=== PATIENT | male | born 1955 | race African-American/Black ===

== ENCOUNTER 2017-07-27 11:44 | Inpatient (IN) | payer MEDICAID, OTHER ==
[~2017-07-27] VITALS: Ht 177.8 cm; Wt 86.7 kg
[~2017-07-27 11:44] MED LIST: ALBU18HF2 IH; ATOR20TA PO; BENA20TA3 PO; CLAR10 PO; CLOP75TA33 PO; Folic Acid PO; Multivitamins,Ther W-Minerals PO; SIMV20TA6 PO
[2017-07-27] MEDS ORDERED: IPRATROPIUM BROMIDE (0.02%) 0.5MG/2.5ML NEB HHN STA (11:58)
[2017-07-27] MEDS ORDERED: ALBUTEROL (0.083%) 2.5MG/3ML NEB HHN STA (11:58)
[2017-07-27] MEDS ORDERED: METHYLPREDNISOLONE SOD SUCC 125 MG/2 ML VIAL IV STA (11:58)
[2017-07-27 12:22] LABS: HEMATOCRIT. 43.5 % (42.0-52.0); HEMOGLOBIN. 15.2 g/dL (14.0-18.0); MEAN CORPUSCULAR HEMOGLOBIN 28.9 pg (28.0-32.0); MEAN CORPUSCULAR VOLUME 83.1 fL (80.0-94.0); MEAN PLATELET VOLUME 10.1 fl (7.4-10.4); PLATELET 193 x1000/uL (130-400); RED BLOOD CELL COUNT 5.23 mill/uL (4.7-6.1); RED CELL DISTRIBUTION WIDTH 13.6 % (11.6-14.6)
[2017-07-27 12:30] LABS: PROTHROMBIN TIME 10.8 sec (9.4-11.6)
[2017-07-27 12:39] LABS: CARBON DIOXIDE 27 mEq/L (21-32); CHLORIDE 105 mEq/L (98-107); TROPONIN I < 0.02 ng/mL (0.00-0.04)
[2017-07-27 13:12] LABS: PLATELET ESTIMATE NORMAL
[2017-07-27] MEDS ORDERED: ALBUTEROL (0.5%) 2.5MG/0.5ML NEB HHN ONE (14:30)
[2017-07-27] MEDS ORDERED: ALBUTEROL (0.083%) 2.5MG/3ML NEB ONE ×2 (14:32→15:12)
[2017-07-27] MEDS ORDERED: HYDROCODONE/ACETAMINOPHEN 5/325MG TABLET PO PRN (17:45)
[2017-07-27] MEDS ORDERED: DIPHENHYDRAMINE 50MG/ML VIAL IV PRN (17:45)
[2017-07-27] MEDS ORDERED: ONDANSETRON HCL 4MG/2ML VIAL IV PRN (17:45)
[2017-07-27] MEDS ORDERED: ACETAMINOPHEN 325MG TABLET PO PRN (17:45)
[2017-07-27] MEDS ORDERED: CLONIDINE 0.1MG TABLET PO PRN (17:45)
[2017-07-27 18:25] VITALS: BP 123/50
[2017-07-27 18:43] VITALS: BP 123/50
[2017-07-27] MEDS: IPRATROPIUM/ALBUTEROL 0.5-3(2.5)MG/3ML NEB INH SCH ×2 (19:59→23:56)
[2017-07-27 20:00] VITALS: BP 127/72
[2017-07-27] MEDS: BUDESONIDE 0.5MG/2ML NEB HHN SCH (20:00)
[2017-07-27] MEDS ORDERED: NICOTINE 21MG PATCH TD NR (21:00)
[2017-07-27] MEDS: METHYLPREDNISOLONE SOD SUCC 40 MG/ML VIAL IV SCH (22:09)
[2017-07-28] VITALS: BP 127/71
[2017-07-28 03:20] LABS: *AMPHETAMINES SCREEN URINE NEGATIVE (NEGATIVE); *BARBITURATES SCREEN URINE NEGATIVE (NEGATIVE); *BENZODIAZEPINES SCREEN URINE NEGATIVE (NEGATIVE); *COCAINE SCREEN URINE PRESUMTIVE POSITIVE (NEGATIVE); CANNABINOID URINE SCREEN NEGATIVE (NEGATIVE); METHADONE URINE SCREEN NEGATIVE (NEGATIVE); OPIATES URINE SCREEN PRESUMTIVE POSITIVE (NEGATIVE); PHENCYCLIDINE URINE SCREEN NEGATIVE (NEGATIVE)
[2017-07-28] MEDS: IPRATROPIUM/ALBUTEROL 0.5-3(2.5)MG/3ML NEB INH SCH ×5 (04:10→20:11)
[2017-07-28] MEDS: METHYLPREDNISOLONE SOD SUCC 40 MG/ML VIAL IV SCH ×3 (04:35→20:31)
[2017-07-28 06:02] LABS: HEMOGLOBIN. 13.7 g/dL (14.0-18.0); MEAN CORPUSCULAR HEMOGLOBIN 29.7 pg (28.0-32.0); MEAN CORPUSCULAR VOLUME 84.4 fL (80.0-94.0); MEAN PLATELET VOLUME 10.6 fl (7.4-10.4); PLATELET 199 x1000/uL (130-400); RED BLOOD CELL COUNT 4.62 mill/uL (4.7-6.1); RED CELL DISTRIBUTION WIDTH 13.1 % (11.6-14.6)
[2017-07-28 06:11] LABS: CHLORIDE 103 mEq/L (98-107)
[2017-07-28 06:21] LABS: CARBON DIOXIDE 28 mEq/L (21-32); HDL CHOLESTEROL 79 mg/dL (40-59); LDL CHOLESTEROL 57 mg/dL (5-100); TROPONIN I < 0.02 ng/mL (0.00-0.04)
[2017-07-28] MEDS: PROMETHAZINE/DEXTROMETHORPHAN 6.25-15MG/5ML BOTTLE 120ML PO PRN ×2 (06:46→16:04)
[2017-07-28] MEDS: BUDESONIDE 0.5MG/2ML NEB HHN SCH ×2 (08:00→20:11)
[2017-07-28 08:01] VITALS: BP 143/72
[2017-07-28] MEDS: NICOTINE 21MG PATCH TD SCH (08:51)
[2017-07-28 09:20] LABS: PLATELET ESTIMATE NORMAL
[2017-07-28] MEDS: GUAIFENESIN 600MG ER TABLET PO SCH ×2 (11:40→20:31)
[2017-07-28 11:49] VITALS: BP 159/80
[2017-07-28] MEDS ORDERED: BUDESONIDE 0.5MG/2ML NEB HHN SCH (12:00)
[2017-07-28] MEDS: AMLODIPINE 5MG TABLET PO SCH (12:17)
[2017-07-28] MEDS: ENOXAPARIN 40MG/0.4ML SYR SUBCUT SCH (12:17)
[2017-07-28] MEDS: IPRATROPIUM/ALBUTEROL 0.5-3(2.5)MG/3ML NEB INH PRN (14:53)
[2017-07-28 17:00] VITALS: BP 140/89
[2017-07-28 20:00] VITALS: BP 154/79
[2017-07-28] MEDS: ZOLPIDEM TARTRATE 5MG TABLET PO PRN (20:31)
[2017-07-29] VITALS: BP 145/80
[2017-07-29] MEDS: IPRATROPIUM/ALBUTEROL 0.5-3(2.5)MG/3ML NEB INH SCH ×7 (00:37→23:44)
[2017-07-29 04:00] VITALS: BP 138/85
[2017-07-29] MEDS: METHYLPREDNISOLONE SOD SUCC 40 MG/ML VIAL IV SCH ×2 (04:06→12:15)
[2017-07-29 05:38] LABS: HEMATOCRIT. 41.5 % (42.0-52.0); HEMOGLOBIN. 13.9 g/dL (14.0-18.0); MEAN CORPUSCULAR HEMOGLOBIN 28.6 pg (28.0-32.0); MEAN CORPUSCULAR VOLUME 85.8 fL (80.0-94.0); MEAN PLATELET VOLUME 10.2 fl (7.4-10.4); PLATELET 205 x1000/uL (130-400); RED BLOOD CELL COUNT 4.84 mill/uL (4.7-6.1); RED CELL DISTRIBUTION WIDTH 13.5 % (11.6-14.6)
[2017-07-29 06:07] LABS: CARBON DIOXIDE 26 mEq/L (21-32); CHLORIDE 104 mEq/L (98-107)
[2017-07-29 06:53] LABS: PLATELET ESTIMATE NORMAL
[2017-07-29 08:00] VITALS: BP 148/83
[2017-07-29] MEDS: BUDESONIDE 0.5MG/2ML NEB HHN SCH ×2 (08:27→20:34)
[2017-07-29] MEDS: GUAIFENESIN 600MG ER TABLET PO SCH ×2 (09:17→21:32)
[2017-07-29] MEDS: AMLODIPINE 5MG TABLET PO SCH (09:17)
[2017-07-29] MEDS: NICOTINE 21MG PATCH TD SCH (09:17)
[2017-07-29] MEDS: PROMETHAZINE/DEXTROMETHORPHAN 6.25-15MG/5ML BOTTLE 120ML PO PRN (09:19)
[2017-07-29] MEDS ORDERED: SODIUM POLYSTYRENE SULFONATE 15 G/60 ML BOT PO NR (10:30)
[2017-07-29 12:00] VITALS: BP 139/78
[2017-07-29] MEDS: ENOXAPARIN 40MG/0.4ML SYR SUBCUT SCH (12:15)
[2017-07-29] MEDS ORDERED: DEXTROSE 50% WATER 50ML SYRINGE IV PRN (14:45)
[2017-07-29 15:18] LABS: BG BASE EXCESS 7.1 mmol/L (-2.0-2.0); BG CARBOXYHEMOGLOBIN 0.3 % (0.5-1.5); BG DEOXYHEMOGLOBIN 8.9 % (0.0-5.0); BG HCO3 ACT 32.2 mmol/L (22.0-26.0); BG METHEMOGLOBIN 0.6 % (0.0-1.5); BG OXYHEMOGLOBIN 90.2 % (94.0-97.0); BG PCO2 46.9 mmHg (35.0-45.0); BG PH 7.455 (7.350-7.450); BG PO2 60.6 mmHg (75.0-100.0); BG SAMPLE SITE RIGHT RADIAL; BG TOTAL HEMOGLOBIN 15.4 g/dL (12.0-18.0); BG VENT MODE ROOM AIR
[2017-07-29 16:00] VITALS: BP 143/86
[2017-07-29] MEDS: INSULIN LISPRO 100 UNITS/ML SUBCUT SCH ×2 (17:15→21:00)
[2017-07-29] MEDS: BLOOD SUGAR DIAGNOSTIC STRIP TEST SCH ×2 (17:34→21:36)
[2017-07-29 20:00] VITALS: BP 153/63
[2017-07-29] MEDS: IPRATROPIUM/ALBUTEROL 0.5-3(2.5)MG/3ML NEB INH PRN (20:34)
[2017-07-29] MEDS: ZOLPIDEM TARTRATE 5MG TABLET PO PRN (21:36)
[2017-07-29] MEDS: METHYLPREDNISOLONE SOD SUCC 125 MG/2 ML VIAL IV SCH (21:37)
[2017-07-30] VITALS: BP 142/97
[2017-07-30] MEDS: IPRATROPIUM/ALBUTEROL 0.5-3(2.5)MG/3ML NEB INH SCH ×5 (03:10→20:08)
[2017-07-30 04:00] VITALS: BP 158/68
[2017-07-30] MEDS: METHYLPREDNISOLONE SOD SUCC 125 MG/2 ML VIAL IV SCH ×3 (04:26→20:46)
[2017-07-30] MEDS: IPRATROPIUM/ALBUTEROL 0.5-3(2.5)MG/3ML NEB INH PRN ×2 (05:04→17:34)
[2017-07-30] MEDS: INSULIN LISPRO 100 UNITS/ML SUBCUT SCH ×4 (05:54→20:52)
[2017-07-30] MEDS: BLOOD SUGAR DIAGNOSTIC STRIP TEST SCH ×4 (05:54→20:52)
[2017-07-30 07:19] LABS: HEMOGLOBIN. 14.1 g/dL (14.0-18.0); MEAN CORPUSCULAR HEMOGLOBIN 29.4 pg (28.0-32.0); MEAN CORPUSCULAR VOLUME 83.2 fL (80.0-94.0); PLATELET 197 x1000/uL (130-400); RED BLOOD CELL COUNT 4.81 mill/uL (4.7-6.1); RED CELL DISTRIBUTION WIDTH 13.5 % (11.6-14.6)
[2017-07-30 08:00] VITALS: BP 148/79
[2017-07-30 08:02] LABS: CARBON DIOXIDE 32 mEq/L (21-32); CHLORIDE 100 mEq/L (98-107)
[2017-07-30] MEDS: BUDESONIDE 0.5MG/2ML NEB HHN SCH ×2 (08:10→20:06)
[2017-07-30] MEDS: NICOTINE 21MG PATCH TD SCH (09:11)
[2017-07-30] MEDS: AMLODIPINE 5MG TABLET PO SCH (09:11)
[2017-07-30] MEDS: GUAIFENESIN 600MG ER TABLET PO SCH ×2 (09:11→20:45)
[2017-07-30 09:40] LABS: PLATELET ESTIMATE NORMAL
[2017-07-30 12:00] VITALS: BP 159/75
[2017-07-30] MEDS ORDERED: TERBUTALINE SULFATE 1MG/ML VIAL SUBCUT NR (12:25)
[2017-07-30] MEDS: ENOXAPARIN 40MG/0.4ML SYR SUBCUT SCH (13:01)
[2017-07-30 16:00] VITALS: BP 127/72
[2017-07-30 20:00] VITALS: BP 147/77
[2017-07-30] MEDS: ZOLPIDEM TARTRATE 5MG TABLET PO PRN (20:45)
[2017-07-31] VITALS: BP 148/90
[2017-07-31] MEDS: IPRATROPIUM/ALBUTEROL 0.5-3(2.5)MG/3ML NEB INH SCH ×3 (00:07→07:53)
[2017-07-31 04:00] VITALS: BP 157/82
[2017-07-31] MEDS: METHYLPREDNISOLONE SOD SUCC 125 MG/2 ML VIAL IV SCH ×2 (04:49→11:42)
[2017-07-31] MEDS: BLOOD SUGAR DIAGNOSTIC STRIP TEST SCH ×2 (06:12→12:28)
[2017-07-31] MEDS: INSULIN LISPRO 100 UNITS/ML SUBCUT SCH ×2 (06:16→12:15)
[2017-07-31 06:45] LABS: HEMATOCRIT. 40.3 % (42.0-52.0); HEMOGLOBIN. 14.2 g/dL (14.0-18.0); MEAN CORPUSCULAR HEMOGLOBIN 29.4 pg (28.0-32.0); MEAN CORPUSCULAR VOLUME 83.4 fL (80.0-94.0); MEAN PLATELET VOLUME 10.3 fl (7.4-10.4); PLATELET 208 x1000/uL (130-400); RED BLOOD CELL COUNT 4.84 mill/uL (4.7-6.1); RED CELL DISTRIBUTION WIDTH 13.4 % (11.6-14.6)
[2017-07-31 07:36] LABS: CARBON DIOXIDE 33 mEq/L (21-32); CHLORIDE 98 mEq/L (98-107)
[2017-07-31 08:00] VITALS: BP_SYST 149
[2017-07-31] MEDS: AMLODIPINE 5MG TABLET PO SCH (08:45)
[2017-07-31] MEDS: GUAIFENESIN 600MG ER TABLET PO SCH (08:45)
[2017-07-31] MEDS: NICOTINE 21MG PATCH TD SCH (08:46)
[2017-07-31] MEDS: IPRATROPIUM/ALBUTEROL 0.5-3(2.5)MG/3ML NEB INH PRN (10:33)
[2017-07-31 11:06] LABS: PLATELET ESTIMATE NORMAL
[2017-07-31] MEDS: ENOXAPARIN 40MG/0.4ML SYR SUBCUT SCH (11:42)
[2017-07-31 12:00] VITALS: BP 132/81
== END 2017-07-31 14:05 | disposition left against medical advice (07) | DRG 139 ==
LOC: ER 12:04 → 5WST 14:39 → ENRESERV 16:36
PROVIDERS: ADMIT Internal Medicine; ATTEND Internal Medicine
PROC: 5A09357 Assistance with Respiratory Ventilation, Less than 24 Consecutive Hours, Continuous Positive Airway Pressure (ICD-10-PCS; principal; 2017-07-29)
PROC: 5A09357 Assistance with Respiratory Ventilation, Less than 24 Consecutive Hours, Continuous Positive Airway Pressure (ICD-10-PCS; 2017-07-30)
DX: J18.9 Pneumonia, unspecified organism (principal); J96.00 Acute respiratory failure, unspecified whether with hypoxia or hypercapnia; E87.3 Alkalosis; E46 Unspecified protein-calorie malnutrition; J44.1 Chronic obstructive pulmonary disease with (acute) exacerbation; J20.9 Acute bronchitis, unspecified; F14.10 Cocaine abuse, uncomplicated; F17.200 Nicotine dependence, unspecified, uncomplicated; J44.0 Chronic obstructive pulmonary disease with (acute) lower respiratory infection; E87.5 Hyperkalemia; R73.9 Hyperglycemia, unspecified; D63.8 Anemia in other chronic diseases classified elsewhere; E83.42 Hypomagnesemia; I10 Essential (primary) hypertension; E78.5 Hyperlipidemia, unspecified; T38.0X5A Adverse effect of glucocorticoids and synthetic analogues, initial encounter; Y92.89 Other specified places as the place of occurrence of the external cause; Z79.899 Other long term (current) drug therapy; Z86.73 Personal history of transient ischemic attack (TIA), and cerebral infarction without residual deficits; Z68.27 Body mass index [BMI] 27.0-27.9, adult; Z79.51 Long term (current) use of inhaled steroids
CPT/HCPCS: 36415; 36600; 71045; 80048; 80053; 80061; 80305; 82375; 82805; 82962; 83735; 83880; 84484; 85025; 85610; 87040; 87086; 87804; 93005; 94640; 96374; 99285; J1650; J2920; J2930; J3105; J7611; J7620; J7626

== ENCOUNTER 2018-05-25 15:20 | Inpatient (IN) | payer MEDICAID ==
[~2018-05-25] VITALS: Ht 180.3 cm; Wt 78.9 kg
[~2018-05-25 15:20] MED LIST changes: -ATOR20TA PO; +BENA20TA10 PO; -BENA20TA3 PO; -SIMV20TA6 PO
[2018-05-25] MEDS ORDERED: MAGNESIUM 2 G PREMIX 50 ML IV ONE (15:51)
[2018-05-25] MEDS ORDERED: METHYLPREDNISOLONE SOD SUCC 125 MG/2 ML VIAL ONE (15:52)
[2018-05-25] MEDS ORDERED: IPRATROPIUM BROMIDE (0.02%) 0.5MG/2.5ML NEB HHN STA (15:55)
[2018-05-25] MEDS ORDERED: METHYLPREDNISOLONE SOD SUCC 125 MG/2 ML VIAL IV STA (16:01)
[2018-05-25] MEDS: ALBUTEROL (0.083%) 2.5MG/3ML NEB HHN SCH ×3 (16:08→16:54)
[2018-05-25 17:33] LABS: BASOPHILS % 0.7 % (0.0-2.0); CHLORIDE 106 mEq/L (98-107); EOSINOPHILS % 2.4 % (0.0-5.0); HEMATOCRIT. 40.5 % (42.0-52.0); HEMOGLOBIN. 14.3 g/dL (14.0-18.0); LYMPHOCYTES % 22.8 % (20.0-50.0); MEAN CORPUSCULAR HEMOGLOBIN 30.2 pg (28.0-32.0); MEAN CORPUSCULAR VOLUME 85.4 fL (80.0-94.0); MONOCYTES % 7.3 % (2.0-8.0); NEUTROPHILS % 66.8 % (40.0-76.0); PLATELET 266 x1000/uL (130-400); RED BLOOD CELL COUNT 4.74 mill/uL (4.7-6.1); RED CELL DISTRIBUTION WIDTH 13.8 % (11.6-14.6)
[2018-05-25] MEDS ORDERED: ALBUTEROL (0.083%) 2.5MG/3ML NEB HHN STA (17:43)
[2018-05-25 18:08] LABS: CLARITY URINE CLEAR (CLEAR); COLOR URINE YELLOW (YELLOW); KETONES URINE NEGATIVE (NEGATIVE); LEUKOCYTE ESTERASE URINE NEGATIVE (NEGATIVE); NITRITE URINE NEGATIVE (NEGATIVE); OCCULT BLOOD URINE NEGATIVE (NEGATIVE); PH URINE 5.5 (4.5-8.0); PROTEIN URINE NEGATIVE (NEGATIVE); SPECIFIC GRAVITY URINE 1.017 (1.005-1.030); UROBILINOGEN URINE 0.2 E.U./dL (0.2-1.0)
[2018-05-25 18:23] LABS: *AMPHETAMINES SCREEN URINE NEGATIVE (NEGATIVE); *BARBITURATES SCREEN URINE NEGATIVE (NEGATIVE); *BENZODIAZEPINES SCREEN URINE NEGATIVE (NEGATIVE); *COCAINE SCREEN URINE PRESUMTIVE POSITIVE (NEGATIVE)
[2018-05-25 18:24] LABS: CANNABINOID URINE SCREEN NEGATIVE (NEGATIVE); METHADONE URINE SCREEN NEGATIVE (NEGATIVE); OPIATES URINE SCREEN NEGATIVE (NEGATIVE); PHENCYCLIDINE URINE SCREEN NEGATIVE (NEGATIVE)
[2018-05-25] MEDS ORDERED: IPRATROPIUM/ALBUTEROL 0.5-3(2.5)MG/3ML NEB HHN ONE (22:00)
[2018-05-26] MEDS: IPRATROPIUM/ALBUTEROL 0.5-3(2.5)MG/3ML NEB HHN SCH ×5 (05:30→19:58)
[2018-05-26 11:06] VITALS: BP 144/73
[2018-05-26 11:18] VITALS: BP 144/73
[2018-05-26 12:00] VITALS: BP 129/64
[2018-05-26 16:00] VITALS: BP 138/69
[2018-05-26] MEDS: METHYLPREDNISOLONE SOD SUCC 125 MG/2 ML VIAL IV SCH ×2 (17:28→23:25)
[2018-05-26 20:00] VITALS: BP 130/66
[2018-05-26] MEDS: LORATADINE 10MG TABLET PO SCH (22:09)
[2018-05-26] MEDS: ZOLPIDEM TARTRATE 5MG TABLET PO PRN (22:09)
[2018-05-27] MEDS: IPRATROPIUM/ALBUTEROL 0.5-3(2.5)MG/3ML NEB HHN SCH ×6 (00:18→19:51)
[2018-05-27 04:00] VITALS: BP 126/66
[2018-05-27 08:00] VITALS: BP 129/72
[2018-05-27] MEDS: MULTIVITAMINS,THER W-MINERALS TABLET PO SCH (08:25)
[2018-05-27] MEDS: METHYLPREDNISOLONE SOD SUCC 125 MG/2 ML VIAL IV SCH ×2 (08:25→16:39)
[2018-05-27] MEDS: FOLIC ACID 1MG TABLET PO SCH (08:25)
[2018-05-27] MEDS: CLOPIDOGREL 75MG TABLET PO SCH (08:25)
[2018-05-27] MEDS: BENAZEPRIL 10MG TABLET PO SCH (08:25)
[2018-05-27 12:00] VITALS: BP 124/67
[2018-05-27 16:00] VITALS: BP 121/62
[2018-05-27 20:00] VITALS: BP 119/69
[2018-05-27] MEDS: LORATADINE 10MG TABLET PO SCH (20:30)
[2018-05-27] MEDS: ZOLPIDEM TARTRATE 5MG TABLET PO PRN (22:01)
[2018-05-28] VITALS: BP 124/79
[2018-05-28] MEDS: METHYLPREDNISOLONE SOD SUCC 125 MG/2 ML VIAL IV SCH ×3 (00:03→16:26)
[2018-05-28] MEDS: IPRATROPIUM/ALBUTEROL 0.5-3(2.5)MG/3ML NEB HHN SCH ×5 (00:21→14:54)
[2018-05-28 04:00] VITALS: BP 128/64
[2018-05-28 08:06] VITALS: BP 128/58
[2018-05-28] MEDS: FOLIC ACID 1MG TABLET PO SCH (08:09)
[2018-05-28] MEDS: BENAZEPRIL 10MG TABLET PO SCH (08:09)
[2018-05-28] MEDS: CLOPIDOGREL 75MG TABLET PO SCH (08:09)
[2018-05-28] MEDS: MULTIVITAMINS,THER W-MINERALS TABLET PO SCH (08:09)
[2018-05-28 12:00] VITALS: BP 141/62
[2018-05-28 12:49] LABS: HEMATOCRIT. 39.6 % (42.0-52.0); HEMOGLOBIN. 13.8 g/dL (14.0-18.0); MEAN CORPUSCULAR HEMOGLOBIN 29.9 pg (28.0-32.0); MEAN CORPUSCULAR VOLUME 85.8 fL (80.0-94.0); PLATELET 253 x1000/uL (130-400); RED BLOOD CELL COUNT 4.62 mill/uL (4.7-6.1); RED CELL DISTRIBUTION WIDTH 13.7 % (11.6-14.6)
[2018-05-28 13:10] LABS: CHLORIDE 103 mEq/L (98-107)
[2018-05-28 15:05] VITALS: BP 152/72
[2018-05-28 16:00] VITALS: BP 152/72
[2018-05-28 17:46] LABS: PLATELET ESTIMATE NORMAL
== END 2018-05-28 18:00 | disposition home or self-care (01) | DRG 140 ==
LOC: ER 18:01 → 8WST 18:38 → EDBEDREQSVC 18:39 → EDBEDREQ 18:39 → ENRESERV 05-26 08:26
PROVIDERS: ADMIT Internal Medicine; ATTEND Internal Medicine
DX: J44.1 Chronic obstructive pulmonary disease with (acute) exacerbation (principal); J96.01 Acute respiratory failure with hypoxia; E78.00 Pure hypercholesterolemia, unspecified; I10 Essential (primary) hypertension; F14.90 Cocaine use, unspecified, uncomplicated; Z72.0 Tobacco use; Z86.73 Personal history of transient ischemic attack (TIA), and cerebral infarction without residual deficits; Z79.899 Other long term (current) drug therapy
CPT/HCPCS: 36415; 71045; 80048; 80305; 85007; 85027; 93005; 94640; 96374; 99285; J2930; J3475; J7611; J7620

== ENCOUNTER 2018-07-30 07:27 | Emergency (ER) | payer MEDICAID, OTHER ==
[~2018-07-30] VITALS: Ht 177.8 cm; Wt 85.0 kg
[2018-07-30 07:30] VITALS: BP 150/78
== END 2018-07-30 09:35 | disposition left against medical advice (07) ==
LOC: ER 07:27
DX: Z53.21 Procedure and treatment not carried out due to patient leaving prior to being seen by health care provider (principal)

== ENCOUNTER 2019-01-14 23:09 | Inpatient (IN) | payer MEDICARE, MEDICAID ==
[~2019-01-14] VITALS: Ht 363.2 cm; Wt 90.7 kg
[2019-01-14] MEDS ORDERED: METHYLPREDNISOLONE SOD SUCC 125 MG/2 ML VIAL IV STA (23:24)
[2019-01-14] MEDS ORDERED: IPRATROPIUM BROMIDE (0.02%) 0.5MG/2.5ML NEB HHN STA (23:24)
[2019-01-14] MEDS ORDERED: MAGNESIUM 2 G PREMIX 50 ML IV ONE (23:30)
[2019-01-14 23:48] LABS: BASOPHILS % 0.9 % (0.0-2.0); EOSINOPHILS % 1.9 % (0.0-5.0); HEMATOCRIT. 35.1 % (42.0-52.0); HEMOGLOBIN. 12.4 g/dL (14.0-18.0); LYMPHOCYTES % 26.9 % (20.0-50.0); MEAN CORPUSCULAR HEMOGLOBIN 30.5 pg (28.0-32.0); MEAN CORPUSCULAR VOLUME 86.2 fL (80.0-94.0); MONOCYTES % 7.2 % (2.0-8.0); NEUTROPHILS % 63.1 % (40.0-76.0); PLATELET 339 x1000/uL (130-400); RED BLOOD CELL COUNT 4.07 mill/uL (4.7-6.1); RED CELL DISTRIBUTION WIDTH 15.2 % (11.6-14.6)
[2019-01-14 23:52] LABS: CHLORIDE 110 mEq/L (98-107)
[2019-01-14 23:53] LABS: BG BASE EXCESS 1.8 mmol/L (-2.0-2.0); BG CARBOXYHEMOGLOBIN 0.3 % (0.5-1.5); BG DEOXYHEMOGLOBIN 4.8 % (0.0-5.0); BG FRACTION INSPIRED OXYGEN 21; BG HCO3 ACT 26.1 mmol/L (22.0-26.0); BG METHEMOGLOBIN 0.3 % (0.0-1.5); BG OXYGEN SATURATION 95.2 % (92.0-98.5); BG OXYHEMOGLOBIN 94.6 % (94.0-97.0); BG PCO2 40.2 mmHg (35.0-45.0); BG PH 7.431 (7.350-7.450); BG PO2 82.9 mmHg (75.0-100.0); BG SAMPLE SITE RIGHT RADIAL; BG TOTAL HEMOGLOBIN 12.7 g/dL (12.0-18.0); BG VENT MODE ROOM AIR
[2019-01-15] MEDS: ALBUTEROL (0.083%) 2.5MG/3ML NEB HHN SCH ×3 (00:04→09:03)
[2019-01-15] MEDS ORDERED: GUAIFENESIN 200MG/10ML SUGAR FREE UDC PO PRN (06:15)
[2019-01-15] MEDS ORDERED: IPRATROPIUM/ALBUTEROL 0.5-3(2.5)MG/3ML NEB INH PRN (06:15)
[2019-01-15] MEDS ORDERED: CLONIDINE 0.1MG TABLET PO PRN (06:15)
[2019-01-15] MEDS ORDERED: ACETAMINOPHEN 325MG TABLET PO PRN (06:15)
[2019-01-15] MEDS ORDERED: ONDANSETRON HCL 4MG/2ML INJ IV PRN (06:15)
[2019-01-15] MEDS ORDERED: NA PHOS,M-B/NA PHOS,DI-BA ENEMA 118ML PR PRN (06:15)
[2019-01-15] MEDS ORDERED: LORAZEPAM 2MG/ML CPJ IV PRN (06:15)
[2019-01-15] MEDS ORDERED: MAGNESIUM/ALUMINUM HYDROXIDE/SIMETHICONE 30ML UDC PO PRN (06:15)
[2019-01-15] MEDS ORDERED: HYDRALAZINE 20MG/ML VIAL IV PRN (06:15)
[2019-01-15] MEDS ORDERED: HYDROMORPHONE HCL/PF 2MG/ML CPJ IV PRN (06:15)
[2019-01-15] MEDS ORDERED: HYDROCODONE/ACETAMINOPHEN 10/325MG TABLET PO PRN (06:15)
[2019-01-15] MEDS ORDERED: DIPHENHYDRAMINE 50MG/ML VIAL IV PRN (06:15)
[2019-01-15] MEDS ORDERED: DOCUSATE SODIUM 100MG CAPSULE PO PRN (06:15)
[2019-01-15 06:40] LABS: T4 FREE 0.83 ng/dL (0.76-1.46)
[2019-01-15 08:00] VITALS: BP 163/77
[2019-01-15 09:00] VITALS: BP 163/77
[2019-01-15] MEDS: ASPIRIN 81MG EC TABLET PO SCH (09:29)
[2019-01-15] MEDS: METHYLPREDNISOLONE SOD SUCC 125 MG/2 ML VIAL IV SCH ×3 (09:29→22:16)
[2019-01-15] MEDS: ENOXAPARIN 40MG/0.4ML SYR SUBCUT SCH (09:31)
[2019-01-15] MEDS: IPRATROPIUM/ALBUTEROL 0.5-3(2.5)MG/3ML NEB HHN SCH ×3 (11:34→20:08)
[2019-01-15 12:00] VITALS: BP 141/73
[2019-01-15] MEDS: SODIUM CHLORIDE 0.9% INJ 3ML FLUSH IVF SCH ×2 (14:00→22:17)
[2019-01-15 15:15] LABS: CREATINE KINASE 94 IU/L (39-308)
[2019-01-15 15:16] LABS: CREATINE KINASE MB FRACTION 2.1 ng/mL (0.5-3.6)
[2019-01-15 16:00] VITALS: BP 138/79
[2019-01-15] MEDS: GUAIFENESIN 600MG ER TABLET PO SCH (22:16)
[2019-01-15] MEDS: HYDROXYZINE 25MG TABLET PO PRN (22:44)
[2019-01-16] VITALS: BP 105/69
[2019-01-16] MEDS: IPRATROPIUM/ALBUTEROL 0.5-3(2.5)MG/3ML NEB HHN SCH ×6 (00:31→21:07)
[2019-01-16 00:50] LABS: CREATINE KINASE 84 IU/L (39-308)
[2019-01-16 00:51] LABS: CREATINE KINASE MB FRACTION 1.8 ng/mL (0.5-3.6)
[2019-01-16] MEDS: METHYLPREDNISOLONE SOD SUCC 125 MG/2 ML VIAL IV SCH ×3 (03:10→14:44)
[2019-01-16 04:44] VITALS: BP 110/71
[2019-01-16] MEDS: SODIUM CHLORIDE 0.9% INJ 3ML FLUSH IVF SCH ×3 (05:18→21:07)
[2019-01-16 06:18] LABS: HEMATOCRIT. 33.9 % (42.0-52.0); HEMOGLOBIN. 11.7 g/dL (14.0-18.0); MEAN CORPUSCULAR HEMOGLOBIN 29.7 pg (28.0-32.0); MEAN CORPUSCULAR VOLUME 85.6 fL (80.0-94.0); MEAN PLATELET VOLUME 9.6 fl (7.4-10.4); PLATELET 339 x1000/uL (130-400); RED BLOOD CELL COUNT 3.96 mill/uL (4.7-6.1); RED CELL DISTRIBUTION WIDTH 15.2 % (11.6-14.6)
[2019-01-16 06:24] LABS: CHLORIDE 107 mEq/L (98-107)
[2019-01-16 07:52] LABS: PLATELET ESTIMATE NORMAL
[2019-01-16 08:00] VITALS: BP 126/67
[2019-01-16] MEDS: ASPIRIN 81MG EC TABLET PO SCH (08:53)
[2019-01-16] MEDS: ENOXAPARIN 40MG/0.4ML SYR SUBCUT SCH (08:53)
[2019-01-16] MEDS: GUAIFENESIN 600MG ER TABLET PO SCH ×2 (08:53→21:06)
[2019-01-16 12:00] VITALS: BP 128/64
[2019-01-16 16:00] VITALS: BP 130/60
[2019-01-16] MEDS: THIAMINE HCL 100MG TABLET PO SCH (16:09)
[2019-01-16] MEDS: MULTIVITAMINS,THER W-MINERALS TABLET PO SCH (16:09)
[2019-01-16] MEDS: FOLIC ACID 1MG TABLET PO SCH (16:09)
[2019-01-16] MEDS ORDERED: NICO-645 TP (17:44)
[2019-01-16] MEDS ORDERED: GUAI600T26 PO (17:47)
[2019-01-16 20:00] VITALS: BP 125/59
[2019-01-16] MEDS: HYDROXYZINE 25MG TABLET PO PRN (22:22)
[2019-01-17] VITALS: BP 128/61
[2019-01-17] MEDS: IPRATROPIUM/ALBUTEROL 0.5-3(2.5)MG/3ML NEB HHN SCH ×4 (00:12→11:23)
[2019-01-17 04:00] VITALS: BP 140/70
[2019-01-17] MEDS: SODIUM CHLORIDE 0.9% INJ 3ML FLUSH IVF SCH ×2 (05:24→14:53)
[2019-01-17] MEDS: METHYLPREDNISOLONE SOD SUCC 40 MG/ML VIAL IV SCH ×2 (06:13→10:28)
[2019-01-17] MEDS: FOLIC ACID 1MG TABLET PO SCH (09:00)
[2019-01-17] MEDS: GUAIFENESIN 600MG ER TABLET PO SCH (10:28)
[2019-01-17] MEDS: MULTIVITAMINS,THER W-MINERALS TABLET PO SCH (10:28)
[2019-01-17] MEDS: ASPIRIN 81MG EC TABLET PO SCH (10:29)
[2019-01-17] MEDS: THIAMINE HCL 100MG TABLET PO SCH (10:29)
[2019-01-17] MEDS: ENOXAPARIN 40MG/0.4ML SYR SUBCUT SCH (10:32)
[2019-01-17 11:03] VITALS: BP 125/67
== END 2019-01-17 14:05 | disposition home or self-care (01) | DRG 205 ==
LOC: ER 23:09 → 5WST 01-15 01:31 → EDBEDREQ 01-15 01:35 → EDBEDREQTM 01-15 01:35 → EDBEDREQDT 01-15 01:35 → ENRESERV 01-15 07:02
PROVIDERS: ADMIT Internal Medicine; ATTEND Internal Medicine
DX: J68.0 Bronchitis and pneumonitis due to chemicals, gases, fumes and vapors (principal); J96.00 Acute respiratory failure, unspecified whether with hypoxia or hypercapnia; J44.1 Chronic obstructive pulmonary disease with (acute) exacerbation; F17.200 Nicotine dependence, unspecified, uncomplicated; E78.5 Hyperlipidemia, unspecified; F14.10 Cocaine abuse, uncomplicated; I10 Essential (primary) hypertension; J06.9 Acute upper respiratory infection, unspecified; G47.00 Insomnia, unspecified; E78.00 Pure hypercholesterolemia, unspecified; Z79.899 Other long term (current) drug therapy; Z86.73 Personal history of transient ischemic attack (TIA), and cerebral infarction without residual deficits; Z79.02 Long term (current) use of antithrombotics/antiplatelets; Z98.42 Cataract extraction status, left eye; Z71.6 Tobacco abuse counseling
CPT/HCPCS: 36415; 36600; 71045; 80048; 80061; 82375; 82550; 82553; 82805; 83605; 83880; 84439; 84443; 84484; 93005; 94640; 96365; 96375; 99285; J1650; J2920; J2930; J3475; J7611; J7620

== ENCOUNTER 2019-04-23 19:50 | Inpatient (IN) | payer MEDICARE, MEDICAID ==
[~2019-04-23] VITALS: Ht 175.3 cm; Wt 74.4 kg
[~2019-04-23 19:50] MED LIST changes: +GUAI600T26 PO; +NICO-645 TP
[2019-04-23] MEDS ORDERED: IPRATROPIUM BROMIDE (0.02%) 0.5MG/2.5ML NEB HHN STA (20:46)
[2019-04-23] MEDS ORDERED: PREDNISONE 20MG TABLET PO STA (20:46)
[2019-04-23] MEDS ORDERED: ALBUTEROL (0.083%) 2.5MG/3ML NEB HHN STA (20:46)
[2019-04-23] MEDS ORDERED: ASPIRIN 81MG TABLET PO ONE (21:00)
[2019-04-23 21:03] LABS: BASOPHILS % 1.2 % (0.0-2.0); EOSINOPHILS % 2.6 % (0.0-5.0); HEMATOCRIT. 36.4 % (42.0-52.0); HEMOGLOBIN. 12.6 g/dL (14.0-18.0); LYMPHOCYTES % 20.9 % (20.0-50.0); MEAN CORPUSCULAR HEMOGLOBIN 29.1 pg (28.0-32.0); MEAN CORPUSCULAR VOLUME 84.2 fL (80.0-94.0); MEAN PLATELET VOLUME 9.2 fl (7.4-10.4); MONOCYTES % 8.4 % (2.0-8.0); NEUTROPHILS % 66.9 % (40.0-76.0); PLATELET 391 x1000/uL (130-400); RED BLOOD CELL COUNT 4.32 mill/uL (4.7-6.1); RED CELL DISTRIBUTION WIDTH 17.1 % (11.6-14.6)
[2019-04-23 21:09] LABS: CHLORIDE 108 mEq/L (98-107)
[2019-04-23] MEDS ORDERED: ONDANSETRON HCL 4MG/2ML INJ IV PRN (22:15)
[2019-04-23] MEDS ORDERED: ACETAMINOPHEN 325MG TABLET PO PRN (22:15)
[2019-04-23] MEDS ORDERED: CLONIDINE 0.1MG TABLET PO PRN (22:15)
[2019-04-23] MEDS ORDERED: DOCUSATE SODIUM 100MG CAPSULE PO PRN (22:15)
[2019-04-23] MEDS ORDERED: GUAIFENESIN 200MG/10ML SUGAR FREE UDC PO PRN (22:15)
[2019-04-23] MEDS ORDERED: HYDROCODONE/ACETAMINOPHEN 5/325MG TABLET PO PRN (22:15)
[2019-04-23] MEDS ORDERED: MAGNESIUM/ALUMINUM HYDROXIDE/SIMETHICONE 30ML UDC PO PRN (22:15)
[2019-04-23] MEDS ORDERED: IPRATROPIUM/ALBUTEROL 0.5-3(2.5)MG/3ML NEB NEB PRN (22:15)
[2019-04-23 23:30] VITALS: BP 116/59
[2019-04-24] MEDS ORDERED: METHYLPREDNISOLONE SOD SUCC 125 MG/2 ML VIAL IV SCH
[2019-04-24] MEDS: AZITHROMYCIN 500 MG TABLET PO SCH ×2 (00:52→21:58)
[2019-04-24] MEDS: IPRATROPIUM/ALBUTEROL 0.5-3(2.5)MG/3ML NEB NEB SCH ×6 (01:21→20:28)
[2019-04-24 02:33] LABS: CHLORIDE 107 mEq/L (98-107)
[2019-04-24 04:00] VITALS: BP 124/62
[2019-04-24] MEDS: METHYLPREDNISOLONE SOD SUCC 40 MG/ML VIAL IV SCH ×3 (05:56→21:55)
[2019-04-24] MEDS: OMEPRAZOLE 20MG CAPSULE EXTENDED RELEASE PO SCH (07:03)
[2019-04-24 08:05] LABS: CLARITY URINE CLEAR (CLEAR); COLOR URINE YELLOW (YELLOW); KETONES URINE NEGATIVE (NEGATIVE); LEUKOCYTE ESTERASE URINE NEGATIVE (NEGATIVE); NITRITE URINE NEGATIVE (NEGATIVE); OCCULT BLOOD URINE NEGATIVE (NEGATIVE); PH URINE 5.5 (4.5-8.0); PROTEIN URINE NEGATIVE (NEGATIVE); SPECIFIC GRAVITY URINE 1.024 (1.005-1.030); UROBILINOGEN URINE 0.2 E.U./dL (0.2-1.0)
[2019-04-24 08:31] LABS: *BARBITURATES SCREEN URINE NEGATIVE (NEGATIVE); *BENZODIAZEPINES SCREEN URINE NEGATIVE (NEGATIVE); *COCAINE SCREEN URINE PRESUMTIVE POSITIVE (NEGATIVE); METHADONE URINE SCREEN NEGATIVE (NEGATIVE); OPIATES URINE SCREEN NEGATIVE (NEGATIVE)
[2019-04-24 08:32] LABS: *AMPHETAMINES SCREEN URINE NEGATIVE (NEGATIVE); CANNABINOID URINE SCREEN PRESUMTIVE POSITIVE (NEGATIVE); PHENCYCLIDINE URINE SCREEN NEGATIVE (NEGATIVE)
[2019-04-24] MEDS ORDERED: ENOXAPARIN 30MG/0.3ML SYR SUBCUT SCH (09:00)
[2019-04-24 11:33] LABS: HEMATOCRIT. 32.6 % (42.0-52.0); HEMOGLOBIN. 11.3 g/dL (14.0-18.0); MEAN CORPUSCULAR HEMOGLOBIN 29.5 pg (28.0-32.0); MEAN CORPUSCULAR VOLUME 85.3 fL (80.0-94.0); MEAN PLATELET VOLUME 9.6 fl (7.4-10.4); PLATELET 335 x1000/uL (130-400); RED BLOOD CELL COUNT 3.82 mill/uL (4.7-6.1); RED CELL DISTRIBUTION WIDTH 17.4 % (11.6-14.6)
[2019-04-24 12:00] LABS: PLATELET ESTIMATE NORMAL
[2019-04-24 12:07] VITALS: BP 133/71
[2019-04-24] MEDS ORDERED: FOLIC ACID 1MG TABLET PO SCH (15:15)
[2019-04-24] MEDS ORDERED: MULTIVITAMINS,THER W-MINERALS TABLET PO SCH (15:15)
[2019-04-24] MEDS ORDERED: NICOTINE 14MG PATCH TD SCH (15:15)
[2019-04-24 16:04] VITALS: BP 128/56
[2019-04-24 16:11] LABS: CREATINE KINASE MB FRACTION 2.6 ng/mL (0.5-3.6)
[2019-04-24] MEDS: NICOTINE 14MG PATCH TD SCH (16:29)
[2019-04-24] MEDS: BENAZEPRIL 10MG TABLET PO SCH (16:30)
[2019-04-24] MEDS: CLOPIDOGREL 75MG TABLET PO SCH (16:30)
[2019-04-24] MEDS: THIAMINE HCL 100MG TABLET PO SCH (16:30)
[2019-04-24] MEDS: MULTIVITAMINS,THER W-MINERALS TABLET PO SCH (16:30)
[2019-04-24] MEDS: ASPIRIN 81MG TABLET PO SCH (16:30)
[2019-04-24] MEDS: FOLIC ACID 1MG TABLET PO SCH (16:30)
[2019-04-24 20:00] VITALS: BP 117/63
[2019-04-24] MEDS: ATORVASTATIN CALCIUM 20MG TABLET PO SCH (21:55)
[2019-04-24] MEDS: LORATADINE 10MG TABLET PO SCH (21:55)
[2019-04-24] MEDS: ZOLPIDEM TARTRATE 5MG TABLET PO PRN (21:55)
[2019-04-25] VITALS: BP 121/67
[2019-04-25] MEDS: IPRATROPIUM/ALBUTEROL 0.5-3(2.5)MG/3ML NEB NEB SCH ×6 (00:24→20:42)
[2019-04-25 04:00] VITALS: BP 106/76
[2019-04-25] MEDS: METHYLPREDNISOLONE SOD SUCC 40 MG/ML VIAL IV SCH ×3 (06:44→21:01)
[2019-04-25] MEDS: OMEPRAZOLE 20MG CAPSULE EXTENDED RELEASE PO SCH (06:44)
[2019-04-25 06:46] LABS: BASOPHILS % 0.1 % (0.0-2.0); HEMATOCRIT. 32.9 % (42.0-52.0); HEMOGLOBIN. 11.1 g/dL (14.0-18.0); LYMPHOCYTES % 7.9 % (20.0-50.0); MEAN CORPUSCULAR HEMOGLOBIN 28.9 pg (28.0-32.0); MEAN CORPUSCULAR VOLUME 85.6 fL (80.0-94.0); MONOCYTES % 2.9 % (2.0-8.0); NEUTROPHILS % 89.1 % (40.0-76.0); PLATELET 346 x1000/uL (130-400); RED BLOOD CELL COUNT 3.84 mill/uL (4.7-6.1); RED CELL DISTRIBUTION WIDTH 17.6 % (11.6-14.6)
[2019-04-25 07:10] LABS: CHLORIDE 107 mEq/L (98-107)
[2019-04-25 07:50] LABS: TOTAL IRON BINDING CAPACITY 349 ug/dL (250-450)
[2019-04-25 07:52] LABS: T4 FREE 0.77 ng/dL (0.76-1.46)
[2019-04-25 08:00] VITALS: BP 131/68
[2019-04-25] MEDS: ASPIRIN 81MG TABLET PO SCH (09:06)
[2019-04-25] MEDS: MULTIVITAMINS,THER W-MINERALS TABLET PO SCH (09:06)
[2019-04-25] MEDS: CLOPIDOGREL 75MG TABLET PO SCH (09:06)
[2019-04-25] MEDS: NICOTINE 14MG PATCH TD SCH (09:06)
[2019-04-25] MEDS: THIAMINE HCL 100MG TABLET PO SCH (09:06)
[2019-04-25] MEDS: FOLIC ACID 1MG TABLET PO SCH (09:06)
[2019-04-25] MEDS: BENAZEPRIL 10MG TABLET PO SCH (09:07)
[2019-04-25] MEDS: ENOXAPARIN 40MG/0.4ML SYR SUBCUT SCH (09:07)
[2019-04-25 12:00] VITALS: BP 139/66
[2019-04-25 12:20] LABS: BG BASE EXCESS 3.6 mmol/L (-2.0-2.0); BG CARBOXYHEMOGLOBIN 0.5 % (0.5-1.5); BG DEOXYHEMOGLOBIN 5.1 % (0.0-5.0); BG FRACTION INSPIRED OXYGEN 21; BG HCO3 ACT 28.2 mmol/L (22.0-26.0); BG METHEMOGLOBIN 0.3 % (0.0-1.5); BG OXYGEN SATURATION 94.9 % (92.0-98.5); BG OXYHEMOGLOBIN 94.1 % (94.0-97.0); BG PCO2 42.3 mmHg (35.0-45.0); BG PH 7.441 (7.350-7.450); BG PO2 79.1 mmHg (75.0-100.0); BG SAMPLE SITE RIGHT RADIAL; BG TOTAL HEMOGLOBIN 12.1 g/dL (12.0-18.0); BG VENT MODE ROOM AIR
[2019-04-25 16:00] VITALS: BP 123/66
[2019-04-25 20:30] VITALS: BP 114/62
[2019-04-25] MEDS: BUDESONIDE 0.5MG/2ML NEB HHN SCH (20:43)
[2019-04-25] MEDS: AZITHROMYCIN 500 MG TABLET PO SCH (20:53)
[2019-04-25] MEDS: LORATADINE 10MG TABLET PO SCH (20:53)
[2019-04-25] MEDS: ATORVASTATIN CALCIUM 20MG TABLET PO SCH (20:53)
[2019-04-25] MEDS: ZOLPIDEM TARTRATE 5MG TABLET PO PRN (20:53)
[2019-04-25] MEDS: GUAIFENESIN 600MG ER TABLET PO SCH (20:53)
[2019-04-26] VITALS: BP 138/70
[2019-04-26] MEDS: IPRATROPIUM/ALBUTEROL 0.5-3(2.5)MG/3ML NEB NEB SCH ×4 (00:55→12:26)
[2019-04-26 04:00] VITALS: BP 137/59
[2019-04-26] MEDS: OMEPRAZOLE 20MG CAPSULE EXTENDED RELEASE PO SCH (06:32)
[2019-04-26] MEDS: METHYLPREDNISOLONE SOD SUCC 40 MG/ML VIAL IV SCH (06:32)
[2019-04-26 07:12] LABS: BASOPHILS % 0.2 % (0.0-2.0); HEMATOCRIT. 31.7 % (42.0-52.0); HEMOGLOBIN. 10.8 g/dL (14.0-18.0); LYMPHOCYTES % 9.3 % (20.0-50.0); MEAN CORPUSCULAR HEMOGLOBIN 28.9 pg (28.0-32.0); MEAN CORPUSCULAR VOLUME 84.9 fL (80.0-94.0); MEAN PLATELET VOLUME 9.6 fl (7.4-10.4); MONOCYTES % 5.6 % (2.0-8.0); NEUTROPHILS % 84.9 % (40.0-76.0); PLATELET 326 x1000/uL (130-400); RED BLOOD CELL COUNT 3.73 mill/uL (4.7-6.1); RED CELL DISTRIBUTION WIDTH 17.5 % (11.6-14.6)
[2019-04-26 08:49] VITALS: BP 142/71
[2019-04-26] MEDS: THIAMINE HCL 100MG TABLET PO SCH (09:05)
[2019-04-26] MEDS: CLOPIDOGREL 75MG TABLET PO SCH (09:05)
[2019-04-26] MEDS: NICOTINE 14MG PATCH TD SCH (09:05)
[2019-04-26] MEDS: MULTIVITAMINS,THER W-MINERALS TABLET PO SCH (09:05)
[2019-04-26] MEDS: GUAIFENESIN 600MG ER TABLET PO SCH (09:05)
[2019-04-26] MEDS: FOLIC ACID 1MG TABLET PO SCH (09:05)
[2019-04-26] MEDS: BENAZEPRIL 10MG TABLET PO SCH (09:05)
[2019-04-26] MEDS: ASPIRIN 81MG TABLET PO SCH (09:05)
[2019-04-26] MEDS: ENOXAPARIN 40MG/0.4ML SYR SUBCUT SCH (09:06)
[2019-04-26] MEDS: BUDESONIDE 0.5MG/2ML NEB HHN SCH (09:15)
[2019-04-26 09:46] LABS: CHLORIDE 107 mEq/L (98-107)
[2019-04-26] MEDS ORDERED: IPRA3AMP9 NEB (12:20)
[2019-04-26] MEDS ORDERED: CLAR10 PO (12:20)
[2019-04-26] MEDS ORDERED: GUAI600T26 PO (12:20)
[2019-04-26] MEDS ORDERED: MED4 MT (12:20)
[2019-04-26] MEDS ORDERED: BUDE6.9H INH (12:20)
[2019-04-26] MEDS ORDERED: ALBU18HF2 IH (12:20)
[2019-04-26 14:02] VITALS: BP 142/71
== END 2019-04-26 17:05 | disposition home or self-care (01) | DRG 917 ==
LOC: ER 19:50 → ENRESERV 22:04 → 6WST 23:27
PROVIDERS: ADMIT Internal Medicine; ATTEND Internal Medicine
DX: T40.5X1A Poisoning by cocaine, accidental (unintentional), initial encounter (principal); J96.00 Acute respiratory failure, unspecified whether with hypoxia or hypercapnia; J44.1 Chronic obstructive pulmonary disease with (acute) exacerbation; J45.901 Unspecified asthma with (acute) exacerbation; J68.0 Bronchitis and pneumonitis due to chemicals, gases, fumes and vapors; E78.5 Hyperlipidemia, unspecified; D64.9 Anemia, unspecified; D72.821 Monocytosis (symptomatic); F12.10 Cannabis abuse, uncomplicated; F14.10 Cocaine abuse, uncomplicated; I10 Essential (primary) hypertension; E78.00 Pure hypercholesterolemia, unspecified; F17.210 Nicotine dependence, cigarettes, uncomplicated; G47.00 Insomnia, unspecified; R73.9 Hyperglycemia, unspecified; Z79.51 Long term (current) use of inhaled steroids; Z86.73 Personal history of transient ischemic attack (TIA), and cerebral infarction without residual deficits; Y92.89 Other specified places as the place of occurrence of the external cause
CPT/HCPCS: 36415; 36600; 71045; 80048; 80061; 80305; 81003; 82375; 82550; 82553; 82728; 82805; 83036; 83540; 83550; 83735; 83880; 84439; 84443; 84481; 84484; 93005; 93970; 94640; 99285; J1650; J2920; J7512; J7611; J7620; J7626

== ENCOUNTER 2019-05-13 18:49 | Inpatient (IN) | payer MEDICARE, MEDICAID ==
[~2019-05-13] VITALS: Ht 172.7 cm; Wt 78.0 kg
[~2019-05-13 18:49] MED LIST changes: +BUDE6.9H INH; +IPRA3AMP9 NEB; +MED4 MT
[2019-05-13] MEDS ORDERED: METHYLPREDNISOLONE SOD SUCC 125 MG/2 ML VIAL IV STA (19:08)
[2019-05-13] MEDS ORDERED: SODIUM CHLORIDE 0.9% 1,000 ML IV ONE (19:08)
[2019-05-13] MEDS ORDERED: ALBUTEROL (0.083%) 2.5MG/3ML NEB HHN STA ×2 (19:08→20:14)
[2019-05-13] MEDS ORDERED: IPRATROPIUM BROMIDE (0.02%) 0.5MG/2.5ML NEB HHN STA (19:08)
[2019-05-13] MEDS ORDERED: MAGNESIUM 2 G PREMIX 50 ML IV ONE (19:15)
[2019-05-13] MEDS ORDERED: IPRATROPIUM/ALBUTEROL 0.5-3(2.5)MG/3ML NEB ONE (19:19)
[2019-05-13 19:38] LABS: HEMATOCRIT. 39.8 % (42.0-52.0); HEMOGLOBIN. 13.7 g/dL (14.0-18.0); LYMPHOCYTES % 18.2 % (20.0-50.0); MEAN CORPUSCULAR HEMOGLOBIN 29.5 pg (28.0-32.0); MEAN CORPUSCULAR VOLUME 86.1 fL (80.0-94.0); MEAN PLATELET VOLUME 8.9 fl (7.4-10.4); MONOCYTES % 8.8 % (2.0-8.0); PLATELET 353 x1000/uL (130-400); RED BLOOD CELL COUNT 4.63 mill/uL (4.7-6.1); RED CELL DISTRIBUTION WIDTH 17.6 % (11.6-14.6)
[2019-05-13 19:44] LABS: CHLORIDE 109 mEq/L (98-107)
[2019-05-13 19:45] LABS: PROTHROMBIN TIME 10.5 sec (9.6-11.0)
[2019-05-13 19:48] LABS: ETHANOL BLOOD < 10 mg/dL
[2019-05-13] MEDS ORDERED: DIPHENHYDRAMINE 50MG/ML VIAL IV PRN (21:45)
[2019-05-13] MEDS ORDERED: LORAZEPAM 2MG/ML CPJ IV PRN (21:45)
[2019-05-13] MEDS ORDERED: IPRATROPIUM/ALBUTEROL 0.5-3(2.5)MG/3ML NEB NEB PRN (21:45)
[2019-05-13] MEDS ORDERED: MAGNESIUM/ALUMINUM HYDROXIDE/SIMETHICONE 30ML UDC PO PRN (21:45)
[2019-05-13] MEDS ORDERED: CLONIDINE 0.1MG TABLET PO PRN (21:45)
[2019-05-13] MEDS ORDERED: ONDANSETRON HCL 4MG/2ML INJ IV PRN (21:45)
[2019-05-13] MEDS ORDERED: HYDROCODONE/ACETAMINOPHEN 5/325MG TABLET PO PRN (21:45)
[2019-05-13] MEDS ORDERED: ACETAMINOPHEN 325MG TABLET PO PRN (21:45)
[2019-05-13] MEDS ORDERED: DOCUSATE SODIUM 100MG CAPSULE PO PRN (21:45)
[2019-05-13] MEDS ORDERED: MORPHINE SULFATE 2 MG/ML CPJ (NOT FOR IM USE) IV PRN (22:20)
[2019-05-13] MEDS ORDERED: NA PHOS,M-B/NA PHOS,DI-BA ENEMA 118ML PR PRN (22:30)
[2019-05-13 23:30] VITALS: BP 147/85
[2019-05-14 01:00] VITALS: BP 147/85
[2019-05-14] MEDS: IPRATROPIUM/ALBUTEROL 0.5-3(2.5)MG/3ML NEB NEB PRN ×6 (02:43→18:27)
[2019-05-14] MEDS: LEVOFLOXACIN 500MG PREMIX 100 ML IV SCH (03:43)
[2019-05-14 04:00] VITALS: BP 138/79
[2019-05-14] MEDS: METHYLPREDNISOLONE SOD SUCC 125 MG/2 ML VIAL IV SCH ×3 (05:20→18:49)
[2019-05-14 06:32] LABS: HEMATOCRIT. 33.7 % (42.0-52.0); HEMOGLOBIN. 11.7 g/dL (14.0-18.0); MEAN CORPUSCULAR HEMOGLOBIN 29.6 pg (28.0-32.0); MEAN CORPUSCULAR VOLUME 85.1 fL (80.0-94.0); MEAN PLATELET VOLUME 9.4 fl (7.4-10.4); PLATELET 299 x1000/uL (130-400); RED BLOOD CELL COUNT 3.96 mill/uL (4.7-6.1); RED CELL DISTRIBUTION WIDTH 17.6 % (11.6-14.6)
[2019-05-14 06:38] LABS: CHLORIDE 107 mEq/L (98-107)
[2019-05-14 06:51] LABS: HDL CHOLESTEROL 112 mg/dL (40-59); LDL CHOLESTEROL 59 mg/dL (5-100); T4 FREE 0.74 ng/dL (0.76-1.46)
[2019-05-14 08:00] VITALS: BP 111/78
[2019-05-14] MEDS: ENOXAPARIN 40MG/0.4ML SYR SUBCUT SCH (09:35)
[2019-05-14] MEDS: ASPIRIN 81MG EC TABLET PO SCH (09:35)
[2019-05-14 12:00] VITALS: BP 155/78
[2019-05-14 14:26] LABS: PLATELET ESTIMATE NORMAL
[2019-05-14 16:10] LABS: CREATINE KINASE 115 IU/L (39-308)
[2019-05-14 16:16] LABS: CREATINE KINASE MB FRACTION 2.6 ng/mL (0.5-3.6)
[2019-05-14 20:00] VITALS: BP 145/71
[2019-05-14] MEDS: IPRATROPIUM/ALBUTEROL 0.5-3(2.5)MG/3ML NEB HHN SCH (22:10)
[2019-05-14] MEDS: BUDESONIDE 0.5MG/2ML NEB HHN SCH (22:10)
[2019-05-14] MEDS: ZOLPIDEM TARTRATE 5MG TABLET PO PRN (22:24)
[2019-05-15] VITALS: BP_SYST 138; BP_SYST 144; BP_DIAS 82; BP_DIAS 85
[2019-05-15 00:09] LABS: CREATINE KINASE 104 IU/L (39-308)
[2019-05-15 00:10] LABS: CREATINE KINASE MB FRACTION 1.9 ng/mL (0.5-3.6)
[2019-05-15] MEDS: IPRATROPIUM/ALBUTEROL 0.5-3(2.5)MG/3ML NEB HHN SCH ×5 (02:08→20:12)
[2019-05-15] MEDS: METHYLPREDNISOLONE SOD SUCC 40 MG/ML VIAL IV SCH ×3 (03:01→18:20)
[2019-05-15] MEDS: LEVOFLOXACIN 500MG PREMIX 100 ML IV SCH (03:01)
[2019-05-15 04:00] VITALS: BP 144/82
[2019-05-15 05:55] LABS: HEMATOCRIT. 32.9 % (42.0-52.0); HEMOGLOBIN. 11.4 g/dL (14.0-18.0); MEAN CORPUSCULAR HEMOGLOBIN 29.5 pg (28.0-32.0); MEAN CORPUSCULAR VOLUME 85.2 fL (80.0-94.0); MEAN PLATELET VOLUME 9.2 fl (7.4-10.4); PLATELET 296 x1000/uL (130-400); RED BLOOD CELL COUNT 3.86 mill/uL (4.7-6.1); RED CELL DISTRIBUTION WIDTH 17.7 % (11.6-14.6)
[2019-05-15 05:58] LABS: CHLORIDE 109 mEq/L (98-107)
[2019-05-15 06:13] LABS: CREATINE KINASE 86 IU/L (39-308)
[2019-05-15 06:15] LABS: CREATINE KINASE MB FRACTION 2.6 ng/mL (0.5-3.6)
[2019-05-15 08:00] VITALS: BP 154/84
[2019-05-15 08:00] LABS: *AMPHETAMINES SCREEN URINE NEGATIVE (NEGATIVE); *BARBITURATES SCREEN URINE NEGATIVE (NEGATIVE); *BENZODIAZEPINES SCREEN URINE NEGATIVE (NEGATIVE)
[2019-05-15 08:01] LABS: *COCAINE SCREEN URINE PRESUMTIVE POSITIVE (NEGATIVE); CANNABINOID URINE SCREEN NEGATIVE (NEGATIVE); METHADONE URINE SCREEN NEGATIVE (NEGATIVE); OPIATES URINE SCREEN PRESUMTIVE POSITIVE (NEGATIVE)
[2019-05-15 08:03] LABS: PHENCYCLIDINE URINE SCREEN NEGATIVE (NEGATIVE)
[2019-05-15] MEDS: BUDESONIDE 0.5MG/2ML NEB HHN SCH ×2 (08:07→20:12)
[2019-05-15] MEDS: ASPIRIN 81MG EC TABLET PO SCH (09:22)
[2019-05-15] MEDS: ENOXAPARIN 40MG/0.4ML SYR SUBCUT SCH (09:22)
[2019-05-15 12:00] VITALS: BP 142/76
[2019-05-15 14:04] LABS: PLATELET ESTIMATE NORMAL
[2019-05-15 16:00] VITALS: BP 142/60
[2019-05-15 20:00] VITALS: BP 152/88
[2019-05-15] MEDS: ZOLPIDEM TARTRATE 5MG TABLET PO PRN (23:48)
[2019-05-15] MEDS: GUAIFENESIN 200MG/10ML SUGAR FREE UDC PO PRN (23:48)
[2019-05-16] VITALS: BP 137/81
[2019-05-16] MEDS: IPRATROPIUM/ALBUTEROL 0.5-3(2.5)MG/3ML NEB HHN SCH ×5 (00:11→19:53)
[2019-05-16] MEDS: LEVOFLOXACIN 500MG PREMIX 100 ML IV SCH (03:06)
[2019-05-16] MEDS: METHYLPREDNISOLONE SOD SUCC 40 MG/ML VIAL IV SCH ×2 (03:06→12:41)
[2019-05-16 04:00] VITALS: BP 151/86
[2019-05-16 08:05] VITALS: BP 144/81
[2019-05-16] MEDS: BUDESONIDE 0.5MG/2ML NEB HHN SCH ×2 (09:02→19:53)
[2019-05-16] MEDS: ENOXAPARIN 40MG/0.4ML SYR SUBCUT SCH (09:12)
[2019-05-16] MEDS: ASPIRIN 81MG EC TABLET PO SCH (09:12)
[2019-05-16 11:55] VITALS: BP 140/75
[2019-05-16 16:29] VITALS: BP 148/78
[2019-05-16] MEDS: PREDNISONE 20MG TABLET PO SCH (18:34)
[2019-05-16] MEDS: GUAIFENESIN 200MG/10ML SUGAR FREE UDC PO PRN (18:36)
[2019-05-16 20:00] VITALS: BP 150/73
[2019-05-16] MEDS: GUAIFENESIN 600MG ER TABLET PO SCH (21:20)
[2019-05-16] MEDS: ZOLPIDEM TARTRATE 5MG TABLET PO PRN (21:20)
[2019-05-17] VITALS: BP 151/78
[2019-05-17] MEDS: IPRATROPIUM/ALBUTEROL 0.5-3(2.5)MG/3ML NEB HHN SCH ×5 (00:12→12:43)
[2019-05-17 04:00] VITALS: BP 141/81
[2019-05-17] MEDS: LEVOFLOXACIN 500MG PREMIX 100 ML IV SCH (05:30)
[2019-05-17] MEDS: BUDESONIDE 0.5MG/2ML NEB HHN SCH (07:55)
[2019-05-17] MEDS: PREDNISONE 20MG TABLET PO SCH (08:51)
[2019-05-17] MEDS: ASPIRIN 81MG EC TABLET PO SCH (08:51)
[2019-05-17] MEDS: ENOXAPARIN 40MG/0.4ML SYR SUBCUT SCH (08:51)
[2019-05-17] MEDS: GUAIFENESIN 600MG ER TABLET PO SCH (08:51)
[2019-05-17 08:57] VITALS: BP 139/77
[2019-05-17] MEDS: IPRATROPIUM/ALBUTEROL 0.5-3(2.5)MG/3ML NEB NEB PRN ×2 (10:38→14:39)
[2019-05-17 12:00] VITALS: BP 151/73
[2019-05-17 12:41] VITALS: BP 151/73
[2019-05-18] MEDS ORDERED: LEVOFLOXACIN 500MG PREMIX 100 ML IV SCH (06:00)
== END 2019-05-17 16:00 | disposition home or self-care (01) | DRG 917 ==
LOC: ER 18:49 → 6WST 20:38 → EDBEDREQ 20:43 → EDBEDREQTM 20:43 → ENRESERV 21:13
PROVIDERS: ADMIT Internal Medicine; ATTEND Internal Medicine
DX: T40.5X1A Poisoning by cocaine, accidental (unintentional), initial encounter (principal); J96.01 Acute respiratory failure with hypoxia; J69.0 Pneumonitis due to inhalation of food and vomit; J68.0 Bronchitis and pneumonitis due to chemicals, gases, fumes and vapors; E78.5 Hyperlipidemia, unspecified; F12.10 Cannabis abuse, uncomplicated; E78.00 Pure hypercholesterolemia, unspecified; F17.210 Nicotine dependence, cigarettes, uncomplicated; I10 Essential (primary) hypertension; I25.10 Atherosclerotic heart disease of native coronary artery without angina pectoris; T38.0X5A Adverse effect of glucocorticoids and synthetic analogues, initial encounter; Z53.20 Procedure and treatment not carried out because of patient's decision for unspecified reasons; Z79.02 Long term (current) use of antithrombotics/antiplatelets; Y92.89 Other specified places as the place of occurrence of the external cause; Z79.51 Long term (current) use of inhaled steroids; Z86.73 Personal history of transient ischemic attack (TIA), and cerebral infarction without residual deficits; Z79.899 Other long term (current) drug therapy
CPT/HCPCS: 36415; 71045; 80048; 80061; 80305; 80320; 82550; 82553; 83036; 83880; 84439; 84443; 84484; 85379; 93005; 93306; 93970; 94640; 94644; 99291; J1650; J1956; J2920; J2930; J3475; J7030; J7040; J7512; J7611; J7620; J7626; G0480

== ENCOUNTER 2019-05-18 09:45 | Inpatient (IN) | payer MEDICARE, MEDICAID ==
[~2019-05-18] VITALS: Ht 172.7 cm; Wt 81.6 kg
[2019-05-18] MEDS ORDERED: SODIUM CHLORIDE 0.9% 1,000 ML IV ONE (10:06)
[2019-05-18] MEDS ORDERED: METHYLPREDNISOLONE SOD SUCC 125 MG/2 ML VIAL IV STA (10:06)
[2019-05-18] MEDS ORDERED: MAGNESIUM 2 G PREMIX 50 ML IV ONE (10:15)
[2019-05-18] MEDS ORDERED: LEVOFLOXACIN 750MG PREMIX 150 ML IV ONE (10:15)
[2019-05-18] MEDS ORDERED: IPRATROPIUM/ALBUTEROL 0.5-3(2.5)MG/3ML NEB HHN ONE ×2 (10:15→12:15)
[2019-05-18 10:31] LABS: BG BASE EXCESS 3.8 mmol/L (-2.0-2.0); BG CARBOXYHEMOGLOBIN 1.7 % (0.5-1.5); BG DEOXYHEMOGLOBIN 0.7 % (0.0-5.0); BG HCO3 ACT 31.2 mmol/L (22.0-26.0); BG METHEMOGLOBIN 0.2 % (0.0-1.5); BG OXYGEN SATURATION 99.3 % (92.0-98.5); BG OXYHEMOGLOBIN 97.4 % (94.0-97.0); BG PCO2 58.8 mmHg (35.0-45.0); BG PH 7.342 (7.350-7.450); BG PO2 339.7 mmHg (75.0-100.0); BG SAMPLE SITE RIGHT BRACHIAL; BG TOTAL HEMOGLOBIN 14.2 g/dL (12.0-18.0); BG VENT MODE MASK - NRB
[2019-05-18 12:11] LABS: BASOPHILS % 0.1 % (0.0-2.0); HEMATOCRIT. 38.5 % (42.0-52.0); LYMPHOCYTES % 8.1 % (20.0-50.0); MEAN CORPUSCULAR HEMOGLOBIN 28.7 pg (28.0-32.0); MEAN PLATELET VOLUME 9.3 fl (7.4-10.4); MONOCYTES % 7.3 % (2.0-8.0); NEUTROPHILS % 84.5 % (40.0-76.0); PLATELET 321 x1000/uL (130-400); RED BLOOD CELL COUNT 4.53 mill/uL (4.7-6.1); RED CELL DISTRIBUTION WIDTH 16.7 % (11.6-14.6)
[2019-05-18 12:14] LABS: CHLORIDE 102 mEq/L (98-107)
[2019-05-18 12:19] LABS: ETHANOL BLOOD < 10 mg/dL
[2019-05-18 14:45] LABS: CLARITY URINE CLEAR (CLEAR); COLOR URINE YELLOW (YELLOW); KETONES URINE 1+ (NEGATIVE); LEUKOCYTE ESTERASE URINE TRACE (NEGATIVE); NITRITE URINE NEGATIVE (NEGATIVE); OCCULT BLOOD URINE 3+ (NEGATIVE); PROTEIN URINE TRACE (NEGATIVE); UROBILINOGEN URINE 0.2 E.U./dL (0.2-1.0)
[2019-05-18 15:06] LABS: *AMPHETAMINES SCREEN URINE NEGATIVE (NEGATIVE); *BARBITURATES SCREEN URINE NEGATIVE (NEGATIVE); *BENZODIAZEPINES SCREEN URINE NEGATIVE (NEGATIVE); *COCAINE SCREEN URINE PRESUMTIVE POSITIVE (NEGATIVE); CANNABINOID URINE SCREEN NEGATIVE (NEGATIVE); PHENCYCLIDINE URINE SCREEN NEGATIVE (NEGATIVE)
[2019-05-18 15:07] LABS: METHADONE URINE SCREEN NEGATIVE (NEGATIVE); OPIATES URINE SCREEN PRESUMTIVE POSITIVE (NEGATIVE)
[2019-05-18] MEDS ORDERED: ALBUTEROL (0.5%) 2.5MG/0.5ML NEB HHN ONE (16:30)
[2019-05-18 18:01] VITALS: BP 169/77
[2019-05-18 18:02] VITALS: BP 169/77
[2019-05-18] MEDS ORDERED: ONDANSETRON HCL 4MG/2ML INJ IV PRN (19:00)
[2019-05-18] MEDS ORDERED: HYDROCODONE/ACETAMINOPHEN 5/325MG TABLET PO PRN (19:00)
[2019-05-18] MEDS ORDERED: CLONIDINE 0.1MG TABLET PO PRN (19:25)
[2019-05-18 20:00] VITALS: BP 163/85
[2019-05-18] MEDS: IPRATROPIUM/ALBUTEROL 0.5-3(2.5)MG/3ML NEB HHN PRN (20:06)
[2019-05-18] MEDS: ZOLPIDEM TARTRATE 5MG TABLET PO PRN (21:23)
[2019-05-18] MEDS: BENAZEPRIL 10MG TABLET PO SCH (21:23)
[2019-05-18] MEDS: GUAIFENESIN/CODEINE 200-20MG/10ML UDC PO PRN (21:24)
[2019-05-18] MEDS: ATORVASTATIN CALCIUM 40MG TABLET PO SCH (21:24)
[2019-05-18] MEDS: METHYLPREDNISOLONE SOD SUCC 40 MG/ML VIAL IV SCH (21:29)
[2019-05-18] MEDS: GUAIFENESIN 600MG ER TABLET PO SCH (21:29)
[2019-05-19] VITALS: BP 122/77
[2019-05-19] MEDS: IPRATROPIUM/ALBUTEROL 0.5-3(2.5)MG/3ML NEB HHN SCH ×6 (00:07→21:16)
[2019-05-19 04:00] VITALS: BP 149/72
[2019-05-19] MEDS: METHYLPREDNISOLONE SOD SUCC 40 MG/ML VIAL IV SCH ×3 (05:11→21:07)
[2019-05-19 05:46] LABS: HEMATOCRIT. 34.6 % (42.0-52.0); MEAN CORPUSCULAR HEMOGLOBIN 29.3 pg (28.0-32.0); MEAN CORPUSCULAR VOLUME 84.5 fL (80.0-94.0); MEAN PLATELET VOLUME 9.5 fl (7.4-10.4); PLATELET 301 x1000/uL (130-400); RED CELL DISTRIBUTION WIDTH 17.2 % (11.6-14.6)
[2019-05-19 06:16] LABS: CHLORIDE 104 mEq/L (98-107)
[2019-05-19 08:00] VITALS: BP 125/73
[2019-05-19] MEDS: BENAZEPRIL 10MG TABLET PO SCH (09:00)
[2019-05-19] MEDS: GUAIFENESIN 600MG ER TABLET PO SCH ×2 (09:00→21:07)
[2019-05-19] MEDS: ENOXAPARIN 40MG/0.4ML SYR SUBCUT SCH (09:00)
[2019-05-19] MEDS: CLOPIDOGREL 75MG TABLET PO SCH (09:00)
[2019-05-19 10:06] LABS: PLATELET ESTIMATE NORMAL
[2019-05-19 12:00] VITALS: BP 137/78
[2019-05-19] MEDS: GUAIFENESIN/CODEINE 200-20MG/10ML UDC PO PRN ×2 (13:03→21:07)
[2019-05-19 16:00] VITALS: BP 125/68
[2019-05-19 16:53] LABS: CREATINE KINASE MB FRACTION 4.2 ng/mL (0.5-3.6)
[2019-05-19 20:00] VITALS: BP 149/77
[2019-05-19] MEDS: ZOLPIDEM TARTRATE 5MG TABLET PO PRN (21:07)
[2019-05-19] MEDS: ATORVASTATIN CALCIUM 40MG TABLET PO SCH (22:53)
[2019-05-19 23:55] LABS: CREATINE KINASE MB FRACTION 3.4 ng/mL (0.5-3.6)
[2019-05-20] VITALS: BP 133/46
[2019-05-20] MEDS: IPRATROPIUM/ALBUTEROL 0.5-3(2.5)MG/3ML NEB HHN SCH ×6 (01:00→20:15)
[2019-05-20 04:00] VITALS: BP 100/53
[2019-05-20] MEDS: METHYLPREDNISOLONE SOD SUCC 40 MG/ML VIAL IV SCH ×3 (06:02→20:55)
[2019-05-20 07:09] LABS: CREATINE KINASE MB FRACTION 3.3 ng/mL (0.5-3.6)
[2019-05-20 08:00] VITALS: BP 124/87
[2019-05-20] MEDS: GUAIFENESIN 600MG ER TABLET PO SCH ×2 (08:41→20:54)
[2019-05-20] MEDS: CLOPIDOGREL 75MG TABLET PO SCH (08:41)
[2019-05-20] MEDS: ENOXAPARIN 40MG/0.4ML SYR SUBCUT SCH (08:42)
[2019-05-20] MEDS: BENAZEPRIL 10MG TABLET PO SCH (08:42)
[2019-05-20 12:00] VITALS: BP 134/71
[2019-05-20 16:00] VITALS: BP 142/74
[2019-05-20 16:58] LABS: CREATINE KINASE MB FRACTION 2.5 ng/mL (0.5-3.6)
[2019-05-20 20:00] VITALS: BP 151/84
[2019-05-20] MEDS: ATORVASTATIN CALCIUM 40MG TABLET PO SCH (20:54)
[2019-05-20] MEDS: ZOLPIDEM TARTRATE 5MG TABLET PO PRN (20:54)
[2019-05-20] MEDS: GUAIFENESIN/CODEINE 200-20MG/10ML UDC PO PRN (20:55)
[2019-05-20 23:56] LABS: CREATINE KINASE MB FRACTION 2.3 ng/mL (0.5-3.6)
[2019-05-21] VITALS: BP 147/81
[2019-05-21] MEDS: IPRATROPIUM/ALBUTEROL 0.5-3(2.5)MG/3ML NEB HHN SCH ×6 (00:12→21:06)
[2019-05-21 04:00] VITALS: BP 136/68
[2019-05-21] MEDS: GUAIFENESIN/CODEINE 200-20MG/10ML UDC PO PRN ×2 (06:01→20:56)
[2019-05-21] MEDS: METHYLPREDNISOLONE SOD SUCC 40 MG/ML VIAL IV SCH ×3 (06:01→20:56)
[2019-05-21 08:00] VITALS: BP 136/76
[2019-05-21] MEDS: BENAZEPRIL 10MG TABLET PO SCH (08:37)
[2019-05-21] MEDS: ENOXAPARIN 40MG/0.4ML SYR SUBCUT SCH (08:38)
[2019-05-21] MEDS: GUAIFENESIN 600MG ER TABLET PO SCH ×2 (08:38→20:57)
[2019-05-21] MEDS: CLOPIDOGREL 75MG TABLET PO SCH (08:38)
[2019-05-21 12:00] VITALS: BP 133/76
[2019-05-21 16:00] VITALS: BP 130/76
[2019-05-21 16:43] LABS: BG BASE EXCESS 6.4 mmol/L (-2.0-2.0); BG CARBOXYHEMOGLOBIN 0.4 % (0.5-1.5); BG DEOXYHEMOGLOBIN 7.1 % (0.0-5.0); BG FRACTION INSPIRED OXYGEN 21; BG HCO3 ACT 32.1 mmol/L (22.0-26.0); BG METHEMOGLOBIN 0.3 % (0.0-1.5); BG OXYGEN SATURATION 92.8 % (92.0-98.5); BG OXYHEMOGLOBIN 92.2 % (94.0-97.0); BG PCO2 50.6 mmHg (35.0-45.0); BG PO2 70.3 mmHg (75.0-100.0); BG SAMPLE SITE RIGHT RADIAL; BG TOTAL HEMOGLOBIN 13.1 g/dL (12.0-18.0); BG VENT MODE ROOM AIR
[2019-05-21] MEDS: IPRATROPIUM/ALBUTEROL 0.5-3(2.5)MG/3ML NEB HHN PRN (17:53)
[2019-05-21 20:00] VITALS: BP 138/83
[2019-05-21] MEDS: ZOLPIDEM TARTRATE 5MG TABLET PO PRN (20:56)
[2019-05-21] MEDS: ATORVASTATIN CALCIUM 40MG TABLET PO SCH (20:58)
[2019-05-22] VITALS: BP 146/73
[2019-05-22] MEDS: IPRATROPIUM/ALBUTEROL 0.5-3(2.5)MG/3ML NEB HHN SCH ×6 (01:07→20:35)
[2019-05-22 04:00] VITALS: BP 157/87
[2019-05-22] MEDS: METHYLPREDNISOLONE SOD SUCC 40 MG/ML VIAL IV SCH ×3 (06:28→21:01)
[2019-05-22] MEDS: GUAIFENESIN/CODEINE 200-20MG/10ML UDC PO PRN ×2 (06:28→21:02)
[2019-05-22 08:00] VITALS: BP 134/70
[2019-05-22] MEDS: ENOXAPARIN 40MG/0.4ML SYR SUBCUT SCH (09:00)
[2019-05-22] MEDS: GUAIFENESIN 600MG ER TABLET PO SCH ×2 (09:51→21:01)
[2019-05-22] MEDS: CLOPIDOGREL 75MG TABLET PO SCH (09:51)
[2019-05-22] MEDS: BENAZEPRIL 10MG TABLET PO SCH (09:51)
[2019-05-22 12:00] VITALS: BP 157/80
[2019-05-22 16:00] VITALS: BP 134/79
[2019-05-22] MEDS: IPRATROPIUM/ALBUTEROL 0.5-3(2.5)MG/3ML NEB HHN PRN (17:06)
[2019-05-22 20:00] VITALS: BP 135/74
[2019-05-22] MEDS: ATORVASTATIN CALCIUM 40MG TABLET PO SCH (21:01)
[2019-05-22] MEDS: ZOLPIDEM TARTRATE 5MG TABLET PO PRN (21:01)
[2019-05-23] VITALS: BP 138/79
[2019-05-23] MEDS: IPRATROPIUM/ALBUTEROL 0.5-3(2.5)MG/3ML NEB HHN SCH ×6 (00:29→20:05)
[2019-05-23 04:00] VITALS: BP 142/81
[2019-05-23] MEDS: METHYLPREDNISOLONE SOD SUCC 40 MG/ML VIAL IV SCH ×3 (05:37→21:57)
[2019-05-23 08:00] VITALS: BP 120/69
[2019-05-23] MEDS: ENOXAPARIN 40MG/0.4ML SYR SUBCUT SCH (08:44)
[2019-05-23] MEDS: GUAIFENESIN 600MG ER TABLET PO SCH ×2 (08:46→21:04)
[2019-05-23] MEDS: CLOPIDOGREL 75MG TABLET PO SCH (08:46)
[2019-05-23] MEDS: BENAZEPRIL 10MG TABLET PO SCH (08:46)
[2019-05-23 12:00] VITALS: BP 120/69
[2019-05-23] MEDS: BUDESONIDE 0.5MG/2ML NEB HHN SCH ×2 (12:40→20:05)
[2019-05-23] MEDS: IPRATROPIUM/ALBUTEROL 0.5-3(2.5)MG/3ML NEB HHN PRN ×2 (16:29→20:20)
[2019-05-23 20:00] VITALS: BP 149/80
[2019-05-23] MEDS: ATORVASTATIN CALCIUM 40MG TABLET PO SCH (21:04)
[2019-05-23] MEDS: GUAIFENESIN/CODEINE 200-20MG/10ML UDC PO PRN (21:04)
[2019-05-23] MEDS ORDERED: ZOLPIDEM TARTRATE 5MG TABLET PO PRN (21:15)
[2019-05-24] VITALS: BP 124/76
[2019-05-24] MEDS: IPRATROPIUM/ALBUTEROL 0.5-3(2.5)MG/3ML NEB HHN SCH ×5 (00:10→15:19)
[2019-05-24 04:00] VITALS: BP 137/80
[2019-05-24 06:18] LABS: CHLORIDE 101 mEq/L (98-107)
[2019-05-24 06:19] LABS: HEMOGLOBIN. 12.9 g/dL (14.0-18.0); MEAN CORPUSCULAR HEMOGLOBIN 28.7 pg (28.0-32.0); MEAN CORPUSCULAR VOLUME 84.5 fL (80.0-94.0); MEAN PLATELET VOLUME 9.7 fl (7.4-10.4); PLATELET 324 x1000/uL (130-400); RED BLOOD CELL COUNT 4.49 mill/uL (4.7-6.1); RED CELL DISTRIBUTION WIDTH 17.1 % (11.6-14.6)
[2019-05-24] MEDS: METHYLPREDNISOLONE SOD SUCC 40 MG/ML VIAL IV SCH ×2 (06:31→13:15)
[2019-05-24 08:00] VITALS: BP 138/79
[2019-05-24] MEDS: CLOPIDOGREL 75MG TABLET PO SCH (08:48)
[2019-05-24] MEDS: GUAIFENESIN 600MG ER TABLET PO SCH (08:48)
[2019-05-24] MEDS: ENOXAPARIN 40MG/0.4ML SYR SUBCUT SCH (08:48)
[2019-05-24] MEDS: BENAZEPRIL 10MG TABLET PO SCH (08:49)
[2019-05-24] MEDS: BUDESONIDE 0.5MG/2ML NEB HHN SCH (08:52)
[2019-05-24 11:08] VITALS: BP 138/79
[2019-05-24 11:20] LABS: PLATELET ESTIMATE NORMAL
== END 2019-05-24 16:15 | disposition home or self-care (01) | DRG 189 ==
LOC: ER 09:55 → 7WST 13:55 → EDBEDREQ 14:07 → ENRESERV 15:48 → 7WST 05-20 14:17
PROVIDERS: ADMIT Internal Medicine; ATTEND Internal Medicine
DX: J96.22 Acute and chronic respiratory failure with hypercapnia (principal); J44.1 Chronic obstructive pulmonary disease with (acute) exacerbation; F14.10 Cocaine abuse, uncomplicated; I10 Essential (primary) hypertension; I25.10 Atherosclerotic heart disease of native coronary artery without angina pectoris; Z86.73 Personal history of transient ischemic attack (TIA), and cerebral infarction without residual deficits; Z87.891 Personal history of nicotine dependence; Z79.899 Other long term (current) drug therapy
CPT/HCPCS: 36415; 36600; 71045; 80048; 80305; 80320; 81003; 82375; 82553; 82805; 83036; 83605; 83880; 84484; 93005; 94618; 94640; 97161; 99291; C1893; J1650; J1956; J2920; J2930; J3475; J7030; J7611; J7620; J7626; G0480

== ENCOUNTER 2019-06-09 14:03 | Emergency (ER) | payer MEDICARE, OTHER ==
[~2019-06-09] VITALS: Ht 175.3 cm; Wt 68.0 kg
[2019-06-09] MEDS ORDERED: METHYLPREDNISOLONE SOD SUCC 125 MG/2 ML VIAL IV STA (14:33)
[2019-06-09] MEDS ORDERED: IPRATROPIUM BROMIDE (0.02%) 0.5MG/2.5ML NEB HHN STA (14:33)
[2019-06-09] MEDS ORDERED: MAGNESIUM 2 G PREMIX 50 ML IV STA (14:33)
[2019-06-09] MEDS ORDERED: ALBUTEROL (0.083%) 2.5MG/3ML NEB HHN STA (14:33)
[2019-06-09 15:30] LABS: *AMPHETAMINES SCREEN URINE NEGATIVE (NEGATIVE)
[2019-06-09 15:30] LABS: BASOPHILS % 0.6 % (0.0-2.0); EOSINOPHILS % 1.1 % (0.0-5.0); HEMATOCRIT. 32.4 % (42.0-52.0); HEMOGLOBIN. 11.3 g/dL (14.0-18.0); LYMPHOCYTES % 14.5 % (20.0-50.0); MEAN CORPUSCULAR HEMOGLOBIN 29.3 pg (28.0-32.0); MEAN CORPUSCULAR VOLUME 84.2 fL (80.0-94.0); MEAN PLATELET VOLUME 8.5 fl (7.4-10.4); MONOCYTES % 7.1 % (2.0-8.0); NEUTROPHILS % 76.7 % (40.0-76.0); PLATELET 345 x1000/uL (130-400); RED BLOOD CELL COUNT 3.85 mill/uL (4.7-6.1)
[2019-06-09 15:31] LABS: *BARBITURATES SCREEN URINE NEGATIVE (NEGATIVE); *BENZODIAZEPINES SCREEN URINE NEGATIVE (NEGATIVE); *COCAINE SCREEN URINE PRESUMTIVE POSITIVE (NEGATIVE); CANNABINOID URINE SCREEN NEGATIVE (NEGATIVE); METHADONE URINE SCREEN NEGATIVE (NEGATIVE); OPIATES URINE SCREEN NEGATIVE (NEGATIVE); PHENCYCLIDINE URINE SCREEN NEGATIVE (NEGATIVE)
[2019-06-09 15:37] LABS: CHLORIDE 101 mEq/L (98-107)
[2019-06-09 15:41] LABS: ETHANOL BLOOD < 10 mg/dL
[2019-06-09 18:28] VITALS: BP 148/76
== END 2019-06-09 18:41 | disposition short-term general hospital (02) ==
LOC: ER 14:03 → CANBEDREQ 22:59
DX: J44.1 Chronic obstructive pulmonary disease with (acute) exacerbation (principal); I11.0 Hypertensive heart disease with heart failure; I50.9 Heart failure, unspecified; F14.10 Cocaine abuse, uncomplicated; Z98.890 Other specified postprocedural states; Z79.899 Other long term (current) drug therapy; Z86.73 Personal history of transient ischemic attack (TIA), and cerebral infarction without residual deficits
CPT/HCPCS: 36415; 71045; 80053; 80305; 80320; 83880; 84484; 85025; 93005; 94644; 96365; 99285; J2930; J3475; J7611; 94640; G0480

== ENCOUNTER 2019-07-21 17:56 | Inpatient (IN) | payer MEDICARE, OTHER ==
[~2019-07-21] VITALS: Ht 175.3 cm; Wt 77.1 kg
[2019-07-21] MEDS ORDERED: IPRATROPIUM BROMIDE (0.02%) 0.5MG/2.5ML NEB HHN STA (18:43)
[2019-07-21] MEDS ORDERED: METHYLPREDNISOLONE SOD SUCC 125 MG/2 ML VIAL IV STA (18:43)
[2019-07-21] MEDS ORDERED: ALBUTEROL (0.083%) 2.5MG/3ML NEB HHN STA (18:43)
[2019-07-21 20:52] LABS: BASOPHILS % 1.1 % (0.0-2.0); EOSINOPHILS % 1.4 % (0.0-5.0); HEMATOCRIT. 28.8 % (42.0-52.0); HEMOGLOBIN. 9.9 g/dL (14.0-18.0); LYMPHOCYTES % 15.9 % (20.0-50.0); MEAN CORPUSCULAR HEMOGLOBIN 28.7 pg (28.0-32.0); MEAN CORPUSCULAR VOLUME 83.6 fL (80.0-94.0); MEAN PLATELET VOLUME 8.7 fl (7.4-10.4); MONOCYTES % 10.6 % (2.0-8.0); PLATELET 423 x1000/uL (130-400); RED BLOOD CELL COUNT 3.45 mill/uL (4.7-6.1); RED CELL DISTRIBUTION WIDTH 17.2 % (11.6-14.6)
[2019-07-21 20:58] LABS: CHLORIDE 107 mEq/L (98-107)
[2019-07-21 21:03] LABS: ETHANOL BLOOD < 10 mg/dL
[2019-07-21] MEDS ORDERED: ACETAMINOPHEN 325MG TABLET PO PRN (22:30)
[2019-07-21] MEDS ORDERED: IPRATROPIUM/ALBUTEROL 0.5-3(2.5)MG/3ML NEB HHN PRN (22:30)
[2019-07-21] MEDS ORDERED: ONDANSETRON HCL 4MG/2ML INJ IV PRN (22:30)
[2019-07-22] MEDS ORDERED: ALBUTEROL (0.083%) 2.5MG/3ML NEB HHN ONE (00:15)
[2019-07-22] MEDS: IPRATROPIUM/ALBUTEROL 0.5-3(2.5)MG/3ML NEB HHN SCH ×6 (04:42→23:41)
[2019-07-22 05:31] LABS: HEMATOCRIT. 28.8 % (42.0-52.0); MEAN CORPUSCULAR VOLUME 83.6 fL (80.0-94.0); MEAN PLATELET VOLUME 8.7 fl (7.4-10.4); PLATELET 430 x1000/uL (130-400); RED BLOOD CELL COUNT 3.45 mill/uL (4.7-6.1); RED CELL DISTRIBUTION WIDTH 17.3 % (11.6-14.6)
[2019-07-22 05:38] LABS: CHLORIDE 106 mEq/L (98-107)
[2019-07-22 07:22] LABS: PLATELET ESTIMATE SLIGHTLY INCREASED
[2019-07-22 08:00] VITALS: BP 140/68
[2019-07-22 08:13] LABS: *AMPHETAMINES SCREEN URINE NEGATIVE (NEGATIVE); *BARBITURATES SCREEN URINE NEGATIVE (NEGATIVE); *BENZODIAZEPINES SCREEN URINE NEGATIVE (NEGATIVE); *COCAINE SCREEN URINE PRESUMTIVE POSITIVE (NEGATIVE); METHADONE URINE SCREEN NEGATIVE (NEGATIVE); OPIATES URINE SCREEN NEGATIVE (NEGATIVE)
[2019-07-22 08:14] LABS: CANNABINOID URINE SCREEN NEGATIVE (NEGATIVE); PHENCYCLIDINE URINE SCREEN NEGATIVE (NEGATIVE)
[2019-07-22 08:45] VITALS: BP 140/68
[2019-07-22] MEDS ORDERED: ENOXAPARIN 40MG/0.4ML SYR SUBCUT SCH (09:00)
[2019-07-22] MEDS: METHYLPREDNISOLONE SOD SUCC 40 MG/ML VIAL IV SCH ×3 (09:26→21:22)
[2019-07-22 12:00] VITALS: BP 115/57
[2019-07-22 16:00] VITALS: BP 136/64
[2019-07-22 20:00] VITALS: BP 131/61
[2019-07-22] MEDS: FLUTICASONE PROPIONATE 50MCG/SPRAY BOTTLE BOTHNSTRLS SCH (21:20)
[2019-07-22] MEDS: GUAIFENESIN 600MG ER TABLET PO SCH (21:20)
[2019-07-22] MEDS: ZOLPIDEM TARTRATE 5MG TABLET PO PRN (22:48)
[2019-07-23] VITALS: BP 138/85
[2019-07-23 04:00] VITALS: BP 154/68
[2019-07-23] MEDS: IPRATROPIUM/ALBUTEROL 0.5-3(2.5)MG/3ML NEB HHN SCH ×5 (04:04→19:59)
[2019-07-23] MEDS: METHYLPREDNISOLONE SOD SUCC 40 MG/ML VIAL IV SCH ×3 (06:05→21:21)
[2019-07-23 07:53] LABS: CHLORIDE 107 mEq/L (98-107)
[2019-07-23 08:00] VITALS: BP 99/54
[2019-07-23 08:00] LABS: HEMOGLOBIN. 9.7 g/dL (14.0-18.0); MEAN CORPUSCULAR HEMOGLOBIN 27.8 pg (28.0-32.0); MEAN CORPUSCULAR VOLUME 83.5 fL (80.0-94.0); MEAN PLATELET VOLUME 9.4 fl (7.4-10.4); PLATELET 458 x1000/uL (130-400); RED BLOOD CELL COUNT 3.47 mill/uL (4.7-6.1); RED CELL DISTRIBUTION WIDTH 17.3 % (11.6-14.6)
[2019-07-23] MEDS: CLOPIDOGREL 75MG TABLET PO SCH (08:38)
[2019-07-23] MEDS: FLUTICASONE PROPIONATE 50MCG/SPRAY BOTTLE BOTHNSTRLS SCH ×2 (08:38→20:24)
[2019-07-23] MEDS: GUAIFENESIN 600MG ER TABLET PO SCH ×2 (08:38→20:21)
[2019-07-23] MEDS: ENOXAPARIN 30MG/0.3ML SYR SUBCUT SCH ×2 (08:39→20:22)
[2019-07-23 12:00] VITALS: BP 134/60
[2019-07-23 16:00] VITALS: BP 138/56
[2019-07-23] MEDS ORDERED: TERBUTALINE SULFATE 1MG/ML VIAL SUBCUT NR (16:00)
[2019-07-23 17:10] LABS: PLATELET ESTIMATE INCREASED
[2019-07-23 20:00] VITALS: BP 131/65
[2019-07-23] MEDS: BENZONATATE 100MG CAPSULE PO PRN (20:21)
[2019-07-23] MEDS: ZOLPIDEM TARTRATE 5MG TABLET PO PRN (21:21)
[2019-07-23] MEDS ORDERED: PNEUMOCOCCAL 23-VAL P-SAC VAC 0.5 ML IM ONE (23:45)
[2019-07-24] VITALS: BP 151/67
[2019-07-24] MEDS: IPRATROPIUM/ALBUTEROL 0.5-3(2.5)MG/3ML NEB HHN SCH ×6 (00:12→21:38)
[2019-07-24 04:00] VITALS: BP 142/72
[2019-07-24] MEDS: METHYLPREDNISOLONE SOD SUCC 40 MG/ML VIAL IV SCH ×2 (05:38→13:28)
[2019-07-24 07:14] LABS: HEMATOCRIT. 29.3 % (42.0-52.0); HEMOGLOBIN. 9.8 g/dL (14.0-18.0); LYMPHOCYTES % 7.6 % (20.0-50.0); MEAN CORPUSCULAR HEMOGLOBIN 27.7 pg (28.0-32.0); MEAN CORPUSCULAR VOLUME 82.9 fL (80.0-94.0); MEAN PLATELET VOLUME 9.1 fl (7.4-10.4); MONOCYTES % 5.2 % (2.0-8.0); NEUTROPHILS % 87.2 % (40.0-76.0); PLATELET 492 x1000/uL (130-400); RED BLOOD CELL COUNT 3.54 mill/uL (4.7-6.1); RED CELL DISTRIBUTION WIDTH 17.2 % (11.6-14.6)
[2019-07-24 08:00] VITALS: BP 145/76
[2019-07-24 08:30] LABS: CHLORIDE 106 mEq/L (98-107)
[2019-07-24] MEDS: GUAIFENESIN 600MG ER TABLET PO SCH ×2 (08:46→20:10)
[2019-07-24] MEDS: CLOPIDOGREL 75MG TABLET PO SCH (08:46)
[2019-07-24] MEDS: FLUTICASONE PROPIONATE 50MCG/SPRAY BOTTLE BOTHNSTRLS SCH ×2 (08:46→20:10)
[2019-07-24] MEDS: ENOXAPARIN 30MG/0.3ML SYR SUBCUT SCH ×2 (08:46→20:10)
[2019-07-24 12:00] VITALS: BP 106/76
[2019-07-24 16:00] VITALS: BP 127/80
[2019-07-24] MEDS: PREDNISONE 20MG TABLET PO SCH (17:06)
[2019-07-24 20:00] VITALS: BP 105/54
[2019-07-24] MEDS: BENZONATATE 100MG CAPSULE PO PRN (20:19)
[2019-07-24] MEDS: ZOLPIDEM TARTRATE 5MG TABLET PO PRN (21:57)
[2019-07-25] VITALS: BP 141/72
[2019-07-25] MEDS: IPRATROPIUM/ALBUTEROL 0.5-3(2.5)MG/3ML NEB HHN SCH ×4 (01:05→13:12)
[2019-07-25 04:00] VITALS: BP 153/68
[2019-07-25 06:58] LABS: BASOPHILS % 0.6 % (0.0-2.0); HEMATOCRIT. 26.7 % (42.0-52.0); HEMOGLOBIN. 9.1 g/dL (14.0-18.0); LYMPHOCYTES % 9.7 % (20.0-50.0); MEAN CORPUSCULAR HEMOGLOBIN 28.4 pg (28.0-32.0); MEAN CORPUSCULAR VOLUME 83.1 fL (80.0-94.0); MEAN PLATELET VOLUME 9.4 fl (7.4-10.4); MONOCYTES % 9.1 % (2.0-8.0); NEUTROPHILS % 80.6 % (40.0-76.0); PLATELET 476 x1000/uL (130-400); RED BLOOD CELL COUNT 3.22 mill/uL (4.7-6.1); RED CELL DISTRIBUTION WIDTH 17.2 % (11.6-14.6)
[2019-07-25 07:54] LABS: CHLORIDE 104 mEq/L (98-107)
[2019-07-25 08:00] VITALS: BP 138/74
[2019-07-25] MEDS: CLOPIDOGREL 75MG TABLET PO SCH (08:40)
[2019-07-25] MEDS: ENOXAPARIN 30MG/0.3ML SYR SUBCUT SCH (08:40)
[2019-07-25] MEDS: FLUTICASONE PROPIONATE 50MCG/SPRAY BOTTLE BOTHNSTRLS SCH (08:40)
[2019-07-25] MEDS: GUAIFENESIN 600MG ER TABLET PO SCH (08:40)
[2019-07-25] MEDS: PREDNISONE 20MG TABLET PO SCH (08:40)
[2019-07-25 12:00] VITALS: BP 137/89
[2019-07-25] MEDS ORDERED: MED4 MT (14:20)
[2019-07-25] MEDS ORDERED: BUDE6.9H INH (14:20)
[2019-07-25] MEDS ORDERED: ALBU18HF2 IH (14:20)
[2019-07-25] MEDS ORDERED: IPRA3AMP9 NEB (14:20)
[2019-07-25 14:30] VITALS: BP 137/89
== END 2019-07-25 15:50 | disposition home or self-care (01) | DRG 205 ==
LOC: ER 17:56 → 5WST 22:10 → EDBEDREQTM 22:14 → EDBEDREQ 22:14 → ENRESERV 07-22 07:23
PROVIDERS: ADMIT Internal Medicine; ATTEND Internal Medicine
DX: J68.0 Bronchitis and pneumonitis due to chemicals, gases, fumes and vapors (principal); J96.20 Acute and chronic respiratory failure, unspecified whether with hypoxia or hypercapnia; E44.0 Moderate protein-calorie malnutrition; I50.32 Chronic diastolic (congestive) heart failure; D64.9 Anemia, unspecified; E78.5 Hyperlipidemia, unspecified; F14.10 Cocaine abuse, uncomplicated; F17.200 Nicotine dependence, unspecified, uncomplicated; I11.0 Hypertensive heart disease with heart failure; Z86.73 Personal history of transient ischemic attack (TIA), and cerebral infarction without residual deficits; Z99.81 Dependence on supplemental oxygen; Z68.25 Body mass index [BMI] 25.0-25.9, adult; Z79.899 Other long term (current) drug therapy; Y92.89 Other specified places as the place of occurrence of the external cause; Z71.51 Drug abuse counseling and surveillance of drug abuser
CPT/HCPCS: 36415; 71045; 80048; 80053; 80305; 80320; 83880; 84484; 85025; 90732; 93005; 94640; 99285; J1650; J2920; J2930; J3105; J7512; J7611; J7620; G0480

== ENCOUNTER 2019-08-08 21:42 | Inpatient (IN) | payer MEDICARE, OTHER, MEDICAID ==
[~2019-08-08] VITALS: Ht 182.9 cm; Wt 81.6 kg
[2019-08-08] MEDS ORDERED: ALBUTEROL (0.083%) 2.5MG/3ML NEB HHN STA (22:07)
[2019-08-08] MEDS ORDERED: METHYLPREDNISOLONE SOD SUCC 125 MG/2 ML VIAL IV STA (22:07)
[2019-08-08] MEDS ORDERED: MAGNESIUM 2 G PREMIX 50 ML IV STA (22:07)
[2019-08-08] MEDS ORDERED: IPRATROPIUM BROMIDE (0.02%) 0.5MG/2.5ML NEB HHN STA (22:07)
[2019-08-09] MEDS ORDERED: ALBUTEROL (0.5%) 2.5MG/0.5ML NEB HHN NR (02:15)
[2019-08-09 04:20] VITALS: BP 150/57
[2019-08-09] MEDS ORDERED: CLONIDINE 0.1MG TABLET PO PRN (08:30)
[2019-08-09] MEDS ORDERED: DIPHENHYDRAMINE 50MG/ML VIAL IV PRN (08:30)
[2019-08-09] MEDS ORDERED: MORPHINE SULFATE 2 MG/ML CPJ (NOT FOR IM USE) IV PRN (08:30)
[2019-08-09] MEDS ORDERED: DOCUSATE SODIUM 100MG CAPSULE PO PRN (08:30)
[2019-08-09] MEDS ORDERED: ACETAMINOPHEN 325MG TABLET PO PRN (08:30)
[2019-08-09] MEDS ORDERED: ONDANSETRON HCL 4MG/2ML INJ IV PRN (08:30)
[2019-08-09] MEDS ORDERED: HYDROCODONE/ACETAMINOPHEN 5/325MG TABLET PO PRN (08:30)
[2019-08-09] MEDS ORDERED: GUAIFENESIN 200MG/10ML SUGAR FREE UDC PO PRN (08:30)
[2019-08-09] MEDS ORDERED: MAGNESIUM/ALUMINUM HYDROXIDE/SIMETHICONE 30ML UDC PO PRN (08:30)
[2019-08-09] MEDS ORDERED: NA PHOS,M-B/NA PHOS,DI-BA ENEMA 118ML PR PRN (08:30)
[2019-08-09] MEDS ORDERED: METHYLPREDNISOLONE SOD SUCC 125 MG/2 ML VIAL IV SCH (09:00)
[2019-08-09] MEDS: IPRATROPIUM/ALBUTEROL 0.5-3(2.5)MG/3ML NEB NEB PRN ×3 (09:16→17:21)
[2019-08-09] MEDS: ASPIRIN 81MG EC TABLET PO SCH (09:45)
[2019-08-09] MEDS ORDERED: LEVOFLOXACIN 500MG PREMIX 100 ML IV NR (10:00)
[2019-08-09 11:51] LABS: BASOPHILS % 0.2 % (0.0-2.0); HEMATOCRIT. 29.5 % (42.0-52.0); LYMPHOCYTES % 7.7 % (20.0-50.0); MEAN CORPUSCULAR HEMOGLOBIN 28.3 pg (28.0-32.0); MEAN CORPUSCULAR VOLUME 83.5 fL (80.0-94.0); MEAN PLATELET VOLUME 9.1 fl (7.4-10.4); MONOCYTES % 4.8 % (2.0-8.0); NEUTROPHILS % 87.3 % (40.0-76.0); PLATELET 267 x1000/uL (130-400); RED BLOOD CELL COUNT 3.54 mill/uL (4.7-6.1); RED CELL DISTRIBUTION WIDTH 18.7 % (11.6-14.6)
[2019-08-09 12:06] LABS: CHLORIDE 103 mEq/L (98-107)
[2019-08-09] MEDS: ENOXAPARIN 40MG/0.4ML SYR SUBCUT SCH (13:00)
[2019-08-09] MEDS: LEVOFLOXACIN 500MG PREMIX 100 ML IV SCH (14:07)
[2019-08-09 16:11] LABS: CREATINE KINASE 95 IU/L (39-308)
[2019-08-09 16:12] LABS: CREATINE KINASE MB FRACTION 2.2 ng/mL (0.5-3.6)
[2019-08-09] MEDS: MONTELUKAST SODIUM 10MG TABLET PO SCH (16:56)
[2019-08-09] MEDS: PREDNISONE 20MG TABLET PO SCH (17:38)
[2019-08-09 18:27] LABS: CLARITY URINE CLEAR (CLEAR); COLOR URINE YELLOW (YELLOW); KETONES URINE NEGATIVE (NEGATIVE); LEUKOCYTE ESTERASE URINE NEGATIVE (NEGATIVE); NITRITE URINE NEGATIVE (NEGATIVE); OCCULT BLOOD URINE NEGATIVE (NEGATIVE); PH URINE 6.5 (4.5-8.0); PROTEIN URINE NEGATIVE (NEGATIVE); SPECIFIC GRAVITY URINE 1.008 (1.005-1.030)
[2019-08-09 20:00] VITALS: BP 130/65
[2019-08-09] MEDS: FLUTICASONE PROPIONATE 50MCG/SPRAY BOTTLE BOTHNSTRLS SCH (21:00)
[2019-08-09] MEDS: LORAZEPAM 2MG/ML CPJ IV PRN (21:20)
[2019-08-09] MEDS: IPRATROPIUM/ALBUTEROL 0.5-3(2.5)MG/3ML NEB HHN SCH (23:55)
[2019-08-10] VITALS: BP 142/69
[2019-08-10 01:15] LABS: CREATINE KINASE 79 IU/L (39-308)
[2019-08-10 01:16] LABS: CREATINE KINASE MB FRACTION 1.6 ng/mL (0.5-3.6)
[2019-08-10 04:00] VITALS: BP 130/70
[2019-08-10] MEDS: IPRATROPIUM/ALBUTEROL 0.5-3(2.5)MG/3ML NEB HHN SCH ×4 (05:19→19:05)
[2019-08-10 07:00] LABS: HEMATOCRIT. 30.1 % (42.0-52.0); HEMOGLOBIN. 10.2 g/dL (14.0-18.0); MEAN CORPUSCULAR HEMOGLOBIN 28.1 pg (28.0-32.0); MEAN CORPUSCULAR VOLUME 82.9 fL (80.0-94.0); MEAN PLATELET VOLUME 9.2 fl (7.4-10.4); PLATELET 261 x1000/uL (130-400); RED BLOOD CELL COUNT 3.63 mill/uL (4.7-6.1); RED CELL DISTRIBUTION WIDTH 18.7 % (11.6-14.6)
[2019-08-10 07:21] LABS: CHLORIDE 105 mEq/L (98-107)
[2019-08-10 07:29] LABS: CREATINE KINASE MB FRACTION 1.1 ng/mL (0.5-3.6); LDL CHOLESTEROL 74 mg/dL (5-100)
[2019-08-10 07:30] LABS: CREATINE KINASE 69 IU/L (39-308); HDL CHOLESTEROL 121 mg/dL (40-59)
[2019-08-10 07:39] LABS: T4 FREE 0.76 ng/dL (0.76-1.46)
[2019-08-10 08:00] VITALS: BP 119/77
[2019-08-10] MEDS: FLUTICASONE PROPIONATE 50MCG/SPRAY BOTTLE BOTHNSTRLS SCH ×2 (08:45→21:00)
[2019-08-10] MEDS: PREDNISONE 20MG TABLET PO SCH ×3 (08:45→17:38)
[2019-08-10] MEDS: ENOXAPARIN 40MG/0.4ML SYR SUBCUT SCH (08:46)
[2019-08-10] MEDS: ASPIRIN 81MG EC TABLET PO SCH (08:46)
[2019-08-10 10:20] LABS: *BARBITURATES SCREEN URINE NEGATIVE (NEGATIVE)
[2019-08-10 10:21] LABS: *BENZODIAZEPINES SCREEN URINE NEGATIVE (NEGATIVE); *COCAINE SCREEN URINE PRESUMTIVE POSITIVE (NEGATIVE); CANNABINOID URINE SCREEN NEGATIVE (NEGATIVE); METHADONE URINE SCREEN NEGATIVE (NEGATIVE); OPIATES URINE SCREEN NEGATIVE (NEGATIVE); PHENCYCLIDINE URINE SCREEN NEGATIVE (NEGATIVE)
[2019-08-10 10:22] LABS: *AMPHETAMINES SCREEN URINE NEGATIVE (NEGATIVE)
[2019-08-10 12:00] VITALS: BP 136/74
[2019-08-10 12:35] LABS: PLATELET ESTIMATE NORMAL
[2019-08-10] MEDS: LEVOFLOXACIN 500MG PREMIX 100 ML IV SCH (14:19)
[2019-08-10 16:00] VITALS: BP 135/76
[2019-08-10] MEDS: MONTELUKAST SODIUM 10MG TABLET PO SCH (17:39)
[2019-08-10 20:14] VITALS: BP 143/93
[2019-08-10] MEDS: LORAZEPAM 2MG/ML CPJ IV PRN (21:19)
[2019-08-11] VITALS: BP 131/68
[2019-08-11] MEDS: IPRATROPIUM/ALBUTEROL 0.5-3(2.5)MG/3ML NEB NEB PRN ×2 (00:30→06:52)
[2019-08-11 04:00] VITALS: BP 134/74
[2019-08-11] MEDS: IPRATROPIUM/ALBUTEROL 0.5-3(2.5)MG/3ML NEB HHN SCH ×2 (04:00→07:59)
[2019-08-11 06:21] VITALS: BP 131/74
[2019-08-11 08:00] VITALS: BP 116/62
[2019-08-11] MEDS: FLUTICASONE PROPIONATE 50MCG/SPRAY BOTTLE BOTHNSTRLS SCH (09:00)
[2019-08-11] MEDS: ENOXAPARIN 40MG/0.4ML SYR SUBCUT SCH (09:09)
[2019-08-11] MEDS: ASPIRIN 81MG EC TABLET PO SCH (09:09)
[2019-08-11] MEDS: PREDNISONE 20MG TABLET PO SCH ×2 (09:09→11:50)
[2019-08-11 10:52] VITALS: BP 116/62
[2019-08-11] MEDS ORDERED: LEVOFLOXACIN 500MG TABLET PO SCH (11:00)
[2019-08-11 12:00] VITALS: BP 150/82
== END 2019-08-11 13:40 | disposition home or self-care (01) | DRG 177 ==
LOC: ER 21:42 → 6EST 08-09 02:50 → ENRESERV 08-09 03:31
PROVIDERS: ADMIT Internal Medicine; ATTEND Internal Medicine
DX: J69.0 Pneumonitis due to inhalation of food and vomit (principal); J96.00 Acute respiratory failure, unspecified whether with hypoxia or hypercapnia; I50.32 Chronic diastolic (congestive) heart failure; J44.1 Chronic obstructive pulmonary disease with (acute) exacerbation; J00 Acute nasopharyngitis [common cold]; I25.10 Atherosclerotic heart disease of native coronary artery without angina pectoris; I11.0 Hypertensive heart disease with heart failure; F14.10 Cocaine abuse, uncomplicated; F10.10 Alcohol abuse, uncomplicated; E78.5 Hyperlipidemia, unspecified; R56.9 Unspecified convulsions; D64.9 Anemia, unspecified; T59.891A Toxic effect of other specified gases, fumes and vapors, accidental (unintentional), initial encounter; Y92.89 Other specified places as the place of occurrence of the external cause; Z86.73 Personal history of transient ischemic attack (TIA), and cerebral infarction without residual deficits; Z87.891 Personal history of nicotine dependence; Z79.899 Other long term (current) drug therapy; Z79.02 Long term (current) use of antithrombotics/antiplatelets
CPT/HCPCS: 36415; 71045; 80048; 80053; 80061; 80305; 81003; 82550; 82553; 83036; 83880; 84439; 84443; 84484; 85025; 85379; 93005; 93306; 93970; 94640; 94644; 96365; 99291; J1650; J1956; J2060; J2930; J3475; J7512

== ENCOUNTER 2019-08-12 08:54 | Inpatient (IN) | payer MEDICARE, MEDICAID ==
[~2019-08-12] VITALS: Ht 180.3 cm; Wt 78.9 kg
[2019-08-12] MEDS ORDERED: METHYLPREDNISOLONE SOD SUCC 125 MG/2 ML VIAL IV STA (09:11)
[2019-08-12] MEDS ORDERED: IPRATROPIUM BROMIDE (0.02%) 0.5MG/2.5ML NEB HHN STA (09:11)
[2019-08-12] MEDS ORDERED: ALBUTEROL (0.083%) 2.5MG/3ML NEB HHN STA ×2 (09:11→11:12)
[2019-08-12 09:35] LABS: BG BASE EXCESS 6.4 mmol/L (-2.0-2.0); BG CARBOXYHEMOGLOBIN 1.9 % (0.5-1.5); BG DEOXYHEMOGLOBIN 1.5 % (0.0-5.0); BG FRACTION INSPIRED OXYGEN 36; BG HCO3 ACT 32.3 mmol/L (22.0-26.0); BG METHEMOGLOBIN 0.3 % (0.0-1.5); BG OXYGEN SATURATION 98.5 % (92.0-98.5); BG OXYHEMOGLOBIN 96.3 % (94.0-97.0); BG PCO2 52.1 mmHg (35.0-45.0); BG PO2 152.1 mmHg (75.0-100.0); BG SAMPLE SITE RIGHT BRACHIAL; BG TOTAL HEMOGLOBIN 12.1 g/dL (12.0-18.0); BG VENT MODE NASAL CANNULA
[2019-08-12 09:53] LABS: BASOPHILS % 0.7 % (0.0-2.0); EOSINOPHILS % 0.1 % (0.0-5.0); LYMPHOCYTES % 14.6 % (20.0-50.0); MEAN CORPUSCULAR HEMOGLOBIN 27.7 pg (28.0-32.0); MONOCYTES % 8.2 % (2.0-8.0); NEUTROPHILS % 76.4 % (40.0-76.0); PLATELET 278 x1000/uL (130-400); RED BLOOD CELL COUNT 4.34 mill/uL (4.7-6.1); RED CELL DISTRIBUTION WIDTH 18.5 % (11.6-14.6)
[2019-08-12 09:54] LABS: CHLORIDE 102 mEq/L (98-107)
[2019-08-12] MEDS ORDERED: MAGNESIUM/ALUMINUM HYDROXIDE/SIMETHICONE 30ML UDC PO PRN (12:00)
[2019-08-12] MEDS ORDERED: NA PHOS,M-B/NA PHOS,DI-BA ENEMA 118ML PR PRN (12:00)
[2019-08-12] MEDS ORDERED: CLONIDINE 0.1MG TABLET PO PRN (12:00)
[2019-08-12] MEDS ORDERED: GUAIFENESIN 200MG/10ML SUGAR FREE UDC PO PRN (12:00)
[2019-08-12] MEDS ORDERED: DOCUSATE SODIUM 100MG CAPSULE PO PRN (12:00)
[2019-08-12] MEDS ORDERED: DIPHENHYDRAMINE 50MG/ML VIAL IV PRN (12:00)
[2019-08-12] MEDS ORDERED: HYDROCODONE/ACETAMINOPHEN 5/325MG TABLET PO PRN (12:00)
[2019-08-12] MEDS ORDERED: MORPHINE SULFATE 2 MG/ML CPJ (NOT FOR IM USE) IV PRN (12:00)
[2019-08-12] MEDS ORDERED: ACETAMINOPHEN 325MG TABLET PO PRN (12:00)
[2019-08-12] MEDS ORDERED: ONDANSETRON HCL 4MG/2ML INJ IV PRN (12:00)
[2019-08-12] MEDS: METHYLPREDNISOLONE SOD SUCC 125 MG/2 ML VIAL IV SCH ×3 (12:15→23:04)
[2019-08-12] MEDS ORDERED: LEVOFLOXACIN 500MG PREMIX 100 ML IV SCH (13:00)
[2019-08-12 14:56] LABS: CHLORIDE 103 mEq/L (98-107)
[2019-08-12] MEDS: IPRATROPIUM/ALBUTEROL 0.5-3(2.5)MG/3ML NEB NEB PRN (17:42)
[2019-08-12 21:32] VITALS: BP 151/67
[2019-08-12] MEDS: LORAZEPAM 2MG/ML CPJ IV PRN (23:04)
[2019-08-13] VITALS: BP 129/62
[2019-08-13] MEDS: IPRATROPIUM/ALBUTEROL 0.5-3(2.5)MG/3ML NEB NEB PRN ×5 (00:10→18:42)
[2019-08-13 04:00] VITALS: BP 136/64
[2019-08-13] MEDS: METHYLPREDNISOLONE SOD SUCC 125 MG/2 ML VIAL IV SCH ×4 (05:00→23:31)
[2019-08-13 07:07] LABS: CHLORIDE 102 mEq/L (98-107)
[2019-08-13 07:24] LABS: BASOPHILS % 0.1 % (0.0-2.0); HDL CHOLESTEROL 121 mg/dL (40-59); HEMATOCRIT. 31.9 % (42.0-52.0); HEMOGLOBIN. 10.7 g/dL (14.0-18.0); LYMPHOCYTES % 7.1 % (20.0-50.0); MEAN CORPUSCULAR HEMOGLOBIN 27.5 pg (28.0-32.0); MEAN CORPUSCULAR VOLUME 82.3 fL (80.0-94.0); MEAN PLATELET VOLUME 9.6 fl (7.4-10.4); MONOCYTES % 4.5 % (2.0-8.0); NEUTROPHILS % 88.3 % (40.0-76.0); PLATELET 224 x1000/uL (130-400); RED BLOOD CELL COUNT 3.88 mill/uL (4.7-6.1); RED CELL DISTRIBUTION WIDTH 18.6 % (11.6-14.6); T4 FREE 0.85 ng/dL (0.76-1.46)
[2019-08-13 07:25] LABS: LDL CHOLESTEROL 92 mg/dL (5-100)
[2019-08-13 08:00] VITALS: BP 128/59
[2019-08-13] MEDS: ASPIRIN 81MG EC TABLET PO SCH (09:15)
[2019-08-13 12:00] VITALS: BP 173/68
[2019-08-13] MEDS ORDERED: LEVOFLOXACIN 500MG PREMIX 100 ML IV SCH (13:00)
[2019-08-13] MEDS: IPRATROPIUM/ALBUTEROL 0.5-3(2.5)MG/3ML NEB HHN SCH ×2 (15:22→21:15)
[2019-08-13 16:00] VITALS: BP 134/67
[2019-08-13 17:44] LABS: *AMPHETAMINES SCREEN URINE NEGATIVE (NEGATIVE)
[2019-08-13 17:45] LABS: *BARBITURATES SCREEN URINE NEGATIVE (NEGATIVE); *BENZODIAZEPINES SCREEN URINE NEGATIVE (NEGATIVE); *COCAINE SCREEN URINE PRESUMTIVE POSITIVE (NEGATIVE); METHADONE URINE SCREEN NEGATIVE (NEGATIVE); OPIATES URINE SCREEN NEGATIVE (NEGATIVE)
[2019-08-13 17:46] LABS: CANNABINOID URINE SCREEN NEGATIVE (NEGATIVE); PHENCYCLIDINE URINE SCREEN NEGATIVE (NEGATIVE)
[2019-08-13 20:32] VITALS: BP 136/58
[2019-08-13] MEDS: LORAZEPAM 2MG/ML CPJ IV PRN (21:55)
[2019-08-14] VITALS: BP 127/71
[2019-08-14] MEDS: IPRATROPIUM/ALBUTEROL 0.5-3(2.5)MG/3ML NEB HHN SCH ×6 (00:50→20:37)
[2019-08-14 04:00] VITALS: BP 136/65
[2019-08-14] MEDS: METHYLPREDNISOLONE SOD SUCC 125 MG/2 ML VIAL IV SCH ×3 (05:04→17:57)
[2019-08-14 08:00] VITALS: BP 138/73
[2019-08-14 08:28] LABS: HEMATOCRIT. 30.2 % (42.0-52.0); MEAN CORPUSCULAR HEMOGLOBIN 27.2 pg (28.0-32.0); MEAN CORPUSCULAR VOLUME 82.2 fL (80.0-94.0); MEAN PLATELET VOLUME 9.6 fl (7.4-10.4); PLATELET 228 x1000/uL (130-400); RED BLOOD CELL COUNT 3.67 mill/uL (4.7-6.1); RED CELL DISTRIBUTION WIDTH 18.7 % (11.6-14.6)
[2019-08-14 08:48] LABS: CHLORIDE 102 mEq/L (98-107)
[2019-08-14] MEDS: ASPIRIN 81MG EC TABLET PO SCH (09:09)
[2019-08-14 12:00] VITALS: BP 137/77
[2019-08-14] MEDS ORDERED: BENZ-16 MT (15:19)
[2019-08-14] MEDS ORDERED: IPRA3AMP9 HHN (15:19)
[2019-08-14] MEDS ORDERED: MED4 MT (15:19)
[2019-08-14] MEDS ORDERED: GUAI600T26 MT (15:19)
[2019-08-14] MEDS ORDERED: BUDE6.9H INH (15:19)
[2019-08-14] MEDS ORDERED: ALBU18HF2 IH (15:19)
[2019-08-14 16:00] VITALS: BP 129/70
[2019-08-14 16:49] LABS: PLATELET ESTIMATE NORMAL
[2019-08-14 20:00] VITALS: BP 121/62
[2019-08-14] MEDS: LORAZEPAM 2MG/ML CPJ IV PRN (21:13)
[2019-08-15] MEDS: METHYLPREDNISOLONE SOD SUCC 125 MG/2 ML VIAL IV SCH ×2 (00:06→05:54)
[2019-08-15 00:13] VITALS: BP 155/71
[2019-08-15] MEDS: IPRATROPIUM/ALBUTEROL 0.5-3(2.5)MG/3ML NEB HHN SCH ×5 (00:13→16:15)
[2019-08-15 04:00] VITALS: BP 127/80
[2019-08-15 08:00] VITALS: BP 134/50
[2019-08-15] MEDS: ASPIRIN 81MG EC TABLET PO SCH (09:09)
[2019-08-15 12:00] VITALS: BP 146/81
[2019-08-15] MEDS ORDERED: METHYLPREDNISOLONE SOD SUCC 40 MG/ML VIAL IV SCH (14:00)
[2019-08-15 16:00] VITALS: BP 145/81
[2019-08-15 17:34] VITALS: BP 165/86
== END 2019-08-15 19:10 | disposition home or self-care (01) | DRG 917 ==
LOC: ER 08:54 → ENRESERV 20:45 → 6WST 21:29
PROVIDERS: ADMIT Internal Medicine; ATTEND Internal Medicine
DX: T40.5X1A Poisoning by cocaine, accidental (unintentional), initial encounter (principal); J96.00 Acute respiratory failure, unspecified whether with hypoxia or hypercapnia; J68.0 Bronchitis and pneumonitis due to chemicals, gases, fumes and vapors; I50.32 Chronic diastolic (congestive) heart failure; E78.5 Hyperlipidemia, unspecified; F17.210 Nicotine dependence, cigarettes, uncomplicated; I11.0 Hypertensive heart disease with heart failure; Z60.2 Problems related to living alone; D64.9 Anemia, unspecified; I25.10 Atherosclerotic heart disease of native coronary artery without angina pectoris; Z86.73 Personal history of transient ischemic attack (TIA), and cerebral infarction without residual deficits; Z91.19 Patient's noncompliance with other medical treatment and regimen; Y92.89 Other specified places as the place of occurrence of the external cause; Z79.02 Long term (current) use of antithrombotics/antiplatelets; Z79.51 Long term (current) use of inhaled steroids; Z79.899 Other long term (current) drug therapy
CPT/HCPCS: 36415; 36600; 71045; 80048; 80053; 80061; 80305; 82375; 82805; 83880; 84439; 84443; 84484; 85025; 93005; 94640; 94644; 99291; J1956; J2060; J2920; J2930

== ENCOUNTER 2019-08-16 19:52 | Inpatient (IN) | payer MEDICARE, MEDICAID ==
[~2019-08-16] VITALS: Ht 177.8 cm; Wt 72.7 kg
[~2019-08-16 19:52] MED LIST changes: +BENZ-16 MT; -Folic Acid PO; +GUAI600T26 MT; +IPRA3AMP9 HHN
[2019-08-16] MEDS ORDERED: IPRATROPIUM/ALBUTEROL 0.5-3(2.5)MG/3ML NEB HHN ONE ×2 (20:15→20:30)
[2019-08-16] MEDS ORDERED: METHYLPREDNISOLONE SOD SUCC 40 MG/ML VIAL IV ONE (20:15)
[2019-08-16 20:40] LABS: HEMATOCRIT. 36.9 % (42.0-52.0); HEMOGLOBIN. 12.6 g/dL (14.0-18.0); MEAN CORPUSCULAR HEMOGLOBIN 28.1 pg (28.0-32.0); MEAN CORPUSCULAR VOLUME 82.7 fL (80.0-94.0); MEAN PLATELET VOLUME 10.1 fl (7.4-10.4); PLATELET 341 x1000/uL (130-400); RED BLOOD CELL COUNT 4.47 mill/uL (4.7-6.1); RED CELL DISTRIBUTION WIDTH 18.4 % (11.6-14.6)
[2019-08-16 21:30] LABS: PLATELET ESTIMATE NORMAL
[2019-08-16 21:35] LABS: CHLORIDE 101 mEq/L (98-107)
[2019-08-16] MEDS ORDERED: SODIUM CHLORIDE 0.9% 1000ML BAG (SEPSIS BOLUS) IV ONE (23:00)
[2019-08-16] MEDS ORDERED: LEVOFLOXACIN 500MG PREMIX 100 ML IV ONE (23:00)
[2019-08-17] MEDS ORDERED: IPRATROPIUM/ALBUTEROL 0.5-3(2.5)MG/3ML NEB HHN ONE
[2019-08-17 00:06] LABS: CLARITY URINE CLOUDY (CLEAR); COLOR URINE YELLOW (YELLOW); KETONES URINE NEGATIVE (NEGATIVE); LEUKOCYTE ESTERASE URINE NEGATIVE (NEGATIVE); NITRITE URINE NEGATIVE (NEGATIVE); OCCULT BLOOD URINE NEGATIVE (NEGATIVE); PH URINE 7.5 (4.5-8.0); PROTEIN URINE NEGATIVE (NEGATIVE); SPECIFIC GRAVITY URINE 1.026 (1.005-1.030)
[2019-08-17 00:20] LABS: *BARBITURATES SCREEN URINE NEGATIVE (NEGATIVE)
[2019-08-17 00:21] LABS: *BENZODIAZEPINES SCREEN URINE NEGATIVE (NEGATIVE); *COCAINE SCREEN URINE PRESUMTIVE POSITIVE (NEGATIVE)
[2019-08-17 00:22] LABS: *AMPHETAMINES SCREEN URINE NEGATIVE (NEGATIVE); CANNABINOID URINE SCREEN PRESUMTIVE POSITIVE (NEGATIVE); METHADONE URINE SCREEN NEGATIVE (NEGATIVE); OPIATES URINE SCREEN PRESUMTIVE POSITIVE (NEGATIVE); PHENCYCLIDINE URINE SCREEN NEGATIVE (NEGATIVE)
[2019-08-17] MEDS: IPRATROPIUM/ALBUTEROL 0.5-3(2.5)MG/3ML NEB HHN PRN ×3 (11:32→21:08)
[2019-08-17] MEDS: METHYLPREDNISOLONE SOD SUCC 40 MG/ML VIAL IV SCH ×2 (11:40→20:22)
[2019-08-17 23:23] VITALS: BP 146/90
[2019-08-17 23:32] VITALS: BP 154/72
[2019-08-18] VITALS (15 sets, daily range): BP systolic 93–163; BP diastolic 56–89
[2019-08-18] MEDS: IPRATROPIUM/ALBUTEROL 0.5-3(2.5)MG/3ML NEB HHN PRN ×5 (00:48→15:30)
[2019-08-18] MEDS: LORAZEPAM 0.5MG TABLET PO PRN ×2 (01:09→21:15)
[2019-08-18] MEDS: LEVOFLOXACIN 500MG PREMIX 100 ML IV SCH ×2 (01:09→23:26)
[2019-08-18] MEDS: METHYLPREDNISOLONE SOD SUCC 40 MG/ML VIAL IV SCH ×3 (02:58→21:15)
[2019-08-18 17:36] LABS: HEMATOCRIT. 31.3 % (42.0-52.0); HEMOGLOBIN. 10.6 g/dL (14.0-18.0); MEAN CORPUSCULAR HEMOGLOBIN 27.8 pg (28.0-32.0); MEAN CORPUSCULAR VOLUME 81.8 fL (80.0-94.0); MEAN PLATELET VOLUME 9.4 fl (7.4-10.4); PLATELET 288 x1000/uL (130-400); RED BLOOD CELL COUNT 3.82 mill/uL (4.7-6.1); RED CELL DISTRIBUTION WIDTH 18.8 % (11.6-14.6)
[2019-08-18 17:41] LABS: CHLORIDE 98 mEq/L (98-107)
[2019-08-18] MEDS: CLOPIDOGREL 75MG TABLET PO SCH (18:32)
[2019-08-18] MEDS: IPRATROPIUM BROMIDE (0.02%) 0.5MG/2.5ML NEB HHN SCH (20:49)
[2019-08-19] VITALS (10 sets, daily range): BP systolic 117–144; BP diastolic 63–97
[2019-08-19] MEDS: IPRATROPIUM BROMIDE (0.02%) 0.5MG/2.5ML NEB HHN SCH ×7 (00:16→23:40)
[2019-08-19] MEDS: METHYLPREDNISOLONE SOD SUCC 40 MG/ML VIAL IV SCH ×3 (03:20→20:03)
[2019-08-19] MEDS: LORAZEPAM 0.5MG TABLET PO PRN ×2 (05:08→21:13)
[2019-08-19 07:29] LABS: HEMOGLOBIN. 11.2 g/dL (14.0-18.0); MEAN CORPUSCULAR HEMOGLOBIN 27.8 pg (28.0-32.0); MEAN CORPUSCULAR VOLUME 82.2 fL (80.0-94.0); MEAN PLATELET VOLUME 9.5 fl (7.4-10.4); PLATELET 342 x1000/uL (130-400); RED BLOOD CELL COUNT 4.02 mill/uL (4.7-6.1); RED CELL DISTRIBUTION WIDTH 18.2 % (11.6-14.6)
[2019-08-19 08:06] LABS: CHLORIDE 101 mEq/L (98-107)
[2019-08-19] MEDS: BENAZEPRIL 10MG TABLET PO SCH (09:41)
[2019-08-19] MEDS: CLOPIDOGREL 75MG TABLET PO SCH (09:41)
[2019-08-19 14:40] LABS: PLATELET ESTIMATE NORMAL
[2019-08-19 17:01] LABS: PLATELET ESTIMATE NORMAL
[2019-08-19] MEDS: LEVOFLOXACIN 500MG TABLET PO SCH (21:13)
[2019-08-20] VITALS (12 sets, daily range): BP systolic 118–139; BP diastolic 58–83
[2019-08-20] MEDS: METHYLPREDNISOLONE SOD SUCC 40 MG/ML VIAL IV SCH ×3 (03:34→19:27)
[2019-08-20] MEDS: IPRATROPIUM BROMIDE (0.02%) 0.5MG/2.5ML NEB HHN SCH ×6 (04:16→21:50)
[2019-08-20] MEDS: LORAZEPAM 0.5MG TABLET PO PRN ×3 (06:02→17:18)
[2019-08-20] MEDS: BENAZEPRIL 10MG TABLET PO SCH (08:10)
[2019-08-20] MEDS: CLOPIDOGREL 75MG TABLET PO SCH (08:10)
[2019-08-20] MEDS ORDERED: IPRATROPIUM BROMIDE (0.02%) 0.5MG/2.5ML NEB HHN PRN (14:45)
[2019-08-20 18:45] LABS: BG BASE EXCESS 2.8 mmol/L (-2.0-2.0); BG CARBOXYHEMOGLOBIN 0.3 % (0.5-1.5); BG FRACTION INSPIRED OXYGEN 32; BG HCO3 ACT 27.9 mmol/L (22.0-26.0); BG METHEMOGLOBIN 0.2 % (0.0-1.5); BG OXYHEMOGLOBIN 97.5 % (94.0-97.0); BG PCO2 45.1 mmHg (35.0-45.0); BG PH 7.409 (7.350-7.450); BG PO2 125.8 mmHg (75.0-100.0); BG SAMPLE SITE RIGHT RADIAL; BG TOTAL HEMOGLOBIN 11.8 g/dL (12.0-18.0); BG VENT MODE NASAL CANNULA
[2019-08-20] MEDS: LEVOFLOXACIN 500MG TABLET PO SCH (20:56)
[2019-08-21] VITALS: BP 147/79
[2019-08-21] MEDS: GUAIFENESIN/CODEINE 100-10MG/5ML UDC PO PRN ×2 (00:37→08:50)
[2019-08-21] MEDS: IPRATROPIUM BROMIDE (0.02%) 0.5MG/2.5ML NEB HHN SCH ×4 (01:18→12:08)
[2019-08-21 02:00] VITALS: BP 112/59
[2019-08-21] MEDS: LORAZEPAM 0.5MG TABLET PO PRN ×2 (03:43→11:22)
[2019-08-21] MEDS: METHYLPREDNISOLONE SOD SUCC 40 MG/ML VIAL IV SCH ×2 (03:43→11:22)
[2019-08-21 04:00] VITALS: BP 139/109
[2019-08-21 08:00] VITALS: BP 121/57
[2019-08-21] MEDS: BENAZEPRIL 10MG TABLET PO SCH (08:43)
[2019-08-21] MEDS: CLOPIDOGREL 75MG TABLET PO SCH (08:45)
[2019-08-21 13:40] VITALS: BP 121/57
== END 2019-08-21 15:50 | disposition home or self-care (01) | DRG 190 ==
LOC: ER 19:52 → 3WST 22:51 → EDBEDREQTM 22:54 → EDBEDREQ 22:54 → SUPCPDRO 08-17 16:56 → ENRESERV 08-17 21:41
PROVIDERS: ADMIT Internal Medicine; ATTEND Internal Medicine
DX: J44.1 Chronic obstructive pulmonary disease with (acute) exacerbation (principal); J96.21 Acute and chronic respiratory failure with hypoxia; J96.22 Acute and chronic respiratory failure with hypercapnia; J45.901 Unspecified asthma with (acute) exacerbation; E44.1 Mild protein-calorie malnutrition; R00.0 Tachycardia, unspecified; F14.10 Cocaine abuse, uncomplicated; I10 Essential (primary) hypertension; D64.9 Anemia, unspecified; F41.9 Anxiety disorder, unspecified; K21.9 Gastro-esophageal reflux disease without esophagitis; J20.9 Acute bronchitis, unspecified; Z86.73 Personal history of transient ischemic attack (TIA), and cerebral infarction without residual deficits; Z87.891 Personal history of nicotine dependence; Z79.899 Other long term (current) drug therapy; Z68.23 Body mass index [BMI] 23.0-23.9, adult; Y92.89 Other specified places as the place of occurrence of the external cause; Z87.440 Personal history of urinary (tract) infections
CPT/HCPCS: 36415; 36600; 71045; 80048; 80053; 80305; 81003; 82375; 82805; 83605; 83880; 84484; 85025; 93005; 94640; 96365; 96366; 96375; 97162; 99285; J1956; J2920; J7030

== ENCOUNTER 2019-09-09 01:34 | Inpatient (IN) | payer MEDICARE, MEDICAID ==
[~2019-09-09] VITALS: Ht 177.8 cm; Wt 76.2 kg
[2019-09-09] MEDS ORDERED: ALBUTEROL (0.083%) 2.5MG/3ML NEB HHN STA (02:33)
[2019-09-09] MEDS ORDERED: MAGNESIUM 2 G PREMIX 50 ML IV STA (02:33)
[2019-09-09] MEDS ORDERED: METHYLPREDNISOLONE SOD SUCC 125 MG/2 ML VIAL IV STA (02:33)
[2019-09-09] MEDS ORDERED: IPRATROPIUM BROMIDE (0.02%) 0.5MG/2.5ML NEB HHN STA (02:33)
[2019-09-09 03:10] LABS: HEMATOCRIT 36.2 % (42.0-52.0); HEMOGLOBIN 12.3 g/dL (14.0-18.0); MEAN CORPUSCULAR HEMOGLOBIN 28.7 pg (28.0-32.0); MEAN CORPUSCULAR VOLUME 84.1 fL (80.0-94.0); PLATELET 292 x1000/uL (130-400); RED CELL DISTRIBUTION WIDTH 20.6 % (11.6-14.6)
[2019-09-09 03:12] LABS: CHLORIDE 105 mEq/L (98-107)
[2019-09-09 03:16] LABS: ETHANOL BLOOD < 10 mg/dL
[2019-09-09 05:55] LABS: *BARBITURATES SCREEN URINE NEGATIVE (NEGATIVE); *BENZODIAZEPINES SCREEN URINE NEGATIVE (NEGATIVE); *COCAINE SCREEN URINE PRESUMTIVE POSITIVE (NEGATIVE); METHADONE URINE SCREEN NEGATIVE (NEGATIVE)
[2019-09-09 05:56] LABS: *AMPHETAMINES SCREEN URINE NEGATIVE (NEGATIVE); CANNABINOID URINE SCREEN PRESUMTIVE POSITIVE (NEGATIVE); PHENCYCLIDINE URINE SCREEN NEGATIVE (NEGATIVE)
[2019-09-09] MEDS ORDERED: MORPHINE SULFATE 2 MG/ML CPJ (NOT FOR IM USE) IV PRN (10:15)
[2019-09-09] MEDS ORDERED: MAGNESIUM/ALUMINUM HYDROXIDE/SIMETHICONE 30ML UDC PO PRN (10:15)
[2019-09-09] MEDS ORDERED: GUAIFENESIN 200MG/10ML SUGAR FREE UDC PO PRN (10:15)
[2019-09-09] MEDS ORDERED: ONDANSETRON HCL 4MG/2ML INJ IV PRN (10:15)
[2019-09-09] MEDS ORDERED: CLONIDINE 0.1MG TABLET PO PRN (10:15)
[2019-09-09] MEDS ORDERED: DOCUSATE SODIUM 100MG CAPSULE PO PRN (10:15)
[2019-09-09] MEDS ORDERED: HYDROCODONE/ACETAMINOPHEN 10/325MG TABLET PO PRN (10:15)
[2019-09-09] MEDS ORDERED: ACETAMINOPHEN 325MG TABLET PO PRN (10:15)
[2019-09-09] MEDS ORDERED: ENOXAPARIN 40MG/0.4ML SYR SUBCUT NR (11:00)
[2019-09-09] MEDS: IPRATROPIUM/ALBUTEROL 0.5-3(2.5)MG/3ML NEB NEB SCH ×4 (11:05→21:42)
[2019-09-09] MEDS: METHYLPREDNISOLONE SOD SUCC 125 MG/2 ML VIAL IV SCH ×3 (11:33→22:12)
[2019-09-09 14:49] LABS: CREATINE KINASE 66 IU/L (39-308)
[2019-09-09 14:50] LABS: CREATINE KINASE MB FRACTION 2.3 ng/mL (0.5-3.6)
[2019-09-09 21:00] VITALS: BP 154/73
[2019-09-09 21:21] VITALS: BP 154/73
[2019-09-09 21:30] VITALS: BP 154/73
[2019-09-09] MEDS ORDERED: HYDRALAZINE 20MG/ML VIAL IV PRN (21:30)
[2019-09-09] MEDS: SODIUM CHLORIDE 0.9% INJ 3ML FLUSH IVF SCH (22:12)
[2019-09-09] MEDS: LORAZEPAM 2MG/ML CPJ IV PRN (22:29)
[2019-09-10] VITALS: BP 153/75
[2019-09-10 00:13] LABS: CREATINE KINASE 56 IU/L (39-308)
[2019-09-10 00:15] LABS: CREATINE KINASE MB FRACTION 2.7 ng/mL (0.5-3.6)
[2019-09-10] MEDS: IPRATROPIUM/ALBUTEROL 0.5-3(2.5)MG/3ML NEB NEB SCH ×6 (02:01→23:46)
[2019-09-10] MEDS ORDERED: BENA20TA10 PO (02:03)
[2019-09-10] MEDS: LORAZEPAM 2MG/ML CPJ IV PRN ×4 (02:38→22:59)
[2019-09-10 04:00] VITALS: BP 121/89
[2019-09-10] MEDS: METHYLPREDNISOLONE SOD SUCC 125 MG/2 ML VIAL IV SCH ×4 (04:38→22:51)
[2019-09-10] MEDS: SODIUM CHLORIDE 0.9% INJ 3ML FLUSH IVF SCH ×3 (04:39→22:46)
[2019-09-10 08:00] VITALS: BP 152/68
[2019-09-10 08:04] LABS: CHLORIDE 106 mEq/L (98-107)
[2019-09-10 08:06] LABS: HEMATOCRIT. 31.2 % (42.0-52.0); HEMOGLOBIN. 10.5 g/dL (14.0-18.0); MEAN CORPUSCULAR HEMOGLOBIN 28.1 pg (28.0-32.0); MEAN CORPUSCULAR VOLUME 83.5 fL (80.0-94.0); PLATELET 271 x1000/uL (130-400); RED BLOOD CELL COUNT 3.73 mill/uL (4.7-6.1); RED CELL DISTRIBUTION WIDTH 20.6 % (11.6-14.6)
[2019-09-10 08:32] LABS: OPIATES URINE SCREEN NEGATIVE (NEGATIVE)
[2019-09-10] MEDS: ENOXAPARIN 40MG/0.4ML SYR SUBCUT SCH (09:28)
[2019-09-10 12:00] VITALS: BP 140/73
[2019-09-10] MEDS ORDERED: TERBUTALINE SULFATE 1MG/ML VIAL SUBCUT NR (12:30)
[2019-09-10 13:04] LABS: PLATELET ESTIMATE NORMAL
[2019-09-10] MEDS: CLOPIDOGREL 75MG TABLET PO SCH (13:44)
[2019-09-10 16:00] VITALS: BP 121/56
[2019-09-10 20:00] VITALS: BP 137/66
[2019-09-10] MEDS: DIPHENHYDRAMINE 50MG/ML VIAL IV PRN (22:52)
[2019-09-11] VITALS: BP 141/67
[2019-09-11 04:00] VITALS: BP 136/68
[2019-09-11] MEDS: IPRATROPIUM/ALBUTEROL 0.5-3(2.5)MG/3ML NEB NEB SCH ×5 (04:22→22:42)
[2019-09-11] MEDS: METHYLPREDNISOLONE SOD SUCC 125 MG/2 ML VIAL IV SCH (05:07)
[2019-09-11] MEDS: SODIUM CHLORIDE 0.9% INJ 3ML FLUSH IVF SCH ×3 (06:14→21:17)
[2019-09-11 06:24] LABS: HEMATOCRIT. 28.5 % (42.0-52.0); HEMOGLOBIN. 9.8 g/dL (14.0-18.0); MEAN CORPUSCULAR HEMOGLOBIN 28.5 pg (28.0-32.0); MEAN CORPUSCULAR VOLUME 83.4 fL (80.0-94.0); MEAN PLATELET VOLUME 8.9 fl (7.4-10.4); PLATELET 250 x1000/uL (130-400); RED BLOOD CELL COUNT 3.42 mill/uL (4.7-6.1)
[2019-09-11 06:36] LABS: CHLORIDE 107 mEq/L (98-107)
[2019-09-11 08:00] VITALS: BP 142/76
[2019-09-11] MEDS: LORAZEPAM 2MG/ML CPJ IV PRN ×2 (09:26→20:40)
[2019-09-11] MEDS: ENOXAPARIN 40MG/0.4ML SYR SUBCUT SCH (09:26)
[2019-09-11] MEDS: CLOPIDOGREL 75MG TABLET PO SCH (09:27)
[2019-09-11 10:59] LABS: PLATELET ESTIMATE NORMAL
[2019-09-11] MEDS ORDERED: LORAZEPAM 2MG/ML CPJ IV PRN (11:00)
[2019-09-11 12:00] VITALS: BP 138/72
[2019-09-11] MEDS: METHYLPREDNISOLONE SOD SUCC 40 MG/ML VIAL IV SCH ×2 (12:10→21:14)
[2019-09-11 16:00] VITALS: BP 147/70
[2019-09-11] MEDS: GUAIFENESIN 600MG ER TABLET PO SCH (20:39)
[2019-09-12] VITALS: BP 126/60
[2019-09-12] MEDS: IPRATROPIUM/ALBUTEROL 0.5-3(2.5)MG/3ML NEB NEB SCH ×6 (00:29→20:52)
[2019-09-12] MEDS: LORAZEPAM 2MG/ML CPJ IV PRN ×2 (02:58→20:37)
[2019-09-12 04:00] VITALS: BP 146/77
[2019-09-12] MEDS: METHYLPREDNISOLONE SOD SUCC 40 MG/ML VIAL IV SCH ×3 (06:24→21:27)
[2019-09-12] MEDS: SODIUM CHLORIDE 0.9% INJ 3ML FLUSH IVF SCH ×3 (06:29→21:27)
[2019-09-12 08:00] VITALS: BP 140/71
[2019-09-12] MEDS: GUAIFENESIN 600MG ER TABLET PO SCH ×2 (10:35→20:25)
[2019-09-12] MEDS: CLOPIDOGREL 75MG TABLET PO SCH (10:36)
[2019-09-12] MEDS: ENOXAPARIN 40MG/0.4ML SYR SUBCUT SCH (10:37)
[2019-09-12 12:30] VITALS: BP 152/82
[2019-09-12 16:56] VITALS: BP 139/77
[2019-09-13] MEDS: IPRATROPIUM/ALBUTEROL 0.5-3(2.5)MG/3ML NEB NEB SCH ×5 (00:20→16:39)
[2019-09-13] MEDS: METHYLPREDNISOLONE SOD SUCC 40 MG/ML VIAL IV SCH ×2 (07:19→14:00)
[2019-09-13] MEDS: SODIUM CHLORIDE 0.9% INJ 3ML FLUSH IVF SCH ×3 (07:19→21:27)
[2019-09-13 08:00] VITALS: BP 150/78
[2019-09-13] MEDS: ENOXAPARIN 40MG/0.4ML SYR SUBCUT SCH (10:56)
[2019-09-13] MEDS: GUAIFENESIN 600MG ER TABLET PO SCH ×2 (10:56→13:00)
[2019-09-13] MEDS: CLOPIDOGREL 75MG TABLET PO SCH (10:56)
[2019-09-13] MEDS: LORAZEPAM 2MG/ML CPJ IV PRN ×2 (11:11→20:45)
[2019-09-13 12:00] VITALS: BP 153/78
[2019-09-13 16:00] VITALS: BP 146/81
[2019-09-13 20:00] VITALS: BP 153/84
[2019-09-13] MEDS: IPRATROPIUM/ALBUTEROL 0.5-3(2.5)MG/3ML NEB HHN PRN (21:19)
[2019-09-14] VITALS: BP 148/74
[2019-09-14] MEDS: IPRATROPIUM/ALBUTEROL 0.5-3(2.5)MG/3ML NEB HHN PRN ×5 (01:22→20:03)
[2019-09-14] MEDS: LORAZEPAM 2MG/ML CPJ IV PRN ×2 (01:34→05:58)
[2019-09-14 04:00] VITALS: BP 142/85
[2019-09-14] MEDS: SODIUM CHLORIDE 0.9% INJ 3ML FLUSH IVF SCH ×3 (06:09→20:50)
[2019-09-14 08:00] VITALS: BP 154/82
[2019-09-14] MEDS: PREDNISONE 20MG TABLET PO SCH (09:03)
[2019-09-14] MEDS: GUAIFENESIN 600MG ER TABLET PO SCH ×2 (09:03→20:50)
[2019-09-14] MEDS: ENOXAPARIN 40MG/0.4ML SYR SUBCUT SCH (09:04)
[2019-09-14] MEDS: CLOPIDOGREL 75MG TABLET PO SCH (09:04)
[2019-09-14 12:00] VITALS: BP 149/77
[2019-09-14] MEDS: DIPHENHYDRAMINE 50MG/ML VIAL IV PRN ×2 (15:48→22:10)
[2019-09-14 16:15] VITALS: BP 146/69
[2019-09-14 20:00] VITALS: BP 135/72
[2019-09-15] VITALS: BP 130/75
[2019-09-15] MEDS: IPRATROPIUM/ALBUTEROL 0.5-3(2.5)MG/3ML NEB HHN PRN ×5 (01:11→22:21)
[2019-09-15 04:00] VITALS: BP 115/58
[2019-09-15] MEDS: SODIUM CHLORIDE 0.9% INJ 3ML FLUSH IVF SCH ×3 (05:01→20:51)
[2019-09-15] MEDS: PREDNISONE 20MG TABLET PO SCH (07:41)
[2019-09-15 08:00] VITALS: BP 113/86
[2019-09-15] MEDS: GUAIFENESIN 600MG ER TABLET PO SCH ×2 (09:57→20:50)
[2019-09-15] MEDS: CLOPIDOGREL 75MG TABLET PO SCH (09:57)
[2019-09-15] MEDS: ENOXAPARIN 40MG/0.4ML SYR SUBCUT SCH (09:57)
[2019-09-15 12:00] VITALS: BP 125/66
[2019-09-15 16:00] VITALS: BP 132/72
[2019-09-15] MEDS: LEVOFLOXACIN 500MG PREMIX 100 ML IV SCH (16:14)
[2019-09-15 20:00] VITALS: BP 130/80
[2019-09-15] MEDS: DIPHENHYDRAMINE 50MG/ML VIAL IV PRN (21:13)
[2019-09-16] VITALS: BP 135/77
[2019-09-16] MEDS: IPRATROPIUM/ALBUTEROL 0.5-3(2.5)MG/3ML NEB HHN PRN ×4 (00:37→15:54)
[2019-09-16 04:00] VITALS: BP 125/60
[2019-09-16 06:17] LABS: CHLORIDE 100 mEq/L (98-107)
[2019-09-16] MEDS: PREDNISONE 20MG TABLET PO SCH (06:20)
[2019-09-16] MEDS: SODIUM CHLORIDE 0.9% INJ 3ML FLUSH IVF SCH ×2 (06:20→13:44)
[2019-09-16 06:21] LABS: BASOPHILS % 0.4 % (0.0-2.0); EOSINOPHILS % 0.4 % (0.0-5.0); HEMATOCRIT. 33.8 % (42.0-52.0); HEMOGLOBIN. 11.6 g/dL (14.0-18.0); LYMPHOCYTES % 22.3 % (20.0-50.0); MEAN CORPUSCULAR HEMOGLOBIN 28.8 pg (28.0-32.0); MEAN CORPUSCULAR VOLUME 83.4 fL (80.0-94.0); MEAN PLATELET VOLUME 9.2 fl (7.4-10.4); NEUTROPHILS % 64.9 % (40.0-76.0); PLATELET 304 x1000/uL (130-400); RED BLOOD CELL COUNT 4.05 mill/uL (4.7-6.1); RED CELL DISTRIBUTION WIDTH 20.2 % (11.6-14.6)
[2019-09-16 08:00] VITALS: BP 143/76
[2019-09-16] MEDS: LEVOFLOXACIN 500MG PREMIX 100 ML IV SCH (10:46)
[2019-09-16] MEDS: ENOXAPARIN 40MG/0.4ML SYR SUBCUT SCH (10:46)
[2019-09-16] MEDS: CLOPIDOGREL 75MG TABLET PO SCH (10:46)
[2019-09-16] MEDS: GUAIFENESIN 600MG ER TABLET PO SCH (10:46)
[2019-09-16 12:00] VITALS: BP 131/76
[2019-09-16 16:26] VITALS: BP 131/76
[2019-09-17] MEDS ORDERED: PREDNISONE 20MG TABLET PO SCH (09:00)
== END 2019-09-16 17:05 | disposition home or self-care (01) | DRG 917 ==
LOC: ER 01:34 → 5WST 04:40 → ENRESERV 20:23
PROVIDERS: ADMIT Internal Medicine; ATTEND Internal Medicine
DX: T40.5X1A Poisoning by cocaine, accidental (unintentional), initial encounter (principal); J96.00 Acute respiratory failure, unspecified whether with hypoxia or hypercapnia; J68.0 Bronchitis and pneumonitis due to chemicals, gases, fumes and vapors; D64.9 Anemia, unspecified; F14.10 Cocaine abuse, uncomplicated; F17.210 Nicotine dependence, cigarettes, uncomplicated; I10 Essential (primary) hypertension; F12.90 Cannabis use, unspecified, uncomplicated; K21.9 Gastro-esophageal reflux disease without esophagitis; Z60.2 Problems related to living alone; Y92.89 Other specified places as the place of occurrence of the external cause; Z86.73 Personal history of transient ischemic attack (TIA), and cerebral infarction without residual deficits; Z79.899 Other long term (current) drug therapy
CPT/HCPCS: 36415; 71045; 80048; 80053; 80305; 80320; 82550; 82553; 84484; 85025; 85027; 93970; 94640; 94644; 99285; J1200; J1650; J1956; J2060; J2920; J2930; J3105; J3475; J7512; G0480

== ENCOUNTER 2019-09-17 02:13 | Inpatient (IN) | payer MEDICARE, MEDICAID ==
[2019-09-17] VITALS (9 sets, daily range): BP systolic 107–144; BP diastolic 63–99
[~2019-09-17] VITALS: Ht 177.8 cm; Wt 82.3 kg
[~2019-09-17 02:13] MED LIST changes: -MED4 MT
[2019-09-17] MEDS ORDERED: IPRATROPIUM BROMIDE (0.02%) 0.5MG/2.5ML NEB HHN STA (02:31)
[2019-09-17] MEDS ORDERED: ONDANSETRON HCL 4MG/2ML INJ IV STA (02:31)
[2019-09-17] MEDS ORDERED: METHYLPREDNISOLONE SOD SUCC 125 MG/2 ML VIAL IV STA (02:31)
[2019-09-17] MEDS: ALBUTEROL (0.083%) 2.5MG/3ML NEB HHN SCH ×3 (02:50→03:56)
[2019-09-17 03:12] LABS: CHLORIDE 101 mEq/L (98-107)
[2019-09-17 03:41] LABS: BASOPHILS % 0.2 % (0.0-2.0); EOSINOPHILS % 0.5 % (0.0-5.0); HEMOGLOBIN. 12.8 g/dL (14.0-18.0); LYMPHOCYTES % 15.8 % (20.0-50.0); MEAN CORPUSCULAR HEMOGLOBIN 28.1 pg (28.0-32.0); MEAN CORPUSCULAR VOLUME 83.4 fL (80.0-94.0); MEAN PLATELET VOLUME 9.4 fl (7.4-10.4); MONOCYTES % 13.5 % (2.0-8.0); PLATELET 389 x1000/uL (130-400); RED BLOOD CELL COUNT 4.56 mill/uL (4.7-6.1); RED CELL DISTRIBUTION WIDTH 19.7 % (11.6-14.6)
[2019-09-17] MEDS ORDERED: MAGNESIUM 2 G PREMIX 50 ML IV SCH (04:00)
[2019-09-17] MEDS ORDERED: SODIUM CHLORIDE 0.9% 1000ML BAG (SEPSIS BOLUS) IV ONE (04:15)
[2019-09-17 04:18] LABS: BG BASE EXCESS 0.4 mmol/L (-2.0-2.0); BG CARBOXYHEMOGLOBIN 2.3 % (0.5-1.5); BG DEOXYHEMOGLOBIN 1.6 % (0.0-5.0); BG HCO3 ACT 28.1 mmol/L (22.0-26.0); BG METHEMOGLOBIN 0.3 % (0.0-1.5); BG OXYGEN SATURATION 98.4 % (92.0-98.5); BG OXYHEMOGLOBIN 95.8 % (94.0-97.0); BG PCO2 59.1 mmHg (35.0-45.0); BG PH 7.295 (7.350-7.450); BG PO2 146.7 mmHg (75.0-100.0); BG SAMPLE SITE RIGHT RADIAL; BG TOTAL HEMOGLOBIN 13.4 g/dL (12.0-18.0)
[2019-09-17] MEDS ORDERED: AZITHROMYCIN 500 MG in DEXT 5% WATER 250 ML IV SCH (05:00)
[2019-09-17] MEDS ORDERED: CEFTRIAXONE 1 G PREMIX 50 ML IV SCH (05:00)
[2019-09-17] MEDS ORDERED: MAGNESIUM/ALUMINUM HYDROXIDE/SIMETHICONE 30ML UDC PO PRN (09:00)
[2019-09-17] MEDS ORDERED: DOCUSATE SODIUM 100MG CAPSULE PO PRN (09:00)
[2019-09-17] MEDS ORDERED: GUAIFENESIN 200MG/10ML SUGAR FREE UDC PO PRN (09:00)
[2019-09-17] MEDS ORDERED: HYDROCODONE/ACETAMINOPHEN 10/325MG TABLET PO PRN (09:00)
[2019-09-17] MEDS ORDERED: MORPHINE SULFATE 2 MG/ML CPJ (NOT FOR IM USE) IV PRN (09:00)
[2019-09-17] MEDS ORDERED: ACETAMINOPHEN 325MG TABLET PO PRN (09:00)
[2019-09-17] MEDS ORDERED: CLONIDINE 0.1MG TABLET PO PRN (09:00)
[2019-09-17] MEDS ORDERED: ONDANSETRON HCL 4MG/2ML INJ IV PRN (09:00)
[2019-09-17] MEDS ORDERED: HYDRALAZINE 20MG/ML VIAL IV PRN (09:00)
[2019-09-17] MEDS: IPRATROPIUM/ALBUTEROL 0.5-3(2.5)MG/3ML NEB NEB SCH ×3 (09:12→16:53)
[2019-09-17] MEDS: ENOXAPARIN 40MG/0.4ML SYR SUBCUT SCH (11:34)
[2019-09-17] MEDS: LEVOFLOXACIN 500MG PREMIX 100 ML IV SCH (11:35)
[2019-09-17] MEDS ORDERED: METHYLPREDNISOLONE SOD SUCC 125 MG/2 ML VIAL IV SCH (12:00)
[2019-09-17 12:28] LABS: METHADONE URINE SCREEN NEGATIVE (NEGATIVE); OPIATES URINE SCREEN NEGATIVE (NEGATIVE); PHENCYCLIDINE URINE SCREEN NEGATIVE (NEGATIVE)
[2019-09-17 12:29] LABS: *AMPHETAMINES SCREEN URINE NEGATIVE (NEGATIVE); *BARBITURATES SCREEN URINE NEGATIVE (NEGATIVE); *BENZODIAZEPINES SCREEN URINE NEGATIVE (NEGATIVE); *COCAINE SCREEN URINE PRESUMTIVE POSITIVE (NEGATIVE); CANNABINOID URINE SCREEN NEGATIVE (NEGATIVE)
[2019-09-17] MEDS: LORAZEPAM 2MG/ML CPJ IV PRN ×2 (13:21→17:29)
[2019-09-17] MEDS: SODIUM CHLORIDE 0.9% INJ 3ML FLUSH IVF SCH ×2 (13:24→21:35)
[2019-09-17 16:17] LABS: CREATINE KINASE 105 IU/L (39-308)
[2019-09-17 16:18] LABS: CREATINE KINASE MB FRACTION 5.9 ng/mL (0.5-3.6)
[2019-09-17] MEDS: IPRATROPIUM/ALBUTEROL 0.5-3(2.5)MG/3ML NEB HHN PRN (21:07)
[2019-09-17] MEDS: BUDESONIDE 0.5MG/2ML NEB HHN SCH (21:07)
[2019-09-17] MEDS: DIPHENHYDRAMINE 50MG/ML VIAL IV PRN (21:30)
[2019-09-17] MEDS: METHYLPREDNISOLONE SOD SUCC 40 MG/ML VIAL IV SCH (21:31)
[2019-09-17] MEDS: ZOLPIDEM TARTRATE 5MG TABLET PO PRN (23:35)
[2019-09-18] VITALS (13 sets, daily range): BP systolic 118–147; BP diastolic 63–87
[2019-09-18 00:25] LABS: CREATINE KINASE 87 IU/L (39-308)
[2019-09-18 00:26] LABS: CREATINE KINASE MB FRACTION 4.7 ng/mL (0.5-3.6)
[2019-09-18] MEDS: IPRATROPIUM/ALBUTEROL 0.5-3(2.5)MG/3ML NEB HHN PRN (00:52)
[2019-09-18] MEDS: METHYLPREDNISOLONE SOD SUCC 40 MG/ML VIAL IV SCH ×3 (04:15→20:39)
[2019-09-18] MEDS: IPRATROPIUM/ALBUTEROL 0.5-3(2.5)MG/3ML NEB NEB SCH ×4 (04:53→21:00)
[2019-09-18] MEDS: DIPHENHYDRAMINE 50MG/ML VIAL IV PRN ×3 (05:26→17:00)
[2019-09-18] MEDS: LORAZEPAM 2MG/ML CPJ IV PRN ×3 (05:26→17:00)
[2019-09-18 05:55] LABS: HEMATOCRIT. 31.9 % (42.0-52.0); HEMOGLOBIN. 10.9 g/dL (14.0-18.0); MEAN CORPUSCULAR HEMOGLOBIN 28.4 pg (28.0-32.0); MEAN CORPUSCULAR VOLUME 83.5 fL (80.0-94.0); MEAN PLATELET VOLUME 9.2 fl (7.4-10.4); PLATELET 331 x1000/uL (130-400); RED BLOOD CELL COUNT 3.82 mill/uL (4.7-6.1); RED CELL DISTRIBUTION WIDTH 19.8 % (11.6-14.6)
[2019-09-18 06:21] LABS: CHLORIDE 104 mEq/L (98-107)
[2019-09-18] MEDS: SODIUM CHLORIDE 0.9% INJ 3ML FLUSH IVF SCH ×3 (06:23→21:47)
[2019-09-18 07:41] LABS: CLARITY URINE CLEAR (CLEAR); COLOR URINE YELLOW (YELLOW); KETONES URINE NEGATIVE (NEGATIVE); LEUKOCYTE ESTERASE URINE NEGATIVE (NEGATIVE); NITRITE URINE NEGATIVE (NEGATIVE); OCCULT BLOOD URINE NEGATIVE (NEGATIVE); PROTEIN URINE NEGATIVE (NEGATIVE); SPECIFIC GRAVITY URINE 1.008 (1.005-1.030); UROBILINOGEN URINE 0.2 E.U./dL (0.2-1.0)
[2019-09-18] MEDS: ENOXAPARIN 40MG/0.4ML SYR SUBCUT SCH (09:38)
[2019-09-18] MEDS: BUDESONIDE 0.5MG/2ML NEB HHN SCH ×2 (10:06→20:59)
[2019-09-18 10:11] LABS: PLATELET ESTIMATE NORMAL
[2019-09-18] MEDS: LEVOFLOXACIN 500MG PREMIX 100 ML IV SCH (11:35)
[2019-09-18] MEDS: ZOLPIDEM TARTRATE 5MG TABLET PO PRN (21:44)
[2019-09-19] VITALS (15 sets, daily range): BP systolic 107–162; BP diastolic 60–105
[2019-09-19] MEDS: IPRATROPIUM/ALBUTEROL 0.5-3(2.5)MG/3ML NEB NEB SCH ×3 (01:03→22:00)
[2019-09-19] MEDS: METHYLPREDNISOLONE SOD SUCC 40 MG/ML VIAL IV SCH ×3 (04:26→20:12)
[2019-09-19] MEDS: IPRATROPIUM/ALBUTEROL 0.5-3(2.5)MG/3ML NEB HHN PRN ×3 (04:58→16:40)
[2019-09-19] MEDS: SODIUM CHLORIDE 0.9% INJ 3ML FLUSH IVF SCH ×3 (06:46→22:33)
[2019-09-19 06:50] LABS: HEMATOCRIT. 31.3 % (42.0-52.0); HEMOGLOBIN. 10.5 g/dL (14.0-18.0); MEAN CORPUSCULAR HEMOGLOBIN 28.1 pg (28.0-32.0); MEAN CORPUSCULAR VOLUME 83.4 fL (80.0-94.0); MEAN PLATELET VOLUME 9.3 fl (7.4-10.4); PLATELET 311 x1000/uL (130-400); RED BLOOD CELL COUNT 3.75 mill/uL (4.7-6.1); RED CELL DISTRIBUTION WIDTH 20.2 % (11.6-14.6)
[2019-09-19 07:10] LABS: CHLORIDE 103 mEq/L (98-107)
[2019-09-19] MEDS: ENOXAPARIN 40MG/0.4ML SYR SUBCUT SCH (08:15)
[2019-09-19] MEDS: BUDESONIDE 0.5MG/2ML NEB HHN SCH ×2 (08:52→20:02)
[2019-09-19 08:58] LABS: PLATELET ESTIMATE NORMAL
[2019-09-19] MEDS: LORAZEPAM 2MG/ML CPJ IV PRN ×2 (10:54→20:16)
[2019-09-19] MEDS: LEVOFLOXACIN 500MG PREMIX 100 ML IV SCH (10:54)
[2019-09-19] MEDS ORDERED: TERBUTALINE SULFATE 1MG/ML VIAL SUBCUT SCH (14:00)
[2019-09-19] MEDS: DIPHENHYDRAMINE 50MG/ML VIAL IV PRN (17:59)
[2019-09-19] MEDS: ZOLPIDEM TARTRATE 5MG TABLET PO PRN (22:30)
[2019-09-20] VITALS (8 sets, daily range): BP systolic 137–167; BP diastolic 50–82
[2019-09-20] MEDS: IPRATROPIUM/ALBUTEROL 0.5-3(2.5)MG/3ML NEB HHN PRN (01:09)
[2019-09-20] MEDS: IPRATROPIUM/ALBUTEROL 0.5-3(2.5)MG/3ML NEB NEB SCH ×3 (05:07→13:43)
[2019-09-20] MEDS: SODIUM CHLORIDE 0.9% INJ 3ML FLUSH IVF SCH ×2 (05:22→14:00)
[2019-09-20] MEDS: METHYLPREDNISOLONE SOD SUCC 40 MG/ML VIAL IV SCH ×2 (05:22→11:02)
[2019-09-20 06:53] LABS: CHLORIDE 102 mEq/L (98-107)
[2019-09-20 07:03] LABS: HEMATOCRIT. 30.3 % (42.0-52.0); HEMOGLOBIN. 10.3 g/dL (14.0-18.0); MEAN CORPUSCULAR HEMOGLOBIN 28.5 pg (28.0-32.0); MEAN CORPUSCULAR VOLUME 83.5 fL (80.0-94.0); MEAN PLATELET VOLUME 9.4 fl (7.4-10.4); PLATELET 296 x1000/uL (130-400); RED BLOOD CELL COUNT 3.63 mill/uL (4.7-6.1); RED CELL DISTRIBUTION WIDTH 19.7 % (11.6-14.6)
[2019-09-20 08:31] LABS: PLATELET ESTIMATE NORMAL
[2019-09-20] MEDS: DIPHENHYDRAMINE 50MG/ML VIAL IV PRN (08:53)
[2019-09-20] MEDS: ENOXAPARIN 40MG/0.4ML SYR SUBCUT SCH (08:53)
[2019-09-20] MEDS: LEVOFLOXACIN 500MG PREMIX 100 ML IV SCH (08:53)
[2019-09-20] MEDS: BUDESONIDE 0.5MG/2ML NEB HHN SCH (09:53)
== END 2019-09-20 16:09 | disposition home or self-care (01) | DRG 205 ==
LOC: ER 02:13 → 3WST 05:02 → ENRESERV 07:18
PROVIDERS: ADMIT Internal Medicine; ATTEND Internal Medicine
DX: J68.0 Bronchitis and pneumonitis due to chemicals, gases, fumes and vapors (principal); J96.02 Acute respiratory failure with hypercapnia; J44.1 Chronic obstructive pulmonary disease with (acute) exacerbation; I50.30 Unspecified diastolic (congestive) heart failure; I10 Essential (primary) hypertension; F14.10 Cocaine abuse, uncomplicated; F17.210 Nicotine dependence, cigarettes, uncomplicated; D72.829 Elevated white blood cell count, unspecified; D64.9 Anemia, unspecified; T38.0X5A Adverse effect of glucocorticoids and synthetic analogues, initial encounter; Z86.73 Personal history of transient ischemic attack (TIA), and cerebral infarction without residual deficits; Z91.19 Patient's noncompliance with other medical treatment and regimen; Z99.81 Dependence on supplemental oxygen
CPT/HCPCS: 36415; 36600; 71045; 80048; 80053; 80305; 81003; 82375; 82550; 82553; 82805; 83605; 83880; 84484; 85025; 87804; 93005; 94640; 99291; J0456; J0696; J1200; J1650; J1956; J2060; J2405; J2920; J2930; J3105; J3475; J7060; J7626

== ENCOUNTER 2019-10-12 20:22 | Inpatient (IN) | payer MEDICARE, MEDICAID ==
[~2019-10-12] VITALS: Ht 177.8 cm; Wt 75.3 kg
[2019-10-12] MEDS ORDERED: ALBUTEROL (0.083%) 2.5MG/3ML NEB HHN STA (21:25)
[2019-10-12] MEDS ORDERED: IPRATROPIUM BROMIDE (0.02%) 0.5MG/2.5ML NEB HHN STA (21:25)
[2019-10-12 22:26] LABS: CHLORIDE 107 mEq/L (98-107)
[2019-10-12 22:28] LABS: BASOPHILS % 0.4 % (0.0-2.0); HEMATOCRIT. 31.6 % (42.0-52.0); HEMOGLOBIN. 10.8 g/dL (14.0-18.0); LYMPHOCYTES % 10.3 % (20.0-50.0); MEAN CORPUSCULAR HEMOGLOBIN 28.7 pg (28.0-32.0); MEAN CORPUSCULAR VOLUME 84.2 fL (80.0-94.0); MEAN PLATELET VOLUME 9.1 fl (7.4-10.4); MONOCYTES % 2.6 % (2.0-8.0); NEUTROPHILS % 86.7 % (40.0-76.0); PLATELET 410 x1000/uL (130-400); RED BLOOD CELL COUNT 3.76 mill/uL (4.7-6.1); RED CELL DISTRIBUTION WIDTH 19.6 % (11.6-14.6)
[2019-10-13 02:05] VITALS: BP 147/71
[2019-10-13 03:39] VITALS: BP 147/71
[2019-10-13 04:00] VITALS: BP 142/75
[2019-10-13] MEDS ORDERED: ONDANSETRON HCL 4MG/2ML INJ IV PRN (04:45)
[2019-10-13] MEDS ORDERED: LORAZEPAM 1MG TABLET PO PRN (04:45)
[2019-10-13] MEDS ORDERED: ACETAMINOPHEN 325MG TABLET PO PRN (04:45)
[2019-10-13] MEDS ORDERED: ALBUTEROL (0.083%) 2.5MG/3ML NEB HHN PRN (09:15)
[2019-10-13] MEDS: BENAZEPRIL 10MG TABLET PO SCH (11:09)
[2019-10-13] MEDS: GUAIFENESIN 600MG ER TABLET PO SCH ×2 (11:10→21:19)
[2019-10-13] MEDS: CLOPIDOGREL 75MG TABLET PO SCH (11:10)
[2019-10-13] MEDS: ENOXAPARIN 40MG/0.4ML SYR SUBCUT SCH (11:11)
[2019-10-13 12:00] VITALS: BP 170/78
[2019-10-13 16:00] VITALS: BP 170/100
[2019-10-13] MEDS: ALBUTEROL (0.083%) 2.5MG/3ML NEB HHN SCH (16:00)
[2019-10-13] MEDS: CEFTRIAXONE 1,000 MG in DEXTROSE 5% WATER 50 ML IV SCH (16:28)
[2019-10-13] MEDS ORDERED: AZITHROMYCIN 500 MG in DEXT 5% WATER 250 ML IV SCH (16:30)
[2019-10-13 20:00] VITALS: BP 142/83
[2019-10-13 21:14] LABS: BASOPHILS % 0.6 % (0.0-2.0); EOSINOPHILS % 1.6 % (0.0-5.0); HEMATOCRIT. 31.1 % (42.0-52.0); HEMOGLOBIN. 10.6 g/dL (14.0-18.0); LYMPHOCYTES % 19.1 % (20.0-50.0); MEAN CORPUSCULAR HEMOGLOBIN 28.6 pg (28.0-32.0); MEAN CORPUSCULAR VOLUME 84.2 fL (80.0-94.0); MEAN PLATELET VOLUME 8.8 fl (7.4-10.4); MONOCYTES % 9.2 % (2.0-8.0); NEUTROPHILS % 69.5 % (40.0-76.0); PLATELET 402 x1000/uL (130-400); RED BLOOD CELL COUNT 3.69 mill/uL (4.7-6.1); RED CELL DISTRIBUTION WIDTH 20.1 % (11.6-14.6)
[2019-10-13 21:19] LABS: CHLORIDE 103 mEq/L (98-107)
[2019-10-14] VITALS: BP 138/65
[2019-10-14 08:00] VITALS: BP 159/73
[2019-10-14] MEDS: CLOPIDOGREL 75MG TABLET PO SCH (09:52)
[2019-10-14] MEDS: BENAZEPRIL 10MG TABLET PO SCH (09:52)
[2019-10-14] MEDS: GUAIFENESIN 600MG ER TABLET PO SCH ×2 (09:53→20:59)
[2019-10-14 12:00] VITALS: BP 165/91
[2019-10-14] MEDS ORDERED: ALBUTEROL 6.7GM HFA INHALER ORI PRN (12:32)
[2019-10-14] MEDS ORDERED: ALBUTEROL 6.7GM HFA INHALER ORI SCH (14:00)
[2019-10-14 16:00] VITALS: BP 150/80
[2019-10-14] MEDS ORDERED: AZITHROMYCIN 250 MG in DEXT 5% WATER 250 ML IV SCH (16:00)
[2019-10-14] MEDS: ENOXAPARIN 40MG/0.4ML SYR SUBCUT SCH (16:52)
[2019-10-14] MEDS: CEFTRIAXONE 1,000 MG in DEXTROSE 5% WATER 50 ML IV SCH (16:53)
[2019-10-14 21:32] VITALS: BP 178/83
[2019-10-14] MEDS: ALBUTEROL (0.083%) 2.5MG/3ML NEB HHN SCH (21:44)
[2019-10-14 21:50] VITALS: BP 142/72
[2019-10-15] VITALS: BP 115/68
[2019-10-15] MEDS: ALBUTEROL (0.083%) 2.5MG/3ML NEB HHN SCH ×3 (00:59→08:06)
[2019-10-15 04:00] VITALS: BP 135/71
[2019-10-15 07:24] LABS: BASOPHILS % 0.9 % (0.0-2.0); EOSINOPHILS % 3.4 % (0.0-5.0); HEMATOCRIT. 27.4 % (42.0-52.0); HEMOGLOBIN. 9.6 g/dL (14.0-18.0); LYMPHOCYTES % 31.2 % (20.0-50.0); MEAN CORPUSCULAR HEMOGLOBIN 29.1 pg (28.0-32.0); MEAN CORPUSCULAR VOLUME 83.2 fL (80.0-94.0); MEAN PLATELET VOLUME 8.6 fl (7.4-10.4); MONOCYTES % 12.2 % (2.0-8.0); NEUTROPHILS % 52.3 % (40.0-76.0); PLATELET 385 x1000/uL (130-400); RED BLOOD CELL COUNT 3.29 mill/uL (4.7-6.1); RED CELL DISTRIBUTION WIDTH 19.3 % (11.6-14.6)
[2019-10-15 07:36] LABS: CHLORIDE 105 mEq/L (98-107)
[2019-10-15 08:00] VITALS: BP 139/85
[2019-10-15] MEDS: CLOPIDOGREL 75MG TABLET PO SCH (09:10)
[2019-10-15] MEDS: GUAIFENESIN 600MG ER TABLET PO SCH ×2 (09:10→20:36)
[2019-10-15] MEDS: ENOXAPARIN 40MG/0.4ML SYR SUBCUT SCH (09:10)
[2019-10-15] MEDS: BENAZEPRIL 10MG TABLET PO SCH (09:11)
[2019-10-15] MEDS ORDERED: METHYLPREDNISOLONE SOD SUCC 125 MG/2 ML VIAL IV NR (11:30)
[2019-10-15 12:00] VITALS: BP 110/84
[2019-10-15] MEDS: IPRATROPIUM/ALBUTEROL 0.5-3(2.5)MG/3ML NEB HHN SCH ×3 (12:19→20:14)
[2019-10-15 16:00] VITALS: BP 136/73
[2019-10-15] MEDS ORDERED: AZITHROMYCIN 250 MG TABLET PO SCH (16:00)
[2019-10-15] MEDS: CEFTRIAXONE 1,000 MG in DEXTROSE 5% WATER 50 ML IV SCH (16:14)
[2019-10-15 20:00] VITALS: BP 138/65
[2019-10-15] MEDS: METHYLPREDNISOLONE SOD SUCC 40 MG/ML VIAL IV SCH (20:35)
[2019-10-16] VITALS: BP 158/81
[2019-10-16] MEDS: IPRATROPIUM/ALBUTEROL 0.5-3(2.5)MG/3ML NEB HHN SCH ×4 (00:11→13:50)
[2019-10-16] MEDS: METHYLPREDNISOLONE SOD SUCC 40 MG/ML VIAL IV SCH (05:01)
[2019-10-16 08:00] VITALS: BP 144/77
[2019-10-16] MEDS: BENAZEPRIL 10MG TABLET PO SCH (08:58)
[2019-10-16] MEDS: ENOXAPARIN 40MG/0.4ML SYR SUBCUT SCH (08:59)
[2019-10-16] MEDS: CLOPIDOGREL 75MG TABLET PO SCH (08:59)
[2019-10-16] MEDS: GUAIFENESIN 600MG ER TABLET PO SCH (08:59)
[2019-10-16] MEDS ORDERED: AZITHROMYCIN 500 MG TABLET PO SCH (09:00)
[2019-10-16] MEDS ORDERED: MED4 MT (11:06)
[2019-10-16 12:08] VITALS: BP 140/70
== END 2019-10-16 14:13 | disposition home or self-care (01) | DRG 189 ==
LOC: ER 20:22 → 7EST 23:18 → EEVIPCON 23:18 → EDBEDREQ 23:19 → EDBEDREQTM 23:19 → ENRESERV 10-13 01:17 → 7EST 10-13 03:54 → 5WST 10-14 20:58
PROVIDERS: ADMIT Internal Medicine; ATTEND Internal Medicine
DX: J96.20 Acute and chronic respiratory failure, unspecified whether with hypoxia or hypercapnia (principal); J44.1 Chronic obstructive pulmonary disease with (acute) exacerbation; I50.32 Chronic diastolic (congestive) heart failure; F14.90 Cocaine use, unspecified, uncomplicated; Z20.828 Contact with and (suspected) exposure to other viral communicable diseases; I11.0 Hypertensive heart disease with heart failure; Z86.73 Personal history of transient ischemic attack (TIA), and cerebral infarction without residual deficits; Z99.81 Dependence on supplemental oxygen; Z87.891 Personal history of nicotine dependence; Z79.899 Other long term (current) drug therapy; Z71.51 Drug abuse counseling and surveillance of drug abuser
CPT/HCPCS: 36415; 71045; 80048; 80053; 83880; 84484; 85025; 87635; 87804; 93005; 94640; 94644; 99285; J0456; J0696; J1650; J2920; J2930; J7060

== ENCOUNTER 2019-10-16 23:30 | Inpatient (IN) | payer MEDICARE, MEDICAID ==
[~2019-10-16] VITALS: Ht 177.8 cm; Wt 78.5 kg
[~2019-10-16 23:30] MED LIST changes: +MED4 MT
[2019-10-16] MEDS ORDERED: METHYLPREDNISOLONE SOD SUCC 125 MG/2 ML VIAL IV STA (23:34)
[2019-10-16] MEDS ORDERED: MAGNESIUM 2 G PREMIX 50 ML IV STA (23:34)
[2019-10-16] MEDS ORDERED: IPRATROPIUM BROMIDE (0.02%) 0.5MG/2.5ML NEB HHN STA (23:34)
[2019-10-16] MEDS ORDERED: ALBUTEROL (0.083%) 2.5MG/3ML NEB HHN STA (23:34)
[2019-10-17] VITALS (11 sets, daily range): BP systolic 126–143; BP diastolic 64–93
[2019-10-17 00:59] LABS: CHLORIDE 108 mEq/L (98-107)
[2019-10-17] MEDS ORDERED: KETAMINE HCL 50 MG/ML 10ML IV ONE (01:00)
[2019-10-17 01:05] LABS: HEMOGLOBIN 11.5 g/dL (14.0-18.0); MEAN CORPUSCULAR HEMOGLOBIN 28.2 pg (28.0-32.0); MEAN CORPUSCULAR VOLUME 83.7 fL (80.0-94.0); PLATELET 599 x1000/uL (130-400); RED BLOOD CELL COUNT 4.06 mill/uL (4.7-6.1); RED CELL DISTRIBUTION WIDTH 20.1 % (11.6-14.6)
[2019-10-17] MEDS ORDERED: ONDANSETRON HCL 4MG/2ML INJ IV PRN (06:30)
[2019-10-17] MEDS ORDERED: MORPHINE SULFATE 2 MG/ML CPJ (NOT FOR IM USE) IV PRN (06:30)
[2019-10-17] MEDS ORDERED: IPRATROPIUM/ALBUTEROL 0.5-3(2.5)MG/3ML NEB HHN PRN (06:30)
[2019-10-17] MEDS: METHYLPREDNISOLONE SOD SUCC 40 MG/ML VIAL IV SCH ×3 (07:00→21:54)
[2019-10-17] MEDS: LEVOFLOXACIN 500MG PREMIX 100 ML IV SCH (08:14)
[2019-10-17] MEDS: ENOXAPARIN 40MG/0.4ML SYR SUBCUT SCH (08:16)
[2019-10-17 08:48] LABS: HEMATOCRIT. 27.7 % (42.0-52.0); HEMOGLOBIN. 9.5 g/dL (14.0-18.0); MEAN CORPUSCULAR HEMOGLOBIN 28.3 pg (28.0-32.0); MEAN CORPUSCULAR VOLUME 82.4 fL (80.0-94.0); MEAN PLATELET VOLUME 8.8 fl (7.4-10.4); PLATELET 446 x1000/uL (130-400); RED BLOOD CELL COUNT 3.36 mill/uL (4.7-6.1)
[2019-10-17 09:08] LABS: CHLORIDE 109 mEq/L (98-107)
[2019-10-17] MEDS: BUDESONIDE 0.5MG/2ML NEB HHN SCH ×2 (14:11→20:43)
[2019-10-17] MEDS: IPRATROPIUM/ALBUTEROL 0.5-3(2.5)MG/3ML NEB HHN SCH ×2 (14:11→20:43)
[2019-10-17] MEDS: MONTELUKAST SODIUM 10MG TABLET PO SCH (17:21)
[2019-10-17 18:32] LABS: NUCLEATED RED BLOOD CELLS 1 /100 WBC
[2019-10-17 18:33] LABS: PLATELET ESTIMATE SLIGHTLY INCREASED
[2019-10-18] VITALS (12 sets, daily range): BP systolic 115–153; BP diastolic 64–91
[2019-10-18] MEDS: IPRATROPIUM/ALBUTEROL 0.5-3(2.5)MG/3ML NEB HHN SCH ×6 (00:10→20:30)
[2019-10-18] MEDS: METHYLPREDNISOLONE SOD SUCC 40 MG/ML VIAL IV SCH ×3 (05:14→21:18)
[2019-10-18] MEDS: BUDESONIDE 0.5MG/2ML NEB HHN SCH ×2 (08:17→20:29)
[2019-10-18] MEDS: ENOXAPARIN 40MG/0.4ML SYR SUBCUT SCH (08:36)
[2019-10-18] MEDS: LEVOFLOXACIN 500MG PREMIX 100 ML IV SCH (08:37)
[2019-10-18] MEDS: GUAIFENESIN 600MG ER TABLET PO SCH ×2 (11:08→21:18)
[2019-10-18] MEDS: MONTELUKAST SODIUM 10MG TABLET PO SCH (17:11)
[2019-10-19] VITALS (9 sets, daily range): BP systolic 134–159; BP diastolic 74–95
[2019-10-19] MEDS: IPRATROPIUM/ALBUTEROL 0.5-3(2.5)MG/3ML NEB HHN SCH ×5 (00:25→15:35)
[2019-10-19] MEDS: METHYLPREDNISOLONE SOD SUCC 40 MG/ML VIAL IV SCH ×2 (05:01→13:52)
[2019-10-19] MEDS: LEVOFLOXACIN 500MG PREMIX 100 ML IV SCH (08:37)
[2019-10-19] MEDS: GUAIFENESIN 600MG ER TABLET PO SCH (08:37)
[2019-10-19] MEDS: ENOXAPARIN 40MG/0.4ML SYR SUBCUT SCH (08:37)
[2019-10-19] MEDS: BUDESONIDE 0.5MG/2ML NEB HHN SCH (09:32)
[2019-10-19] MEDS ORDERED: CLAR10 PO (12:28)
[2019-10-19] MEDS ORDERED: IPRA3AMP9 NEB (12:28)
[2019-10-19] MEDS ORDERED: BUDE6.9H INH ×2 (12:28→12:29)
[2019-10-19] MEDS ORDERED: ALBU18HF2 IH ×2 (12:28→12:29)
[2019-10-19] MEDS ORDERED: MED4 MT ×2 (12:28→12:29)
[2019-10-19] MEDS ORDERED: IPRA3AMP9 HHN (12:29)
[2019-10-19] MEDS: MONTELUKAST SODIUM 10MG TABLET PO SCH (16:47)
== END 2019-10-19 17:10 | disposition home or self-care (01) | DRG 871 ==
LOC: ER 23:30 → 3WST 10-17 01:46 → EEVIPCON 10-17 01:46 → ENRESERV 10-17 02:40
PROVIDERS: ADMIT Internal Medicine; ATTEND Internal Medicine
PROC: 5A09357 Assistance with Respiratory Ventilation, Less than 24 Consecutive Hours, Continuous Positive Airway Pressure (ICD-10-PCS; principal; 2019-10-17)
DX: A41.9 Sepsis, unspecified organism (principal); J96.01 Acute respiratory failure with hypoxia; J68.0 Bronchitis and pneumonitis due to chemicals, gases, fumes and vapors; J44.1 Chronic obstructive pulmonary disease with (acute) exacerbation; I10 Essential (primary) hypertension; E87.8 Other disorders of electrolyte and fluid balance, not elsewhere classified; D64.9 Anemia, unspecified; Z20.828 Contact with and (suspected) exposure to other viral communicable diseases; F17.210 Nicotine dependence, cigarettes, uncomplicated; F19.11 Other psychoactive substance abuse, in remission; F14.10 Cocaine abuse, uncomplicated; D72.829 Elevated white blood cell count, unspecified; Z99.81 Dependence on supplemental oxygen; Z86.73 Personal history of transient ischemic attack (TIA), and cerebral infarction without residual deficits; Z79.899 Other long term (current) drug therapy
CPT/HCPCS: 36415; 71045; 80048; 80053; 85025; 85027; 94640; 94644; 94660; 99285; J1650; J1956; J2920; J2930; J3475; J3490; J7626

== ENCOUNTER 2019-11-03 21:20 | Emergency (ER) | payer MEDICARE, MEDICAID ==
[~2019-11-03] VITALS: Ht 182.9 cm; Wt 87.0 kg
[2019-11-03] MEDS ORDERED: MAGNESIUM 2 G PREMIX 50 ML IV STA (22:17)
[2019-11-03] MEDS ORDERED: PREDNISONE 20MG TABLET PO STA (22:17)
[2019-11-03] MEDS ORDERED: ALBUTEROL (0.083%) 2.5MG/3ML NEB HHN STA (22:17)
[2019-11-03] MEDS ORDERED: IPRATROPIUM BROMIDE (0.02%) 0.5MG/2.5ML NEB HHN STA (22:17)
[2019-11-03] MEDS ORDERED: MAGNESIUM 2 G PREMIX 50 ML IV NR (22:30)
[2019-11-04] MEDS ORDERED: ALBUTEROL (0.5%) 2.5MG/0.5ML NEB HHN ONE (01:30)
[2019-11-04 05:51] VITALS: BP 130/62
== END 2019-11-04 06:15 | disposition home or self-care (01) ==
LOC: ER 21:20
DX: J44.1 Chronic obstructive pulmonary disease with (acute) exacerbation (principal); R03.0 Elevated blood-pressure reading, without diagnosis of hypertension; F14.10 Cocaine abuse, uncomplicated; Z79.899 Other long term (current) drug therapy
CPT/HCPCS: 71045; 94640; 94644; 96365; 96366; 99285; J3475; J7512

== ENCOUNTER 2019-11-12 13:56 | Inpatient (IN) | payer MEDICARE, MEDICAID ==
[~2019-11-12] VITALS: Ht 180.3 cm; Wt 75.3 kg
[2019-11-12] MEDS ORDERED: METHYLPREDNISOLONE SOD SUCC 125 MG/2 ML VIAL IV STA (14:13)
[2019-11-12] MEDS ORDERED: ALBUTEROL (0.083%) 2.5MG/3ML NEB HHN STA (14:13)
[2019-11-12] MEDS ORDERED: IPRATROPIUM BROMIDE (0.02%) 0.5MG/2.5ML NEB HHN STA (14:13)
[2019-11-12] MEDS ORDERED: MAGNESIUM 2 G PREMIX 50 ML IV STA (14:13)
[2019-11-12 15:25] LABS: BASOPHILS % 1.3 % (0.0-2.0); EOSINOPHILS % 1.4 % (0.0-5.0); HEMATOCRIT. 32.9 % (42.0-52.0); HEMOGLOBIN. 11.2 g/dL (14.0-18.0); LYMPHOCYTES % 18.2 % (20.0-50.0); MEAN CORPUSCULAR HEMOGLOBIN 28.9 pg (28.0-32.0); MEAN CORPUSCULAR VOLUME 84.6 fL (80.0-94.0); MEAN PLATELET VOLUME 8.9 fl (7.4-10.4); MONOCYTES % 6.9 % (2.0-8.0); NEUTROPHILS % 72.2 % (40.0-76.0); PLATELET 344 x1000/uL (130-400); RED BLOOD CELL COUNT 3.89 mill/uL (4.7-6.1); RED CELL DISTRIBUTION WIDTH 19.6 % (11.6-14.6)
[2019-11-12 15:26] LABS: CHLORIDE 106 mEq/L (98-107)
[2019-11-12 15:29] LABS: INR 1.3; PROTHROMBIN TIME 13.6 sec (9.6-11.0)
[2019-11-12 15:35] LABS: CREATINE KINASE 81 IU/L (39-308)
[2019-11-12 19:14] LABS: CLARITY URINE CLOUDY (CLEAR); COLOR URINE YELLOW (YELLOW); KETONES URINE 1+ (NEGATIVE); LEUKOCYTE ESTERASE URINE NEGATIVE (NEGATIVE); NITRITE URINE NEGATIVE (NEGATIVE); OCCULT BLOOD URINE NEGATIVE (NEGATIVE); PH URINE 7.5 (4.5-8.0); PROTEIN URINE NEGATIVE (NEGATIVE); SPECIFIC GRAVITY URINE 1.019 (1.005-1.030)
[2019-11-12] MEDS ORDERED: MAGNESIUM/ALUMINUM HYDROXIDE/SIMETHICONE 30ML UDC PO PRN (20:00)
[2019-11-12] MEDS ORDERED: MORPHINE SULFATE 2 MG/ML CPJ (NOT FOR IM USE) IV PRN (20:00)
[2019-11-12] MEDS ORDERED: HYDROCODONE/ACETAMINOPHEN 10/325MG TABLET PO PRN (20:00)
[2019-11-12] MEDS ORDERED: HYDRALAZINE 20MG/ML VIAL IV PRN (20:00)
[2019-11-12] MEDS ORDERED: GUAIFENESIN 200MG/10ML SUGAR FREE UDC PO PRN (20:00)
[2019-11-12] MEDS ORDERED: ONDANSETRON HCL 4MG/2ML INJ IV PRN (20:00)
[2019-11-12] MEDS ORDERED: DIPHENHYDRAMINE 50MG/ML VIAL IV PRN (20:00)
[2019-11-12] MEDS ORDERED: ACETAMINOPHEN 325MG TABLET PO PRN (20:00)
[2019-11-12] MEDS ORDERED: DOCUSATE SODIUM 100MG CAPSULE PO PRN (20:00)
[2019-11-12] MEDS ORDERED: LEVOFLOXACIN 500MG PREMIX 100 ML IV NR (20:30)
[2019-11-12] MEDS: METHYLPREDNISOLONE SOD SUCC 125 MG/2 ML VIAL IV SCH (20:52)
[2019-11-13 00:24] LABS: CREATINE KINASE 80 IU/L (39-308)
[2019-11-13 00:25] LABS: CREATINE KINASE MB FRACTION 2.3 ng/mL (0.5-3.6)
[2019-11-13] MEDS: LORAZEPAM 2MG/ML CPJ IV PRN ×3 (01:01→14:15)
[2019-11-13] MEDS: IPRATROPIUM/ALBUTEROL 0.5-3(2.5)MG/3ML NEB HHN PRN ×2 (01:47→09:45)
[2019-11-13 05:43] LABS: HEMATOCRIT. 29.4 % (42.0-52.0); HEMOGLOBIN. 10.1 g/dL (14.0-18.0); MEAN CORPUSCULAR VOLUME 84.1 fL (80.0-94.0); MEAN PLATELET VOLUME 8.9 fl (7.4-10.4); PLATELET 300 x1000/uL (130-400); RED BLOOD CELL COUNT 3.49 mill/uL (4.7-6.1); RED CELL DISTRIBUTION WIDTH 19.2 % (11.6-14.6)
[2019-11-13 05:53] LABS: CHLORIDE 103 mEq/L (98-107)
[2019-11-13 06:01] LABS: CREATINE KINASE 77 IU/L (39-308)
[2019-11-13 06:04] LABS: CREATINE KINASE MB FRACTION 2.3 ng/mL (0.5-3.6)
[2019-11-13 07:01] LABS: PLATELET ESTIMATE NORMAL
[2019-11-13] MEDS: SODIUM CHLORIDE 0.9% INJ 3ML FLUSH IVF SCH ×3 (07:45→21:13)
[2019-11-13 10:16] LABS: *AMPHETAMINES SCREEN URINE NEGATIVE (NEGATIVE); *BARBITURATES SCREEN URINE NEGATIVE (NEGATIVE); *BENZODIAZEPINES SCREEN URINE NEGATIVE (NEGATIVE); *COCAINE SCREEN URINE PRESUMTIVE POSITIVE (NEGATIVE); METHADONE URINE SCREEN NEGATIVE (NEGATIVE); OPIATES URINE SCREEN NEGATIVE (NEGATIVE)
[2019-11-13 10:17] LABS: CANNABINOID URINE SCREEN PRESUMTIVE POSITIVE (NEGATIVE); PHENCYCLIDINE URINE SCREEN NEGATIVE (NEGATIVE)
[2019-11-13] MEDS: METHYLPREDNISOLONE SOD SUCC 125 MG/2 ML VIAL IV SCH ×2 (12:00→21:12)
[2019-11-13] MEDS ORDERED: LEVOFLOXACIN 500MG PREMIX 100 ML IV SCH (14:00)
[2019-11-13 17:44] VITALS: BP 142/70
[2019-11-13 20:00] VITALS: BP 171/88
[2019-11-13] MEDS: GUAIFENESIN 600MG ER TABLET PO SCH (21:12)
[2019-11-13] MEDS: ENOXAPARIN 40MG/0.4ML SYR SUBCUT SCH ×2 (21:13→21:14)
[2019-11-14] VITALS (8 sets, daily range): BP systolic 107–188; BP diastolic 74–93
[2019-11-14] MEDS: LORAZEPAM 2MG/ML CPJ IV PRN ×2 (00:46→20:39)
[2019-11-14] MEDS: IPRATROPIUM/ALBUTEROL 0.5-3(2.5)MG/3ML NEB HHN SCH ×3 (01:49→20:44)
[2019-11-14] MEDS ORDERED: SIMV10TA97 PO (02:16)
[2019-11-14] MEDS: METHYLPREDNISOLONE SOD SUCC 125 MG/2 ML VIAL IV SCH ×2 (04:49→12:00)
[2019-11-14] MEDS: SODIUM CHLORIDE 0.9% INJ 3ML FLUSH IVF SCH ×3 (05:30→22:00)
[2019-11-14] MEDS: LEVOFLOXACIN 500MG PREMIX 100 ML IV SCH ×2 (05:35→20:39)
[2019-11-14] MEDS: GUAIFENESIN 600MG ER TABLET PO SCH ×2 (08:45→20:19)
[2019-11-14] MEDS: METHYLPREDNISOLONE SOD SUCC 40 MG/ML VIAL IV SCH (20:19)
[2019-11-14] MEDS: ENOXAPARIN 40MG/0.4ML SYR SUBCUT SCH (20:20)
[2019-11-14] MEDS: BUDESONIDE 0.5MG/2ML NEB HHN SCH (20:44)
[2019-11-15] VITALS: BP 179/82
[2019-11-15] MEDS: IPRATROPIUM/ALBUTEROL 0.5-3(2.5)MG/3ML NEB HHN SCH ×7 (01:16→19:55)
[2019-11-15] MEDS: CLONIDINE 0.1MG TABLET PO PRN (02:28)
[2019-11-15] MEDS: METHYLPREDNISOLONE SOD SUCC 40 MG/ML VIAL IV SCH ×3 (03:45→21:12)
[2019-11-15] MEDS: SODIUM CHLORIDE 0.9% INJ 3ML FLUSH IVF SCH ×3 (05:17→22:03)
[2019-11-15 08:00] VITALS: BP 153/79
[2019-11-15] MEDS: BUDESONIDE 0.5MG/2ML NEB HHN SCH ×2 (08:04→19:55)
[2019-11-15] MEDS: GUAIFENESIN 600MG ER TABLET PO SCH ×2 (09:02→21:12)
[2019-11-15] MEDS: LEVOFLOXACIN 500MG TABLET PO SCH (11:57)
[2019-11-15 12:00] VITALS: BP 158/72
[2019-11-15 16:00] VITALS: BP 148/68
[2019-11-15 20:00] VITALS: BP 134/64
[2019-11-15] MEDS: ENOXAPARIN 40MG/0.4ML SYR SUBCUT SCH (21:12)
[2019-11-15] MEDS: LORAZEPAM 2MG/ML CPJ IV PRN (22:03)
[2019-11-16] VITALS: BP 124/91
[2019-11-16] MEDS: IPRATROPIUM/ALBUTEROL 0.5-3(2.5)MG/3ML NEB HHN SCH ×6 (00:05→21:11)
[2019-11-16] MEDS: METHYLPREDNISOLONE SOD SUCC 40 MG/ML VIAL IV SCH ×3 (03:40→17:17)
[2019-11-16 04:00] VITALS: BP 121/85
[2019-11-16] MEDS: SODIUM CHLORIDE 0.9% INJ 3ML FLUSH IVF SCH ×3 (06:00→21:26)
[2019-11-16 08:00] VITALS: BP 171/84
[2019-11-16] MEDS: GUAIFENESIN 600MG ER TABLET PO SCH ×2 (08:48→21:26)
[2019-11-16] MEDS: CLONIDINE 0.1MG TABLET PO PRN ×2 (08:49→21:29)
[2019-11-16] MEDS: BUDESONIDE 0.5MG/2ML NEB HHN SCH ×2 (09:39→21:11)
[2019-11-16 12:00] VITALS: BP 127/82
[2019-11-16] MEDS: LEVOFLOXACIN 500MG TABLET PO SCH (14:09)
[2019-11-16] MEDS ORDERED: TERBUTALINE SULFATE 1MG/ML VIAL SUBCUT NR (14:45)
[2019-11-16 16:00] VITALS: BP 133/97
[2019-11-16 20:00] VITALS: BP 155/87
[2019-11-16] MEDS: LORAZEPAM 2MG/ML CPJ IV PRN (21:26)
[2019-11-16] MEDS: ENOXAPARIN 40MG/0.4ML SYR SUBCUT SCH (21:26)
[2019-11-16] MEDS: IPRATROPIUM/ALBUTEROL 0.5-3(2.5)MG/3ML NEB HHN PRN (23:35)
[2019-11-17] VITALS: BP 128/83
[2019-11-17 04:00] VITALS: BP 135/82
[2019-11-17] MEDS: IPRATROPIUM/ALBUTEROL 0.5-3(2.5)MG/3ML NEB HHN SCH ×5 (04:10→20:53)
[2019-11-17] MEDS: SODIUM CHLORIDE 0.9% INJ 3ML FLUSH IVF SCH ×3 (06:36→21:01)
[2019-11-17] MEDS: METHYLPREDNISOLONE SOD SUCC 40 MG/ML VIAL IV SCH ×2 (06:36→17:45)
[2019-11-17] MEDS: IPRATROPIUM/ALBUTEROL 0.5-3(2.5)MG/3ML NEB HHN PRN (06:38)
[2019-11-17 08:00] VITALS: BP 152/78
[2019-11-17] MEDS: BUDESONIDE 0.5MG/2ML NEB HHN SCH ×2 (08:27→20:53)
[2019-11-17] MEDS: GUAIFENESIN 600MG ER TABLET PO SCH ×2 (08:52→20:45)
[2019-11-17] MEDS: LORAZEPAM 2MG/ML CPJ IV PRN (11:46)
[2019-11-17 12:00] VITALS: BP 154/79
[2019-11-17 15:59] VITALS: BP 154/88
[2019-11-17 20:00] VITALS: BP 136/84
[2019-11-17] MEDS: ENOXAPARIN 40MG/0.4ML SYR SUBCUT SCH (20:47)
[2019-11-17] MEDS ORDERED: LORAZEPAM 2MG/ML CPJ IV PRN (21:35)
[2019-11-18] VITALS: BP 155/85
[2019-11-18] MEDS: IPRATROPIUM/ALBUTEROL 0.5-3(2.5)MG/3ML NEB HHN SCH ×4 (00:50→12:20)
[2019-11-18 04:00] VITALS: BP 156/53
[2019-11-18] MEDS: METHYLPREDNISOLONE SOD SUCC 40 MG/ML VIAL IV SCH (05:22)
[2019-11-18] MEDS: SODIUM CHLORIDE 0.9% INJ 3ML FLUSH IVF SCH ×2 (05:22→14:00)
[2019-11-18 08:00] VITALS: BP 120/62
[2019-11-18] MEDS: GUAIFENESIN 600MG ER TABLET PO SCH (08:57)
[2019-11-18 12:00] VITALS: BP 154/68
[2019-11-18 16:00] VITALS: BP 157/80
[2019-11-18] MEDS: IPRATROPIUM/ALBUTEROL 0.5-3(2.5)MG/3ML NEB HHN PRN (16:34)
[2019-11-18] MEDS ORDERED: IPRATROPIUM/ALBUTEROL 0.5-3(2.5)MG/3ML NEB HHN SCH (18:00)
== END 2019-11-18 17:30 | disposition home or self-care (01) | DRG 917 ==
LOC: ER 14:09 → EDBEDREQ 16:43 → ENRESERV 11-13 15:59 → 6WST 11-13 17:32
PROVIDERS: ADMIT Internal Medicine; ATTEND Internal Medicine
DX: T40.5X1A Poisoning by cocaine, accidental (unintentional), initial encounter (principal); J96.00 Acute respiratory failure, unspecified whether with hypoxia or hypercapnia; J68.0 Bronchitis and pneumonitis due to chemicals, gases, fumes and vapors; Z86.73 Personal history of transient ischemic attack (TIA), and cerebral infarction without residual deficits; F12.10 Cannabis abuse, uncomplicated; D64.9 Anemia, unspecified; F17.210 Nicotine dependence, cigarettes, uncomplicated; I10 Essential (primary) hypertension; Z60.2 Problems related to living alone; Z79.02 Long term (current) use of antithrombotics/antiplatelets; Y92.89 Other specified places as the place of occurrence of the external cause; Z79.51 Long term (current) use of inhaled steroids; Z79.899 Other long term (current) drug therapy
CPT/HCPCS: 36415; 71045; 80053; 80305; 81003; 82550; 82553; 83605; 83880; 84145; 84484; 85025; 93005; 93970; 94640; 94644; 99291; J1650; J1956; J2060; J2920; J2930; J3105; J3475; J7626

== ENCOUNTER 2019-11-19 11:13 | Inpatient (IN) | payer MEDICARE, MEDICAID ==
[~2019-11-19] VITALS: Ht 175.3 cm; Wt 70.3 kg
[~2019-11-19 11:13] MED LIST changes: +SIMV10TA97 PO
[2019-11-19] MEDS ORDERED: METHYLPREDNISOLONE SOD SUCC 125 MG/2 ML VIAL IV STA (12:14)
[2019-11-19] MEDS ORDERED: ALBUTEROL (0.5%) 2.5MG/0.5ML NEB HHN ONE (12:15)
[2019-11-19 12:24] LABS: BASOPHILS % 0.5 % (0.0-2.0); LYMPHOCYTES % 20.7 % (20.0-50.0); MEAN CORPUSCULAR HEMOGLOBIN 28.5 pg (28.0-32.0); MEAN CORPUSCULAR VOLUME 83.3 fL (80.0-94.0); MEAN PLATELET VOLUME 8.5 fl (7.4-10.4); MONOCYTES % 12.9 % (2.0-8.0); NEUTROPHILS % 64.9 % (40.0-76.0); PLATELET 345 x1000/uL (130-400); RED CELL DISTRIBUTION WIDTH 18.9 % (11.6-14.6)
[2019-11-19 12:34] LABS: CHLORIDE 100 mEq/L (98-107)
[2019-11-19] MEDS ORDERED: ALBUTEROL (0.5%) 2.5MG/0.5ML NEB HHN NR (15:00)
[2019-11-19] MEDS ORDERED: CLONIDINE 0.1MG TABLET PO PRN (20:15)
[2019-11-19 21:30] VITALS: BP 222/99
[2019-11-19] MEDS ORDERED: IPRATROPIUM/ALBUTEROL 0.5-3(2.5)MG/3ML NEB HHN PRN (21:45)
[2019-11-19 23:00] VITALS: BP 222/99
[2019-11-19] MEDS: LEVOFLOXACIN 500MG PREMIX 100 ML IV SCH (23:18)
[2019-11-19] MEDS: LORAZEPAM 1MG TABLET PO PRN (23:18)
[2019-11-19] MEDS: METHYLPREDNISOLONE SOD SUCC 40 MG/ML VIAL IV SCH (23:18)
[2019-11-20] VITALS: BP 154/70
[2019-11-20] MEDS: IPRATROPIUM/ALBUTEROL 0.5-3(2.5)MG/3ML NEB HHN SCH ×7 (00:28→20:22)
[2019-11-20 04:00] VITALS: BP 123/77
[2019-11-20] MEDS: METHYLPREDNISOLONE SOD SUCC 40 MG/ML VIAL IV SCH ×3 (05:11→21:03)
[2019-11-20 08:00] VITALS: BP 117/70
[2019-11-20] MEDS: AMLODIPINE 10MG TABLET PO SCH (08:44)
[2019-11-20] MEDS: BENAZEPRIL 10MG TABLET PO SCH (08:44)
[2019-11-20] MEDS: CLOPIDOGREL 75MG TABLET PO SCH (08:44)
[2019-11-20] MEDS: BUDESONIDE 0.5MG/2ML NEB HHN SCH ×2 (08:49→20:21)
[2019-11-20 12:00] VITALS: BP 110/58
[2019-11-20] MEDS: LORAZEPAM 1MG TABLET PO PRN ×2 (12:24→20:46)
[2019-11-20 16:00] VITALS: BP 134/64
[2019-11-20] MEDS: ENOXAPARIN 40MG/0.4ML SYR SUBCUT SCH (16:17)
[2019-11-20 20:00] VITALS: BP 102/75
[2019-11-20] MEDS: ATORVASTATIN CALCIUM 10MG TABLET PO SCH (20:46)
[2019-11-20] MEDS: LEVOFLOXACIN 500MG PREMIX 100 ML IV SCH (20:47)
[2019-11-21] VITALS: BP 129/73
[2019-11-21] MEDS: IPRATROPIUM/ALBUTEROL 0.5-3(2.5)MG/3ML NEB HHN SCH ×6 (00:37→20:43)
[2019-11-21 04:00] VITALS: BP 139/58
[2019-11-21] MEDS: METHYLPREDNISOLONE SOD SUCC 40 MG/ML VIAL IV SCH ×3 (06:50→21:58)
[2019-11-21 08:00] VITALS: BP 128/78
[2019-11-21] MEDS: CLOPIDOGREL 75MG TABLET PO SCH (08:39)
[2019-11-21] MEDS: AMLODIPINE 10MG TABLET PO SCH (08:39)
[2019-11-21] MEDS: BENAZEPRIL 10MG TABLET PO SCH (08:39)
[2019-11-21] MEDS: LORAZEPAM 1MG TABLET PO PRN ×2 (08:43→17:57)
[2019-11-21] MEDS: BUDESONIDE 0.5MG/2ML NEB HHN SCH ×2 (09:25→20:43)
[2019-11-21 12:00] VITALS: BP 106/77
[2019-11-21 16:00] VITALS: BP 123/74
[2019-11-21] MEDS: ENOXAPARIN 40MG/0.4ML SYR SUBCUT SCH (16:30)
[2019-11-21] MEDS ORDERED: TERBUTALINE SULFATE 1MG/ML VIAL SUBCUT NR (17:00)
[2019-11-21 20:00] VITALS: BP 129/67
[2019-11-21] MEDS: ATORVASTATIN CALCIUM 10MG TABLET PO SCH (21:57)
[2019-11-21] MEDS: FAMOTIDINE 20MG TABLET PO SCH (21:57)
[2019-11-21] MEDS: LEVOFLOXACIN 500MG PREMIX 100 ML IV SCH (21:58)
[2019-11-22] VITALS: BP 132/73
[2019-11-22] MEDS: IPRATROPIUM/ALBUTEROL 0.5-3(2.5)MG/3ML NEB HHN SCH ×6 (00:24→20:43)
[2019-11-22 04:00] VITALS: BP 140/84
[2019-11-22] MEDS: METHYLPREDNISOLONE SOD SUCC 40 MG/ML VIAL IV SCH ×3 (05:11→21:07)
[2019-11-22] MEDS ORDERED: LORAZEPAM 1MG TABLET PO PRN (07:45)
[2019-11-22 08:00] VITALS: BP 134/68
[2019-11-22] MEDS: BUDESONIDE 0.5MG/2ML NEB HHN SCH ×3 (08:04→21:19)
[2019-11-22] MEDS: FAMOTIDINE 20MG TABLET PO SCH ×2 (08:43→21:07)
[2019-11-22] MEDS: AMLODIPINE 10MG TABLET PO SCH (08:43)
[2019-11-22] MEDS: CLOPIDOGREL 75MG TABLET PO SCH (08:43)
[2019-11-22] MEDS: BENAZEPRIL 10MG TABLET PO SCH (08:43)
[2019-11-22 12:00] VITALS: BP 126/64
[2019-11-22] MEDS: ENOXAPARIN 40MG/0.4ML SYR SUBCUT SCH (15:08)
[2019-11-22] MEDS: THEOPHYLLINE ANHYDROUS 80 MG/15 ML 120ML PO SCH ×2 (15:09→21:07)
[2019-11-22 16:00] VITALS: BP 124/67
[2019-11-22 20:00] VITALS: BP 136/72
[2019-11-22] MEDS: LEVOFLOXACIN 500MG PREMIX 100 ML IV SCH (21:07)
[2019-11-22] MEDS: ATORVASTATIN CALCIUM 10MG TABLET PO SCH (21:07)
[2019-11-22] MEDS ORDERED: THEOPHYLLINE ANHYDROUS 80 MG/15 ML 120ML PO SCH (22:00)
[2019-11-23] VITALS: BP 139/86
[2019-11-23] MEDS: IPRATROPIUM/ALBUTEROL 0.5-3(2.5)MG/3ML NEB HHN SCH ×5 (00:34→16:15)
[2019-11-23 04:00] VITALS: BP 147/88
[2019-11-23] MEDS: THEOPHYLLINE ANHYDROUS 80 MG/15 ML 120ML PO SCH ×2 (05:15→13:26)
[2019-11-23] MEDS: METHYLPREDNISOLONE SOD SUCC 40 MG/ML VIAL IV SCH ×2 (05:15→13:26)
[2019-11-23 08:00] VITALS: BP 140/68
[2019-11-23] MEDS: FAMOTIDINE 20MG TABLET PO SCH (08:26)
[2019-11-23] MEDS: BENAZEPRIL 10MG TABLET PO SCH (08:26)
[2019-11-23] MEDS: CLOPIDOGREL 75MG TABLET PO SCH (08:26)
[2019-11-23] MEDS: AMLODIPINE 10MG TABLET PO SCH (08:26)
[2019-11-23] MEDS ORDERED: GUAI600T26 MT (08:35)
[2019-11-23] MEDS ORDERED: BENA20TA10 PO (08:35)
[2019-11-23] MEDS ORDERED: BENZ-16 MT (08:35)
[2019-11-23] MEDS ORDERED: ALBU18HF2 IH (08:35)
[2019-11-23] MEDS ORDERED: CLOP75TA33 PO (08:35)
[2019-11-23] MEDS ORDERED: MED4 MT (08:35)
[2019-11-23] MEDS ORDERED: BUDE6.9H INH (08:35)
[2019-11-23] MEDS ORDERED: IPRA3AMP9 HHN (08:35)
[2019-11-23] MEDS: BUDESONIDE 0.5MG/2ML NEB HHN SCH (08:44)
[2019-11-23 12:00] VITALS: BP 141/84
[2019-11-23] MEDS ORDERED: LORA-249 MT (13:10)
[2019-11-23] MEDS ORDERED: THEO400T MT (13:10)
[2019-11-23 13:18] VITALS: BP 143/79
[2019-11-23] MEDS: ENOXAPARIN 40MG/0.4ML SYR SUBCUT SCH (16:00)
== END 2019-11-23 16:20 | disposition home or self-care (01) | DRG 917 ==
LOC: ER 11:23 → 5WST 15:18 → EDBEDREQ 15:22 → ENRESERV 20:36
PROVIDERS: ADMIT Internal Medicine; ATTEND Internal Medicine
DX: T40.5X1A Poisoning by cocaine, accidental (unintentional), initial encounter (principal); J96.20 Acute and chronic respiratory failure, unspecified whether with hypoxia or hypercapnia; J68.0 Bronchitis and pneumonitis due to chemicals, gases, fumes and vapors; R64 Cachexia; E11.9 Type 2 diabetes mellitus without complications; F12.10 Cannabis abuse, uncomplicated; D64.9 Anemia, unspecified; D72.829 Elevated white blood cell count, unspecified; F14.10 Cocaine abuse, uncomplicated; F17.210 Nicotine dependence, cigarettes, uncomplicated; I10 Essential (primary) hypertension; T38.0X5A Adverse effect of glucocorticoids and synthetic analogues, initial encounter; Z99.81 Dependence on supplemental oxygen; Z86.73 Personal history of transient ischemic attack (TIA), and cerebral infarction without residual deficits; Y92.89 Other specified places as the place of occurrence of the external cause; Z79.899 Other long term (current) drug therapy; Z79.02 Long term (current) use of antithrombotics/antiplatelets; Z68.22 Body mass index [BMI] 22.0-22.9, adult; Z71.51 Drug abuse counseling and surveillance of drug abuser
CPT/HCPCS: 36415; 71045; 80053; 83880; 84484; 85025; 93005; 94640; 96374; 99285; J1650; J1956; J2920; J2930; J3105; J7626

== ENCOUNTER 2019-12-28 16:28 | Inpatient (IN) | payer MEDICARE, MEDICAID ==
[~2019-12-28] VITALS: Ht 185.4 cm; Wt 90.7 kg
[~2019-12-28 16:28] MED LIST changes: +LORA-249 MT; +THEO400T MT
[2019-12-28] MEDS ORDERED: PREDNISONE 20MG TABLET PO ONE (17:15)
[2019-12-28] MEDS ORDERED: IPRATROPIUM/ALBUTEROL 0.5-3(2.5)MG/3ML NEB HHN ONE (17:15)
[2019-12-28] MEDS ORDERED: AZITHROMYCIN 500 MG TABLET PO ONE (17:15)
[2019-12-28 17:30] LABS: BASOPHILS % 0.8 % (0.0-2.0); HEMATOCRIT. 33.7 % (42.0-52.0); HEMOGLOBIN. 11.9 g/dL (14.0-18.0); LYMPHOCYTES % 7.6 % (20.0-50.0); MEAN CORPUSCULAR HEMOGLOBIN 29.2 pg (28.0-32.0); MEAN CORPUSCULAR VOLUME 82.4 fL (80.0-94.0); MEAN PLATELET VOLUME 9.3 fl (7.4-10.4); MONOCYTES % 3.1 % (2.0-8.0); NEUTROPHILS % 88.5 % (40.0-76.0); PLATELET 382 x1000/uL (130-400); RED BLOOD CELL COUNT 4.09 mill/uL (4.7-6.1); RED CELL DISTRIBUTION WIDTH 18.5 % (11.6-14.6)
[2019-12-28 17:35] LABS: CHLORIDE 107 mEq/L (98-107)
[2019-12-28] MEDS ORDERED: DOCUSATE SODIUM 100MG CAPSULE PO PRN (23:15)
[2019-12-28] MEDS ORDERED: ACETAMINOPHEN 325MG TABLET PO PRN (23:15)
[2019-12-28] MEDS ORDERED: ONDANSETRON HCL 4MG/2ML INJ IV PRN (23:15)
[2019-12-28] MEDS ORDERED: MAGNESIUM/ALUMINUM HYDROXIDE/SIMETHICONE 30ML UDC PO PRN (23:15)
[2019-12-28] MEDS ORDERED: NA PHOS,M-B/NA PHOS,DI-BA ENEMA 118ML PR PRN (23:15)
[2019-12-28] MEDS ORDERED: MORPHINE SULFATE 2 MG/ML CPJ (NOT FOR IM USE) IV PRN (23:15)
[2019-12-28] MEDS ORDERED: IPRATROPIUM/ALBUTEROL 0.5-3(2.5)MG/3ML NEB NEB PRN (23:15)
[2019-12-28] MEDS ORDERED: CLONIDINE 0.1MG TABLET PO PRN (23:15)
[2019-12-28] MEDS ORDERED: HYDROCODONE/ACETAMINOPHEN 5/325MG TABLET PO PRN (23:15)
[2019-12-28] MEDS ORDERED: DIPHENHYDRAMINE 50MG/ML VIAL IV PRN (23:15)
[2019-12-29] MEDS: METHYLPREDNISOLONE SOD SUCC 125 MG/2 ML VIAL IV SCH ×2 (00:07→06:20)
[2019-12-29 05:10] LABS: CHLORIDE 107 mEq/L (98-107)
[2019-12-29 05:13] LABS: BASOPHILS % 0.4 % (0.0-2.0); HEMATOCRIT. 34.6 % (42.0-52.0); HEMOGLOBIN. 11.9 g/dL (14.0-18.0); LYMPHOCYTES % 9.1 % (20.0-50.0); MEAN CORPUSCULAR HEMOGLOBIN 28.5 pg (28.0-32.0); MEAN CORPUSCULAR VOLUME 82.4 fL (80.0-94.0); MEAN PLATELET VOLUME 9.4 fl (7.4-10.4); MONOCYTES % 1.9 % (2.0-8.0); NEUTROPHILS % 88.6 % (40.0-76.0); PLATELET 402 x1000/uL (130-400); RED BLOOD CELL COUNT 4.19 mill/uL (4.7-6.1); RED CELL DISTRIBUTION WIDTH 18.3 % (11.6-14.6)
[2019-12-29 05:18] LABS: LDL CHOLESTEROL 67 mg/dL (5-100)
[2019-12-29 05:25] LABS: T4 FREE 0.83 ng/dL (0.76-1.46)
[2019-12-29 06:36] LABS: HDL CHOLESTEROL 143 mg/dL (40-59)
[2019-12-29] MEDS: ASPIRIN 81MG EC TABLET PO SCH (09:43)
[2019-12-29] MEDS: ENOXAPARIN 40MG/0.4ML SYR SUBCUT SCH (09:43)
[2019-12-29] MEDS: METHYLPREDNISOLONE SOD SUCC 40 MG/ML VIAL IV SCH (15:38)
[2019-12-29] MEDS: ALBUTEROL 6.7GM HFA INHALER ORI SCH (15:45)
[2019-12-29] MEDS: LORAZEPAM 2MG/ML CPJ IV PRN (22:04)
[2019-12-30] MEDS: METHYLPREDNISOLONE SOD SUCC 40 MG/ML VIAL IV SCH ×3 (00:05→21:33)
[2019-12-30] MEDS: ALBUTEROL 6.7GM HFA INHALER ORI SCH ×2 (01:08→08:08)
[2019-12-30] MEDS: AMLODIPINE 10MG TABLET PO SCH (09:27)
[2019-12-30] MEDS: LORAZEPAM 2MG/ML CPJ IV PRN ×2 (09:28→21:56)
[2019-12-30] MEDS: CLOPIDOGREL 75MG TABLET PO SCH (09:28)
[2019-12-30 11:00] VITALS: BP 145/73
[2019-12-30] MEDS: ENOXAPARIN 40MG/0.4ML SYR SUBCUT SCH (11:15)
[2019-12-30] MEDS ORDERED: IPRATROPIUM/ALBUTEROL 0.5-3(2.5)MG/3ML NEB HHN PRN (11:15)
[2019-12-30] MEDS: ASPIRIN 81MG EC TABLET PO SCH (11:15)
[2019-12-30] MEDS: IPRATROPIUM/ALBUTEROL 0.5-3(2.5)MG/3ML NEB HHN SCH ×3 (11:52→20:47)
[2019-12-30 13:58] VITALS: BP 145/73
[2019-12-30] MEDS ORDERED: PNEUMOCOCCAL 23-VAL P-SAC VAC 0.5 ML IM ONE (14:30)
[2019-12-30 16:00] VITALS: BP 121/50
[2019-12-30 20:00] VITALS: BP 127/66
[2019-12-30 22:31] LABS: *COCAINE SCREEN URINE PRESUMTIVE POSITIVE (NEGATIVE); CANNABINOID URINE SCREEN NEGATIVE (NEGATIVE); METHADONE URINE SCREEN NEGATIVE (NEGATIVE); OPIATES URINE SCREEN NEGATIVE (NEGATIVE); PHENCYCLIDINE URINE SCREEN NEGATIVE (NEGATIVE)
[2019-12-30 22:32] LABS: *AMPHETAMINES SCREEN URINE NEGATIVE (NEGATIVE); *BARBITURATES SCREEN URINE NEGATIVE (NEGATIVE); *BENZODIAZEPINES SCREEN URINE NEGATIVE (NEGATIVE)
[2019-12-31] VITALS: BP 105/75
[2019-12-31] MEDS: IPRATROPIUM/ALBUTEROL 0.5-3(2.5)MG/3ML NEB HHN SCH ×5 (01:58→20:26)
[2019-12-31 04:00] VITALS: BP 123/68
[2019-12-31] MEDS: GUAIFENESIN 200MG/10ML SUGAR FREE UDC PO PRN ×2 (04:37→23:22)
[2019-12-31] MEDS: METHYLPREDNISOLONE SOD SUCC 40 MG/ML VIAL IV SCH ×3 (05:59→21:35)
[2019-12-31 08:00] VITALS: BP 139/83
[2019-12-31] MEDS: ENOXAPARIN 40MG/0.4ML SYR SUBCUT SCH (09:06)
[2019-12-31] MEDS: CLOPIDOGREL 75MG TABLET PO SCH (09:07)
[2019-12-31] MEDS: AMLODIPINE 10MG TABLET PO SCH (09:07)
[2019-12-31] MEDS: ASPIRIN 81MG EC TABLET PO SCH (09:07)
[2019-12-31 12:00] VITALS: BP 106/55
[2019-12-31 16:00] VITALS: BP 128/69
[2019-12-31 20:00] VITALS: BP 144/72
[2019-12-31] MEDS: LORAZEPAM 2MG/ML CPJ IV PRN (21:35)
[2020-01-01] VITALS: BP 153/86
[2020-01-01] MEDS: IPRATROPIUM/ALBUTEROL 0.5-3(2.5)MG/3ML NEB HHN SCH ×3 (02:06→12:02)
[2020-01-01 04:00] VITALS: BP 154/82
[2020-01-01] MEDS: METHYLPREDNISOLONE SOD SUCC 40 MG/ML VIAL IV SCH ×2 (05:23→13:12)
[2020-01-01 08:00] VITALS: BP 174/72
[2020-01-01] MEDS: ASPIRIN 81MG EC TABLET PO SCH (09:28)
[2020-01-01] MEDS: ENOXAPARIN 40MG/0.4ML SYR SUBCUT SCH (09:28)
[2020-01-01] MEDS: CLOPIDOGREL 75MG TABLET PO SCH (09:28)
[2020-01-01] MEDS: AMLODIPINE 10MG TABLET PO SCH (09:28)
[2020-01-01 12:00] VITALS: BP 141/66
[2020-01-01 13:46] VITALS: BP 98/141
== END 2020-01-01 16:00 | disposition home or self-care (01) | DRG 917 ==
LOC: ER 16:33 → EDBEDREQ 21:04 → MICUSO 12-29 20:25 → 5WST 12-30 11:39
PROVIDERS: ADMIT Internal Medicine; ATTEND Internal Medicine
DX: T40.5X1A Poisoning by cocaine, accidental (unintentional), initial encounter (principal); J96.00 Acute respiratory failure, unspecified whether with hypoxia or hypercapnia; I50.32 Chronic diastolic (congestive) heart failure; J68.0 Bronchitis and pneumonitis due to chemicals, gases, fumes and vapors; E11.9 Type 2 diabetes mellitus without complications; D64.9 Anemia, unspecified; F14.10 Cocaine abuse, uncomplicated; I11.0 Hypertensive heart disease with heart failure; F17.210 Nicotine dependence, cigarettes, uncomplicated; Z20.828 Contact with and (suspected) exposure to other viral communicable diseases; Z60.2 Problems related to living alone; F12.10 Cannabis abuse, uncomplicated; Z99.81 Dependence on supplemental oxygen; Z91.19 Patient's noncompliance with other medical treatment and regimen; Z86.73 Personal history of transient ischemic attack (TIA), and cerebral infarction without residual deficits; Z79.02 Long term (current) use of antithrombotics/antiplatelets; Z79.51 Long term (current) use of inhaled steroids; Z79.899 Other long term (current) drug therapy; Y92.89 Other specified places as the place of occurrence of the external cause
CPT/HCPCS: 36415; 71045; 80053; 80061; 80305; 83605; 83880; 84439; 84443; 84484; 85025; 93005; 94640; 99285; J1650; J2060; J2920; J2930; J7512; U0003-CS

== ENCOUNTER 2020-01-13 18:57 | Inpatient (IN) | payer MEDICARE, MEDICAID ==
[~2020-01-13] VITALS: Ht 175.3 cm; Wt 72.6 kg
[2020-01-13] MEDS ORDERED: METHYLPREDNISOLONE SOD SUCC 125 MG/2 ML VIAL IV STA (19:41)
[2020-01-13] MEDS ORDERED: IPRATROPIUM BROMIDE (0.02%) 0.5MG/2.5ML NEB HHN STA (19:41)
[2020-01-13] MEDS ORDERED: ALBUTEROL (0.083%) 2.5MG/3ML NEB HHN STA (19:41)
[2020-01-13 19:58] LABS: BASOPHILS % 0.9 % (0.0-2.0); EOSINOPHILS % 1.1 % (0.0-5.0); HEMATOCRIT. 33.7 % (42.0-52.0); HEMOGLOBIN. 11.6 g/dL (14.0-18.0); LYMPHOCYTES % 14.3 % (20.0-50.0); MEAN CORPUSCULAR HEMOGLOBIN 28.7 pg (28.0-32.0); MEAN CORPUSCULAR VOLUME 83.2 fL (80.0-94.0); MEAN PLATELET VOLUME 8.9 fl (7.4-10.4); MONOCYTES % 8.7 % (2.0-8.0); PLATELET 230 x1000/uL (130-400); RED BLOOD CELL COUNT 4.05 mill/uL (4.7-6.1); RED CELL DISTRIBUTION WIDTH 18.9 % (11.6-14.6)
[2020-01-13 20:04] LABS: CHLORIDE 107 mEq/L (98-107)
[2020-01-14] VITALS (7 sets, daily range): BP systolic 148–179; BP diastolic 54–99
[2020-01-14] MEDS: ALBUTEROL (0.083%) 2.5MG/3ML NEB HHN SCH ×5 (04:10→20:07)
[2020-01-14] MEDS ORDERED: CLONIDINE 0.1MG TABLET PO PRN (10:00)
[2020-01-14] MEDS: ENOXAPARIN 40MG/0.4ML SYR SUBCUT SCH (11:01)
[2020-01-14] MEDS: METHYLPREDNISOLONE SOD SUCC 40 MG/ML VIAL IV SCH ×2 (11:01→18:33)
[2020-01-14] MEDS: LOSARTAN POTASSIUM 25 MG TABLET PO SCH (11:02)
[2020-01-14] MEDS: LORAZEPAM 1MG TABLET PO PRN (18:33)
[2020-01-14] MEDS ORDERED: DIPHENOXYLATE/ATROPINE 2.5/0.025MG TABLET PO NR (21:30)
[2020-01-15] VITALS: BP 141/81
[2020-01-15] MEDS: ALBUTEROL (0.083%) 2.5MG/3ML NEB HHN SCH ×6 (00:02→21:46)
[2020-01-15] MEDS: METHYLPREDNISOLONE SOD SUCC 40 MG/ML VIAL IV SCH ×3 (02:24→17:53)
[2020-01-15] MEDS: LORAZEPAM 1MG TABLET PO PRN ×3 (02:34→19:45)
[2020-01-15 08:00] VITALS: BP 110/77
[2020-01-15] MEDS: ENOXAPARIN 40MG/0.4ML SYR SUBCUT SCH (09:29)
[2020-01-15] MEDS: LOSARTAN POTASSIUM 25 MG TABLET PO SCH (09:30)
[2020-01-15 12:00] VITALS: BP 126/72
[2020-01-15 16:00] VITALS: BP 146/80
[2020-01-15 20:00] VITALS: BP 157/66
[2020-01-15] MEDS ORDERED: CLONIDINE 0.2MG TABLET PO NR (21:23)
[2020-01-16] VITALS: BP 148/82
[2020-01-16] MEDS: ALBUTEROL (0.083%) 2.5MG/3ML NEB HHN SCH (01:05)
== END 2020-01-16 01:05 | disposition home or self-care (01) | DRG 189 ==
LOC: ER 19:04 → ENRESERV 23:37 → 6EST 01-14 00:13
PROVIDERS: ADMIT Internal Medicine; ATTEND Internal Medicine
DX: J96.20 Acute and chronic respiratory failure, unspecified whether with hypoxia or hypercapnia (principal); J44.1 Chronic obstructive pulmonary disease with (acute) exacerbation; I50.32 Chronic diastolic (congestive) heart failure; F14.20 Cocaine dependence, uncomplicated; T40.5X1A Poisoning by cocaine, accidental (unintentional), initial encounter; F41.9 Anxiety disorder, unspecified; F17.210 Nicotine dependence, cigarettes, uncomplicated; I11.0 Hypertensive heart disease with heart failure; Z86.73 Personal history of transient ischemic attack (TIA), and cerebral infarction without residual deficits; Z99.81 Dependence on supplemental oxygen; Z71.51 Drug abuse counseling and surveillance of drug abuser; Y92.89 Other specified places as the place of occurrence of the external cause
CPT/HCPCS: 36415; 71045; 80053; 83880; 84484; 85025; 93005; 94640; 94644; 99285; J1650; J2920; J2930

== ENCOUNTER 2020-01-16 15:01 | Inpatient (IN) | payer MEDICARE, MEDICAID ==
[~2020-01-16] VITALS: Ht 175.3 cm; Wt 79.4 kg
[2020-01-16] MEDS ORDERED: METHYLPREDNISOLONE SOD SUCC 125 MG/2 ML VIAL IV STA (15:27)
[2020-01-16] MEDS ORDERED: ALBUTEROL (0.083%) 2.5MG/3ML NEB HHN STA (15:27)
[2020-01-16] MEDS ORDERED: IPRATROPIUM BROMIDE (0.02%) 0.5MG/2.5ML NEB HHN STA (15:27)
[2020-01-16] MEDS ORDERED: HYDRALAZINE 20MG/ML VIAL IV ONE (15:30)
[2020-01-16 15:47] LABS: BASOPHILS % 0.8 % (0.0-2.0); EOSINOPHILS % 0.1 % (0.0-5.0); HEMATOCRIT. 35.5 % (42.0-52.0); LYMPHOCYTES % 16.5 % (20.0-50.0); MEAN CORPUSCULAR HEMOGLOBIN 28.3 pg (28.0-32.0); MEAN CORPUSCULAR VOLUME 83.7 fL (80.0-94.0); MEAN PLATELET VOLUME 9.2 fl (7.4-10.4); NEUTROPHILS % 73.6 % (40.0-76.0); PLATELET 265 x1000/uL (130-400); RED BLOOD CELL COUNT 4.24 mill/uL (4.7-6.1); RED CELL DISTRIBUTION WIDTH 19.7 % (11.6-14.6)
[2020-01-16 15:50] LABS: CHLORIDE 106 mEq/L (98-107)
[2020-01-16 17:29] LABS: BG BASE EXCESS 4.7 mmol/L (-2.0-2.0); BG BILEVEL POS AIRWAY PRESSURE 15/5; BG CARBOXYHEMOGLOBIN 0.3 % (0.5-1.5); BG DEOXYHEMOGLOBIN 1.1 % (0.0-5.0); BG FRACTION INSPIRED OXYGEN 60; BG HCO3 ACT 30.8 mmol/L (22.0-26.0); BG METHEMOGLOBIN 0.4 % (0.0-1.5); BG OXYGEN SATURATION 98.9 % (92.0-98.5); BG OXYHEMOGLOBIN 98.2 % (94.0-97.0); BG PCO2 52.7 mmHg (35.0-45.0); BG PH 7.384 (7.350-7.450); BG PO2 282.4 mmHg (75.0-100.0); BG SAMPLE SITE RIGHT RADIAL; BG TOTAL HEMOGLOBIN 11.6 g/dL (12.0-18.0); BG VENT MODE MASK - BIPAP; BG VENT RATE 14 set
[2020-01-16] MEDS ORDERED: ALBUTEROL (0.5%) 2.5MG/0.5ML NEB HHN ONE (20:15)
[2020-01-16] MEDS ORDERED: ONDANSETRON HCL 4MG/2ML INJ IV PRN (21:15)
[2020-01-16] MEDS ORDERED: BENZONATATE 100MG CAPSULE PO PRN (21:15)
[2020-01-16 22:12] VITALS: BP 168/83
[2020-01-16 22:20] VITALS: BP 168/83
[2020-01-16] MEDS: METHYLPREDNISOLONE SOD SUCC 40 MG/ML VIAL IV SCH (22:33)
[2020-01-16] MEDS: CLONIDINE 0.1MG TABLET PO PRN (22:34)
[2020-01-16] MEDS: ENOXAPARIN 40MG/0.4ML SYR SUBCUT SCH (22:34)
[2020-01-17] VITALS (12 sets, daily range): BP systolic 119–164; BP diastolic 61–109
[2020-01-17] MEDS: IPRATROPIUM/ALBUTEROL 0.5-3(2.5)MG/3ML NEB HHN SCH ×7 (01:03→23:52)
[2020-01-17] MEDS: ACETAMINOPHEN 325MG TABLET PO PRN ×2 (01:28→18:05)
[2020-01-17] MEDS: METHYLPREDNISOLONE SOD SUCC 40 MG/ML VIAL IV SCH ×3 (06:17→21:30)
[2020-01-17] MEDS: CLONIDINE 0.1MG TABLET PO PRN (18:56)
[2020-01-17] MEDS: ENOXAPARIN 40MG/0.4ML SYR SUBCUT SCH (23:41)
[2020-01-18] VITALS (12 sets, daily range): BP systolic 133–159; BP diastolic 62–91
[2020-01-18] MEDS: ACETAMINOPHEN 325MG TABLET PO PRN (02:20)
[2020-01-18] MEDS: IPRATROPIUM/ALBUTEROL 0.5-3(2.5)MG/3ML NEB HHN SCH ×5 (04:22→20:48)
[2020-01-18] MEDS: METHYLPREDNISOLONE SOD SUCC 40 MG/ML VIAL IV SCH (06:00)
[2020-01-18] MEDS ORDERED: ALBU18HF2 IH (09:54)
[2020-01-18] MEDS ORDERED: IPRA3AMP9 HHN (09:54)
[2020-01-18] MEDS ORDERED: P20 MT (09:54)
[2020-01-18] MEDS ORDERED: ZOLPIDEM TARTRATE 5MG TABLET PO PRN (10:00)
[2020-01-18] MEDS: LORAZEPAM 0.5MG TABLET PO PRN ×2 (10:40→18:53)
[2020-01-18 12:04] LABS: HEMATOCRIT. 30.3 % (42.0-52.0); HEMOGLOBIN. 10.4 g/dL (14.0-18.0); MEAN CORPUSCULAR HEMOGLOBIN 28.3 pg (28.0-32.0); MEAN CORPUSCULAR VOLUME 82.7 fL (80.0-94.0); MEAN PLATELET VOLUME 9.5 fl (7.4-10.4); PLATELET 196 x1000/uL (130-400); RED BLOOD CELL COUNT 3.66 mill/uL (4.7-6.1); RED CELL DISTRIBUTION WIDTH 19.1 % (11.6-14.6)
[2020-01-18 12:10] LABS: CHLORIDE 102 mEq/L (98-107)
[2020-01-18 13:17] LABS: PLATELET ESTIMATE NORMAL
[2020-01-18 16:54] LABS: CLARITY URINE CLEAR (CLEAR); COLOR URINE YELLOW (YELLOW); KETONES URINE NEGATIVE (NEGATIVE); LEUKOCYTE ESTERASE URINE NEGATIVE (NEGATIVE); NITRITE URINE NEGATIVE (NEGATIVE); OCCULT BLOOD URINE NEGATIVE (NEGATIVE); PH URINE 7.5 (4.5-8.0); PROTEIN URINE NEGATIVE (NEGATIVE); SPECIFIC GRAVITY URINE 1.012 (1.005-1.030); UROBILINOGEN URINE 0.2 E.U./dL (0.2-1.0)
[2020-01-18 17:06] LABS: *AMPHETAMINES SCREEN URINE NEGATIVE (NEGATIVE); *BARBITURATES SCREEN URINE NEGATIVE (NEGATIVE); *BENZODIAZEPINES SCREEN URINE NEGATIVE (NEGATIVE); *COCAINE SCREEN URINE NEGATIVE (NEGATIVE); METHADONE URINE SCREEN NEGATIVE (NEGATIVE)
[2020-01-18 17:07] LABS: CANNABINOID URINE SCREEN NEGATIVE (NEGATIVE); OPIATES URINE SCREEN NEGATIVE (NEGATIVE); PHENCYCLIDINE URINE SCREEN NEGATIVE (NEGATIVE)
[2020-01-18] MEDS: PREDNISONE 20MG TABLET PO SCH (17:29)
[2020-01-18] MEDS: ENOXAPARIN 40MG/0.4ML SYR SUBCUT SCH (20:41)
[2020-01-19] VITALS: BP 146/76
[2020-01-19] MEDS: IPRATROPIUM/ALBUTEROL 0.5-3(2.5)MG/3ML NEB HHN SCH ×5 (00:18→16:23)
[2020-01-19 04:00] VITALS: BP 150/78
[2020-01-19 09:05] VITALS: BP 149/72
[2020-01-19] MEDS: PREDNISONE 20MG TABLET PO SCH (09:07)
[2020-01-19] MEDS: LORAZEPAM 0.5MG TABLET PO PRN ×2 (09:07→14:59)
[2020-01-19] MEDS ORDERED: BUDE6.9H INH ×2 (11:00→11:06)
[2020-01-19 12:00] VITALS: BP 148/126
[2020-01-19 15:35] VITALS: BP 153/81
[2020-01-19 16:00] VITALS: BP 153/81
== END 2020-01-19 16:48 | disposition home or self-care (01) | DRG 205 ==
LOC: ER 15:01 → ENRESERV 21:54 → 6WST 22:20 → 5EST 23:59 → 5WST 01-18 16:49
PROVIDERS: ADMIT Internal Medicine; ATTEND Internal Medicine
PROC: 5A09357 Assistance with Respiratory Ventilation, Less than 24 Consecutive Hours, Continuous Positive Airway Pressure (ICD-10-PCS; principal; 2020-01-16)
DX: J68.0 Bronchitis and pneumonitis due to chemicals, gases, fumes and vapors (principal); J96.01 Acute respiratory failure with hypoxia; I50.32 Chronic diastolic (congestive) heart failure; T59.891A Toxic effect of other specified gases, fumes and vapors, accidental (unintentional), initial encounter; I16.0 Hypertensive urgency; I11.0 Hypertensive heart disease with heart failure; F17.210 Nicotine dependence, cigarettes, uncomplicated; E11.9 Type 2 diabetes mellitus without complications; D64.9 Anemia, unspecified; F14.10 Cocaine abuse, uncomplicated; F12.10 Cannabis abuse, uncomplicated; Z86.73 Personal history of transient ischemic attack (TIA), and cerebral infarction without residual deficits; Z71.6 Tobacco abuse counseling; Z71.51 Drug abuse counseling and surveillance of drug abuser; Y92.89 Other specified places as the place of occurrence of the external cause
CPT/HCPCS: 36415; 36600; 71045; 80048; 80053; 80305; 81003; 82375; 82805; 83880; 84484; 85025; 93005; 94640; 94660; 99285; J0360; J1650; J2405; J2920; J2930; J7512

== ENCOUNTER 2020-02-15 16:27 | Inpatient (IN) | payer MEDICARE, MEDICAID ==
[~2020-02-15] VITALS: Ht 175.3 cm; Wt 83.9 kg
[~2020-02-15 16:27] MED LIST changes: -GUAI600T26 MT; -IPRA3AMP9 NEB; -MED4 MT; +P20 MT
[2020-02-15 17:36] LABS: BASOPHILS % 0.7 % (0.0-2.0); EOSINOPHILS % 4.1 % (0.0-5.0); HEMATOCRIT. 30.9 % (42.0-52.0); HEMOGLOBIN. 10.7 g/dL (14.0-18.0); LYMPHOCYTES % 19.4 % (20.0-50.0); MEAN CORPUSCULAR HEMOGLOBIN 29.3 pg (28.0-32.0); MEAN CORPUSCULAR VOLUME 84.5 fL (80.0-94.0); MEAN PLATELET VOLUME 8.9 fl (7.4-10.4); MONOCYTES % 11.5 % (2.0-8.0); NEUTROPHILS % 64.3 % (40.0-76.0); PLATELET 343 x1000/uL (130-400); RED BLOOD CELL COUNT 3.66 mill/uL (4.7-6.1); RED CELL DISTRIBUTION WIDTH 19.3 % (11.6-14.6)
[2020-02-15 17:43] LABS: CHLORIDE 105 mEq/L (98-107)
[2020-02-15 17:46] LABS: D-DIMER 1.61 mg/L FEU (<0.50); PROTHROMBIN TIME 10.8 sec (9.6-11.0)
[2020-02-15 17:48] LABS: C REACTIVE PROTEIN QUANT 2.8 mg/L (0.0-3.0)
[2020-02-15 17:52] LABS: CREATINE KINASE 105 IU/L (39-308)
[2020-02-15] MEDS ORDERED: ALBUTEROL 6.7GM HFA INHALER ORI ONE ×3 (18:30)
[2020-02-15] MEDS ORDERED: METHYLPREDNISOLONE SOD SUCC 125 MG/2 ML VIAL IV ONE (18:30)
[2020-02-15] MEDS ORDERED: ASPIRIN 81MG TABLET PO ONE (18:30)
[2020-02-15] MEDS ORDERED: ENOXAPARIN 80MG/0.8ML SYR SUBCUT ONE (18:45)
[2020-02-15] MEDS ORDERED: IOHEXOL-350 100 ML BOTTLE ONE (21:45)
[2020-02-15 21:47] VITALS: BP 136/88
[2020-02-15 21:49] VITALS: BP 136/88
[2020-02-15] MEDS: METHYLPREDNISOLONE SOD SUCC 40 MG/ML VIAL IV SCH (22:39)
[2020-02-15] MEDS ORDERED: ACETAMINOPHEN 325MG TABLET PO PRN (22:45)
[2020-02-15] MEDS ORDERED: HYDROCODONE/ACETAMINOPHEN 5/325MG TABLET PO PRN (22:45)
[2020-02-15] MEDS: ALBUTEROL 6.7GM HFA INHALER ORI PRN (22:50)
[2020-02-16 00:17] VITALS: BP 131/74
[2020-02-16] MEDS: ALBUTEROL 6.7GM HFA INHALER ORI PRN ×4 (00:50→16:49)
[2020-02-16] MEDS: CEFTRIAXONE 1,000 MG in DEXTROSE 5% WATER 50 ML IV SCH (02:44)
[2020-02-16 04:00] VITALS: BP 122/72
[2020-02-16] MEDS: METHYLPREDNISOLONE SOD SUCC 40 MG/ML VIAL IV SCH ×3 (05:44→21:01)
[2020-02-16 06:29] LABS: BASOPHILS % 0.9 % (0.0-2.0); EOSINOPHILS % 0.1 % (0.0-5.0); HEMATOCRIT. 32.3 % (42.0-52.0); LYMPHOCYTES % 10.1 % (20.0-50.0); MEAN CORPUSCULAR HEMOGLOBIN 28.8 pg (28.0-32.0); MEAN CORPUSCULAR VOLUME 84.6 fL (80.0-94.0); MEAN PLATELET VOLUME 8.8 fl (7.4-10.4); MONOCYTES % 0.9 % (2.0-8.0); PLATELET 355 x1000/uL (130-400); RED BLOOD CELL COUNT 3.82 mill/uL (4.7-6.1); RED CELL DISTRIBUTION WIDTH 18.7 % (11.6-14.6)
[2020-02-16 07:01] LABS: CHLORIDE 102 mEq/L (98-107)
[2020-02-16 07:10] LABS: CREATINE KINASE 103 IU/L (39-308)
[2020-02-16 07:11] LABS: CREATINE KINASE MB FRACTION 1.6 ng/mL (0.5-3.6)
[2020-02-16 08:00] VITALS: BP 139/67
[2020-02-16] MEDS ORDERED: HEPARIN 5000 UNITS/ML VIAL SUBCUT SCH (09:00)
[2020-02-16] MEDS: PANTOPRAZOLE 40MG DR TABLET PO SCH (09:02)
[2020-02-16] MEDS: AZITHROMYCIN 500 MG TABLET PO SCH (09:02)
[2020-02-16 12:00] VITALS: BP 149/81
[2020-02-16] MEDS ORDERED: BENZONATATE 100MG CAPSULE PO PRN (13:45)
[2020-02-16] MEDS: CLOPIDOGREL 75MG TABLET PO SCH (14:06)
[2020-02-16] MEDS: BENAZEPRIL 10MG TABLET PO SCH (14:06)
[2020-02-16 16:00] VITALS: BP 131/75
[2020-02-16 16:44] LABS: CREATINE KINASE 107 IU/L (39-308)
[2020-02-16 16:45] LABS: CREATINE KINASE MB FRACTION 1.9 ng/mL (0.5-3.6)
[2020-02-16] MEDS: LORAZEPAM 0.5MG TABLET PO PRN (17:07)
[2020-02-16] MEDS: ENOXAPARIN 40MG/0.4ML SYR SUBCUT SCH (17:08)
[2020-02-16 20:00] VITALS: BP 119/71
[2020-02-16] MEDS: ATORVASTATIN CALCIUM 10MG TABLET PO SCH (21:00)
[2020-02-16] MEDS: LORATADINE 10MG TABLET PO SCH (21:01)
[2020-02-16] MEDS: GUAIFENESIN 600MG ER TABLET PO SCH (21:01)
[2020-02-17] VITALS: BP 133/70
[2020-02-17] MEDS: LORAZEPAM 0.5MG TABLET PO PRN ×2 (00:25→22:36)
[2020-02-17] MEDS: CEFTRIAXONE 1,000 MG in DEXTROSE 5% WATER 50 ML IV SCH (02:51)
[2020-02-17 04:00] VITALS: BP 136/76
[2020-02-17] MEDS: METHYLPREDNISOLONE SOD SUCC 40 MG/ML VIAL IV SCH (05:00)
[2020-02-17 07:31] LABS: BASOPHILS % 0.1 % (0.0-2.0); HEMATOCRIT. 30.5 % (42.0-52.0); HEMOGLOBIN. 10.2 g/dL (14.0-18.0); LYMPHOCYTES % 7.4 % (20.0-50.0); MEAN CORPUSCULAR HEMOGLOBIN 28.6 pg (28.0-32.0); MEAN CORPUSCULAR VOLUME 85.2 fL (80.0-94.0); MEAN PLATELET VOLUME 9.1 fl (7.4-10.4); MONOCYTES % 6.8 % (2.0-8.0); NEUTROPHILS % 85.7 % (40.0-76.0); PLATELET 340 x1000/uL (130-400); RED BLOOD CELL COUNT 3.57 mill/uL (4.7-6.1); RED CELL DISTRIBUTION WIDTH 18.5 % (11.6-14.6)
[2020-02-17 07:36] LABS: CHLORIDE 103 mEq/L (98-107)
[2020-02-17] MEDS: BENAZEPRIL 10MG TABLET PO SCH (09:30)
[2020-02-17] MEDS: GUAIFENESIN 600MG ER TABLET PO SCH ×2 (09:30→21:10)
[2020-02-17] MEDS: CLOPIDOGREL 75MG TABLET PO SCH (09:30)
[2020-02-17] MEDS: AZITHROMYCIN 500 MG TABLET PO SCH (09:30)
[2020-02-17] MEDS: PANTOPRAZOLE 40MG DR TABLET PO SCH (09:30)
[2020-02-17] MEDS: ENOXAPARIN 40MG/0.4ML SYR SUBCUT SCH (09:31)
[2020-02-17 12:00] VITALS: BP 144/76
[2020-02-17] MEDS ORDERED: ENOXAPARIN 40MG/0.4ML SYR SUBCUT SCH (12:00)
[2020-02-17 16:00] VITALS: BP 143/76
[2020-02-17] MEDS: PREDNISONE 20MG TABLET PO SCH (16:15)
[2020-02-17 17:31] LABS: CLARITY URINE CLEAR (CLEAR); COLOR URINE YELLOW (YELLOW); KETONES URINE NEGATIVE (NEGATIVE); LEUKOCYTE ESTERASE URINE NEGATIVE (NEGATIVE); NITRITE URINE NEGATIVE (NEGATIVE); OCCULT BLOOD URINE NEGATIVE (NEGATIVE); PROTEIN URINE NEGATIVE (NEGATIVE); SPECIFIC GRAVITY URINE 1.013 (1.005-1.030); UROBILINOGEN URINE 0.2 E.U./dL (0.2-1.0)
[2020-02-17 17:36] LABS: *AMPHETAMINES SCREEN URINE NEGATIVE (NEGATIVE); *BARBITURATES SCREEN URINE NEGATIVE (NEGATIVE); *BENZODIAZEPINES SCREEN URINE NEGATIVE (NEGATIVE); *COCAINE SCREEN URINE PRESUMTIVE POSITIVE (NEGATIVE); CANNABINOID URINE SCREEN NEGATIVE (NEGATIVE); METHADONE URINE SCREEN NEGATIVE (NEGATIVE); OPIATES URINE SCREEN NEGATIVE (NEGATIVE); PHENCYCLIDINE URINE SCREEN NEGATIVE (NEGATIVE)
[2020-02-17 20:21] VITALS: BP 129/64
[2020-02-17] MEDS: ATORVASTATIN CALCIUM 10MG TABLET PO SCH (21:10)
[2020-02-17] MEDS: ENOXAPARIN 80MG/0.8ML SYR SUBCUT SCH (21:10)
[2020-02-17] MEDS: LORATADINE 10MG TABLET PO SCH (21:11)
[2020-02-18 00:36] VITALS: BP 124/85
[2020-02-18] MEDS: CEFTRIAXONE 1,000 MG in DEXTROSE 5% WATER 50 ML IV SCH (01:35)
[2020-02-18 04:00] VITALS: BP 123/74
[2020-02-18 06:05] LABS: BASOPHILS % 0.4 % (0.0-2.0); HEMATOCRIT. 27.8 % (42.0-52.0); HEMOGLOBIN. 9.4 g/dL (14.0-18.0); LYMPHOCYTES % 12.1 % (20.0-50.0); MEAN CORPUSCULAR HEMOGLOBIN 28.8 pg (28.0-32.0); MEAN CORPUSCULAR VOLUME 85.1 fL (80.0-94.0); MEAN PLATELET VOLUME 9.1 fl (7.4-10.4); MONOCYTES % 7.5 % (2.0-8.0); PLATELET 279 x1000/uL (130-400); RED BLOOD CELL COUNT 3.26 mill/uL (4.7-6.1); RED CELL DISTRIBUTION WIDTH 18.5 % (11.6-14.6)
[2020-02-18 06:35] LABS: CHLORIDE 104 mEq/L (98-107)
[2020-02-18 08:00] VITALS: BP 141/78
[2020-02-18] MEDS: CLOPIDOGREL 75MG TABLET PO SCH (09:33)
[2020-02-18] MEDS: FAMOTIDINE 20MG TABLET PO SCH ×2 (09:33→17:40)
[2020-02-18] MEDS: PREDNISONE 20MG TABLET PO SCH ×2 (09:33→17:40)
[2020-02-18] MEDS: AZITHROMYCIN 500 MG TABLET PO SCH (09:33)
[2020-02-18] MEDS: BENAZEPRIL 10MG TABLET PO SCH (09:34)
[2020-02-18] MEDS: GUAIFENESIN 600MG ER TABLET PO SCH ×2 (09:34→21:52)
[2020-02-18] MEDS: ENOXAPARIN 80MG/0.8ML SYR SUBCUT SCH ×2 (09:35→21:52)
[2020-02-18 12:00] VITALS: BP 138/78
[2020-02-18] MEDS: IPRATROPIUM/ALBUTEROL 0.5-3(2.5)MG/3ML NEB HHN SCH ×3 (12:00→21:14)
[2020-02-18] MEDS ORDERED: IPRATROPIUM/ALBUTEROL 0.5-3(2.5)MG/3ML NEB HHN PRN (14:15)
[2020-02-18 16:00] VITALS: BP 117/62
[2020-02-18 20:32] VITALS: BP 138/63
[2020-02-18] MEDS: BUDESONIDE 0.5MG/2ML NEB HHN SCH (21:14)
[2020-02-18] MEDS: ATORVASTATIN CALCIUM 10MG TABLET PO SCH (21:52)
[2020-02-18] MEDS: LORATADINE 10MG TABLET PO SCH (21:52)
[2020-02-18] MEDS: FLUTICASONE PROPIONATE 50MCG/SPRAY BOTTLE BOTHNSTRLS SCH (21:52)
[2020-02-18] MEDS: LORAZEPAM 0.5MG TABLET PO PRN (21:52)
[2020-02-19] VITALS: BP 132/84
[2020-02-19] MEDS: IPRATROPIUM/ALBUTEROL 0.5-3(2.5)MG/3ML NEB HHN SCH ×6 (00:32→19:54)
[2020-02-19] MEDS: CEFTRIAXONE 1,000 MG in DEXTROSE 5% WATER 50 ML IV SCH (03:02)
[2020-02-19 04:00] VITALS: BP 141/73
[2020-02-19 06:55] LABS: BASOPHILS % 0.3 % (0.0-2.0); HEMATOCRIT. 26.9 % (42.0-52.0); HEMOGLOBIN. 9.2 g/dL (14.0-18.0); LYMPHOCYTES % 16.2 % (20.0-50.0); MEAN CORPUSCULAR VOLUME 84.8 fL (80.0-94.0); MEAN PLATELET VOLUME 9.1 fl (7.4-10.4); MONOCYTES % 7.9 % (2.0-8.0); NEUTROPHILS % 75.6 % (40.0-76.0); PLATELET 310 x1000/uL (130-400); RED BLOOD CELL COUNT 3.17 mill/uL (4.7-6.1)
[2020-02-19 07:30] LABS: CHLORIDE 105 mEq/L (98-107)
[2020-02-19 08:00] VITALS: BP 160/69
[2020-02-19] MEDS: AZITHROMYCIN 500 MG TABLET PO SCH (08:49)
[2020-02-19] MEDS: CLOPIDOGREL 75MG TABLET PO SCH (08:49)
[2020-02-19] MEDS: PREDNISONE 20MG TABLET PO SCH ×2 (08:50→18:38)
[2020-02-19] MEDS: GUAIFENESIN 600MG ER TABLET PO SCH ×2 (08:50→21:17)
[2020-02-19] MEDS: ENOXAPARIN 80MG/0.8ML SYR SUBCUT SCH ×2 (08:52→21:18)
[2020-02-19] MEDS: FLUTICASONE PROPIONATE 50MCG/SPRAY BOTTLE BOTHNSTRLS SCH ×2 (09:00→21:00)
[2020-02-19] MEDS: BENAZEPRIL 10MG TABLET PO SCH (09:03)
[2020-02-19] MEDS: BUDESONIDE 0.5MG/2ML NEB HHN SCH ×2 (09:03→19:53)
[2020-02-19] MEDS: FAMOTIDINE 10MG TABLET PO SCH ×2 (10:04→21:18)
[2020-02-19 11:43] VITALS: BP 118/44
[2020-02-19 16:00] VITALS: BP_SYST 131; BP_SYST 143; BP_DIAS 66; BP_DIAS 67
[2020-02-19 20:28] VITALS: BP 125/52
[2020-02-19] MEDS: ATORVASTATIN CALCIUM 10MG TABLET PO SCH (21:17)
[2020-02-19] MEDS: LORATADINE 10MG TABLET PO SCH (21:17)
[2020-02-20] MEDS: CEFTRIAXONE 1,000 MG in DEXTROSE 5% WATER 50 ML IV SCH (00:13)
[2020-02-20] MEDS: LORAZEPAM 0.5MG TABLET PO PRN (00:13)
[2020-02-20 00:35] VITALS: BP 120/69
[2020-02-20] MEDS: IPRATROPIUM/ALBUTEROL 0.5-3(2.5)MG/3ML NEB HHN SCH ×4 (01:05→12:40)
[2020-02-20 04:00] VITALS: BP 166/79
[2020-02-20] MEDS: AZITHROMYCIN 500 MG TABLET PO SCH (07:57)
[2020-02-20] MEDS: ENOXAPARIN 80MG/0.8ML SYR SUBCUT SCH (07:57)
[2020-02-20] MEDS: GUAIFENESIN 600MG ER TABLET PO SCH (07:58)
[2020-02-20] MEDS: CLOPIDOGREL 75MG TABLET PO SCH (07:58)
[2020-02-20] MEDS: PREDNISONE 20MG TABLET PO SCH (07:58)
[2020-02-20] MEDS: FAMOTIDINE 10MG TABLET PO SCH (07:58)
[2020-02-20] MEDS: FLUTICASONE PROPIONATE 50MCG/SPRAY BOTTLE BOTHNSTRLS SCH (07:59)
[2020-02-20] MEDS: BUDESONIDE 0.5MG/2ML NEB HHN SCH (08:25)
[2020-02-20 08:37] VITALS: BP 130/57
[2020-02-20] MEDS: BENAZEPRIL 10MG TABLET PO SCH (09:45)
[2020-02-20] MEDS ORDERED: SIMV10TA97 PO (11:43)
[2020-02-20] MEDS ORDERED: IPRA3AMP9 HHN (11:44)
[2020-02-20] MEDS ORDERED: LORA-249 MT (11:44)
[2020-02-20 11:47] VITALS: BP 130/57
[2020-02-20 12:32] VITALS: BP 155/75
== END 2020-02-20 15:33 | disposition home or self-care (01) | DRG 205 ==
LOC: ER 16:27 → 7WST 19:42 → EDBEDREQ 19:52 → EDBEDREQTM 19:52 → ENRESERV 20:22 → 6WST 02-17 16:30
PROVIDERS: ADMIT Internal Medicine; ATTEND Internal Medicine
DX: J68.0 Bronchitis and pneumonitis due to chemicals, gases, fumes and vapors (principal); J96.00 Acute respiratory failure, unspecified whether with hypoxia or hypercapnia; I27.82 Chronic pulmonary embolism; J44.1 Chronic obstructive pulmonary disease with (acute) exacerbation; I50.32 Chronic diastolic (congestive) heart failure; I11.0 Hypertensive heart disease with heart failure; I16.0 Hypertensive urgency; Z20.828 Contact with and (suspected) exposure to other viral communicable diseases; D64.9 Anemia, unspecified; E11.9 Type 2 diabetes mellitus without complications; F17.210 Nicotine dependence, cigarettes, uncomplicated; F14.10 Cocaine abuse, uncomplicated; Z79.51 Long term (current) use of inhaled steroids; Z86.73 Personal history of transient ischemic attack (TIA), and cerebral infarction without residual deficits; Z79.899 Other long term (current) drug therapy; Z71.6 Tobacco abuse counseling; Z99.81 Dependence on supplemental oxygen
CPT/HCPCS: 36415; 71045; 71275; 80048; 80053; 80305; 81003; 82550; 82553; 82728; 83615; 83880; 84484; 85025; 85379; 85384; 86140; 87635; 93005; 93970; 94640; 96374; 99285; J0696; J1644; J1650; J2920; J2930; J7060; J7512; J7626; Q9967

== ENCOUNTER 2020-03-26 19:09 | Inpatient (IN) | payer MEDICARE, OTHER ==
[~2020-03-26] VITALS: Ht 175.3 cm; Wt 80.7 kg
[2020-03-26] MEDS ORDERED: ALBUTEROL 6.7GM HFA INHALER ORI ONE ×3 (19:45)
[2020-03-26] MEDS ORDERED: METHYLPREDNISOLONE SOD SUCC 125 MG/2 ML VIAL IV STA (19:45)
[2020-03-26] MEDS ORDERED: ASPIRIN 81MG TABLET PO ONE (19:45)
[2020-03-26 20:59] LABS: EOSINOPHILS % 1.9 % (0.0-5.0); HEMATOCRIT. 32.4 % (42.0-52.0); HEMOGLOBIN. 11.1 g/dL (14.0-18.0); LYMPHOCYTES % 24.3 % (20.0-50.0); MEAN CORPUSCULAR HEMOGLOBIN 28.4 pg (28.0-32.0); MEAN CORPUSCULAR VOLUME 82.8 fL (80.0-94.0); MEAN PLATELET VOLUME 9.3 fl (7.4-10.4); MONOCYTES % 11.2 % (2.0-8.0); NEUTROPHILS % 61.6 % (40.0-76.0); PLATELET 351 x1000/uL (130-400); RED BLOOD CELL COUNT 3.91 mill/uL (4.7-6.1); RED CELL DISTRIBUTION WIDTH 17.7 % (11.6-14.6)
[2020-03-26 21:03] LABS: CHLORIDE 106 mEq/L (98-107)
[2020-03-26] MEDS ORDERED: CEFTRIAXONE 1 G PREMIX 50 ML IV ONE (21:30)
[2020-03-26] MEDS ORDERED: AZITHROMYCIN 500 MG in DEXT 5% WATER 250 ML IV ONE (21:30)
[2020-03-27 00:20] VITALS: BP 147/61
[2020-03-27] MEDS: METHYLPREDNISOLONE SOD SUCC 40 MG/ML VIAL IV SCH ×4 (02:35→21:34)
[2020-03-27] MEDS: GUAIFENESIN 200MG/10ML SUGAR FREE UDC PO PRN ×2 (02:35→21:45)
[2020-03-27 04:00] VITALS: BP 135/68
[2020-03-27 05:24] LABS: CHLORIDE 104 mEq/L (98-107)
[2020-03-27] MEDS: LEVOFLOXACIN 500MG PREMIX 100 ML IV SCH (05:35)
[2020-03-27 06:13] LABS: HEMATOCRIT. 31.3 % (42.0-52.0); HEMOGLOBIN. 10.6 g/dL (14.0-18.0); MEAN CORPUSCULAR HEMOGLOBIN 28.1 pg (28.0-32.0); MEAN CORPUSCULAR VOLUME 82.6 fL (80.0-94.0); MEAN PLATELET VOLUME 9.7 fl (7.4-10.4); PLATELET 339 x1000/uL (130-400); RED BLOOD CELL COUNT 3.79 mill/uL (4.7-6.1)
[2020-03-27 08:00] VITALS: BP 130/67
[2020-03-27] MEDS: ALBUTEROL 6.7GM HFA INHALER ORI SCH ×3 (08:25→16:08)
[2020-03-27] MEDS: CLOPIDOGREL 75MG TABLET PO SCH (09:33)
[2020-03-27] MEDS: ENOXAPARIN 40MG/0.4ML SYR SUBCUT SCH (09:33)
[2020-03-27] MEDS: LISINOPRIL 10MG TABLET PO SCH (09:34)
[2020-03-27 12:00] VITALS: BP 128/74
[2020-03-27 13:55] LABS: PLATELET ESTIMATE NORMAL
[2020-03-27 16:00] VITALS: BP 129/80
[2020-03-27 20:00] VITALS: BP 137/72
[2020-03-27] MEDS: ATORVASTATIN CALCIUM 20MG TABLET PO SCH (21:34)
[2020-03-28] VITALS: BP 125/67
[2020-03-28] MEDS: ALBUTEROL 6.7GM HFA INHALER ORI SCH ×5 (00:05→16:41)
[2020-03-28 04:00] VITALS: BP 120/75
[2020-03-28] MEDS: LEVOFLOXACIN 500MG PREMIX 100 ML IV SCH (04:06)
[2020-03-28] MEDS: METHYLPREDNISOLONE SOD SUCC 40 MG/ML VIAL IV SCH ×3 (05:26→20:53)
[2020-03-28 08:00] VITALS: BP 132/68
[2020-03-28] MEDS: LISINOPRIL 10MG TABLET PO SCH (08:38)
[2020-03-28] MEDS: CLOPIDOGREL 75MG TABLET PO SCH (08:38)
[2020-03-28] MEDS: GUAIFENESIN 200MG/10ML SUGAR FREE UDC PO PRN ×2 (08:39→21:37)
[2020-03-28] MEDS: ENOXAPARIN 40MG/0.4ML SYR SUBCUT SCH (08:39)
[2020-03-28 12:00] VITALS: BP 131/71
[2020-03-28 16:00] VITALS: BP 132/65
[2020-03-28 20:00] VITALS: BP 131/73
[2020-03-28] MEDS: ATORVASTATIN CALCIUM 20MG TABLET PO SCH (20:53)
[2020-03-28] MEDS: ALBUTEROL (0.083%) 2.5MG/3ML NEB HHN SCH (23:42)
[2020-03-29] VITALS: BP 137/75
[2020-03-29 04:00] VITALS: BP 132/72
[2020-03-29] MEDS: ALBUTEROL (0.083%) 2.5MG/3ML NEB HHN SCH ×4 (04:30→15:50)
[2020-03-29] MEDS: METHYLPREDNISOLONE SOD SUCC 40 MG/ML VIAL IV SCH ×2 (06:32→13:25)
[2020-03-29 08:00] VITALS: BP 143/65
[2020-03-29] MEDS: CLOPIDOGREL 75MG TABLET PO SCH (08:53)
[2020-03-29] MEDS: GUAIFENESIN 200MG/10ML SUGAR FREE UDC PO PRN (08:53)
[2020-03-29] MEDS: LISINOPRIL 10MG TABLET PO SCH (08:53)
[2020-03-29] MEDS: ENOXAPARIN 40MG/0.4ML SYR SUBCUT SCH (08:54)
[2020-03-29] MEDS ORDERED: LEVOFLOXACIN 500MG TABLET PO SCH (11:00)
[2020-03-29 12:00] VITALS: BP 134/73
[2020-03-29 15:20] VITALS: BP 132/64
[2020-03-29 15:52] VITALS: BP 132/64
== END 2020-03-29 16:47 | disposition home or self-care (01) | DRG 190 ==
LOC: ER 19:09 → 7WST 22:24 → ENRESERV 23:40 → 5WST 03-28 17:52
PROVIDERS: ADMIT Internal Medicine; ATTEND Internal Medicine
DX: J44.1 Chronic obstructive pulmonary disease with (acute) exacerbation (principal); J18.9 Pneumonia, unspecified organism; I11.0 Hypertensive heart disease with heart failure; J44.0 Chronic obstructive pulmonary disease with (acute) lower respiratory infection; F14.10 Cocaine abuse, uncomplicated; Z20.828 Contact with and (suspected) exposure to other viral communicable diseases; E78.5 Hyperlipidemia, unspecified; F17.200 Nicotine dependence, unspecified, uncomplicated; F41.9 Anxiety disorder, unspecified; I25.10 Atherosclerotic heart disease of native coronary artery without angina pectoris; I50.9 Heart failure, unspecified; Z86.73 Personal history of transient ischemic attack (TIA), and cerebral infarction without residual deficits; Z99.81 Dependence on supplemental oxygen; Z79.899 Other long term (current) drug therapy
CPT/HCPCS: 36415; 71045; 80048; 80053; 83605; 83880; 84484; 85025; 87635; 93005; 94640; 99285; J0456; J0696; J1650; J1956; J2920; J2930; J7060

== ENCOUNTER 2021-03-16 18:27 | Inpatient (IN) | payer MEDICARE, OTHER ==
[~2021-03-16] VITALS: Ht 182.9 cm; Wt 69.5 kg
[2021-03-16] MEDS ORDERED: IPRATROPIUM BROMIDE (0.02%) 0.5MG/2.5ML NEB HHN STA (18:45)
[2021-03-16] MEDS ORDERED: METHYLPREDNISOLONE SOD SUCC 125 MG/2 ML VIAL IV STA (18:45)
[2021-03-16] MEDS ORDERED: ALBUTEROL (0.083%) 2.5MG/3ML NEB HHN STA (18:45)
[2021-03-16] MEDS ORDERED: MAGNESIUM 2 G PREMIX 50 ML IV ONE (18:45)
[2021-03-16 19:37] LABS: HEMOGLOBIN. 8.7 g/dL (14.0-18.0); MEAN CORPUSCULAR HEMOGLOBIN 28.8 pg (28.0-32.0); MEAN CORPUSCULAR VOLUME 83.1 fL (80.0-94.0); MEAN PLATELET VOLUME 8.9 fl (7.4-10.4); PLATELET 237 x1000/uL (130-400); RED BLOOD CELL COUNT 3.01 mill/uL (4.7-6.1); RED CELL DISTRIBUTION WIDTH 17.6 % (11.6-14.6)
[2021-03-16 19:41] LABS: CHLORIDE 109 mEq/L (98-107)
[2021-03-16] MEDS ORDERED: DOXYCYCLINE HYCLATE 100 MG/VIAL IV ONE (20:30)
[2021-03-16] MEDS ORDERED: DOXYCYCLINE 100MG in DEXTROSE 5% WATER 100ML IV SCH (20:30)
[2021-03-16 20:34] LABS: PLATELET ESTIMATE NORMAL
[2021-03-16] MEDS ORDERED: CLONIDINE 0.1MG TABLET PO PRN (22:45)
[2021-03-16] MEDS ORDERED: ONDANSETRON HCL 4MG/2ML INJ IV PRN (22:45)
[2021-03-16] MEDS ORDERED: ACETAMINOPHEN 325MG TABLET PO PRN (22:45)
[2021-03-16] MEDS: METHYLPREDNISOLONE SOD SUCC 40 MG/ML VIAL IV SCH (23:06)
[2021-03-16] MEDS: ENOXAPARIN 40MG/0.4ML SYR SUBCUT SCH (23:06)
[2021-03-17] VITALS (10 sets, daily range): BP systolic 90–143; BP diastolic 43–82
[2021-03-17] MEDS: IPRATROPIUM/ALBUTEROL 0.5-3(2.5)MG/3ML NEB HHN SCH ×6 (00:47→21:37)
[2021-03-17 05:16] LABS: HEMATOCRIT. 21.6 % (42.0-52.0); HEMOGLOBIN. 7.9 g/dL (14.0-18.0); MEAN CORPUSCULAR HEMOGLOBIN 29.7 pg (28.0-32.0); MEAN CORPUSCULAR VOLUME 81.2 fL (80.0-94.0); MEAN PLATELET VOLUME 9.3 fl (7.4-10.4); PLATELET 237 x1000/uL (130-400); RED BLOOD CELL COUNT 2.66 mill/uL (4.7-6.1); RED CELL DISTRIBUTION WIDTH 17.5 % (11.6-14.6)
[2021-03-17 05:20] LABS: CHLORIDE 108 mEq/L (98-107)
[2021-03-17 05:29] LABS: CREATINE KINASE 142 IU/L (39-308)
[2021-03-17 05:32] LABS: CREATINE KINASE MB FRACTION 2.8 ng/mL (0.5-3.6)
[2021-03-17] MEDS ORDERED: THEOPHYLLINE ANHYDROUS 80 MG/15 ML 120ML PO SCH (06:00)
[2021-03-17] MEDS: METHYLPREDNISOLONE SOD SUCC 40 MG/ML VIAL IV SCH ×3 (06:10→22:10)
[2021-03-17] MEDS: BENAZEPRIL 10MG TABLET PO SCH (09:07)
[2021-03-17] MEDS: LORAZEPAM 0.5MG TABLET PO PRN ×2 (09:07→22:16)
[2021-03-17] MEDS: ASPIRIN 81MG TABLET PO SCH (09:08)
[2021-03-17] MEDS: CLOPIDOGREL 75MG TABLET PO SCH (09:08)
[2021-03-17 09:15] LABS: BG CARBOXYHEMOGLOBIN 0.4 % (0.5-1.5); BG DEOXYHEMOGLOBIN 3.9 % (0.0-5.0); BG FRACTION INSPIRED OXYGEN 28; BG HCO3 ACT 24.5 mmol/L (22.0-26.0); BG METHEMOGLOBIN 0.6 % (0.0-1.5); BG OXYGEN SATURATION 96.1 % (92.0-98.5); BG OXYHEMOGLOBIN 95.1 % (94.0-97.0); BG PCO2 39.3 mmHg (35.0-45.0); BG PH 7.413 (7.350-7.450); BG PO2 89.4 mmHg (75.0-100.0); BG SAMPLE SITE RIGHT RADIAL; BG TOTAL HEMOGLOBIN 8.1 g/dL (12.0-18.0); BG VENT MODE NASAL CANNULA
[2021-03-17 13:55] LABS: PLATELET ESTIMATE NORMAL
[2021-03-17] MEDS: THEOPHYLLINE ANHYDROUS 80 MG/15 ML 120ML PO SCH ×2 (15:42→22:12)
[2021-03-17 17:11] LABS: CREATINE KINASE 123 IU/L (39-308)
[2021-03-17 17:13] LABS: CREATINE KINASE MB FRACTION 3.4 ng/mL (0.5-3.6)
[2021-03-17] MEDS ORDERED: CEFTRIAXONE 1 G PREMIX 50 ML IV SCH (17:30)
[2021-03-17] MEDS: AZITHROMYCIN 500 MG TABLET PO SCH (18:36)
[2021-03-17] MEDS ORDERED: CEFTRIAXONE 1,000 MG in DEXTROSE 5% WATER 50 ML IV SCH (19:00)
[2021-03-17] MEDS: CEFTRIAXONE 1,000 MG in DEXTROSE 5% WATER 50 ML IV SCH (20:30)
[2021-03-17] MEDS: LORATADINE 10MG TABLET PO SCH (22:10)
[2021-03-17] MEDS: ATORVASTATIN CALCIUM 20MG TABLET PO SCH (22:10)
[2021-03-17] MEDS: ENOXAPARIN 40MG/0.4ML SYR SUBCUT SCH (22:11)
[2021-03-17] MEDS ORDERED: ALBUTEROL 6.7GM HFA INHALER ORI PRN (23:45)
[2021-03-18] VITALS: BP 122/57
[2021-03-18] MEDS: IPRATROPIUM/ALBUTEROL 0.5-3(2.5)MG/3ML NEB HHN SCH ×6 (00:49→20:00)
[2021-03-18 04:00] VITALS: BP 130/65
[2021-03-18] MEDS: METHYLPREDNISOLONE SOD SUCC 40 MG/ML VIAL IV SCH ×3 (06:41→22:17)
[2021-03-18 08:00] VITALS: BP 127/52
[2021-03-18] MEDS: BENAZEPRIL 10MG TABLET PO SCH (09:09)
[2021-03-18] MEDS: ASPIRIN 81MG TABLET PO SCH (09:09)
[2021-03-18] MEDS: THEOPHYLLINE ANHYDROUS 80 MG/15 ML 120ML PO SCH ×2 (09:10→21:49)
[2021-03-18] MEDS: CLOPIDOGREL 75MG TABLET PO SCH (09:16)
[2021-03-18] MEDS: LORAZEPAM 0.5MG TABLET PO PRN ×3 (09:38→21:49)
[2021-03-18 12:00] VITALS: BP 113/57
[2021-03-18 13:46] LABS: OPIATES URINE SCREEN NEGATIVE (NEGATIVE)
[2021-03-18 13:47] LABS: *AMPHETAMINES SCREEN URINE NEGATIVE (NEGATIVE); *BARBITURATES SCREEN URINE NEGATIVE (NEGATIVE); *BENZODIAZEPINES SCREEN URINE NEGATIVE (NEGATIVE); *COCAINE SCREEN URINE PRESUMTIVE POSITIVE (NEGATIVE); CANNABINOID URINE SCREEN NEGATIVE (NEGATIVE); METHADONE URINE SCREEN NEGATIVE (NEGATIVE); PHENCYCLIDINE URINE SCREEN NEGATIVE (NEGATIVE)
[2021-03-18 16:00] VITALS: BP 112/60
[2021-03-18] MEDS ORDERED: IOHEXOL-350 100 ML BOTTLE ONE (16:45)
[2021-03-18] MEDS: AZITHROMYCIN 500 MG TABLET PO SCH (17:14)
[2021-03-18 20:00] VITALS: BP 134/54
[2021-03-18] MEDS: CEFTRIAXONE 1,000 MG in DEXTROSE 5% WATER 50 ML IV SCH (20:09)
[2021-03-18] MEDS: ATORVASTATIN CALCIUM 20MG TABLET PO SCH (21:49)
[2021-03-18] MEDS: LORATADINE 10MG TABLET PO SCH (21:49)
[2021-03-18] MEDS: ENOXAPARIN 40MG/0.4ML SYR SUBCUT SCH (22:17)
[2021-03-19] VITALS: BP 125/60
[2021-03-19 04:00] VITALS: BP 129/65
[2021-03-19] MEDS: IPRATROPIUM/ALBUTEROL 0.5-3(2.5)MG/3ML NEB HHN SCH ×5 (04:00→15:21)
[2021-03-19] MEDS: METHYLPREDNISOLONE SOD SUCC 40 MG/ML VIAL IV SCH ×2 (06:10→14:38)
[2021-03-19 08:00] VITALS: BP 137/66
[2021-03-19] MEDS: BENAZEPRIL 10MG TABLET PO SCH (08:53)
[2021-03-19] MEDS: ASPIRIN 81MG TABLET PO SCH (08:53)
[2021-03-19] MEDS: THEOPHYLLINE ANHYDROUS 80 MG/15 ML 120ML PO SCH (08:53)
[2021-03-19] MEDS: CLOPIDOGREL 75MG TABLET PO SCH (08:53)
[2021-03-19] MEDS: LORAZEPAM 0.5MG TABLET PO PRN ×2 (09:03→14:38)
[2021-03-19 14:15] VITALS: BP 137/66
== END 2021-03-19 17:00 | disposition home or self-care (01) | DRG 871 ==
LOC: ER 18:27 → EDBEDREQ 20:46 → EDBEDREQSVC 20:46 → EDBEDREQTM 20:46 → 5EST 22:03 → EDBEDREQ 22:06 → EDBEDREQTM 22:06 → CANRESERV 22:58 → ENRESERV 22:58 → EDBEDREQTM 23:05 → EDBEDREQSVC 23:05 → CANRESERV 23:19 → ENRESERV 23:19 → EDBEDREQTM 23:36 → EDBEDREQSVC 23:36 → ENRESERV 23:39 → 7EST 03-17 18:24 → 7WST 03-17 18:25 → 7EST 03-18 08:17
PROVIDERS: ADMIT Internal Medicine; ATTEND Internal Medicine
PROC: 5A09357 Assistance with Respiratory Ventilation, Less than 24 Consecutive Hours, Continuous Positive Airway Pressure (ICD-10-PCS; principal; 2021-03-16)
DX: A41.9 Sepsis, unspecified organism (principal); J18.9 Pneumonia, unspecified organism; J96.21 Acute and chronic respiratory failure with hypoxia; J44.0 Chronic obstructive pulmonary disease with (acute) lower respiratory infection; J44.1 Chronic obstructive pulmonary disease with (acute) exacerbation; D64.9 Anemia, unspecified; F41.9 Anxiety disorder, unspecified; I25.10 Atherosclerotic heart disease of native coronary artery without angina pectoris; E78.5 Hyperlipidemia, unspecified; F14.10 Cocaine abuse, uncomplicated; I10 Essential (primary) hypertension; F17.200 Nicotine dependence, unspecified, uncomplicated; Z20.822 Contact with and (suspected) exposure to COVID-19; Z86.73 Personal history of transient ischemic attack (TIA), and cerebral infarction without residual deficits; Z99.81 Dependence on supplemental oxygen; Z95.5 Presence of coronary angioplasty implant and graft; Z79.899 Other long term (current) drug therapy; Z71.6 Tobacco abuse counseling; Z71.51 Drug abuse counseling and surveillance of drug abuser
CPT/HCPCS: 36415; 36600; 71045; 71275; 80048; 80053; 80198; 80305; 82375; 82550; 82553; 82805; 83880; 84145; 84484; 85025; 93005; 93306; 94640; 94660; 99291; J0696; J1650; J2920; J2930; J3475; J3490; J7040; J7060; Q9967; U0003; U0005

== ENCOUNTER 2021-03-21 13:30 | Emergency (ER) | payer MEDICARE, OTHER ==
[~2021-03-21] VITALS: Ht 180.3 cm; Wt 80.0 kg
[2021-03-21] MEDS ORDERED: METHYLPREDNISOLONE SOD SUCC 125 MG/2 ML VIAL IV ONE (13:45)
[2021-03-21] MEDS ORDERED: IPRATROPIUM/ALBUTEROL 0.5-3(2.5)MG/3ML NEB HHN STA (13:45)
[2021-03-21] MEDS ORDERED: ALBUTEROL (0.083%) 2.5MG/3ML NEB HHN ONE (13:45)
[2021-03-21 14:23] LABS: BG BASE EXCESS 3.6 mmol/L (-2.0-2.0); BG CARBOXYHEMOGLOBIN 0.3 % (0.5-1.5); BG DEOXYHEMOGLOBIN 19.3 % (0.0-5.0); BG METHEMOGLOBIN 0.4 % (0.0-1.5); BG OXYGEN SATURATION 80.6 % (92.0-98.5); BG PCO2 54.8 mmHg (35.0-45.0); BG PH 7.356 (7.350-7.450); BG PO2 52.6 mmHg (75.0-100.0); BG SAMPLE SITE RIGHT RADIAL; BG VENT MODE MASK - BIPAP
[2021-03-21] MEDS ORDERED: ALBUTEROL (0.083%) 2.5MG/3ML NEB HHN STA ×2 (14:25→16:52)
[2021-03-21] MEDS ORDERED: IPRATROPIUM BROMIDE (0.02%) 0.5MG/2.5ML NEB HHN STA (14:25)
[2021-03-21 14:37] LABS: BASOPHILS % 0.3 % (0.0-2.0); EOSINOPHILS % 1.4 % (0.0-5.0); HEMATOCRIT. 29.2 % (42.0-52.0); LYMPHOCYTES % 8.4 % (20.0-50.0); MEAN CORPUSCULAR HEMOGLOBIN 28.7 pg (28.0-32.0); MEAN CORPUSCULAR VOLUME 84.2 fL (80.0-94.0); MEAN PLATELET VOLUME 8.7 fl (7.4-10.4); MONOCYTES % 9.4 % (2.0-8.0); NEUTROPHILS % 80.5 % (40.0-76.0); PLATELET 459 x1000/uL (130-400); RED BLOOD CELL COUNT 3.47 mill/uL (4.7-6.1); RED CELL DISTRIBUTION WIDTH 18.7 % (11.6-14.6)
[2021-03-21 14:50] LABS: PROTHROMBIN TIME 10.6 sec (9.6-11.0)
[2021-03-21 16:01] LABS: CHLORIDE 110 mEq/L (98-107)
[2021-03-21 20:36] VITALS: BP 128/31
== END 2021-03-21 21:02 | disposition short-term general hospital (02) ==
LOC: ER 13:40
DX: R06.02 Shortness of breath (principal); J44.9 Chronic obstructive pulmonary disease, unspecified; Z86.73 Personal history of transient ischemic attack (TIA), and cerebral infarction without residual deficits; I10 Essential (primary) hypertension; Z79.899 Other long term (current) drug therapy
CPT/HCPCS: 36415; 36600; 71045; 80053; 82375; 82805; 84484; 85025; 85610; 93005; 96374; 99291; J2930; 94640; 94660

== ENCOUNTER 2021-03-28 04:17 | Inpatient (IN) | payer OTHER ==
[~2021-03-28] VITALS: Ht 177.8 cm; Wt 69.6 kg
[2021-03-28] MEDS ORDERED: IPRATROPIUM BROMIDE (0.02%) 0.5MG/2.5ML NEB HHN STA (04:18)
[2021-03-28] MEDS ORDERED: METHYLPREDNISOLONE SOD SUCC 125 MG/2 ML VIAL IV STA (04:18)
[2021-03-28] MEDS ORDERED: MAGNESIUM 2 G PREMIX 50 ML IV ONE (04:30)
[2021-03-28 04:49] LABS: BASOPHILS % 0.2 % (0.0-2.0); EOSINOPHILS % 0.6 % (0.0-5.0); HEMATOCRIT. 33.5 % (42.0-52.0); HEMOGLOBIN. 11.1 g/dL (14.0-18.0); LYMPHOCYTES % 9.5 % (20.0-50.0); MEAN CORPUSCULAR HEMOGLOBIN 29.2 pg (28.0-32.0); MEAN CORPUSCULAR VOLUME 87.8 fL (80.0-94.0); MEAN PLATELET VOLUME 8.6 fl (7.4-10.4); MONOCYTES % 8.9 % (2.0-8.0); NEUTROPHILS % 80.8 % (40.0-76.0); PLATELET 516 x1000/uL (130-400); RED BLOOD CELL COUNT 3.82 mill/uL (4.7-6.1)
[2021-03-28 04:56] LABS: CHLORIDE 108 mEq/L (98-107)
[2021-03-28] MEDS: ALBUTEROL (0.083%) 2.5MG/3ML NEB HHN SCH ×3 (05:00→06:00)
[2021-03-28] MEDS ORDERED: AZITHROMYCIN 500MG/250ML 250 ML IV ONE (05:15)
[2021-03-28] MEDS ORDERED: CEFTRIAXONE 1 G PREMIX 50 ML IV ONE (05:15)
[2021-03-28] MEDS ORDERED: SODIUM CHLORIDE 0.9% 1,000 ML IV ONE (06:15)
[2021-03-28 08:30] VITALS: BP 131/73
[2021-03-28 10:00] VITALS: BP 115/92
[2021-03-28] MEDS ORDERED: ONDANSETRON HCL 4MG/2ML INJ IV PRN (10:00)
[2021-03-28] MEDS ORDERED: ACETAMINOPHEN 325MG TABLET PO PRN (10:00)
[2021-03-28] MEDS: IPRATROPIUM/ALBUTEROL 0.5-3(2.5)MG/3ML NEB HHN SCH ×3 (11:56→21:07)
[2021-03-28 12:00] VITALS: BP 105/88
[2021-03-28] MEDS: ENOXAPARIN 40MG/0.4ML SYR SUBCUT SCH (13:07)
[2021-03-28] MEDS: METHYLPREDNISOLONE SOD SUCC 40 MG/ML VIAL IV SCH ×2 (13:07→20:11)
[2021-03-28] MEDS: LEVOFLOXACIN 500MG TABLET PO SCH (13:09)
[2021-03-28 14:00] VITALS: BP 139/65
[2021-03-28 16:00] VITALS: BP 132/59
[2021-03-28 18:00] VITALS: BP 132/59
[2021-03-28] MEDS: FAMOTIDINE 20MG TABLET PO SCH (20:11)
[2021-03-28] MEDS: ZOLPIDEM TARTRATE 5MG TABLET PO PRN (23:37)
[2021-03-29] MEDS: IPRATROPIUM/ALBUTEROL 0.5-3(2.5)MG/3ML NEB HHN SCH ×6 (01:50→21:12)
[2021-03-29] MEDS: METHYLPREDNISOLONE SOD SUCC 40 MG/ML VIAL IV SCH ×3 (03:27→21:08)
[2021-03-29 08:00] VITALS: BP 134/65
[2021-03-29] MEDS: ENOXAPARIN 40MG/0.4ML SYR SUBCUT SCH (09:13)
[2021-03-29 10:00] VITALS: BP 132/76
[2021-03-29] MEDS: LEVOFLOXACIN 500MG TABLET PO SCH (11:52)
[2021-03-29 12:00] VITALS: BP 131/72
[2021-03-29] MEDS: LORAZEPAM 0.5MG TABLET PO PRN ×2 (14:52→21:09)
[2021-03-29] MEDS: BUDESONIDE 0.5MG/2ML NEB HHN SCH (16:35)
[2021-03-29 18:00] VITALS: BP 103/79
[2021-03-29 20:00] VITALS: BP 139/72
[2021-03-29] MEDS ORDERED: LORAZEPAM 2MG/ML CPJ IM PRN (20:15)
[2021-03-29] MEDS: FAMOTIDINE 20MG TABLET PO SCH (21:08)
[2021-03-29] MEDS: ZOLPIDEM TARTRATE 5MG TABLET PO PRN (22:15)
[2021-03-30] MEDS: IPRATROPIUM/ALBUTEROL 0.5-3(2.5)MG/3ML NEB HHN SCH ×3 (00:58→09:21)
[2021-03-30] MEDS: METHYLPREDNISOLONE SOD SUCC 40 MG/ML VIAL IV SCH ×2 (04:01→11:37)
[2021-03-30] MEDS: LORAZEPAM 0.5MG TABLET PO PRN (08:31)
[2021-03-30] MEDS: ENOXAPARIN 40MG/0.4ML SYR SUBCUT SCH (08:31)
[2021-03-30 08:37] VITALS: BP 144/79
[2021-03-30] MEDS: BUDESONIDE 0.5MG/2ML NEB HHN SCH (09:18)
[2021-03-30] MEDS ORDERED: ALBU18HF2 IH (10:18)
[2021-03-30] MEDS ORDERED: IPRA3AMP9 NEB (10:18)
[2021-03-30] MEDS ORDERED: LEVO500T89 MT (10:18)
[2021-03-30] MEDS ORDERED: BUDE6.9H INH (10:18)
[2021-03-30] MEDS ORDERED: P20 MT (10:18)
[2021-03-30 10:55] VITALS: BP 156/74
[2021-03-30] MEDS: LEVOFLOXACIN 500MG TABLET PO SCH (11:37)
[2021-03-30 12:00] VITALS: BP 156/74
== END 2021-03-30 17:53 | disposition home or self-care (01) | DRG 917 ==
LOC: ER 04:17 → EDBEDREQTM 06:28 → EDBEDREQSVC 06:28 → ENRESERV 07:22 → 5EST 08:49
PROVIDERS: ADMIT Internal Medicine; ATTEND Internal Medicine
PROC: 5A09357 Assistance with Respiratory Ventilation, Less than 24 Consecutive Hours, Continuous Positive Airway Pressure (ICD-10-PCS; principal; 2021-03-28)
DX: T40.5X1A Poisoning by cocaine, accidental (unintentional), initial encounter (principal); A41.89 Other specified sepsis; J96.21 Acute and chronic respiratory failure with hypoxia; E44.1 Mild protein-calorie malnutrition; J68.0 Bronchitis and pneumonitis due to chemicals, gases, fumes and vapors; E78.5 Hyperlipidemia, unspecified; F17.210 Nicotine dependence, cigarettes, uncomplicated; I10 Essential (primary) hypertension; Z20.822 Contact with and (suspected) exposure to COVID-19; D64.9 Anemia, unspecified; F14.10 Cocaine abuse, uncomplicated; E87.8 Other disorders of electrolyte and fluid balance, not elsewhere classified; E11.9 Type 2 diabetes mellitus without complications; Z99.81 Dependence on supplemental oxygen; Z86.73 Personal history of transient ischemic attack (TIA), and cerebral infarction without residual deficits; Z86.711 Personal history of pulmonary embolism; Z68.22 Body mass index [BMI] 22.0-22.9, adult; Z79.899 Other long term (current) drug therapy; Z79.02 Long term (current) use of antithrombotics/antiplatelets; Z71.51 Drug abuse counseling and surveillance of drug abuser; Y92.89 Other specified places as the place of occurrence of the external cause; I25.10 Atherosclerotic heart disease of native coronary artery without angina pectoris; Z95.5 Presence of coronary angioplasty implant and graft; F41.9 Anxiety disorder, unspecified
CPT/HCPCS: 36415; 71045; 80053; 83605; 83880; 84484; 85025; 87426; 93005; 94640; 94660; 99291; J0456; J0696; J1650; J2920; J2930; J3475; J7030; J7626

== ENCOUNTER 2021-04-17 09:19 | Inpatient (IN) | payer OTHER ==
[~2021-04-17] VITALS: Ht 175.3 cm; Wt 66.2 kg
[~2021-04-17 09:19] MED LIST changes: -IPRA3AMP9 HHN; +IPRA3AMP9 NEB; +LEVO500T89 MT
[2021-04-17] MEDS ORDERED: METHYLPREDNISOLONE SOD SUCC 125 MG/2 ML VIAL IV STA (09:38)
[2021-04-17] MEDS ORDERED: IPRATROPIUM BROMIDE (0.02%) 0.5MG/2.5ML NEB HHN STA (09:38)
[2021-04-17] MEDS ORDERED: ALBUTEROL (0.083%) 2.5MG/3ML NEB HHN STA (09:38)
[2021-04-17 10:18] LABS: HEMATOCRIT. 35.1 % (42.0-52.0); HEMOGLOBIN. 11.5 g/dL (14.0-18.0); MEAN CORPUSCULAR HEMOGLOBIN 28.9 pg (28.0-32.0); MEAN CORPUSCULAR VOLUME 88.2 fL (80.0-94.0); MEAN PLATELET VOLUME 9.8 fl (7.4-10.4); PLATELET 432 x1000/uL (130-400); RED BLOOD CELL COUNT 3.98 mill/uL (4.7-6.1); RED CELL DISTRIBUTION WIDTH 17.7 % (11.6-14.6)
[2021-04-17 10:26] LABS: CHLORIDE 97 mEq/L (98-107)
[2021-04-17 10:43] LABS: PLATELET ESTIMATE INCREASED
[2021-04-17 16:45] VITALS: BP 187/111
[2021-04-17 18:00] VITALS: BP 141/90
[2021-04-17] MEDS ORDERED: IPRATROPIUM/ALBUTEROL 0.5-3(2.5)MG/3ML NEB HHN PRN (20:45)
[2021-04-17] MEDS: IPRATROPIUM BROMIDE (0.02%) 0.5MG/2.5ML NEB HHN PRN (21:03)
[2021-04-17] MEDS ORDERED: CLONIDINE 0.1MG TABLET PO PRN (22:15)
[2021-04-17] MEDS ORDERED: AMLODIPINE 10MG TABLET PO SCH (22:30)
[2021-04-17 22:36] VITALS: BP 148/85
[2021-04-17 23:00] VITALS: BP 140/94
[2021-04-17 23:03] LABS: BG BASE EXCESS 11.9 mmol/L (-2.0-2.0); BG CARBOXYHEMOGLOBIN 0.3 % (0.5-1.5); BG DEOXYHEMOGLOBIN 9.4 % (0.0-5.0); BG FRACTION INSPIRED OXYGEN 100; BG HCO3 ACT 40.3 mmol/L (22.0-26.0); BG METHEMOGLOBIN 0.8 % (0.0-1.5); BG OXYGEN SATURATION 90.5 % (92.0-98.5); BG OXYHEMOGLOBIN 89.5 % (94.0-97.0); BG PCO2 77.6 mmHg (35.0-45.0); BG PH 7.333 (7.350-7.450); BG PO2 67.7 mmHg (75.0-100.0); BG SAMPLE SITE RIGHT RADIAL; BG TOTAL HEMOGLOBIN 10.4 g/dL (12.0-18.0); BG VENT MODE MASK - BIPAP
[2021-04-17] MEDS: LORAZEPAM 2MG/ML CPJ IV PRN (23:14)
[2021-04-17] MEDS: AMLODIPINE 10MG TABLET PO SCH (23:14)
[2021-04-18] VITALS (13 sets, daily range): BP systolic 112–162; BP diastolic 29–125
[2021-04-18 03:16] LABS: *AMPHETAMINES SCREEN URINE NEGATIVE (NEGATIVE); *BARBITURATES SCREEN URINE NEGATIVE (NEGATIVE); *BENZODIAZEPINES SCREEN URINE NEGATIVE (NEGATIVE); *COCAINE SCREEN URINE PRESUMTIVE POSITIVE (NEGATIVE); METHADONE URINE SCREEN NEGATIVE (NEGATIVE); OPIATES URINE SCREEN NEGATIVE (NEGATIVE)
[2021-04-18 03:17] LABS: CANNABINOID URINE SCREEN NEGATIVE (NEGATIVE); PHENCYCLIDINE URINE SCREEN NEGATIVE (NEGATIVE)
[2021-04-18] MEDS: LORAZEPAM 2MG/ML CPJ IV PRN ×2 (04:32→21:54)
[2021-04-18] MEDS: METHYLPREDNISOLONE SOD SUCC 125 MG/2 ML VIAL IV SCH ×3 (05:24→21:55)
[2021-04-18 09:16] LABS: CHLORIDE 98 mEq/L (98-107)
[2021-04-18 09:19] LABS: HEMATOCRIT. 32.1 % (42.0-52.0); HEMOGLOBIN. 10.8 g/dL (14.0-18.0); MEAN CORPUSCULAR HEMOGLOBIN 29.5 pg (28.0-32.0); MEAN CORPUSCULAR VOLUME 87.8 fL (80.0-94.0); MEAN PLATELET VOLUME 9.6 fl (7.4-10.4); PLATELET 364 x1000/uL (130-400); RED BLOOD CELL COUNT 3.66 mill/uL (4.7-6.1); RED CELL DISTRIBUTION WIDTH 16.8 % (11.6-14.6)
[2021-04-18 09:25] LABS: CREATINE KINASE 52 IU/L (39-308)
[2021-04-18 09:26] LABS: CREATINE KINASE MB FRACTION 3.7 ng/mL (0.5-3.6)
[2021-04-18] MEDS: ENOXAPARIN 40MG/0.4ML SYR SUBCUT SCH (09:40)
[2021-04-18] MEDS: CLOPIDOGREL 75MG TABLET PO SCH (09:40)
[2021-04-18] MEDS: LISINOPRIL 20MG TABLET PO SCH (09:42)
[2021-04-18] MEDS: AMLODIPINE 10MG TABLET PO SCH (09:42)
[2021-04-18 10:30] LABS: BG BASE EXCESS 17.1 mmol/L (-2.0-2.0); BG CARBOXYHEMOGLOBIN 0.3 % (0.5-1.5); BG DEOXYHEMOGLOBIN 0.5 % (0.0-5.0); BG FRACTION INSPIRED OXYGEN 100; BG HCO3 ACT 45.5 mmol/L (22.0-26.0); BG METHEMOGLOBIN 1.1 % (0.0-1.5); BG OXYGEN SATURATION 99.5 % (92.0-98.5); BG OXYHEMOGLOBIN 98.1 % (94.0-97.0); BG PCO2 80.3 mmHg (35.0-45.0); BG PH 7.371 (7.350-7.450); BG PO2 539.6 mmHg (75.0-100.0); BG SAMPLE SITE LEFT RADIAL; BG TOTAL HEMOGLOBIN 10.4 g/dL (12.0-18.0); BG TOTAL RESPIRATORY RATE 25 b/min; BG VENT MODE MASK - BIPAP
[2021-04-18 13:38] LABS: PLATELET ESTIMATE NORMAL
[2021-04-18 16:31] LABS: CREATINE KINASE 35 IU/L (39-308)
[2021-04-18 16:32] LABS: CREATINE KINASE MB FRACTION 2.5 ng/mL (0.5-3.6)
[2021-04-18 17:19] LABS: BG CARBOXYHEMOGLOBIN 0.3 % (0.5-1.5); BG DEOXYHEMOGLOBIN 0.5 % (0.0-5.0); BG HCO3 ACT 47.6 mmol/L (22.0-26.0); BG METHEMOGLOBIN 0.7 % (0.0-1.5); BG OXYGEN SATURATION 99.5 % (92.0-98.5); BG OXYHEMOGLOBIN 98.5 % (94.0-97.0); BG PCO2 90.9 mmHg (35.0-45.0); BG PH 7.337 (7.350-7.450); BG PO2 335.7 mmHg (75.0-100.0); BG SAMPLE SITE RIGHT RADIAL; BG VENT MODE MASK - NRB
[2021-04-18] MEDS: IPRATROPIUM BROMIDE (0.02%) 0.5MG/2.5ML NEB HHN PRN (18:29)
[2021-04-18] MEDS: GUAIFENESIN 200MG/10ML SUGAR FREE UDC PO PRN (21:54)
[2021-04-19] VITALS (12 sets, daily range): BP systolic 104–149; BP diastolic 41–85
[2021-04-19] MEDS: LORAZEPAM 2MG/ML CPJ IV PRN ×2 (04:24→21:06)
[2021-04-19 05:37] LABS: HEMATOCRIT. 27.8 % (42.0-52.0); HEMOGLOBIN. 9.5 g/dL (14.0-18.0); MEAN CORPUSCULAR HEMOGLOBIN 29.5 pg (28.0-32.0); MEAN CORPUSCULAR VOLUME 86.8 fL (80.0-94.0); MEAN PLATELET VOLUME 9.7 fl (7.4-10.4); PLATELET 300 x1000/uL (130-400); RED CELL DISTRIBUTION WIDTH 16.8 % (11.6-14.6)
[2021-04-19] MEDS: METHYLPREDNISOLONE SOD SUCC 125 MG/2 ML VIAL IV SCH ×3 (06:08→21:06)
[2021-04-19 06:26] LABS: CHLORIDE 95 mEq/L (98-107)
[2021-04-19] MEDS: CLOPIDOGREL 75MG TABLET PO SCH (08:40)
[2021-04-19] MEDS: LISINOPRIL 20MG TABLET PO SCH (08:41)
[2021-04-19] MEDS: ENOXAPARIN 40MG/0.4ML SYR SUBCUT SCH (08:41)
[2021-04-19] MEDS: AMLODIPINE 10MG TABLET PO SCH (08:41)
[2021-04-19] MEDS: IPRATROPIUM BROMIDE (0.02%) 0.5MG/2.5ML NEB HHN PRN ×2 (09:38→15:52)
[2021-04-19 09:49] LABS: BG BASE EXCESS 14.1 mmol/L (-2.0-2.0); BG CARBOXYHEMOGLOBIN 0.3 % (0.5-1.5); BG DEOXYHEMOGLOBIN 1.6 % (0.0-5.0); BG FRACTION INSPIRED OXYGEN 40; BG HCO3 ACT 42.5 mmol/L (22.0-26.0); BG METHEMOGLOBIN 0.9 % (0.0-1.5); BG OXYGEN SATURATION 98.4 % (92.0-98.5); BG OXYHEMOGLOBIN 97.2 % (94.0-97.0); BG PCO2 78.8 mmHg (35.0-45.0); BG SAMPLE SITE LEFT RADIAL; BG TOTAL HEMOGLOBIN 10.8 g/dL (12.0-18.0); BG VENT MODE MASK - BIPAP
[2021-04-19 16:28] LABS: PLATELET ESTIMATE NORMAL
[2021-04-19] MEDS: ONDANSETRON HCL 4MG/2ML INJ IV PRN (21:06)
[2021-04-20] VITALS (12 sets, daily range): BP systolic 95–154; BP diastolic 55–84
[2021-04-20] MEDS: METHYLPREDNISOLONE SOD SUCC 125 MG/2 ML VIAL IV SCH ×3 (05:11→21:50)
[2021-04-20 05:35] LABS: CHLORIDE 98 mEq/L (98-107)
[2021-04-20 05:45] LABS: HEMATOCRIT. 31.9 % (42.0-52.0); HEMOGLOBIN. 10.7 g/dL (14.0-18.0); MEAN CORPUSCULAR HEMOGLOBIN 29.4 pg (28.0-32.0); MEAN CORPUSCULAR VOLUME 87.8 fL (80.0-94.0); MEAN PLATELET VOLUME 9.8 fl (7.4-10.4); PLATELET 340 x1000/uL (130-400); RED BLOOD CELL COUNT 3.64 mill/uL (4.7-6.1); RED CELL DISTRIBUTION WIDTH 16.7 % (11.6-14.6)
[2021-04-20 08:15] LABS: BG BASE EXCESS 15.5 mmol/L (-2.0-2.0); BG CARBOXYHEMOGLOBIN 0.3 % (0.5-1.5); BG DEOXYHEMOGLOBIN 13.6 % (0.0-5.0); BG HCO3 ACT 43.8 mmol/L (22.0-26.0); BG METHEMOGLOBIN 0.6 % (0.0-1.5); BG OXYGEN SATURATION 86.3 % (92.0-98.5); BG OXYHEMOGLOBIN 85.5 % (94.0-97.0); BG PCO2 77.9 mmHg (35.0-45.0); BG PH 7.368 (7.350-7.450); BG PO2 57.5 mmHg (75.0-100.0); BG SAMPLE SITE RIGHT RADIAL; BG TOTAL HEMOGLOBIN 10.9 g/dL (12.0-18.0); BG VENT MODE ROOM AIR
[2021-04-20] MEDS: IPRATROPIUM BROMIDE (0.02%) 0.5MG/2.5ML NEB HHN PRN ×3 (08:24→18:21)
[2021-04-20] MEDS: ENOXAPARIN 40MG/0.4ML SYR SUBCUT SCH (09:39)
[2021-04-20] MEDS: AMLODIPINE 10MG TABLET PO SCH (09:40)
[2021-04-20] MEDS: LISINOPRIL 20MG TABLET PO SCH (09:40)
[2021-04-20] MEDS: CLOPIDOGREL 75MG TABLET PO SCH (09:40)
[2021-04-20 13:43] LABS: PLATELET ESTIMATE NORMAL
[2021-04-20] MEDS: LORAZEPAM 2MG/ML CPJ IV PRN (15:33)
[2021-04-20 18:54] LABS: BG BASE EXCESS 15.5 mmol/L (-2.0-2.0); BG CARBOXYHEMOGLOBIN 0.3 % (0.5-1.5); BG DEOXYHEMOGLOBIN 1.3 % (0.0-5.0); BG FRACTION INSPIRED OXYGEN 40; BG HCO3 ACT 43.9 mmol/L (22.0-26.0); BG METHEMOGLOBIN 0.7 % (0.0-1.5); BG OXYGEN SATURATION 98.7 % (92.0-98.5); BG OXYHEMOGLOBIN 97.7 % (94.0-97.0); BG PCO2 76.5 mmHg (35.0-45.0); BG PH 7.377 (7.350-7.450); BG PO2 154.8 mmHg (75.0-100.0); BG SAMPLE SITE LEFT RADIAL; BG TOTAL HEMOGLOBIN 11.8 g/dL (12.0-18.0); BG VENT MODE MASK - BIPAP
[2021-04-20] MEDS: IPRATROPIUM/ALBUTEROL 0.5-3(2.5)MG/3ML NEB HHN SCH (20:21)
[2021-04-21] VITALS (12 sets, daily range): BP systolic 113–148; BP diastolic 52–91
[2021-04-21] MEDS: IPRATROPIUM/ALBUTEROL 0.5-3(2.5)MG/3ML NEB HHN SCH ×2 (04:02→20:03)
[2021-04-21 05:23] LABS: HEMATOCRIT. 31.7 % (42.0-52.0); HEMOGLOBIN. 10.6 g/dL (14.0-18.0); MEAN CORPUSCULAR HEMOGLOBIN 29.4 pg (28.0-32.0); MEAN CORPUSCULAR VOLUME 87.8 fL (80.0-94.0); MEAN PLATELET VOLUME 9.6 fl (7.4-10.4); PLATELET 344 x1000/uL (130-400); RED BLOOD CELL COUNT 3.61 mill/uL (4.7-6.1)
[2021-04-21 05:26] LABS: CHLORIDE 96 mEq/L (98-107)
[2021-04-21] MEDS: METHYLPREDNISOLONE SOD SUCC 125 MG/2 ML VIAL IV SCH ×3 (05:38→22:06)
[2021-04-21] MEDS: THEOPHYLLINE ANHYDROUS 80 MG/15 ML 120ML PO SCH ×2 (09:00→18:06)
[2021-04-21] MEDS: AMLODIPINE 10MG TABLET PO SCH (09:00)
[2021-04-21 10:37] LABS: BG BASE EXCESS 15.2 mmol/L (-2.0-2.0); BG CARBOXYHEMOGLOBIN 0.1 % (0.5-1.5); BG DEOXYHEMOGLOBIN 1.3 % (0.0-5.0); BG FRACTION INSPIRED OXYGEN 40; BG HCO3 ACT 43.5 mmol/L (22.0-26.0); BG METHEMOGLOBIN 0.7 % (0.0-1.5); BG OXYGEN SATURATION 98.7 % (92.0-98.5); BG OXYHEMOGLOBIN 97.9 % (94.0-97.0); BG PCO2 76.3 mmHg (35.0-45.0); BG PH 7.374 (7.350-7.450); BG PO2 155.8 mmHg (75.0-100.0); BG SAMPLE SITE RIGHT RADIAL; BG TOTAL HEMOGLOBIN 11.5 g/dL (12.0-18.0); BG TOTAL RESPIRATORY RATE 27 b/min; BG VENT MODE MASK - BIPAP
[2021-04-21] MEDS ORDERED: LIDOCAINE HCL 1% 30ML VIAL (10MG/ML) ONE (10:46)
[2021-04-21] MEDS: IPRATROPIUM BROMIDE (0.02%) 0.5MG/2.5ML NEB HHN PRN ×3 (11:21→20:01)
[2021-04-21] MEDS: CLOPIDOGREL 75MG TABLET PO SCH (14:04)
[2021-04-21] MEDS: LISINOPRIL 20MG TABLET PO SCH (14:05)
[2021-04-21] MEDS: ENOXAPARIN 40MG/0.4ML SYR SUBCUT SCH (14:06)
[2021-04-21] MEDS: GUAIFENESIN 200MG/10ML SUGAR FREE UDC PO PRN (14:11)
[2021-04-21 14:38] LABS: PLATELET ESTIMATE NORMAL
[2021-04-21] MEDS: LORAZEPAM 1MG TABLET PO PRN (20:14)
[2021-04-21] MEDS: DILTIAZEM HCL 30MG TABLET PO SCH (20:44)
[2021-04-22] VITALS (12 sets, daily range): BP systolic 118–189; BP diastolic 65–94
[2021-04-22] MEDS: DILTIAZEM HCL 30MG TABLET PO SCH ×5 (00:36→23:23)
[2021-04-22] MEDS: GUAIFENESIN 200MG/10ML SUGAR FREE UDC PO PRN (00:38)
[2021-04-22] MEDS: IPRATROPIUM/ALBUTEROL 0.5-3(2.5)MG/3ML NEB HHN SCH ×5 (00:46→20:52)
[2021-04-22] MEDS: METHYLPREDNISOLONE SOD SUCC 125 MG/2 ML VIAL IV SCH ×3 (05:44→21:34)
[2021-04-22] MEDS: LORAZEPAM 1MG TABLET PO PRN ×3 (05:44→19:46)
[2021-04-22] MEDS: LISINOPRIL 20MG TABLET PO SCH (08:22)
[2021-04-22] MEDS: CLOPIDOGREL 75MG TABLET PO SCH (08:22)
[2021-04-22] MEDS: THEOPHYLLINE ANHYDROUS 80 MG/15 ML 120ML PO SCH ×2 (08:23→17:51)
[2021-04-22] MEDS: ENOXAPARIN 40MG/0.4ML SYR SUBCUT SCH (08:23)
[2021-04-22] MEDS: IPRATROPIUM BROMIDE (0.02%) 0.5MG/2.5ML NEB HHN PRN (08:55)
[2021-04-22 09:21] LABS: BG BASE EXCESS 17.9 mmol/L (-2.0-2.0); BG CARBOXYHEMOGLOBIN 0.2 % (0.5-1.5); BG DEOXYHEMOGLOBIN 1.4 % (0.0-5.0); BG FRACTION INSPIRED OXYGEN 40; BG HCO3 ACT 47.4 mmol/L (22.0-26.0); BG OXYGEN SATURATION 98.6 % (92.0-98.5); BG OXYHEMOGLOBIN 97.4 % (94.0-97.0); BG PCO2 87.9 mmHg (35.0-45.0); BG PO2 158.4 mmHg (75.0-100.0); BG SAMPLE SITE RIGHT RADIAL; BG TOTAL HEMOGLOBIN 11.6 g/dL (12.0-18.0); BG VENT MODE MASK - BIPAP
[2021-04-22 11:33] LABS: BG BASE EXCESS 17.5 mmol/L (-2.0-2.0); BG CARBOXYHEMOGLOBIN 0.3 % (0.5-1.5); BG FRACTION INSPIRED OXYGEN 40; BG HCO3 ACT 45.1 mmol/L (22.0-26.0); BG METHEMOGLOBIN 0.2 % (0.0-1.5); BG OXYHEMOGLOBIN 98.5 % (94.0-97.0); BG PCO2 71.3 mmHg (35.0-45.0); BG PH 7.419 (7.350-7.450); BG PO2 188.2 mmHg (75.0-100.0); BG SAMPLE SITE RIGHT RADIAL; BG TOTAL HEMOGLOBIN 11.3 g/dL (12.0-18.0); BG VENT MODE MASK - BIPAP
[2021-04-22] MEDS ORDERED: DILTIAZEM HCL 30MG TABLET PO SCH (19:00)
[2021-04-23] VITALS (14 sets, daily range): BP systolic 110–160; BP diastolic 56–97
[2021-04-23] MEDS: IPRATROPIUM/ALBUTEROL 0.5-3(2.5)MG/3ML NEB HHN SCH ×6 (00:34→20:33)
[2021-04-23 01:06] LABS: BG BASE EXCESS 11.3 mmol/L (-2.0-2.0); BG DEOXYHEMOGLOBIN 2.9 % (0.0-5.0); BG FRACTION INSPIRED OXYGEN 30; BG HCO3 ACT 38.8 mmol/L (22.0-26.0); BG METHEMOGLOBIN 0.9 % (0.0-1.5); BG OXYGEN SATURATION 97.1 % (92.0-98.5); BG OXYHEMOGLOBIN 96.2 % (94.0-97.0); BG PCO2 66.9 mmHg (35.0-45.0); BG PH 7.381 (7.350-7.450); BG SAMPLE SITE RIGHT RADIAL; BG TOTAL HEMOGLOBIN 11.9 g/dL (12.0-18.0); BG VENT MODE MASK - BIPAP
[2021-04-23] MEDS ORDERED: DIGOXIN 500MCG/2ML AMP IV SCH (01:30)
[2021-04-23] MEDS: LORAZEPAM 1MG TABLET PO PRN ×3 (05:13→16:58)
[2021-04-23] MEDS: DILTIAZEM HCL 30MG TABLET PO SCH ×2 (05:13→12:58)
[2021-04-23] MEDS: METHYLPREDNISOLONE SOD SUCC 125 MG/2 ML VIAL IV SCH ×3 (05:21→22:10)
[2021-04-23 08:49] LABS: HEMATOCRIT. 29.9 % (42.0-52.0); MEAN CORPUSCULAR HEMOGLOBIN 29.4 pg (28.0-32.0); MEAN CORPUSCULAR VOLUME 88.1 fL (80.0-94.0); MEAN PLATELET VOLUME 9.7 fl (7.4-10.4); PLATELET 271 x1000/uL (130-400); RED CELL DISTRIBUTION WIDTH 16.4 % (11.6-14.6)
[2021-04-23 08:56] LABS: CHLORIDE 96 mEq/L (98-107)
[2021-04-23] MEDS: LISINOPRIL 20MG TABLET PO SCH (10:33)
[2021-04-23] MEDS: CLOPIDOGREL 75MG TABLET PO SCH (10:33)
[2021-04-23] MEDS: THEOPHYLLINE ANHYDROUS 80 MG/15 ML 120ML PO SCH ×2 (10:34→17:02)
[2021-04-23] MEDS: ENOXAPARIN 40MG/0.4ML SYR SUBCUT SCH (10:40)
[2021-04-23 11:53] LABS: BG BASE EXCESS 14.9 mmol/L (-2.0-2.0); BG CARBOXYHEMOGLOBIN 0.3 % (0.5-1.5); BG DEOXYHEMOGLOBIN 1.9 % (0.0-5.0); BG FRACTION INSPIRED OXYGEN 30; BG METHEMOGLOBIN 0.6 % (0.0-1.5); BG OXYGEN SATURATION 98.1 % (92.0-98.5); BG OXYHEMOGLOBIN 97.2 % (94.0-97.0); BG PCO2 58.8 mmHg (35.0-45.0); BG PH 7.461 (7.350-7.450); BG PO2 118.3 mmHg (75.0-100.0); BG VENT MODE MASK - BIPAP
[2021-04-23 14:21] LABS: PLATELET ESTIMATE NORMAL
[2021-04-23] MEDS ORDERED: DILTIAZEM HCL 60MG TABLET PO SCH (18:00)
[2021-04-24] VITALS (12 sets, daily range): BP systolic 104–141; BP diastolic 54–87
[2021-04-24] MEDS: DILTIAZEM HCL 60MG TABLET PO SCH ×5 (00:13→23:38)
[2021-04-24] MEDS: LORAZEPAM 1MG TABLET PO PRN ×2 (00:31→09:05)
[2021-04-24] MEDS: IPRATROPIUM/ALBUTEROL 0.5-3(2.5)MG/3ML NEB HHN SCH ×5 (01:12→15:19)
[2021-04-24] MEDS: METHYLPREDNISOLONE SOD SUCC 125 MG/2 ML VIAL IV SCH ×2 (05:46→13:53)
[2021-04-24 08:35] LABS: CHLORIDE 98 mEq/L (98-107)
[2021-04-24] MEDS: LISINOPRIL 20MG TABLET PO SCH (09:00)
[2021-04-24] MEDS: CLOPIDOGREL 75MG TABLET PO SCH (09:05)
[2021-04-24] MEDS: THEOPHYLLINE ANHYDROUS 80 MG/15 ML 120ML PO SCH ×2 (09:05→18:08)
[2021-04-24] MEDS: ENOXAPARIN 40MG/0.4ML SYR SUBCUT SCH (09:06)
[2021-04-24 09:11] LABS: HEMATOCRIT. 28.7 % (42.0-52.0); HEMOGLOBIN. 9.6 g/dL (14.0-18.0); MEAN CORPUSCULAR HEMOGLOBIN 29.4 pg (28.0-32.0); MEAN PLATELET VOLUME 10.2 fl (7.4-10.4); PLATELET 246 x1000/uL (130-400); RED BLOOD CELL COUNT 3.26 mill/uL (4.7-6.1); RED CELL DISTRIBUTION WIDTH 16.5 % (11.6-14.6)
[2021-04-24 10:34] LABS: BG BASE EXCESS 16.6 mmol/L (-2.0-2.0); BG CARBOXYHEMOGLOBIN 0.3 % (0.5-1.5); BG DEOXYHEMOGLOBIN 4.9 % (0.0-5.0); BG FRACTION INSPIRED OXYGEN 28; BG HCO3 ACT 43.1 mmol/L (22.0-26.0); BG METHEMOGLOBIN 0.9 % (0.0-1.5); BG OXYHEMOGLOBIN 93.9 % (94.0-97.0); BG PCO2 62.7 mmHg (35.0-45.0); BG PH 7.455 (7.350-7.450); BG PO2 79.9 mmHg (75.0-100.0); BG SAMPLE SITE LEFT RADIAL; BG TOTAL HEMOGLOBIN 10.8 g/dL (12.0-18.0); BG VENT MODE NASAL CANNULA
[2021-04-24 13:41] LABS: PLATELET ESTIMATE NORMAL
[2021-04-24] MEDS: LORAZEPAM 2MG/ML CPJ IV PRN (18:08)
[2021-04-24] MEDS: METHYLPREDNISOLONE SOD SUCC 40 MG/ML VIAL IV SCH (22:11)
[2021-04-25] VITALS (30 sets, daily range): BP systolic 75–158; BP diastolic 48–94
[2021-04-25] MEDS: IPRATROPIUM/ALBUTEROL 0.5-3(2.5)MG/3ML NEB HHN SCH ×6 (04:23→20:36)
[2021-04-25] MEDS: DILTIAZEM HCL 60MG TABLET PO SCH ×3 (05:09→18:00)
[2021-04-25] MEDS: METHYLPREDNISOLONE SOD SUCC 40 MG/ML VIAL IV SCH ×3 (05:09→23:09)
[2021-04-25] MEDS: LORAZEPAM 2MG/ML CPJ IV PRN ×3 (05:15→16:52)
[2021-04-25 05:40] LABS: HEMATOCRIT. 32.1 % (42.0-52.0); HEMOGLOBIN. 10.8 g/dL (14.0-18.0); MEAN CORPUSCULAR HEMOGLOBIN 29.3 pg (28.0-32.0); MEAN CORPUSCULAR VOLUME 87.1 fL (80.0-94.0); MEAN PLATELET VOLUME 10.4 fl (7.4-10.4); PLATELET 272 x1000/uL (130-400); RED BLOOD CELL COUNT 3.69 mill/uL (4.7-6.1); RED CELL DISTRIBUTION WIDTH 16.4 % (11.6-14.6)
[2021-04-25 05:56] LABS: CHLORIDE 97 mEq/L (98-107)
[2021-04-25 06:06] LABS: LDL CHOLESTEROL 129 mg/dL (5-100)
[2021-04-25 06:09] LABS: HDL CHOLESTEROL 128 mg/dL (40-59)
[2021-04-25] MEDS ORDERED: SUCCINYLCHOLINE CHLORIDE 200MG/10ML IV ONE (08:09)
[2021-04-25] MEDS ORDERED: ETOMIDATE 2MG/ML 10ML VIAL IV ONE (08:09)
[2021-04-25] MEDS: THEOPHYLLINE ANHYDROUS 80 MG/15 ML 120ML PO SCH ×2 (09:00→16:55)
[2021-04-25] MEDS: ONDANSETRON HCL 4MG/2ML INJ IV PRN ×3 (09:13→17:18)
[2021-04-25] MEDS: ENOXAPARIN 40MG/0.4ML SYR SUBCUT SCH (09:13)
[2021-04-25] MEDS: LISINOPRIL 20MG TABLET PO SCH (09:14)
[2021-04-25] MEDS: CLOPIDOGREL 75MG TABLET PO SCH (09:14)
[2021-04-25] MEDS ORDERED: IOHEXOL-350 100 ML BOTTLE ONE (10:30)
[2021-04-25 12:58] LABS: PLATELET ESTIMATE NORMAL
[2021-04-25] MEDS: IPRATROPIUM BROMIDE (0.02%) 0.5MG/2.5ML NEB HHN PRN (12:59)
[2021-04-25 14:18] LABS: BG BASE EXCESS 15.6 mmol/L (-2.0-2.0); BG CARBOXYHEMOGLOBIN 0.3 % (0.5-1.5); BG DEOXYHEMOGLOBIN 7.1 % (0.0-5.0); BG FRACTION INSPIRED OXYGEN 30; BG HCO3 ACT 42.6 mmol/L (22.0-26.0); BG METHEMOGLOBIN 0.2 % (0.0-1.5); BG OXYGEN SATURATION 92.9 % (92.0-98.5); BG OXYHEMOGLOBIN 92.4 % (94.0-97.0); BG PCO2 65.9 mmHg (35.0-45.0); BG PH 7.428 (7.350-7.450); BG PO2 73.9 mmHg (75.0-100.0); BG SAMPLE SITE RIGHT RADIAL; BG TOTAL HEMOGLOBIN 10.9 g/dL (12.0-18.0); BG VENT MODE MASK - BIPAP
[2021-04-25] MEDS: PROPOFOL 10MG/ML 100ML 100 ML IV PRN ×2 (18:52→23:11)
[2021-04-25] MEDS: FENTANYL CITRATE/PF 2,500 MCG in SODIUM CHLORIDE 0.9% 200 ML IV PRN (20:04)
[2021-04-25 20:25] LABS: BG BASE EXCESS 13.4 mmol/L (-2.0-2.0); BG CARBOXYHEMOGLOBIN 0.2 % (0.5-1.5); BG DEOXYHEMOGLOBIN 0.9 % (0.0-5.0); BG FRACTION INSPIRED OXYGEN 100; BG HCO3 ACT 38.1 mmol/L (22.0-26.0); BG OXYGEN SATURATION 99.1 % (92.0-98.5); BG OXYHEMOGLOBIN 97.9 % (94.0-97.0); BG PCO2 49.4 mmHg (35.0-45.0); BG PH 7.505 (7.350-7.450); BG PO2 516.4 mmHg (75.0-100.0); BG SAMPLE SITE RIGHT RADIAL; BG TOTAL HEMOGLOBIN 10.3 g/dL (12.0-18.0); BG VENT MODE VENT- PRVC
[2021-04-26] VITALS (94 sets, daily range): BP systolic 73–164; BP diastolic 48–107
[2021-04-26] MEDS: IPRATROPIUM/ALBUTEROL 0.5-3(2.5)MG/3ML NEB HHN SCH ×6 (00:11→20:13)
[2021-04-26] MEDS: DILTIAZEM HCL 60MG TABLET PO SCH ×4 (00:40→17:09)
[2021-04-26] MEDS: PROPOFOL 10MG/ML 100ML 100 ML IV PRN ×3 (03:35→16:52)
[2021-04-26] MEDS: METHYLPREDNISOLONE SOD SUCC 40 MG/ML VIAL IV SCH ×3 (06:11→22:16)
[2021-04-26] MEDS: NOREPINEPHRINE 32 MG in DEXT 5% WATER 218 ML IV PRN (06:22)
[2021-04-26] MEDS ORDERED: PHENYLEPHRINE 50 MG in DEXT 5% WATER 245 ML IV PRN (08:45)
[2021-04-26] MEDS: CLOPIDOGREL 75MG TABLET PO SCH (08:57)
[2021-04-26] MEDS: ENOXAPARIN 40MG/0.4ML SYR SUBCUT SCH (08:58)
[2021-04-26] MEDS: LISINOPRIL 20MG TABLET PO SCH (09:00)
[2021-04-26] MEDS: THEOPHYLLINE ANHYDROUS 80 MG/15 ML 120ML PO SCH ×2 (11:01→17:06)
[2021-04-26] MEDS ORDERED: ACETAZOLAMIDE SODIUM 500MG/VIAL IV SCH (14:00)
[2021-04-26] MEDS ORDERED: DEXTROSE 50% WATER 50ML SYRINGE IV PRN (15:15)
[2021-04-26] MEDS: BLOOD SUGAR DIAGNOSTIC STRIP TEST SCH (17:53)
[2021-04-26] MEDS: INSULIN LISPRO 100 UNITS/ML SUBCUT SCH (18:54)
[2021-04-26] MEDS: FENTANYL CITRATE/PF 2,500 MCG in SODIUM CHLORIDE 0.9% 200 ML IV PRN (23:36)
[2021-04-27] VITALS (101 sets, daily range): BP systolic 82–145; BP diastolic 44–84
[2021-04-27] MEDS: IPRATROPIUM/ALBUTEROL 0.5-3(2.5)MG/3ML NEB HHN SCH ×6 (00:08→20:33)
[2021-04-27] MEDS: BLOOD SUGAR DIAGNOSTIC STRIP TEST SCH ×4 (00:13→18:00)
[2021-04-27] MEDS: DILTIAZEM HCL 60MG TABLET PO SCH ×2 (00:20→05:39)
[2021-04-27] MEDS: PROPOFOL 10MG/ML 100ML 100 ML IV PRN ×3 (00:20→15:46)
[2021-04-27] MEDS: INSULIN LISPRO 100 UNITS/ML SUBCUT SCH ×4 (00:21→20:22)
[2021-04-27] MEDS: METHYLPREDNISOLONE SOD SUCC 40 MG/ML VIAL IV SCH ×3 (05:47→22:15)
[2021-04-27] MEDS: NOREPINEPHRINE 32 MG in DEXT 5% WATER 218 ML IV PRN (05:47)
[2021-04-27 05:53] LABS: HEMATOCRIT. 29.6 % (42.0-52.0); MEAN CORPUSCULAR HEMOGLOBIN 29.2 pg (28.0-32.0); MEAN CORPUSCULAR VOLUME 86.6 fL (80.0-94.0); MEAN PLATELET VOLUME 11.2 fl (7.4-10.4); PLATELET 236 x1000/uL (130-400); RED BLOOD CELL COUNT 3.42 mill/uL (4.7-6.1); RED CELL DISTRIBUTION WIDTH 16.6 % (11.6-14.6)
[2021-04-27 06:02] LABS: CHLORIDE 96 mEq/L (98-107)
[2021-04-27 08:31] LABS: BG BASE EXCESS 9.9 mmol/L (-2.0-2.0); BG CARBOXYHEMOGLOBIN 0.3 % (0.5-1.5); BG DEOXYHEMOGLOBIN 5.2 % (0.0-5.0); BG HCO3 ACT 36.1 mmol/L (22.0-26.0); BG METHEMOGLOBIN 0.4 % (0.0-1.5); BG OXYGEN SATURATION 94.8 % (92.0-98.5); BG OXYHEMOGLOBIN 94.1 % (94.0-97.0); BG PCO2 57.9 mmHg (35.0-45.0); BG PH 7.413 (7.350-7.450); BG PO2 81.8 mmHg (75.0-100.0); BG SAMPLE SITE RIGHT BRACHIAL; BG TOTAL HEMOGLOBIN 10.6 g/dL (12.0-18.0); BG VENT MODE VENT- PRVC
[2021-04-27] MEDS: LISINOPRIL 20MG TABLET PO SCH (09:00)
[2021-04-27] MEDS: ENOXAPARIN 40MG/0.4ML SYR SUBCUT SCH (09:41)
[2021-04-27] MEDS: CLOPIDOGREL 75MG TABLET PO SCH (09:42)
[2021-04-27] MEDS: THEOPHYLLINE ANHYDROUS 80 MG/15 ML 120ML PO SCH ×2 (09:42→17:33)
[2021-04-27] MEDS: PANTOPRAZOLE SODIUM 40 MG/VIAL IV SCH (12:23)
[2021-04-27] MEDS: PIPERACILLIN/TAZOBACTAM 3.375 G in DEXTROSE 5% WATER 50 ML IV SCH ×2 (15:51→22:15)
[2021-04-27] MEDS ORDERED: VANCOMYCIN 1500MG in DEXTROSE 5% WATER 250ML IV SCH (16:00)
[2021-04-27] MEDS: MIDODRINE HCL 5MG TABLET PO SCH (17:33)
[2021-04-27] MEDS: FENTANYL CITRATE/PF 2,500 MCG in SODIUM CHLORIDE 0.9% 200 ML IV PRN (17:35)
[2021-04-27 18:14] LABS: PLATELET ESTIMATE NORMAL
[2021-04-28] VITALS (100 sets, daily range): BP systolic 79–163; BP diastolic 45–88
[2021-04-28] MEDS: IPRATROPIUM/ALBUTEROL 0.5-3(2.5)MG/3ML NEB HHN SCH ×6 (00:22→20:35)
[2021-04-28] MEDS: BLOOD SUGAR DIAGNOSTIC STRIP TEST SCH ×5 (00:43→23:03)
[2021-04-28] MEDS: INSULIN LISPRO 100 UNITS/ML SUBCUT SCH ×5 (00:47→23:07)
[2021-04-28] MEDS: PROPOFOL 10MG/ML 100ML 100 ML IV PRN ×4 (02:09→20:48)
[2021-04-28] MEDS ORDERED: VANCOMYCIN 750 MG PREMIX 150 ML IV SCH (06:00)
[2021-04-28] MEDS: METHYLPREDNISOLONE SOD SUCC 40 MG/ML VIAL IV SCH ×3 (06:26→21:15)
[2021-04-28] MEDS: PIPERACILLIN/TAZOBACTAM 3.375 G in DEXTROSE 5% WATER 50 ML IV SCH ×3 (06:26→21:15)
[2021-04-28] MEDS: CLOPIDOGREL 75MG TABLET PO SCH (08:17)
[2021-04-28] MEDS: ENOXAPARIN 40MG/0.4ML SYR SUBCUT SCH (08:18)
[2021-04-28] MEDS: PANTOPRAZOLE SODIUM 40 MG/VIAL IV SCH (08:18)
[2021-04-28] MEDS: MIDODRINE HCL 5MG TABLET PO SCH ×3 (08:18→19:47)
[2021-04-28] MEDS: FENTANYL CITRATE/PF 2,500 MCG in SODIUM CHLORIDE 0.9% 200 ML IV PRN ×2 (08:56→23:52)
[2021-04-28] MEDS: THEOPHYLLINE ANHYDROUS 80 MG/15 ML 120ML PO SCH ×2 (10:57→18:00)
[2021-04-28 13:16] LABS: HEMATOCRIT. 28.6 % (42.0-52.0); HEMOGLOBIN. 9.3 g/dL (14.0-18.0); MEAN CORPUSCULAR VOLUME 88.9 fL (80.0-94.0); MEAN PLATELET VOLUME 11.6 fl (7.4-10.4); PLATELET 179 x1000/uL (130-400); RED BLOOD CELL COUNT 3.21 mill/uL (4.7-6.1); RED CELL DISTRIBUTION WIDTH 16.3 % (11.6-14.6)
[2021-04-28 14:10] LABS: PLATELET ESTIMATE NORMAL
[2021-04-29] VITALS (99 sets, daily range): BP systolic 72–143; BP diastolic 27–105
[2021-04-29 00:09] LABS: CLARITY URINE CLEAR (CLEAR); COLOR URINE YELLOW (YELLOW); KETONES URINE NEGATIVE (NEGATIVE); LEUKOCYTE ESTERASE URINE NEGATIVE (NEGATIVE); NITRITE URINE NEGATIVE (NEGATIVE); OCCULT BLOOD URINE NEGATIVE (NEGATIVE); PROTEIN URINE TRACE (NEGATIVE); SPECIFIC GRAVITY URINE 1.041 (1.005-1.030)
[2021-04-29] MEDS: IPRATROPIUM/ALBUTEROL 0.5-3(2.5)MG/3ML NEB HHN SCH ×6 (00:28→21:32)
[2021-04-29] MEDS: BLOOD SUGAR DIAGNOSTIC STRIP TEST SCH ×4 (05:19→23:34)
[2021-04-29] MEDS: PIPERACILLIN/TAZOBACTAM 3.375 G in DEXTROSE 5% WATER 50 ML IV SCH ×3 (05:27→21:54)
[2021-04-29] MEDS: METHYLPREDNISOLONE SOD SUCC 40 MG/ML VIAL IV SCH ×3 (05:27→21:53)
[2021-04-29] MEDS: INSULIN LISPRO 100 UNITS/ML SUBCUT SCH ×4 (05:28→23:34)
[2021-04-29 05:59] LABS: CHLORIDE 99 mEq/L (98-107)
[2021-04-29 06:02] LABS: HEMATOCRIT. 26.2 % (42.0-52.0); HEMOGLOBIN. 8.8 g/dL (14.0-18.0); MEAN CORPUSCULAR HEMOGLOBIN 29.5 pg (28.0-32.0); MEAN CORPUSCULAR VOLUME 87.8 fL (80.0-94.0); MEAN PLATELET VOLUME 11.2 fl (7.4-10.4); PLATELET 184 x1000/uL (130-400); RED BLOOD CELL COUNT 2.98 mill/uL (4.7-6.1); RED CELL DISTRIBUTION WIDTH 16.4 % (11.6-14.6)
[2021-04-29] MEDS: PANTOPRAZOLE SODIUM 40 MG/VIAL IV SCH (09:03)
[2021-04-29] MEDS: MIDODRINE HCL 5MG TABLET PO SCH ×3 (09:04→17:49)
[2021-04-29] MEDS: THEOPHYLLINE ANHYDROUS 80 MG/15 ML 120ML PO SCH ×2 (09:04→17:49)
[2021-04-29] MEDS: DOCUSATE SODIUM SUGAR FREE 100MG/10ML UDC NG SCH (09:04)
[2021-04-29] MEDS: CLOPIDOGREL 75MG TABLET PO SCH (09:04)
[2021-04-29] MEDS: ENOXAPARIN 40MG/0.4ML SYR SUBCUT SCH (09:07)
[2021-04-29 10:24] LABS: PLATELET ESTIMATE NORMAL
[2021-04-29] MEDS: PROPOFOL 10MG/ML 100ML 100 ML IV PRN ×2 (11:01→19:27)
[2021-04-29] MEDS: FENTANYL CITRATE/PF 2,500 MCG in SODIUM CHLORIDE 0.9% 200 ML IV PRN (15:05)
[2021-04-30] VITALS (96 sets, daily range): BP systolic 86–183; BP diastolic 52–100
[2021-04-30] MEDS: IPRATROPIUM/ALBUTEROL 0.5-3(2.5)MG/3ML NEB HHN SCH ×6 (00:58→20:01)
[2021-04-30] MEDS: PROPOFOL 10MG/ML 100ML 100 ML IV PRN ×3 (02:32→20:43)
[2021-04-30] MEDS: BLOOD SUGAR DIAGNOSTIC STRIP TEST SCH ×3 (05:12→17:30)
[2021-04-30] MEDS: PIPERACILLIN/TAZOBACTAM 3.375 G in DEXTROSE 5% WATER 50 ML IV SCH ×3 (05:25→21:52)
[2021-04-30] MEDS: INSULIN LISPRO 100 UNITS/ML SUBCUT SCH ×3 (05:26→17:37)
[2021-04-30 06:13] LABS: HEMATOCRIT. 24.5 % (42.0-52.0); HEMOGLOBIN. 8.3 g/dL (14.0-18.0); MEAN CORPUSCULAR HEMOGLOBIN 29.2 pg (28.0-32.0); MEAN PLATELET VOLUME 10.7 fl (7.4-10.4); PLATELET 190 x1000/uL (130-400); RED BLOOD CELL COUNT 2.85 mill/uL (4.7-6.1); RED CELL DISTRIBUTION WIDTH 16.3 % (11.6-14.6)
[2021-04-30 06:16] LABS: CHLORIDE 103 mEq/L (98-107)
[2021-04-30] MEDS: FENTANYL CITRATE/PF 2,500 MCG in SODIUM CHLORIDE 0.9% 200 ML IV PRN (08:47)
[2021-04-30] MEDS: DOCUSATE SODIUM SUGAR FREE 100MG/10ML UDC NG SCH (09:04)
[2021-04-30] MEDS: THEOPHYLLINE ANHYDROUS 80 MG/15 ML 120ML PO SCH ×2 (09:04→16:03)
[2021-04-30] MEDS: MIDODRINE HCL 5MG TABLET PO SCH ×3 (09:04→16:03)
[2021-04-30] MEDS: CLOPIDOGREL 75MG TABLET PO SCH (09:04)
[2021-04-30] MEDS: PANTOPRAZOLE SODIUM 40 MG/VIAL IV SCH (09:05)
[2021-04-30] MEDS: ENOXAPARIN 40MG/0.4ML SYR SUBCUT SCH (09:05)
[2021-04-30] MEDS: METHYLPREDNISOLONE SOD SUCC 40 MG/ML VIAL IV SCH ×2 (09:05→21:52)
[2021-04-30 09:45] LABS: BG BASE EXCESS 11.7 mmol/L (-2.0-2.0); BG CARBOXYHEMOGLOBIN 0.3 % (0.5-1.5); BG DEOXYHEMOGLOBIN 2.8 % (0.0-5.0); BG FRACTION INSPIRED OXYGEN 40; BG HCO3 ACT 36.7 mmol/L (22.0-26.0); BG METHEMOGLOBIN 0.5 % (0.0-1.5); BG OXYGEN SATURATION 97.2 % (92.0-98.5); BG OXYHEMOGLOBIN 96.4 % (94.0-97.0); BG PCO2 52.3 mmHg (35.0-45.0); BG PH 7.464 (7.350-7.450); BG PO2 99.3 mmHg (75.0-100.0); BG SAMPLE SITE RIGHT RADIAL; BG TOTAL HEMOGLOBIN 7.5 g/dL (12.0-18.0); BG VENT MODE PRVC
[2021-04-30] MEDS ORDERED: HALOPERIDOL LACTATE 5MG/ML VIAL IM NR (12:30)
[2021-04-30 15:45] LABS: BG BASE EXCESS 10.4 mmol/L (-2.0-2.0); BG CARBOXYHEMOGLOBIN 0.2 % (0.5-1.5); BG DEOXYHEMOGLOBIN 4.5 % (0.0-5.0); BG FRACTION INSPIRED OXYGEN 40; BG HCO3 ACT 36.3 mmol/L (22.0-26.0); BG METHEMOGLOBIN 0.6 % (0.0-1.5); BG OXYGEN SATURATION 95.5 % (92.0-98.5); BG OXYHEMOGLOBIN 94.7 % (94.0-97.0); BG PCO2 55.7 mmHg (35.0-45.0); BG PH 7.432 (7.350-7.450); BG PO2 84.4 mmHg (75.0-100.0); BG SAMPLE SITE RIGHT RADIAL; BG TOTAL HEMOGLOBIN 10.5 g/dL (12.0-18.0); BG VENT MODE VENT - CPAP
[2021-05-01] VITALS (98 sets, daily range): BP systolic 83–175; BP diastolic 51–107
[2021-05-01] MEDS: BLOOD SUGAR DIAGNOSTIC STRIP TEST SCH ×4 (00:32→18:11)
[2021-05-01 01:19] LABS: PLATELET ESTIMATE NORMAL
[2021-05-01] MEDS: FENTANYL CITRATE/PF 2,500 MCG in SODIUM CHLORIDE 0.9% 200 ML IV PRN ×2 (03:12→16:51)
[2021-05-01] MEDS: PROPOFOL 10MG/ML 100ML 100 ML IV PRN ×3 (03:33→18:10)
[2021-05-01] MEDS: IPRATROPIUM/ALBUTEROL 0.5-3(2.5)MG/3ML NEB HHN SCH ×6 (04:27→19:53)
[2021-05-01] MEDS: PIPERACILLIN/TAZOBACTAM 3.375 G in DEXTROSE 5% WATER 50 ML IV SCH ×3 (05:51→22:07)
[2021-05-01] MEDS: INSULIN LISPRO 100 UNITS/ML SUBCUT SCH ×4 (05:52→18:11)
[2021-05-01] MEDS: PANTOPRAZOLE SODIUM 40 MG/VIAL IV SCH (09:07)
[2021-05-01] MEDS: DOCUSATE SODIUM SUGAR FREE 100MG/10ML UDC NG SCH (09:07)
[2021-05-01] MEDS: CLOPIDOGREL 75MG TABLET PO SCH (09:08)
[2021-05-01] MEDS: LACTULOSE 20G/30ML UDC NG PRN (09:08)
[2021-05-01] MEDS: MIDODRINE HCL 5MG TABLET PO SCH ×3 (09:08→18:11)
[2021-05-01] MEDS: METHYLPREDNISOLONE SOD SUCC 40 MG/ML VIAL IV SCH ×2 (10:01→22:07)
[2021-05-01] MEDS: ENOXAPARIN 40MG/0.4ML SYR SUBCUT SCH (10:01)
[2021-05-01] MEDS: THEOPHYLLINE ANHYDROUS 80 MG/15 ML 120ML PO SCH ×2 (10:02→19:25)
[2021-05-01] MEDS ORDERED: PROPOFOL 10MG/ML 100ML 100 ML IV PRN (17:45)
[2021-05-02] VITALS (94 sets, daily range): BP systolic 79–186; BP diastolic 44–107
[2021-05-02] MEDS: BLOOD SUGAR DIAGNOSTIC STRIP TEST SCH ×4 (00:33→18:00)
[2021-05-02] MEDS: INSULIN LISPRO 100 UNITS/ML SUBCUT SCH ×4 (00:38→17:45)
[2021-05-02] MEDS: IPRATROPIUM/ALBUTEROL 0.5-3(2.5)MG/3ML NEB HHN SCH ×6 (04:01→20:00)
[2021-05-02] MEDS: PROPOFOL 10MG/ML 100ML 100 ML IV PRN (05:07)
[2021-05-02 05:42] LABS: CHLORIDE 99 mEq/L (98-107)
[2021-05-02 05:43] LABS: HEMATOCRIT. 26.9 % (42.0-52.0); HEMOGLOBIN. 8.9 g/dL (14.0-18.0); MEAN CORPUSCULAR HEMOGLOBIN 29.2 pg (28.0-32.0); MEAN CORPUSCULAR VOLUME 88.3 fL (80.0-94.0); MEAN PLATELET VOLUME 10.5 fl (7.4-10.4); PLATELET 217 x1000/uL (130-400); RED BLOOD CELL COUNT 3.04 mill/uL (4.7-6.1); RED CELL DISTRIBUTION WIDTH 16.3 % (11.6-14.6)
[2021-05-02] MEDS: PIPERACILLIN/TAZOBACTAM 3.375 G in DEXTROSE 5% WATER 50 ML IV SCH ×3 (05:52→21:40)
[2021-05-02 08:32] LABS: BG BASE EXCESS 13.6 mmol/L (-2.0-2.0); BG CARBOXYHEMOGLOBIN 0.2 % (0.5-1.5); BG DEOXYHEMOGLOBIN 4.6 % (0.0-5.0); BG HCO3 ACT 39.9 mmol/L (22.0-26.0); BG METHEMOGLOBIN 0.5 % (0.0-1.5); BG OXYGEN SATURATION 95.4 % (92.0-98.5); BG OXYHEMOGLOBIN 94.7 % (94.0-97.0); BG PCO2 60.1 mmHg (35.0-45.0); BG PO2 80.2 mmHg (75.0-100.0); BG SAMPLE SITE RIGHT RADIAL; BG TOTAL HEMOGLOBIN 10.6 g/dL (12.0-18.0); BG VENT MODE VENT - AC
[2021-05-02] MEDS: PANTOPRAZOLE SODIUM 40 MG/VIAL IV SCH (08:36)
[2021-05-02] MEDS: CLOPIDOGREL 75MG TABLET PO SCH (08:36)
[2021-05-02] MEDS: THEOPHYLLINE ANHYDROUS 80 MG/15 ML 120ML PO SCH ×2 (08:36→17:43)
[2021-05-02] MEDS: DOCUSATE SODIUM SUGAR FREE 100MG/10ML UDC NG SCH (08:36)
[2021-05-02] MEDS: FENTANYL CITRATE/PF 2,500 MCG in SODIUM CHLORIDE 0.9% 200 ML IV PRN ×2 (08:47→21:37)
[2021-05-02] MEDS: MIDODRINE HCL 5MG TABLET PO SCH ×3 (09:00→17:42)
[2021-05-02 10:07] LABS: PLATELET ESTIMATE NORMAL
[2021-05-02] MEDS: ENOXAPARIN 40MG/0.4ML SYR SUBCUT SCH (10:15)
[2021-05-02] MEDS: METHYLPREDNISOLONE SOD SUCC 40 MG/ML VIAL IV SCH ×2 (10:15→21:40)
[2021-05-02 14:00] LABS: BG BASE EXCESS 10.6 mmol/L (-2.0-2.0); BG CARBOXYHEMOGLOBIN 0.3 % (0.5-1.5); BG DEOXYHEMOGLOBIN 2.5 % (0.0-5.0); BG FRACTION INSPIRED OXYGEN 40; BG METHEMOGLOBIN 0.5 % (0.0-1.5); BG OXYGEN SATURATION 97.5 % (92.0-98.5); BG OXYHEMOGLOBIN 96.7 % (94.0-97.0); BG PCO2 60.2 mmHg (35.0-45.0); BG PH 7.407 (7.350-7.450); BG PO2 106.4 mmHg (75.0-100.0); BG SAMPLE SITE RIGHT RADIAL; BG TOTAL HEMOGLOBIN 10.6 g/dL (12.0-18.0); BG TOTAL RESPIRATORY RATE 14 b/min; BG VENT MODE VENT - CPAP
[2021-05-03] VITALS (93 sets, daily range): BP systolic 104–204; BP diastolic 55–122
[2021-05-03] MEDS: IPRATROPIUM/ALBUTEROL 0.5-3(2.5)MG/3ML NEB HHN SCH ×3 (00:15→07:30)
[2021-05-03] MEDS: INSULIN LISPRO 100 UNITS/ML SUBCUT SCH ×4 (01:29→17:39)
[2021-05-03 05:50] LABS: HEMATOCRIT 26.3 % (42.0-52.0); HEMOGLOBIN 8.8 g/dL (14.0-18.0); MEAN CORPUSCULAR HEMOGLOBIN 29.2 pg (28.0-32.0); PLATELET 244 x1000/uL (130-400); RED BLOOD CELL COUNT 3.02 mill/uL (4.7-6.1); RED CELL DISTRIBUTION WIDTH 16.1 % (11.6-14.6)
[2021-05-03] MEDS: BLOOD SUGAR DIAGNOSTIC STRIP TEST SCH ×4 (06:00→17:25)
[2021-05-03 06:02] LABS: CHLORIDE 96 mEq/L (98-107)
[2021-05-03] MEDS: MIDODRINE HCL 5MG TABLET PO SCH (09:00)
[2021-05-03] MEDS: METHYLPREDNISOLONE SOD SUCC 40 MG/ML VIAL IV SCH (09:10)
[2021-05-03] MEDS: PANTOPRAZOLE SODIUM 40 MG/VIAL IV SCH (09:11)
[2021-05-03] MEDS: CLOPIDOGREL 75MG TABLET PO SCH (09:11)
[2021-05-03] MEDS: DOCUSATE SODIUM SUGAR FREE 100MG/10ML UDC NG SCH (09:11)
[2021-05-03] MEDS: ENOXAPARIN 40MG/0.4ML SYR SUBCUT SCH (09:11)
[2021-05-03] MEDS: THEOPHYLLINE ANHYDROUS 80 MG/15 ML 120ML PO SCH (09:13)
[2021-05-03] MEDS: DILTIAZEM HCL 30MG TABLET PO SCH ×3 (10:08→17:30)
[2021-05-03] MEDS: BUDESONIDE 0.5MG/2ML NEB HHN SCH ×2 (11:43→20:43)
[2021-05-03] MEDS: IPRATROPIUM BROMIDE (0.02%) 0.5MG/2.5ML NEB HHN SCH ×3 (11:43→20:43)
[2021-05-03] MEDS: ACETAZOLAMIDE 250MG TABLET PO SCH ×2 (13:25→22:22)
[2021-05-03] MEDS: FENTANYL CITRATE/PF 2,500 MCG in SODIUM CHLORIDE 0.9% 200 ML IV PRN (15:54)
[2021-05-04] VITALS (50 sets, daily range): BP systolic 102–175; BP diastolic 56–93
[2021-05-04] MEDS: DILTIAZEM HCL 30MG TABLET PO SCH ×4 (01:11→18:01)
[2021-05-04] MEDS: IPRATROPIUM BROMIDE (0.02%) 0.5MG/2.5ML NEB HHN SCH ×4 (03:13→19:52)
[2021-05-04] MEDS: INSULIN LISPRO 100 UNITS/ML SUBCUT SCH ×4 (06:00→18:02)
[2021-05-04] MEDS: BLOOD SUGAR DIAGNOSTIC STRIP TEST SCH ×4 (06:00→17:54)
[2021-05-04 06:10] LABS: HEMATOCRIT. 27.1 % (42.0-52.0); MEAN CORPUSCULAR HEMOGLOBIN 29.2 pg (28.0-32.0); MEAN CORPUSCULAR VOLUME 88.1 fL (80.0-94.0); PLATELET 235 x1000/uL (130-400); RED BLOOD CELL COUNT 3.07 mill/uL (4.7-6.1); RED CELL DISTRIBUTION WIDTH 15.9 % (11.6-14.6)
[2021-05-04 06:13] LABS: CHLORIDE 99 mEq/L (98-107)
[2021-05-04] MEDS: ACETAZOLAMIDE 250MG TABLET PO SCH ×3 (07:10→22:08)
[2021-05-04 08:12] LABS: BG BASE EXCESS 7.1 mmol/L (-2.0-2.0); BG CARBOXYHEMOGLOBIN 0.3 % (0.5-1.5); BG DEOXYHEMOGLOBIN 8.3 % (0.0-5.0); BG HCO3 ACT 32.7 mmol/L (22.0-26.0); BG METHEMOGLOBIN 0.5 % (0.0-1.5); BG OXYGEN SATURATION 91.6 % (92.0-98.5); BG OXYHEMOGLOBIN 90.9 % (94.0-97.0); BG PCO2 51.9 mmHg (35.0-45.0); BG PH 7.417 (7.350-7.450); BG PO2 65.3 mmHg (75.0-100.0); BG SAMPLE SITE RIGHT RADIAL; BG TOTAL HEMOGLOBIN 10.3 g/dL (12.0-18.0); BG VENT MODE VENT - AC
[2021-05-04] MEDS: DOCUSATE SODIUM SUGAR FREE 100MG/10ML UDC NG SCH (08:31)
[2021-05-04] MEDS: BUDESONIDE 0.5MG/2ML NEB HHN SCH ×2 (08:31→19:52)
[2021-05-04] MEDS: PANTOPRAZOLE SODIUM 40 MG/VIAL IV SCH (08:31)
[2021-05-04] MEDS: CLOPIDOGREL 75MG TABLET PO SCH (08:31)
[2021-05-04] MEDS: ACETAMINOPHEN 325MG TABLET PO PRN (08:32)
[2021-05-04] MEDS: ENOXAPARIN 40MG/0.4ML SYR SUBCUT SCH (08:33)
[2021-05-04] MEDS ORDERED: DILTIAZEM HCL 5MG/ML 5ML VIAL IV SCH (09:45)
[2021-05-04] MEDS: METHYLPREDNISOLONE SOD SUCC 40 MG/ML VIAL IV SCH (09:53)
[2021-05-04] MEDS: FENTANYL CITRATE/PF 2,500 MCG in SODIUM CHLORIDE 0.9% 200 ML IV PRN (14:52)
[2021-05-04 17:43] LABS: PLATELET ESTIMATE NORMAL
[2021-05-04] MEDS ORDERED: ROCURONIUM BROMIDE 10MG/ML VIAL 5ML IV ONE (20:57)
[2021-05-04] MEDS ORDERED: MIDAZOLAM HCL 2 MG/2 ML VIAL ONE (20:57)
[2021-05-04] MEDS ORDERED: PHENYLEPHRINE HCL 10 MG/ML 1ML (IV VIAL) IV ONE (21:04)
[2021-05-04] MEDS ORDERED: LIDOCAINE HCL 1% 30ML VIAL (10MG/ML) ONE (21:06)
[2021-05-04] MEDS ORDERED: BUPIVACAINE HCL/PF 0.5% (5MG/ML) 10ML ONE (21:07)
[2021-05-05] VITALS (46 sets, daily range): BP systolic 99–140; BP diastolic 54–85
[2021-05-05] MEDS: BLOOD SUGAR DIAGNOSTIC STRIP TEST SCH ×4 (00:50→17:44)
[2021-05-05] MEDS: DILTIAZEM HCL 30MG TABLET PO SCH ×4 (00:52→17:43)
[2021-05-05] MEDS: IPRATROPIUM BROMIDE (0.02%) 0.5MG/2.5ML NEB HHN SCH ×4 (02:18→20:01)
[2021-05-05] MEDS: INSULIN LISPRO 100 UNITS/ML SUBCUT SCH ×4 (05:40→17:44)
[2021-05-05] MEDS: ACETAZOLAMIDE 250MG TABLET PO SCH ×3 (05:41→21:20)
[2021-05-05] MEDS: BUDESONIDE 0.5MG/2ML NEB HHN SCH ×2 (08:20→20:01)
[2021-05-05] MEDS: METHYLPREDNISOLONE SOD SUCC 40 MG/ML VIAL IV SCH (09:39)
[2021-05-05] MEDS: PANTOPRAZOLE SODIUM 40 MG/VIAL IV SCH (09:39)
[2021-05-05] MEDS: DOCUSATE SODIUM SUGAR FREE 100MG/10ML UDC NG SCH (09:39)
[2021-05-05] MEDS: ENOXAPARIN 40MG/0.4ML SYR SUBCUT SCH (09:41)
[2021-05-05] MEDS: CLOPIDOGREL 75MG TABLET PO SCH (09:42)
[2021-05-05] MEDS ORDERED: CEFAZOLIN 1000MG PREMIX 50 ML IV SCH (14:00)
[2021-05-05] MEDS: ACETAMINOPHEN 325MG TABLET PO PRN (21:20)
[2021-05-05] MEDS: LACTULOSE 20G/30ML UDC NG PRN (22:56)
[2021-05-06] VITALS (58 sets, daily range): BP systolic 97–156; BP diastolic 49–81
[2021-05-06] MEDS: DILTIAZEM HCL 30MG TABLET PO SCH ×2 (00:29→06:33)
[2021-05-06] MEDS: INSULIN LISPRO 100 UNITS/ML SUBCUT SCH ×5 (00:30→23:17)
[2021-05-06] MEDS: BLOOD SUGAR DIAGNOSTIC STRIP TEST SCH ×4 (00:31→23:12)
[2021-05-06] MEDS: IPRATROPIUM BROMIDE (0.02%) 0.5MG/2.5ML NEB HHN SCH ×4 (01:46→20:24)
[2021-05-06] MEDS ORDERED: FENTANYL CITRATE/PF 2,500 MCG in SODIUM CHLORIDE 0.9% 200 ML IV PRN (03:00)
[2021-05-06 06:20] LABS: HEMATOCRIT. 23.6 % (42.0-52.0); HEMOGLOBIN. 7.8 g/dL (14.0-18.0); MEAN CORPUSCULAR VOLUME 87.4 fL (80.0-94.0); MEAN PLATELET VOLUME 9.4 fl (7.4-10.4); PLATELET 231 x1000/uL (130-400); RED CELL DISTRIBUTION WIDTH 15.7 % (11.6-14.6)
[2021-05-06 06:30] LABS: CHLORIDE 101 mEq/L (98-107)
[2021-05-06] MEDS: ACETAZOLAMIDE 250MG TABLET PO SCH ×3 (06:33→21:53)
[2021-05-06 06:37] LABS: INR 1.2; PARTIAL THROMBOPLASTIN TIME 25.3 sec (23.4-31.0); PROTHROMBIN TIME 12.3 sec (9.6-11.0)
[2021-05-06] MEDS: BUDESONIDE 0.5MG/2ML NEB HHN SCH (07:34)
[2021-05-06] MEDS ORDERED: CEFAZOLIN 1000MG PREMIX 50 ML IV SCH (08:00)
[2021-05-06] MEDS: METHYLPREDNISOLONE SOD SUCC 40 MG/ML VIAL IV SCH (08:54)
[2021-05-06] MEDS: PANTOPRAZOLE SODIUM 40 MG/VIAL IV SCH (08:54)
[2021-05-06] MEDS: ACETAMINOPHEN 650MG/20.3ML UDC PO PRN (08:54)
[2021-05-06] MEDS: DOCUSATE SODIUM SUGAR FREE 100MG/10ML UDC NG SCH (09:00)
[2021-05-06] MEDS: ENOXAPARIN 40MG/0.4ML SYR SUBCUT SCH (09:00)
[2021-05-06] MEDS: CLOPIDOGREL 75MG TABLET PO SCH (09:00)
[2021-05-06] MEDS ORDERED: BISACODYL 10MG SUPP PR NR (12:15)
[2021-05-06] MEDS: DILTIAZEM HCL 90MG TABLET PO SCH ×3 (12:38→23:16)
[2021-05-06] MEDS: LACTULOSE 20G/30ML UDC PO SCH ×2 (13:40→21:53)
[2021-05-06 14:21] LABS: PLATELET ESTIMATE NORMAL
[2021-05-06 15:27] LABS: HEMOGLOBIN. 7.3 g/dL (14.0-18.0); MEAN CORPUSCULAR HEMOGLOBIN 30.8 pg (28.0-32.0); MEAN CORPUSCULAR VOLUME 86.4 fL (80.0-94.0); MEAN PLATELET VOLUME 9.6 fl (7.4-10.4); PLATELET 204 x1000/uL (130-400); RED BLOOD CELL COUNT 2.37 mill/uL (4.7-6.1); RED CELL DISTRIBUTION WIDTH 15.9 % (11.6-14.6)
[2021-05-06 15:30] LABS: HEMATOCRIT. 20.5 % (42.0-52.0)
[2021-05-06 15:31] LABS: CHLORIDE 101 mEq/L (98-107)
[2021-05-06 15:57] LABS: PLATELET ESTIMATE NORMAL
[2021-05-06] MEDS: METOCLOPRAMIDE HCL 10MG/2ML VIAL IV SCH ×2 (17:30→23:16)
[2021-05-06 22:57] LABS: HEMATOCRIT 26.5 % (42.0-52.0); HEMOGLOBIN 8.8 g/dL (14.0-18.0)
[2021-05-07] VITALS (49 sets, daily range): BP systolic 114–176; BP diastolic 58–98
[2021-05-07] MEDS: IPRATROPIUM BROMIDE (0.02%) 0.5MG/2.5ML NEB HHN SCH ×4 (01:06→20:39)
[2021-05-07] MEDS: DILTIAZEM HCL 90MG TABLET PO SCH ×4 (05:28→23:18)
[2021-05-07] MEDS: LACTULOSE 20G/30ML UDC PO SCH ×3 (05:28→21:55)
[2021-05-07] MEDS: ACETAZOLAMIDE 250MG TABLET PO SCH ×3 (05:28→21:55)
[2021-05-07] MEDS: METOCLOPRAMIDE HCL 10MG/2ML VIAL IV SCH ×3 (05:35→17:25)
[2021-05-07] MEDS: INSULIN LISPRO 100 UNITS/ML SUBCUT SCH ×4 (05:35→23:19)
[2021-05-07] MEDS: BLOOD SUGAR DIAGNOSTIC STRIP TEST SCH ×4 (05:35→23:14)
[2021-05-07 05:48] LABS: INR 1.2; PROTHROMBIN TIME 12.6 sec (9.6-11.0)
[2021-05-07] MEDS: DOCUSATE SODIUM SUGAR FREE 100MG/10ML UDC NG SCH (08:42)
[2021-05-07] MEDS: CLOPIDOGREL 75MG TABLET PO SCH (08:42)
[2021-05-07] MEDS: ENOXAPARIN 40MG/0.4ML SYR SUBCUT SCH (08:43)
[2021-05-07] MEDS: METHYLPREDNISOLONE SOD SUCC 40 MG/ML VIAL IV SCH (09:47)
[2021-05-07] MEDS: LORAZEPAM 2MG/ML CPJ IV PRN ×2 (09:47→14:30)
[2021-05-07] MEDS: PANTOPRAZOLE SODIUM 40 MG/VIAL IV SCH (09:47)
[2021-05-07] MEDS: BISACODYL 10MG SUPP PR SCH (09:47)
[2021-05-07] MEDS ORDERED: CEFAZOLIN 1000MG PREMIX 50 ML IV NR (10:00)
[2021-05-07 11:59] LABS: HEMATOCRIT. 24.8 % (42.0-52.0); HEMOGLOBIN. 8.4 g/dL (14.0-18.0); MEAN CORPUSCULAR HEMOGLOBIN 29.3 pg (28.0-32.0); MEAN CORPUSCULAR VOLUME 86.3 fL (80.0-94.0); PLATELET 188 x1000/uL (130-400); RED BLOOD CELL COUNT 2.87 mill/uL (4.7-6.1); RED CELL DISTRIBUTION WIDTH 15.1 % (11.6-14.6)
[2021-05-07 12:02] LABS: CHLORIDE 100 mEq/L (98-107)
[2021-05-07 12:41] LABS: PLATELET ESTIMATE NORMAL
[2021-05-07] MEDS ORDERED: POTASSIUM CHLORIDE 20MEQ TABLET SR PO NR (14:00)
[2021-05-07] MEDS ORDERED: FENTANYL CITRATE/PF 50MCG/ML 2ML VIAL ONE (15:05)
[2021-05-07] MEDS ORDERED: MIDAZOLAM HCL 5 MG/5 ML VIAL ONE (15:05)
[2021-05-07] MEDS ORDERED: MIDAZOLAM HCL 5 MG/5 ML VIAL IV PRN (15:31)
[2021-05-07] MEDS ORDERED: FENTANYL CITRATE/PF 50MCG/ML 2ML VIAL IV PRN (15:32)
[2021-05-08] VITALS (57 sets, daily range): BP systolic 119–168; BP diastolic 59–98
[2021-05-08] MEDS: IPRATROPIUM BROMIDE (0.02%) 0.5MG/2.5ML NEB HHN SCH ×4 (01:15→20:02)
[2021-05-08] MEDS: LORAZEPAM 2MG/ML CPJ IV PRN (03:44)
[2021-05-08] MEDS: BLOOD SUGAR DIAGNOSTIC STRIP TEST SCH ×4 (05:11→23:35)
[2021-05-08] MEDS: METOCLOPRAMIDE HCL 10MG/2ML VIAL IV SCH ×4 (05:12→23:33)
[2021-05-08] MEDS: LACTULOSE 20G/30ML UDC PO SCH ×3 (05:12→22:19)
[2021-05-08] MEDS: INSULIN LISPRO 100 UNITS/ML SUBCUT SCH ×4 (05:12→23:37)
[2021-05-08] MEDS: ACETAZOLAMIDE 250MG TABLET PO SCH ×3 (05:13→22:19)
[2021-05-08] MEDS: DILTIAZEM HCL 90MG TABLET PO SCH ×4 (05:13→23:35)
[2021-05-08 06:13] LABS: CHLORIDE 106 mEq/L (98-107)
[2021-05-08] MEDS: BISACODYL 10MG SUPP PR SCH (08:32)
[2021-05-08] MEDS: PANTOPRAZOLE SODIUM 40 MG/VIAL IV SCH (09:02)
[2021-05-08] MEDS: METHYLPREDNISOLONE SOD SUCC 40 MG/ML VIAL IV SCH (09:02)
[2021-05-08] MEDS: ENOXAPARIN 40MG/0.4ML SYR SUBCUT SCH (09:02)
[2021-05-08] MEDS: DOCUSATE SODIUM SUGAR FREE 100MG/10ML UDC NG SCH (09:03)
[2021-05-08] MEDS: CLOPIDOGREL 75MG TABLET PO SCH (09:03)
[2021-05-08 10:17] LABS: HEMOGLOBIN. 9.5 g/dL (14.0-18.0); MEAN CORPUSCULAR VOLUME 86.2 fL (80.0-94.0); MEAN PLATELET VOLUME 8.8 fl (7.4-10.4); PLATELET 244 x1000/uL (130-400); RED BLOOD CELL COUNT 3.28 mill/uL (4.7-6.1); RED CELL DISTRIBUTION WIDTH 14.7 % (11.6-14.6)
[2021-05-08 10:20] LABS: HEMATOCRIT. 28.2 % (42.0-52.0)
[2021-05-08 11:12] LABS: PLATELET ESTIMATE NORMAL
[2021-05-08] MEDS: QUETIAPINE FUMARATE 25MG TABLET PO SCH (20:58)
[2021-05-08] MEDS: CLONAZEPAM 0.5MG TABLET PO SCH (22:19)
[2021-05-09] VITALS (56 sets, daily range): BP systolic 98–159; BP diastolic 51–104
[2021-05-09] MEDS: IPRATROPIUM BROMIDE (0.02%) 0.5MG/2.5ML NEB HHN SCH ×4 (01:23→20:20)
[2021-05-09] MEDS: ACETAZOLAMIDE 250MG TABLET PO SCH ×3 (05:39→22:44)
[2021-05-09] MEDS: METOCLOPRAMIDE HCL 10MG/2ML VIAL IV SCH (05:39)
[2021-05-09] MEDS: LACTULOSE 20G/30ML UDC PO SCH ×3 (05:39→22:43)
[2021-05-09] MEDS: DILTIAZEM HCL 90MG TABLET PO SCH ×3 (05:39→17:49)
[2021-05-09] MEDS: CLONAZEPAM 0.5MG TABLET PO SCH ×3 (05:40→22:43)
[2021-05-09] MEDS: INSULIN LISPRO 100 UNITS/ML SUBCUT SCH ×3 (06:18→17:51)
[2021-05-09] MEDS: BLOOD SUGAR DIAGNOSTIC STRIP TEST SCH ×3 (06:19→17:50)
[2021-05-09] MEDS: BISACODYL 10MG SUPP PR SCH ×2 (08:00→08:28)
[2021-05-09] MEDS: DOCUSATE SODIUM SUGAR FREE 100MG/10ML UDC NG SCH (08:00)
[2021-05-09] MEDS: QUETIAPINE FUMARATE 25MG TABLET PO SCH ×2 (08:00→22:43)
[2021-05-09] MEDS: PANTOPRAZOLE SODIUM 40 MG/VIAL IV SCH (08:00)
[2021-05-09] MEDS: CLOPIDOGREL 75MG TABLET PO SCH (08:00)
[2021-05-09] MEDS: ENOXAPARIN 40MG/0.4ML SYR SUBCUT SCH (08:02)
[2021-05-09] MEDS: LORAZEPAM 2MG/ML CPJ IV PRN ×3 (08:46→22:45)
[2021-05-09 13:56] LABS: BG BASE EXCESS 1.1 mmol/L (-2.0-2.0); BG CARBOXYHEMOGLOBIN 0.3 % (0.5-1.5); BG DEOXYHEMOGLOBIN 1.5 % (0.0-5.0); BG FRACTION INSPIRED OXYGEN 40; BG HCO3 ACT 25.8 mmol/L (22.0-26.0); BG METHEMOGLOBIN 0.3 % (0.0-1.5); BG OXYGEN SATURATION 98.5 % (92.0-98.5); BG OXYHEMOGLOBIN 97.9 % (94.0-97.0); BG PH 7.416 (7.350-7.450); BG PO2 137.5 mmHg (75.0-100.0); BG SAMPLE SITE RIGHT RADIAL; BG TOTAL HEMOGLOBIN 9.5 g/dL (12.0-18.0); BG VENT MODE VENT - AC
[2021-05-09 14:58] LABS: CHLORIDE 106 mEq/L (98-107)
[2021-05-09 15:07] LABS: HEMATOCRIT. 25.7 % (42.0-52.0); HEMOGLOBIN. 8.8 g/dL (14.0-18.0); MEAN CORPUSCULAR HEMOGLOBIN 29.1 pg (28.0-32.0); MEAN CORPUSCULAR VOLUME 85.1 fL (80.0-94.0); PLATELET 231 x1000/uL (130-400); RED BLOOD CELL COUNT 3.02 mill/uL (4.7-6.1); RED CELL DISTRIBUTION WIDTH 14.6 % (11.6-14.6)
[2021-05-09] MEDS: HALOPERIDOL LACTATE 5MG/ML VIAL IM PRN ×2 (15:32→22:45)
[2021-05-09] MEDS: MORPHINE SULFATE 2 MG/ML CPJ (NOT FOR IM USE) IV PRN (15:58)
[2021-05-09] MEDS ORDERED: NALOXONE HCL 0.4MG/ML VIAL IV PRN (16:00)
[2021-05-09 16:16] LABS: PLATELET ESTIMATE NORMAL
[2021-05-09] MEDS ORDERED: HYDROMORPHONE HCL/PF 2MG/ML CPJ IV NR (17:30)
[2021-05-09] MEDS: GUAIFENESIN 200MG/10ML SUGAR FREE UDC PO PRN (22:47)
[2021-05-09] MEDS: ACETAMINOPHEN 650MG/20.3ML UDC PO PRN (22:47)
[2021-05-09] MEDS: ONDANSETRON HCL 4MG/2ML INJ IV PRN (22:47)
[2021-05-10] VITALS (27 sets, daily range): BP systolic 87–148; BP diastolic 53–86
[2021-05-10] MEDS: IPRATROPIUM BROMIDE (0.02%) 0.5MG/2.5ML NEB HHN SCH ×4 (00:19→20:23)
[2021-05-10] MEDS: INSULIN LISPRO 100 UNITS/ML SUBCUT SCH ×4 (06:00→17:12)
[2021-05-10 06:01] LABS: HEMATOCRIT. 24.9 % (42.0-52.0); HEMOGLOBIN. 8.5 g/dL (14.0-18.0); MEAN CORPUSCULAR HEMOGLOBIN 29.8 pg (28.0-32.0); MEAN CORPUSCULAR VOLUME 87.2 fL (80.0-94.0); MEAN PLATELET VOLUME 9.5 fl (7.4-10.4); PLATELET 236 x1000/uL (130-400); RED BLOOD CELL COUNT 2.86 mill/uL (4.7-6.1); RED CELL DISTRIBUTION WIDTH 14.5 % (11.6-14.6)
[2021-05-10 06:02] LABS: CHLORIDE 104 mEq/L (98-107)
[2021-05-10] MEDS: CLONAZEPAM 0.5MG TABLET PO SCH ×3 (06:38→22:00)
[2021-05-10] MEDS: ACETAZOLAMIDE 250MG TABLET PO SCH ×3 (06:38→21:57)
[2021-05-10] MEDS: BLOOD SUGAR DIAGNOSTIC STRIP TEST SCH ×5 (06:38→23:40)
[2021-05-10] MEDS: LACTULOSE 20G/30ML UDC PO SCH ×3 (06:39→21:57)
[2021-05-10] MEDS: DILTIAZEM HCL 90MG TABLET PO SCH ×4 (06:39→17:10)
[2021-05-10] MEDS: HALOPERIDOL LACTATE 5MG/ML VIAL IM PRN (06:41)
[2021-05-10] MEDS: ONDANSETRON HCL 4MG/2ML INJ IV PRN (06:42)
[2021-05-10] MEDS ORDERED: POTASSIUM CHLORIDE INJ 40 MEQ in DEXT 5% WATER 250 ML IV ONE (07:15)
[2021-05-10] MEDS: KCL 20MEQ/100ML PREMIX 100 ML IV SCH ×2 (08:17→10:28)
[2021-05-10] MEDS: PANTOPRAZOLE SODIUM 40 MG/VIAL IV SCH (08:18)
[2021-05-10] MEDS: CLOPIDOGREL 75MG TABLET PO SCH (08:18)
[2021-05-10] MEDS: QUETIAPINE FUMARATE 25MG TABLET PO SCH (08:18)
[2021-05-10] MEDS: ACETYLCYSTEINE 100MG/ML 10% VIAL 4ML INH SCH ×3 (08:46→20:23)
[2021-05-10] MEDS: ENOXAPARIN 40MG/0.4ML SYR SUBCUT SCH (09:38)
[2021-05-10] MEDS: ACETAMINOPHEN 650MG/20.3ML UDC PO PRN (11:21)
[2021-05-10 11:33] LABS: BG BASE EXCESS -0.1 mmol/L (-2.0-2.0); BG CARBOXYHEMOGLOBIN 0.3 % (0.5-1.5); BG DEOXYHEMOGLOBIN 4.8 % (0.0-5.0); BG FRACTION INSPIRED OXYGEN 40; BG HCO3 ACT 25.2 mmol/L (22.0-26.0); BG METHEMOGLOBIN 0.2 % (0.0-1.5); BG OXYGEN SATURATION 95.2 % (92.0-98.5); BG OXYHEMOGLOBIN 94.7 % (94.0-97.0); BG PCO2 43.7 mmHg (35.0-45.0); BG PH 7.378 (7.350-7.450); BG PO2 84.2 mmHg (75.0-100.0); BG SAMPLE SITE RIGHT RADIAL; BG TOTAL HEMOGLOBIN 9.4 g/dL (12.0-18.0); BG TOTAL RESPIRATORY RATE 32 b/min; BG VENT MODE VENT - AC
[2021-05-10] MEDS: METHYLPREDNISOLONE SOD SUCC 40 MG/ML VIAL IV SCH (13:32)
[2021-05-10 16:11] LABS: PLATELET ESTIMATE NORMAL
[2021-05-10] MEDS: IPRATROPIUM BROMIDE (0.02%) 0.5MG/2.5ML NEB HHN PRN (16:37)
[2021-05-10] MEDS: MORPHINE SULFATE 2 MG/ML CPJ (NOT FOR IM USE) IV PRN (17:11)
[2021-05-10] MEDS ORDERED: IOHEXOL-350 100 ML BOTTLE ONE (18:24)
[2021-05-10] MEDS ORDERED: VANCOMYCIN 1250MG in DEXTROSE 5% WATER 250ML IV SCH (22:00)
[2021-05-10] MEDS: CEFEPIME 2,000 MG in DEXT 5% WATER 100 ML IV SCH (22:35)
[2021-05-10] MEDS: VORICONAZOLE 200MG TABLET PO SCH (22:40)
[2021-05-11] VITALS (47 sets, daily range): BP systolic 107–145; BP diastolic 56–77
[2021-05-11] MEDS: METHYLPREDNISOLONE SOD SUCC 40 MG/ML VIAL IV SCH ×2 (00:01→12:54)
[2021-05-11] MEDS: INSULIN LISPRO 100 UNITS/ML SUBCUT SCH ×5 (00:01→23:10)
[2021-05-11] MEDS: DILTIAZEM HCL 90MG TABLET PO SCH ×5 (00:01→23:04)
[2021-05-11] MEDS: IPRATROPIUM BROMIDE (0.02%) 0.5MG/2.5ML NEB HHN SCH ×4 (01:47→20:34)
[2021-05-11] MEDS: BLOOD SUGAR DIAGNOSTIC STRIP TEST SCH ×4 (05:37→23:08)
[2021-05-11] MEDS: LACTULOSE 20G/30ML UDC PO SCH ×3 (05:42→21:52)
[2021-05-11] MEDS: ACETAZOLAMIDE 250MG TABLET PO SCH ×3 (05:42→17:41)
[2021-05-11] MEDS: CLONAZEPAM 0.5MG TABLET PO SCH ×3 (05:42→21:52)
[2021-05-11 06:15] LABS: HEMATOCRIT. 25.4 % (42.0-52.0); HEMOGLOBIN. 8.6 g/dL (14.0-18.0); MEAN CORPUSCULAR VOLUME 88.6 fL (80.0-94.0); MEAN PLATELET VOLUME 10.2 fl (7.4-10.4); PLATELET 165 x1000/uL (130-400); RED BLOOD CELL COUNT 2.86 mill/uL (4.7-6.1); RED CELL DISTRIBUTION WIDTH 14.7 % (11.6-14.6)
[2021-05-11 06:23] LABS: CHLORIDE 103 mEq/L (98-107)
[2021-05-11 06:45] LABS: INR 1.2; PROTHROMBIN TIME 12.4 sec (9.6-11.0)
[2021-05-11] MEDS: ACETYLCYSTEINE 100MG/ML 10% VIAL 4ML INH SCH ×2 (08:30→14:04)
[2021-05-11] MEDS: VANCOMYCIN 1 G PREMIX 200 ML IV SCH ×2 (09:33→20:49)
[2021-05-11] MEDS: CLOPIDOGREL 75MG TABLET PO SCH (09:40)
[2021-05-11] MEDS: PANTOPRAZOLE SODIUM 40 MG/VIAL IV SCH (09:42)
[2021-05-11 10:32] LABS: BG BASE EXCESS -0.3 mmol/L (-2.0-2.0); BG CARBOXYHEMOGLOBIN 0.2 % (0.5-1.5); BG DEOXYHEMOGLOBIN 14.4 % (0.0-5.0); BG FRACTION INSPIRED OXYGEN 40; BG METHEMOGLOBIN 0.5 % (0.0-1.5); BG OXYGEN SATURATION 85.5 % (92.0-98.5); BG OXYHEMOGLOBIN 84.9 % (94.0-97.0); BG PCO2 51.1 mmHg (35.0-45.0); BG PH 7.325 (7.350-7.450); BG PO2 57.4 mmHg (75.0-100.0); BG SAMPLE SITE LEFT RADIAL; BG TOTAL HEMOGLOBIN 9.4 g/dL (12.0-18.0); BG TOTAL RESPIRATORY RATE 34 b/min; BG VENT MODE VENT - AC
[2021-05-11] MEDS: VORICONAZOLE 200MG TABLET PO SCH ×2 (12:54→20:49)
[2021-05-11] MEDS: CEFEPIME 2,000 MG in DEXT 5% WATER 100 ML IV SCH ×2 (12:55→21:52)
[2021-05-11 16:44] LABS: PLATELET ESTIMATE NORMAL
[2021-05-12] VITALS (49 sets, daily range): BP systolic 110–164; BP diastolic 56–88
[2021-05-12] MEDS: IPRATROPIUM BROMIDE (0.02%) 0.5MG/2.5ML NEB HHN SCH ×4 (00:35→20:32)
[2021-05-12] MEDS: ACETYLCYSTEINE 100MG/ML 10% VIAL 4ML INH SCH ×3 (00:36→14:17)
[2021-05-12] MEDS: BLOOD SUGAR DIAGNOSTIC STRIP TEST SCH ×3 (05:34→17:46)
[2021-05-12] MEDS: LACTULOSE 20G/30ML UDC PO SCH ×3 (05:38→22:06)
[2021-05-12] MEDS: CLONAZEPAM 0.5MG TABLET PO SCH ×3 (05:38→22:06)
[2021-05-12] MEDS: DILTIAZEM HCL 90MG TABLET PO SCH ×3 (05:38→17:43)
[2021-05-12] MEDS: INSULIN LISPRO 100 UNITS/ML SUBCUT SCH ×3 (05:39→17:44)
[2021-05-12 05:56] LABS: HEMATOCRIT. 24.3 % (42.0-52.0); HEMOGLOBIN. 8.3 g/dL (14.0-18.0); MEAN CORPUSCULAR HEMOGLOBIN 29.2 pg (28.0-32.0); MEAN CORPUSCULAR VOLUME 85.7 fL (80.0-94.0); MEAN PLATELET VOLUME 9.7 fl (7.4-10.4); PLATELET 379 x1000/uL (130-400); RED BLOOD CELL COUNT 2.83 mill/uL (4.7-6.1); RED CELL DISTRIBUTION WIDTH 14.6 % (11.6-14.6)
[2021-05-12 06:10] LABS: CHLORIDE 103 mEq/L (98-107)
[2021-05-12] MEDS: VANCOMYCIN 1 G PREMIX 200 ML IV SCH ×2 (07:29→21:18)
[2021-05-12 08:16] LABS: PLATELET ESTIMATE NORMAL
[2021-05-12] MEDS: PANTOPRAZOLE SODIUM 40 MG/VIAL IV SCH (09:49)
[2021-05-12] MEDS: CEFEPIME 2,000 MG in DEXT 5% WATER 100 ML IV SCH ×2 (09:49→22:08)
[2021-05-12] MEDS: CLOPIDOGREL 75MG TABLET PO SCH (09:49)
[2021-05-12] MEDS: ACETAZOLAMIDE 250MG TABLET PO SCH ×2 (09:49→17:44)
[2021-05-12] MEDS: VORICONAZOLE 200MG TABLET PO SCH ×2 (09:49→22:06)
[2021-05-12 10:08] LABS: BG BASE EXCESS 3.7 mmol/L (-2.0-2.0); BG CARBOXYHEMOGLOBIN 0.3 % (0.5-1.5); BG DEOXYHEMOGLOBIN 2.2 % (0.0-5.0); BG FRACTION INSPIRED OXYGEN 40; BG HCO3 ACT 28.1 mmol/L (22.0-26.0); BG METHEMOGLOBIN 0.4 % (0.0-1.5); BG OXYGEN SATURATION 97.8 % (92.0-98.5); BG OXYHEMOGLOBIN 97.1 % (94.0-97.0); BG PCO2 41.5 mmHg (35.0-45.0); BG PH 7.448 (7.350-7.450); BG PO2 113.5 mmHg (75.0-100.0); BG SAMPLE SITE LEFT RADIAL; BG TOTAL HEMOGLOBIN 8.5 g/dL (12.0-18.0); BG TOTAL RESPIRATORY RATE 32 b/min; BG VENT MODE VENT - AC
[2021-05-12] MEDS: METHYLPREDNISOLONE SOD SUCC 40 MG/ML VIAL IV SCH (12:51)
[2021-05-13] VITALS (44 sets, daily range): BP systolic 115–158; BP diastolic 65–97
[2021-05-13] MEDS: BLOOD SUGAR DIAGNOSTIC STRIP TEST SCH ×5 (00:47→23:14)
[2021-05-13] MEDS: DILTIAZEM HCL 90MG TABLET PO SCH ×5 (00:53→23:23)
[2021-05-13] MEDS: INSULIN LISPRO 100 UNITS/ML SUBCUT SCH ×5 (00:54→23:27)
[2021-05-13] MEDS: ACETYLCYSTEINE 100MG/ML 10% VIAL 4ML INH SCH ×3 (01:01→14:09)
[2021-05-13] MEDS: IPRATROPIUM BROMIDE (0.02%) 0.5MG/2.5ML NEB HHN SCH ×4 (01:01→19:51)
[2021-05-13 04:47] LABS: HEMATOCRIT. 23.1 % (42.0-52.0); HEMOGLOBIN. 7.9 g/dL (14.0-18.0); MEAN CORPUSCULAR HEMOGLOBIN 29.4 pg (28.0-32.0); MEAN CORPUSCULAR VOLUME 85.8 fL (80.0-94.0); MEAN PLATELET VOLUME 9.4 fl (7.4-10.4); PLATELET 390 x1000/uL (130-400); RED BLOOD CELL COUNT 2.69 mill/uL (4.7-6.1); RED CELL DISTRIBUTION WIDTH 14.3 % (11.6-14.6)
[2021-05-13 04:52] LABS: CHLORIDE 105 mEq/L (98-107)
[2021-05-13] MEDS: LACTULOSE 20G/30ML UDC PO SCH ×3 (06:27→22:37)
[2021-05-13] MEDS: CLONAZEPAM 0.5MG TABLET PO SCH ×3 (06:28→22:37)
[2021-05-13] MEDS: VANCOMYCIN 1 G PREMIX 200 ML IV SCH ×2 (07:33→22:37)
[2021-05-13] MEDS: PANTOPRAZOLE SODIUM 40 MG/VIAL IV SCH (09:38)
[2021-05-13] MEDS: VORICONAZOLE 200MG TABLET PO SCH ×2 (09:38→22:37)
[2021-05-13] MEDS: CLOPIDOGREL 75MG TABLET PO SCH (09:38)
[2021-05-13] MEDS: CEFEPIME 2,000 MG in DEXT 5% WATER 100 ML IV SCH ×2 (09:38→22:37)
[2021-05-13] MEDS: ACETAZOLAMIDE 250MG TABLET PO SCH ×2 (09:38→17:37)
[2021-05-13] MEDS: METHYLPREDNISOLONE SOD SUCC 40 MG/ML VIAL IV SCH (11:45)
[2021-05-13 11:57] LABS: PLATELET ESTIMATE NORMAL
[2021-05-14] VITALS (9 sets, daily range): BP systolic 122–139; BP diastolic 67–76
[2021-05-14] MEDS: IPRATROPIUM BROMIDE (0.02%) 0.5MG/2.5ML NEB HHN SCH ×3 (01:00→15:49)
[2021-05-14] MEDS: ACETYLCYSTEINE 100MG/ML 10% VIAL 4ML INH SCH ×2 (01:00→08:14)
[2021-05-14] MEDS: LACTULOSE 20G/30ML UDC PO SCH ×2 (05:12→14:23)
[2021-05-14] MEDS: BLOOD SUGAR DIAGNOSTIC STRIP TEST SCH ×3 (05:13→17:33)
[2021-05-14] MEDS: DILTIAZEM HCL 90MG TABLET PO SCH ×3 (05:13→17:38)
[2021-05-14] MEDS: INSULIN LISPRO 100 UNITS/ML SUBCUT SCH ×3 (06:05→17:39)
[2021-05-14 06:43] LABS: HEMATOCRIT. 22.3 % (42.0-52.0); HEMOGLOBIN. 7.6 g/dL (14.0-18.0); MEAN CORPUSCULAR HEMOGLOBIN 29.2 pg (28.0-32.0); MEAN CORPUSCULAR VOLUME 85.8 fL (80.0-94.0); MEAN PLATELET VOLUME 9.5 fl (7.4-10.4); PLATELET 481 x1000/uL (130-400); RED CELL DISTRIBUTION WIDTH 14.4 % (11.6-14.6)
[2021-05-14 06:48] LABS: CHLORIDE 102 mEq/L (98-107)
[2021-05-14] MEDS: VANCOMYCIN 1 G PREMIX 200 ML IV SCH (09:07)
[2021-05-14] MEDS: PANTOPRAZOLE SODIUM 40 MG/VIAL IV SCH (09:07)
[2021-05-14] MEDS: VORICONAZOLE 200MG TABLET PO SCH (09:07)
[2021-05-14] MEDS: ACETAZOLAMIDE 250MG TABLET PO SCH ×2 (09:08→17:38)
[2021-05-14] MEDS: CLOPIDOGREL 75MG TABLET PO SCH (09:08)
[2021-05-14] MEDS: CEFEPIME 2,000 MG in DEXT 5% WATER 100 ML IV SCH (10:57)
[2021-05-14 12:26] LABS: PLATELET ESTIMATE SLIGHTLY INCREASED
[2021-05-14] MEDS: METHYLPREDNISOLONE SOD SUCC 40 MG/ML VIAL IV SCH (12:27)
== END 2021-05-14 19:13 | DRG 4 ==
LOC: ER 09:32 → EDBEDREQ 12:05 → EDBEDREQTM 12:05 → ENRESERV 12:53 → 5EST 16:06 → MICUSO 04-25 18:07 → 5EST 05-11 09:19 → MICUSO 05-11 11:00 → 5EST 05-13 21:44
PROVIDERS: ADMIT Internal Medicine; ATTEND Internal Medicine
PROC: 5A09357 Assistance with Respiratory Ventilation, Less than 24 Consecutive Hours, Continuous Positive Airway Pressure (ICD-10-PCS; 2021-04-17)
PROC: 5A09357 Assistance with Respiratory Ventilation, Less than 24 Consecutive Hours, Continuous Positive Airway Pressure (ICD-10-PCS; 2021-04-18)
PROC: 5A09457 Assistance with Respiratory Ventilation, 24-96 Consecutive Hours, Continuous Positive Airway Pressure (ICD-10-PCS; 2021-04-19)
PROC: 5A09357 Assistance with Respiratory Ventilation, Less than 24 Consecutive Hours, Continuous Positive Airway Pressure (ICD-10-PCS; 2021-04-20)
PROC: 02HV33Z Insertion of Infusion Device into Superior Vena Cava, Percutaneous Approach (ICD-10-PCS; 2021-04-21)
PROC: B548ZZA Ultrasonography of Superior Vena Cava, Guidance (ICD-10-PCS; 2021-04-21)
PROC: 5A09357 Assistance with Respiratory Ventilation, Less than 24 Consecutive Hours, Continuous Positive Airway Pressure (ICD-10-PCS; 2021-04-22)
PROC: 5A09357 Assistance with Respiratory Ventilation, Less than 24 Consecutive Hours, Continuous Positive Airway Pressure (ICD-10-PCS; 2021-04-23)
PROC: 5A09357 Assistance with Respiratory Ventilation, Less than 24 Consecutive Hours, Continuous Positive Airway Pressure (ICD-10-PCS; 2021-04-24)
PROC: 5A1955Z Respiratory Ventilation, Greater than 96 Consecutive Hours (ICD-10-PCS; principal; 2021-04-25)
PROC: 0BH17EZ Insertion of Endotracheal Airway into Trachea, Via Natural or Artificial Opening (ICD-10-PCS; 2021-04-25)
PROC: 5A09357 Assistance with Respiratory Ventilation, Less than 24 Consecutive Hours, Continuous Positive Airway Pressure (ICD-10-PCS; 2021-04-25)
PROC: 02HV33Z Insertion of Infusion Device into Superior Vena Cava, Percutaneous Approach (ICD-10-PCS; 2021-04-27)
PROC: B548ZZA Ultrasonography of Superior Vena Cava, Guidance (ICD-10-PCS; 2021-04-27)
PROC: 0B110F4 Bypass Trachea to Cutaneous with Tracheostomy Device, Open Approach (ICD-10-PCS; 2021-05-04)
PROC: 30233N1 Transfusion of Nonautologous Red Blood Cells into Peripheral Vein, Percutaneous Approach (ICD-10-PCS; 2021-05-06)
PROC: 0DH63UZ Insertion of Feeding Device into Stomach, Percutaneous Approach (ICD-10-PCS; 2021-05-07)
PROC: 0DB78ZX Excision of Stomach, Pylorus, Via Natural or Artificial Opening Endoscopic, Diagnostic (ICD-10-PCS; 2021-05-07)
DX: J96.21 Acute and chronic respiratory failure with hypoxia (principal); K29.71 Gastritis, unspecified, with bleeding; J18.9 Pneumonia, unspecified organism; I50.32 Chronic diastolic (congestive) heart failure; E46 Unspecified protein-calorie malnutrition; Q39.6 Congenital diverticulum of esophagus; Z99.11 Dependence on respirator [ventilator] status; J44.1 Chronic obstructive pulmonary disease with (acute) exacerbation; J96.22 Acute and chronic respiratory failure with hypercapnia; E78.5 Hyperlipidemia, unspecified; F41.9 Anxiety disorder, unspecified; I11.0 Hypertensive heart disease with heart failure; I25.10 Atherosclerotic heart disease of native coronary artery without angina pectoris; D64.9 Anemia, unspecified; E78.00 Pure hypercholesterolemia, unspecified; K59.00 Constipation, unspecified; F14.10 Cocaine abuse, uncomplicated; Z20.822 Contact with and (suspected) exposure to COVID-19; Z82.49 Family history of ischemic heart disease and other diseases of the circulatory system; Z86.73 Personal history of transient ischemic attack (TIA), and cerebral infarction without residual deficits; Z87.891 Personal history of nicotine dependence; Z95.5 Presence of coronary angioplasty implant and graft; Z99.81 Dependence on supplemental oxygen; Z79.02 Long term (current) use of antithrombotics/antiplatelets; Z79.51 Long term (current) use of inhaled steroids; Z79.899 Other long term (current) drug therapy; Z86.711 Personal history of pulmonary embolism; Z79.2 Long term (current) use of antibiotics; Z68.21 Body mass index [BMI] 21.0-21.9, adult; I95.9 Hypotension, unspecified; R00.0 Tachycardia, unspecified
CPT/HCPCS: 31500; 36415; 36600; 71045; 71275; 74018; 76937; 78580; 80048; 80053; 80061; 80076; 80198; 80202; 80305; 81003; 82375; 82550; 82553; 82805; 82962; 83036; 83735; 83880; 84145; 84478; 84484; 85014; 85018; 85025; 85027; 85379; 86850; 86900; 86920; 87070; 87426; 88305; 88312; 88313; 93005; 93970; 94002; 94003; 94640; 94660; 99291; A6261; C1725; C1893; C9113; J0330; J0690; J0692; J1120; J1160; J1170; J1630; J1650; J1815; J2060; J2250; J2270; J2370; J2405; J2543; J2704; J2765; J2920; J2930; J3010; J3370; J3480; J3490; J7040; J7050; J7060; J7608; J7626; P9016; Q9967; U0003; U0005; A4315

== ENCOUNTER 2021-07-15 01:57 | Inpatient (IN) | payer OTHER, MEDICAID ==
[~2021-07-15] VITALS: Ht 177.8 cm; Wt 74.8 kg
[2021-07-15] MEDS ORDERED: SODIUM CHLORIDE 0.9% 1,000 ML IV ONE (02:15)
[2021-07-15 03:18] LABS: CHLORIDE 96 mEq/L (98-107)
[2021-07-15] MEDS ORDERED: FUROSEMIDE 100MG/10ML VIAL IV SCH (04:03)
[2021-07-15] MEDS ORDERED: ALBUTEROL (0.083%) 2.5MG/3ML NEB HHN SCH (04:15)
[2021-07-15] MEDS ORDERED: DEXTROSE 50% WATER 50ML SYRINGE IV SCH (04:15)
[2021-07-15] MEDS ORDERED: INSULIN REGULAR (HUMULIN R) 300UNITS/3ML VIAL IV SCH (04:15)
[2021-07-15] MEDS ORDERED: SODIUM BICARBONATE 8.4% 1 MEQ/ML 50ML SYR IV SCH (04:15)
[2021-07-15] MEDS ORDERED: CALCIUM CHLORIDE 1GM/10ML SYR IV SCH (04:15)
[2021-07-15 05:26] LABS: MEAN CORPUSCULAR HEMOGLOBIN 24.5 pg (28.0-32.0); MEAN CORPUSCULAR VOLUME 80.3 fL (80.0-94.0); MEAN PLATELET VOLUME 8.7 fl (7.4-10.4); PLATELET 636 x1000/uL (130-400); RED BLOOD CELL COUNT 1.86 mill/uL (4.7-6.1); RED CELL DISTRIBUTION WIDTH 21.1 % (11.6-14.6)
[2021-07-15 05:28] LABS: HEMOGLOBIN. 4.6 g/dL (14.0-18.0)
[2021-07-15] MEDS ORDERED: ALBUTEROL (0.5%) 2.5MG/0.5ML NEB HHN ONE (05:39)
[2021-07-15] MEDS ORDERED: VANCOMYCIN 1G PREMIX 200 ML IV SCH (05:45)
[2021-07-15] MEDS ORDERED: PIPERACILLIN/TAZOBACTAM 3.375GM/50ML PREMIX IV SCH (05:45)
[2021-07-15 06:05] LABS: CLARITY URINE CLOUDY (CLEAR); COLOR URINE DARK YELLOW (YELLOW); KETONES URINE NEGATIVE (NEGATIVE); LEUKOCYTE ESTERASE URINE 2+ (NEGATIVE); NITRITE URINE NEGATIVE (NEGATIVE); OCCULT BLOOD URINE TRACE (NEGATIVE); PROTEIN URINE 1+ (NEGATIVE); SPECIFIC GRAVITY URINE 1.019 (1.005-1.030)
[2021-07-15 06:33] LABS: PLATELET ESTIMATE SLIGHTLY INCREASED
[2021-07-15] MEDS: ACETAMINOPHEN 325MG TABLET PO NR ×2 (10:44→17:33)
[2021-07-15] MEDS ORDERED: PANTOPRAZOLE SODIUM 40 MG/VIAL IV SCH ×2 (15:45→21:00)
[2021-07-15] MEDS: SODIUM CHLORIDE 0.9% 1,000 ML IV SCH (15:45)
[2021-07-15] MEDS ORDERED: CLONIDINE 0.1MG TABLET PO PRN (15:45)
[2021-07-15 19:10] LABS: TOTAL IRON BINDING CAPACITY 117 ug/dL (250-450)
[2021-07-15] MEDS: PANTOPRAZOLE SODIUM 40 MG/VIAL IV SCH (19:11)
[2021-07-15] MEDS: VANCOMYCIN 1G PREMIX 200 ML IV SCH (19:11)
[2021-07-15] MEDS ORDERED: PIPERACILLIN/TAZOBACTAM 3.375 G in DEXTROSE 5% WATER 50 ML IV SCH (21:00)
[2021-07-15 22:10] LABS: FOLIC ACID (FOLATE) SERUM 12.3 ng/mL (>5.38)
[2021-07-16] VITALS (20 sets, daily range): BP systolic 118–147; BP diastolic 60–73
[2021-07-16] MEDS: PANTOPRAZOLE SODIUM 40 MG/VIAL IV SCH ×3 (01:13→21:36)
[2021-07-16] MEDS: PIPERACILLIN/TAZOBACTAM 3.375 G in DEXTROSE 5% WATER 50 ML IV SCH ×4 (02:22→21:36)
[2021-07-16] MEDS: VANCOMYCIN 1G PREMIX 200 ML IV SCH ×2 (06:10→17:57)
[2021-07-16] MEDS: SODIUM CHLORIDE 0.9% 1,000 ML IV SCH ×2 (06:11→21:00)
[2021-07-16 08:34] LABS: MEAN CORPUSCULAR HEMOGLOBIN 25.4 pg (28.0-32.0); MEAN CORPUSCULAR VOLUME 78.8 fL (80.0-94.0); MEAN PLATELET VOLUME 8.7 fl (7.4-10.4); PLATELET 602 x1000/uL (130-400); RED BLOOD CELL COUNT 1.87 mill/uL (4.7-6.1); RED CELL DISTRIBUTION WIDTH 20.9 % (11.6-14.6)
[2021-07-16 08:50] LABS: CHLORIDE 103 mEq/L (98-107)
[2021-07-16 08:51] LABS: HEMATOCRIT. 14.8 % (42.0-52.0); HEMOGLOBIN. 4.8 g/dL (14.0-18.0)
[2021-07-16] MEDS: ACETAMINOPHEN 325MG TABLET PO PRN ×2 (09:09→22:01)
[2021-07-16 11:37] LABS: BG BASE EXCESS 13.9 mmol/L (-2.0-2.0); BG CARBOXYHEMOGLOBIN 1.1 % (0.5-1.5); BG DEOXYHEMOGLOBIN 9.3 % (0.0-5.0); BG FRACTION INSPIRED OXYGEN 40; BG HCO3 ACT 38.7 mmol/L (22.0-26.0); BG METHEMOGLOBIN 0.3 % (0.0-1.5); BG OXYGEN SATURATION 90.6 % (92.0-98.5); BG OXYHEMOGLOBIN 89.3 % (94.0-97.0); BG PCO2 54.5 mmHg (35.0-45.0); BG PH 7.469 (7.350-7.450); BG PO2 60.9 mmHg (75.0-100.0); BG SAMPLE SITE RIGHT RADIAL; BG VENT MODE VENT - AC
[2021-07-16] MEDS ORDERED: INFLUENZA VACCINE 05/PF 0.5 ML SYRINGE IM ONE (12:00)
[2021-07-16 14:26] LABS: PLATELET ESTIMATE INCREASED
[2021-07-16 17:13] LABS: HEMATOCRIT 18.9 % (42.0-52.0)
[2021-07-16 22:06] LABS: HEMOGLOBIN 7.2 g/dL (14.0-18.0)
[2021-07-17] VITALS (20 sets, daily range): BP systolic 104–140; BP diastolic 56–94
[2021-07-17] MEDS: ACETAMINOPHEN 325MG TABLET PO PRN ×2 (02:14→14:10)
[2021-07-17] MEDS: VANCOMYCIN 1G PREMIX 200 ML IV SCH ×2 (05:46→18:13)
[2021-07-17] MEDS: PIPERACILLIN/TAZOBACTAM 3.375 G in DEXTROSE 5% WATER 50 ML IV SCH ×2 (07:17→13:46)
[2021-07-17 08:14] LABS: MEAN CORPUSCULAR HEMOGLOBIN 25.6 pg (28.0-32.0); MEAN CORPUSCULAR VOLUME 80.1 fL (80.0-94.0); MEAN PLATELET VOLUME 8.7 fl (7.4-10.4); PLATELET 534 x1000/uL (130-400); RED BLOOD CELL COUNT 2.67 mill/uL (4.7-6.1); RED CELL DISTRIBUTION WIDTH 18.6 % (11.6-14.6)
[2021-07-17 08:16] LABS: CHLORIDE 103 mEq/L (98-107)
[2021-07-17 08:33] LABS: HEMATOCRIT. 21.4 % (42.0-52.0); HEMOGLOBIN. 6.8 g/dL (14.0-18.0)
[2021-07-17] MEDS: PANTOPRAZOLE SODIUM 40 MG/VIAL IV SCH ×2 (09:01→20:52)
[2021-07-17] MEDS: SODIUM CHLORIDE 0.9% 1,000 ML IV SCH ×2 (09:01→20:52)
[2021-07-17] MEDS: IPRATROPIUM/ALBUTEROL 0.5-3(2.5)MG/3ML NEB NEB PRN (09:13)
[2021-07-17] MEDS ORDERED: VENOFER XX SCH (16:30)
[2021-07-17 20:23] LABS: HEMATOCRIT 26.7 % (42.0-52.0); HEMOGLOBIN 8.7 g/dL (14.0-18.0)
[2021-07-17 20:37] LABS: INR 1.4; PROTHROMBIN TIME 14.5 sec (9.6-11.0)
[2021-07-17] MEDS: IRON SUCROSE COMPLEX 100 MG/5 ML ML IV SCH (20:52)
[2021-07-17] MEDS: MEROPENEM 1,000 MG in SODIUM CHLORIDE 0.9% 100 ML IV SCH (20:52)
[2021-07-18] VITALS (12 sets, daily range): BP systolic 110–160; BP diastolic 57–79
[2021-07-18] MEDS: MEROPENEM 1,000 MG in SODIUM CHLORIDE 0.9% 100 ML IV SCH ×3 (05:29→21:05)
[2021-07-18 06:10] LABS: HEMATOCRIT. 27.3 % (42.0-52.0); HEMOGLOBIN. 9.1 g/dL (14.0-18.0); MEAN CORPUSCULAR VOLUME 81.3 fL (80.0-94.0); MEAN PLATELET VOLUME 8.8 fl (7.4-10.4); PLATELET 519 x1000/uL (130-400); RED BLOOD CELL COUNT 3.36 mill/uL (4.7-6.1); RED CELL DISTRIBUTION WIDTH 17.2 % (11.6-14.6)
[2021-07-18 06:50] LABS: CHLORIDE 109 mEq/L (98-107)
[2021-07-18] MEDS ORDERED: AMIODARONE HCL 150 MG in DEXT 5% WATER 100 ML IV SCH (08:00)
[2021-07-18] MEDS ORDERED: AMIODARONE HCL 900 MG in DEXT 5% WATER 482 ML IV SCH (08:00)
[2021-07-18] MEDS: PANTOPRAZOLE SODIUM 40 MG/VIAL IV SCH ×3 (08:55→21:05)
[2021-07-18] MEDS: SODIUM CHLORIDE 0.9% 1,000 ML IV SCH (08:55)
[2021-07-18] MEDS: IPRATROPIUM/ALBUTEROL 0.5-3(2.5)MG/3ML NEB NEB PRN (09:29)
[2021-07-18 11:45] LABS: BG BASE EXCESS 5.9 mmol/L (-2.0-2.0); BG CARBOXYHEMOGLOBIN 0.2 % (0.5-1.5); BG DEOXYHEMOGLOBIN 4.4 % (0.0-5.0); BG FRACTION INSPIRED OXYGEN 40; BG HCO3 ACT 30.9 mmol/L (22.0-26.0); BG METHEMOGLOBIN 0.2 % (0.0-1.5); BG OXYGEN SATURATION 95.6 % (92.0-98.5); BG OXYHEMOGLOBIN 95.2 % (94.0-97.0); BG PCO2 47.8 mmHg (35.0-45.0); BG PH 7.429 (7.350-7.450); BG PO2 76.9 mmHg (75.0-100.0); BG SAMPLE SITE LEFT RADIAL; BG TOTAL HEMOGLOBIN 9.1 g/dL (12.0-18.0); BG VENT MODE VENT - AC
[2021-07-18 15:50] LABS: PLATELET ESTIMATE INCREASED
[2021-07-18] MEDS ORDERED: SODIUM CHLORIDE 0.45% 1,000 ML IV SCH (16:30)
[2021-07-18 17:05] LABS: PLATELET ESTIMATE INCREASED
[2021-07-18] MEDS: DEXTROSE 5% WATER 1,000 ML IV SCH (17:40)
[2021-07-18] MEDS: LINEZOLID 600 MG PREMIX 300 ML IV SCH (17:40)
[2021-07-18] MEDS ORDERED: POTASSIUM CHLORIDE 20MEQ/PACKET PO NR (17:45)
[2021-07-18 19:43] LABS: HEMATOCRIT. 26.7 % (42.0-52.0); HEMOGLOBIN. 8.7 g/dL (14.0-18.0); MEAN CORPUSCULAR HEMOGLOBIN 26.5 pg (28.0-32.0); MEAN CORPUSCULAR VOLUME 81.4 fL (80.0-94.0); MEAN PLATELET VOLUME 8.6 fl (7.4-10.4); PLATELET 524 x1000/uL (130-400); RED BLOOD CELL COUNT 3.28 mill/uL (4.7-6.1); RED CELL DISTRIBUTION WIDTH 17.5 % (11.6-14.6)
[2021-07-18] MEDS: IRON SUCROSE COMPLEX 100 MG/5 ML ML IV SCH (20:36)
[2021-07-18] MEDS: ALBUMIN HUMAN 12.5GM/50ML (25%) IV SCH (22:19)
[2021-07-18 23:06] LABS: PLATELET ESTIMATE INCREASED
[2021-07-18] MEDS: ACETAMINOPHEN 325MG TABLET PO PRN (23:47)
[2021-07-19] VITALS (12 sets, daily range): BP systolic 106–137; BP diastolic 54–75
[2021-07-19] MEDS: PHYTONADIONE 10MG/ML AMP SUBCUT SCH (03:03)
[2021-07-19] MEDS: DEXTROSE 5% WATER 1,000 ML IV SCH ×2 (05:15→16:09)
[2021-07-19] MEDS: MEROPENEM 1,000 MG in SODIUM CHLORIDE 0.9% 100 ML IV SCH ×3 (05:15→22:43)
[2021-07-19] MEDS: LINEZOLID 600 MG PREMIX 300 ML IV SCH ×2 (05:15→17:30)
[2021-07-19 06:34] LABS: INR 1.4; PROTHROMBIN TIME 15.1 sec (9.6-11.0)
[2021-07-19 07:41] LABS: CHLORIDE 110 mEq/L (98-107)
[2021-07-19 07:54] LABS: HEMATOCRIT. 26.9 % (42.0-52.0); HEMOGLOBIN. 8.8 g/dL (14.0-18.0); MEAN CORPUSCULAR HEMOGLOBIN 27.1 pg (28.0-32.0); MEAN CORPUSCULAR VOLUME 83.1 fL (80.0-94.0); MEAN PLATELET VOLUME 8.9 fl (7.4-10.4); PLATELET 527 x1000/uL (130-400); RED BLOOD CELL COUNT 3.24 mill/uL (4.7-6.1); RED CELL DISTRIBUTION WIDTH 17.6 % (11.6-14.6)
[2021-07-19] MEDS: ALBUMIN HUMAN 12.5GM/50ML (25%) IV SCH (08:27)
[2021-07-19] MEDS: PANTOPRAZOLE SODIUM 40 MG/VIAL IV SCH ×2 (08:27→20:15)
[2021-07-19] MEDS ORDERED: POTASSIUM CHLORIDE INJ 40 MEQ in DEXT 5% WATER 250 ML IV ONE ×2 (09:00→17:15)
[2021-07-19] MEDS: KCL 20MEQ/100ML PREMIX 100 ML IV SCH ×4 (09:18→21:28)
[2021-07-19] MEDS ORDERED: ONDANSETRON HCL 4MG/2ML INJ ONE (11:38)
[2021-07-19] MEDS ORDERED: PROPOFOL 200MG/20ML VIAL IV ONE (11:39)
[2021-07-19] MEDS: SUCRALFATE 1 G/10 ML UDC GT SCH ×2 (17:30→20:13)
[2021-07-19] MEDS: IRON SUCROSE COMPLEX 100 MG/5 ML ML IV SCH (20:06)
[2021-07-19] MEDS: AMIODARONE HCL 200 MG TABLET PO SCH (20:13)
[2021-07-19 21:58] LABS: PLATELET ESTIMATE INCREASED
[2021-07-19] MEDS ORDERED: NOREPINEPHRINE 8 MG in DEXT 5% WATER 242 ML IV PRN (22:30)
[2021-07-20] VITALS (15 sets, daily range): BP systolic 112–138; BP diastolic 50–76
[2021-07-20] MEDS: ACETAMINOPHEN 325MG TABLET PO PRN ×3 (01:19→23:35)
[2021-07-20] MEDS: PHYTONADIONE 10MG/ML AMP SUBCUT SCH (03:08)
[2021-07-20] MEDS: LINEZOLID 600 MG PREMIX 300 ML IV SCH ×2 (05:13→18:07)
[2021-07-20 05:45] LABS: CHLORIDE 111 mEq/L (98-107)
[2021-07-20] MEDS: MEROPENEM 1,000 MG in SODIUM CHLORIDE 0.9% 100 ML IV SCH ×3 (06:33→22:14)
[2021-07-20] MEDS: AMIODARONE HCL 200 MG TABLET PO SCH (08:08)
[2021-07-20] MEDS: SUCRALFATE 1 G/10 ML UDC GT SCH ×4 (08:08→20:48)
[2021-07-20] MEDS: PANTOPRAZOLE SODIUM 40 MG/VIAL IV SCH ×2 (08:08→20:48)
[2021-07-20] MEDS: POTASSIUM CHLORIDE 10MEQ TABLET SR PO SCH (08:08)
[2021-07-20] MEDS ORDERED: DILTIAZEM HCL 5MG/ML 5ML VIAL IV NR (10:00)
[2021-07-20] MEDS: DEXTROSE 5% WATER 1,000 ML IV SCH (12:58)
[2021-07-20 17:37] LABS: HEMATOCRIT. 27.2 % (42.0-52.0); HEMOGLOBIN. 8.6 g/dL (14.0-18.0); MEAN CORPUSCULAR HEMOGLOBIN 26.4 pg (28.0-32.0); MEAN CORPUSCULAR VOLUME 83.6 fL (80.0-94.0); MEAN PLATELET VOLUME 8.3 fl (7.4-10.4); PLATELET 516 x1000/uL (130-400); RED BLOOD CELL COUNT 3.25 mill/uL (4.7-6.1); RED CELL DISTRIBUTION WIDTH 18.5 % (11.6-14.6)
[2021-07-20 21:14] LABS: PLATELET ESTIMATE INCREASED
[2021-07-21] VITALS (14 sets, daily range): BP systolic 109–138; BP diastolic 54–77
[2021-07-21] MEDS: PHYTONADIONE 10MG/ML AMP SUBCUT SCH (03:04)
[2021-07-21] MEDS: MEROPENEM 1,000 MG in SODIUM CHLORIDE 0.9% 100 ML IV SCH ×3 (05:50→22:00)
[2021-07-21] MEDS: DEXTROSE 5% WATER 1,000 ML IV SCH ×2 (05:54→11:32)
[2021-07-21] MEDS: LINEZOLID 600 MG PREMIX 300 ML IV SCH ×2 (06:50→18:16)
[2021-07-21] MEDS: POTASSIUM CHLORIDE 10MEQ TABLET SR PO SCH (09:10)
[2021-07-21] MEDS: SUCRALFATE 1 G/10 ML UDC GT SCH ×4 (09:10→21:09)
[2021-07-21] MEDS: AMIODARONE HCL 200 MG TABLET PO SCH (09:10)
[2021-07-21] MEDS: PANTOPRAZOLE SODIUM 40 MG/VIAL IV SCH ×2 (09:10→21:09)
[2021-07-21] MEDS: ACETAMINOPHEN 325MG TABLET PO PRN (13:18)
[2021-07-21] MEDS ORDERED: ACETAMINOPHEN 650MG/20.3ML UDC ONE (13:22)
[2021-07-21] MEDS ORDERED: AMIODARONE HCL 150 MG in DEXT 5% WATER 100 ML IV PRN (14:15)
[2021-07-21] MEDS: AMIODARONE HCL 200 MG TABLET GT SCH (18:15)
[2021-07-21] MEDS: PIPERACILLIN/TAZOBACTAM 3.375 G in DEXTROSE 5% WATER 50 ML IV SCH (20:04)
[2021-07-22] VITALS (16 sets, daily range): BP systolic 118–140; BP diastolic 55–77
[2021-07-22] MEDS: ACETAMINOPHEN 325MG TABLET PO PRN (00:44)
[2021-07-22] MEDS: DEXTROSE 5% WATER 1,000 ML IV SCH ×2 (00:45→14:15)
[2021-07-22] MEDS: LINEZOLID 600 MG PREMIX 300 ML IV SCH ×2 (05:38→17:16)
[2021-07-22] MEDS: MEROPENEM 1,000 MG in SODIUM CHLORIDE 0.9% 100 ML IV SCH ×3 (05:38→21:37)
[2021-07-22] MEDS: PIPERACILLIN/TAZOBACTAM 3.375 G in DEXTROSE 5% WATER 50 ML IV SCH ×3 (06:00→21:37)
[2021-07-22 07:42] LABS: HEMOGLOBIN. 7.7 g/dL (14.0-18.0); MEAN CORPUSCULAR HEMOGLOBIN 26.8 pg (28.0-32.0); MEAN CORPUSCULAR VOLUME 83.4 fL (80.0-94.0); MEAN PLATELET VOLUME 8.9 fl (7.4-10.4); PLATELET 456 x1000/uL (130-400); RED BLOOD CELL COUNT 2.87 mill/uL (4.7-6.1); RED CELL DISTRIBUTION WIDTH 18.5 % (11.6-14.6)
[2021-07-22 07:50] LABS: CHLORIDE 102 mEq/L (98-107)
[2021-07-22] MEDS: SUCRALFATE 1 G/10 ML UDC GT SCH ×4 (08:53→21:36)
[2021-07-22] MEDS: PANTOPRAZOLE SODIUM 40 MG/VIAL IV SCH ×2 (08:54→21:36)
[2021-07-22] MEDS: AMIODARONE HCL 200 MG TABLET GT SCH ×2 (08:55→17:15)
[2021-07-22] MEDS: POTASSIUM CHLORIDE 10MEQ TABLET SR PO SCH (08:55)
[2021-07-22 14:48] LABS: ATYPICAL LYMPHOCYTES 1
[2021-07-22 14:49] LABS: PLATELET ESTIMATE INCREASED
[2021-07-23] VITALS (18 sets, daily range): BP systolic 114–141; BP diastolic 56–72
[2021-07-23] MEDS: ACETAMINOPHEN 325MG TABLET PO PRN ×2 (00:45→20:30)
[2021-07-23] MEDS: DEXTROSE 5% WATER 1,000 ML IV SCH ×2 (00:46→17:05)
[2021-07-23] MEDS: MEROPENEM 1,000 MG in SODIUM CHLORIDE 0.9% 100 ML IV SCH ×3 (05:21→21:25)
[2021-07-23] MEDS: LINEZOLID 600 MG PREMIX 300 ML IV SCH ×2 (05:21→17:06)
[2021-07-23 06:24] LABS: CHLORIDE 101 mEq/L (98-107)
[2021-07-23 06:37] LABS: HEMATOCRIT. 22.9 % (42.0-52.0); HEMOGLOBIN. 7.6 g/dL (14.0-18.0); MEAN CORPUSCULAR HEMOGLOBIN 27.4 pg (28.0-32.0); MEAN CORPUSCULAR VOLUME 83.1 fL (80.0-94.0); MEAN PLATELET VOLUME 9.4 fl (7.4-10.4); PLATELET 416 x1000/uL (130-400); RED BLOOD CELL COUNT 2.76 mill/uL (4.7-6.1); RED CELL DISTRIBUTION WIDTH 18.3 % (11.6-14.6)
[2021-07-23] MEDS: PIPERACILLIN/TAZOBACTAM 3.375 G in DEXTROSE 5% WATER 50 ML IV SCH ×4 (06:51→21:25)
[2021-07-23] MEDS: POTASSIUM CHLORIDE 10MEQ TABLET SR PO SCH (07:51)
[2021-07-23] MEDS: SUCRALFATE 1 G/10 ML UDC GT SCH ×4 (08:00→20:29)
[2021-07-23] MEDS: AMIODARONE HCL 200 MG TABLET GT SCH ×2 (08:00→17:06)
[2021-07-23] MEDS: PANTOPRAZOLE SODIUM 40 MG/VIAL IV SCH ×2 (08:00→20:29)
[2021-07-23] MEDS: ASCORBIC ACID 500 MG TABLET PO SCH (08:00)
[2021-07-23] MEDS: ZINC SULFATE 220 MG ( 50 ) CAPSULE PO SCH (08:01)
[2021-07-23] MEDS: IPRATROPIUM/ALBUTEROL 0.5-3(2.5)MG/3ML NEB NEB PRN ×3 (08:04→16:10)
[2021-07-23 21:31] LABS: PLATELET ESTIMATE INCREASED
[2021-07-24] VITALS (19 sets, daily range): BP systolic 118–171; BP diastolic 54–98
[2021-07-24] MEDS: ACETAMINOPHEN 325MG TABLET PO PRN ×2 (02:40→16:17)
[2021-07-24] MEDS: LINEZOLID 600 MG PREMIX 300 ML IV SCH ×2 (05:41→17:34)
[2021-07-24] MEDS: PIPERACILLIN/TAZOBACTAM 3.375 G in DEXTROSE 5% WATER 50 ML IV SCH ×3 (05:41→21:27)
[2021-07-24] MEDS: DEXTROSE 5% WATER 1,000 ML IV SCH ×2 (05:42→19:25)
[2021-07-24 07:16] LABS: HEMATOCRIT. 22.8 % (42.0-52.0); HEMOGLOBIN. 7.4 g/dL (14.0-18.0); MEAN CORPUSCULAR HEMOGLOBIN 26.9 pg (28.0-32.0); MEAN CORPUSCULAR VOLUME 82.8 fL (80.0-94.0); MEAN PLATELET VOLUME 9.2 fl (7.4-10.4); PLATELET 436 x1000/uL (130-400); RED BLOOD CELL COUNT 2.75 mill/uL (4.7-6.1); RED CELL DISTRIBUTION WIDTH 18.2 % (11.6-14.6)
[2021-07-24] MEDS: POTASSIUM CHLORIDE 10MEQ TABLET SR PO SCH (08:02)
[2021-07-24] MEDS: SUCRALFATE 1 G/10 ML UDC GT SCH ×4 (08:38→21:27)
[2021-07-24] MEDS: AMIODARONE HCL 200 MG TABLET GT SCH (08:38)
[2021-07-24] MEDS: ZINC SULFATE 220 MG ( 50 ) CAPSULE PO SCH (08:38)
[2021-07-24] MEDS: ASCORBIC ACID 500 MG TABLET PO SCH (08:38)
[2021-07-24] MEDS: PANTOPRAZOLE SODIUM 40 MG/VIAL IV SCH ×2 (08:39→21:27)
[2021-07-24 13:30] LABS: PLATELET ESTIMATE INCREASED
[2021-07-25] VITALS (12 sets, daily range): BP systolic 111–147; BP diastolic 51–81
[2021-07-25] MEDS: PIPERACILLIN/TAZOBACTAM 3.375 G in DEXTROSE 5% WATER 50 ML IV SCH ×3 (05:38→21:07)
[2021-07-25 06:54] LABS: HEMATOCRIT. 24.8 % (42.0-52.0); MEAN CORPUSCULAR HEMOGLOBIN 26.5 pg (28.0-32.0); MEAN CORPUSCULAR VOLUME 82.3 fL (80.0-94.0); MEAN PLATELET VOLUME 8.8 fl (7.4-10.4); PLATELET 554 x1000/uL (130-400); RED BLOOD CELL COUNT 3.01 mill/uL (4.7-6.1)
[2021-07-25] MEDS: SUCRALFATE 1 G/10 ML UDC GT SCH ×4 (08:31→21:07)
[2021-07-25] MEDS: AMIODARONE HCL 200 MG TABLET GT SCH ×2 (08:35→16:39)
[2021-07-25] MEDS: ASCORBIC ACID 500 MG TABLET PO SCH (08:35)
[2021-07-25] MEDS: ZINC SULFATE 220 MG ( 50 ) CAPSULE PO SCH (08:35)
[2021-07-25] MEDS: PANTOPRAZOLE SODIUM 40 MG/VIAL IV SCH ×2 (08:37→21:07)
[2021-07-25] MEDS: DEXTROSE 5% WATER 1,000 ML IV SCH ×2 (08:38→22:10)
[2021-07-25] MEDS: POTASSIUM CHLORIDE 10MEQ TABLET SR PO SCH (09:00)
[2021-07-25] MEDS: ACETAMINOPHEN 325MG TABLET PO PRN (13:11)
[2021-07-25 14:07] LABS: PLATELET ESTIMATE INCREASED
[2021-07-26] VITALS (12 sets, daily range): BP systolic 124–147; BP diastolic 55–79
[2021-07-26] MEDS: PIPERACILLIN/TAZOBACTAM 3.375 G in DEXTROSE 5% WATER 50 ML IV SCH ×3 (05:41→21:21)
[2021-07-26 06:56] LABS: BASOPHILS % 0.4 % (0.0-2.0); EOSINOPHILS % 0.7 % (0.0-5.0); HEMATOCRIT. 24.3 % (42.0-52.0); HEMOGLOBIN. 7.9 g/dL (14.0-18.0); LYMPHOCYTES % 8.4 % (20.0-50.0); MEAN CORPUSCULAR HEMOGLOBIN 26.6 pg (28.0-32.0); MEAN CORPUSCULAR VOLUME 81.9 fL (80.0-94.0); MEAN PLATELET VOLUME 8.6 fl (7.4-10.4); MONOCYTES % 8.3 % (2.0-8.0); NEUTROPHILS % 82.2 % (40.0-76.0); PLATELET 595 x1000/uL (130-400); RED BLOOD CELL COUNT 2.97 mill/uL (4.7-6.1); RED CELL DISTRIBUTION WIDTH 17.7 % (11.6-14.6)
[2021-07-26] MEDS: ZINC SULFATE 220 MG ( 50 ) CAPSULE PO SCH (09:59)
[2021-07-26] MEDS: PANTOPRAZOLE SODIUM 40 MG/VIAL IV SCH ×2 (09:59→21:21)
[2021-07-26] MEDS: ASCORBIC ACID 500 MG TABLET PO SCH (09:59)
[2021-07-26] MEDS: SUCRALFATE 1 G/10 ML UDC GT SCH ×4 (09:59→21:21)
[2021-07-26] MEDS: AMIODARONE HCL 200 MG TABLET GT SCH ×2 (09:59→18:36)
[2021-07-26] MEDS: DEXTROSE 5% WATER 1,000 ML IV SCH (13:41)
[2021-07-27] VITALS (16 sets, daily range): BP systolic 108–146; BP diastolic 53–80
[2021-07-27] MEDS: PIPERACILLIN/TAZOBACTAM 3.375 G in DEXTROSE 5% WATER 50 ML IV SCH ×3 (05:50→22:09)
[2021-07-27 06:02] LABS: MEAN CORPUSCULAR HEMOGLOBIN 27.1 pg (28.0-32.0); MEAN CORPUSCULAR VOLUME 81.7 fL (80.0-94.0); MEAN PLATELET VOLUME 8.6 fl (7.4-10.4); PLATELET 517 x1000/uL (130-400); RED BLOOD CELL COUNT 2.47 mill/uL (4.7-6.1); RED CELL DISTRIBUTION WIDTH 17.5 % (11.6-14.6)
[2021-07-27 06:40] LABS: HEMATOCRIT. 20.2 % (42.0-52.0); HEMOGLOBIN. 6.7 g/dL (14.0-18.0)
[2021-07-27] MEDS: ACETAMINOPHEN 325MG TABLET PO PRN (07:59)
[2021-07-27] MEDS: SUCRALFATE 1 G/10 ML UDC GT SCH ×4 (07:59→20:05)
[2021-07-27 08:28] LABS: PLATELET ESTIMATE INCREASED
[2021-07-27] MEDS: PANTOPRAZOLE SODIUM 40 MG/VIAL IV SCH ×2 (09:41→20:05)
[2021-07-27] MEDS: ZINC SULFATE 220 MG ( 50 ) CAPSULE PO SCH (09:41)
[2021-07-27] MEDS: ASCORBIC ACID 500 MG TABLET PO SCH (09:41)
[2021-07-27] MEDS: AMIODARONE HCL 200 MG TABLET GT SCH ×2 (09:42→17:14)
[2021-07-27] MEDS: ACETAMINOPHEN 650MG/20.3ML UDC PO PRN (12:07)
[2021-07-27] MEDS: DEXTROSE 5% WATER 1,000 ML IV SCH (20:25)
[2021-07-28] VITALS (11 sets, daily range): BP systolic 108–137; BP diastolic 55–71
[2021-07-28] MEDS: DEXTROSE 5% WATER 1,000 ML IV SCH ×2 (03:35→16:52)
[2021-07-28] MEDS: PIPERACILLIN/TAZOBACTAM 3.375 G in DEXTROSE 5% WATER 50 ML IV SCH ×3 (05:10→23:01)
[2021-07-28 07:09] LABS: CHLORIDE 98 mEq/L (98-107)
[2021-07-28] MEDS: IPRATROPIUM/ALBUTEROL 0.5-3(2.5)MG/3ML NEB NEB PRN ×2 (08:22→12:14)
[2021-07-28] MEDS: SUCRALFATE 1 G/10 ML UDC GT SCH ×4 (08:31→20:35)
[2021-07-28] MEDS: ZINC SULFATE 220 MG ( 50 ) CAPSULE PO SCH (08:32)
[2021-07-28] MEDS: AMIODARONE HCL 200 MG TABLET GT SCH ×2 (08:32→17:00)
[2021-07-28] MEDS: ASCORBIC ACID 500 MG TABLET PO SCH (08:32)
[2021-07-28] MEDS: PANTOPRAZOLE SODIUM 40 MG/VIAL IV SCH ×2 (08:32→20:35)
[2021-07-28] MEDS: ACETAMINOPHEN 325MG TABLET PO PRN (08:57)
[2021-07-28 20:15] LABS: HEMATOCRIT. 23.9 % (42.0-52.0); HEMOGLOBIN. 7.9 g/dL (14.0-18.0); MEAN CORPUSCULAR VOLUME 81.6 fL (80.0-94.0); PLATELET 515 x1000/uL (130-400); RED BLOOD CELL COUNT 2.92 mill/uL (4.7-6.1); RED CELL DISTRIBUTION WIDTH 17.2 % (11.6-14.6)
[2021-07-28] MEDS: ACETAMINOPHEN 650MG/20.3ML UDC PO PRN (20:35)
[2021-07-28 20:51] LABS: PLATELET ESTIMATE INCREASED
[2021-07-29] VITALS (12 sets, daily range): BP systolic 107–141; BP diastolic 56–80
[2021-07-29] MEDS: PIPERACILLIN/TAZOBACTAM 3.375 G in DEXTROSE 5% WATER 50 ML IV SCH ×3 (05:12→20:56)
[2021-07-29] MEDS: DEXTROSE 5% WATER 1,000 ML IV SCH (05:13)
[2021-07-29 08:01] LABS: CHLORIDE 99 mEq/L (98-107)
[2021-07-29] MEDS: PANTOPRAZOLE SODIUM 40 MG/VIAL IV SCH ×2 (08:31→20:48)
[2021-07-29] MEDS: SUCRALFATE 1 G/10 ML UDC GT SCH ×4 (08:31→20:48)
[2021-07-29] MEDS: AMIODARONE HCL 200 MG TABLET GT SCH ×2 (08:32→18:42)
[2021-07-29] MEDS: ASCORBIC ACID 500 MG TABLET PO SCH (08:32)
[2021-07-29] MEDS: ZINC SULFATE 220 MG ( 50 ) CAPSULE PO SCH (08:32)
[2021-07-29] MEDS ORDERED: POTASSIUM CHLORIDE 20MEQ TABLET SR PO NR (11:15)
[2021-07-29] MEDS: IPRATROPIUM/ALBUTEROL 0.5-3(2.5)MG/3ML NEB NEB PRN (12:51)
[2021-07-29] MEDS: ACETAMINOPHEN 325MG TABLET PO PRN (14:39)
[2021-07-29 19:42] LABS: HEMATOCRIT. 22.8 % (42.0-52.0); HEMOGLOBIN. 7.5 g/dL (14.0-18.0); MEAN CORPUSCULAR VOLUME 82.1 fL (80.0-94.0); MEAN PLATELET VOLUME 7.8 fl (7.4-10.4); PLATELET 522 x1000/uL (130-400); RED BLOOD CELL COUNT 2.77 mill/uL (4.7-6.1); RED CELL DISTRIBUTION WIDTH 17.3 % (11.6-14.6)
[2021-07-29 20:15] LABS: PLATELET ESTIMATE INCREASED
[2021-07-30] VITALS (15 sets, daily range): BP systolic 91–138; BP diastolic 42–81
[2021-07-30] MEDS: PIPERACILLIN/TAZOBACTAM 3.375 G in DEXTROSE 5% WATER 50 ML IV SCH ×3 (05:04→22:20)
[2021-07-30] MEDS: SUCRALFATE 1 G/10 ML UDC GT SCH ×4 (07:30→21:00)
[2021-07-30] MEDS: IPRATROPIUM/ALBUTEROL 0.5-3(2.5)MG/3ML NEB NEB PRN (08:11)
[2021-07-30 08:12] LABS: CHLORIDE 97 mEq/L (98-107)
[2021-07-30] MEDS: ASCORBIC ACID 500 MG TABLET PO SCH (09:00)
[2021-07-30] MEDS: AMIODARONE HCL 200 MG TABLET GT SCH ×2 (09:00→17:00)
[2021-07-30] MEDS: ZINC SULFATE 220 MG ( 50 ) CAPSULE PO SCH (09:00)
[2021-07-30 09:46] LABS: BASOPHILS % 0.6 % (0.0-2.0); EOSINOPHILS % 0.9 % (0.0-5.0); LYMPHOCYTES % 7.4 % (20.0-50.0); MEAN CORPUSCULAR HEMOGLOBIN 27.1 pg (28.0-32.0); MEAN CORPUSCULAR VOLUME 81.4 fL (80.0-94.0); MEAN PLATELET VOLUME 8.2 fl (7.4-10.4); MONOCYTES % 8.3 % (2.0-8.0); NEUTROPHILS % 82.8 % (40.0-76.0); PLATELET 487 x1000/uL (130-400); RED BLOOD CELL COUNT 2.58 mill/uL (4.7-6.1); RED CELL DISTRIBUTION WIDTH 17.1 % (11.6-14.6)
[2021-07-30] MEDS: PANTOPRAZOLE SODIUM 40 MG/VIAL IV SCH ×2 (10:28→21:31)
[2021-07-30] MEDS: DEXTROSE 5% WATER 1,000 ML IV SCH ×2 (10:29→22:20)
[2021-07-30] MEDS: ACETAMINOPHEN 650MG/20.3ML UDC PO PRN (14:03)
[2021-07-30] MEDS ORDERED: LIDOCAINE HCL 1% 20ML VIAL (Pyxis) INJ ONE (17:26)
[2021-07-30] MEDS ORDERED: BUPIVACAINE HCL/PF 0.5% (5MG/ML) 10ML ONE (17:26)
[2021-07-30] MEDS ORDERED: POLYMYXIN B SULFATE 500000 UNITS/VIAL ONE (17:27)
[2021-07-30] MEDS ORDERED: MIDAZOLAM HCL 2 MG/2 ML VIAL ONE (18:39)
[2021-07-30] MEDS ORDERED: MEPERIDINE HCL/PF 25MG/ML CPJ IV PRN (19:00)
[2021-07-30] MEDS ORDERED: LABETALOL 5MG/ML SYR 20 MG/4 ML SYRINGE IV PRN (19:00)
[2021-07-30] MEDS ORDERED: ONDANSETRON HCL 4MG/2ML INJ IV PRN (19:00)
[2021-07-30] MEDS ORDERED: HYDROMORPHONE HCL/PF 2MG/ML CPJ IV PRN (19:00)
[2021-07-31] VITALS (12 sets, daily range): BP systolic 115–145; BP diastolic 51–80
[2021-07-31 00:38] LABS: HEMATOCRIT 27.5 % (42.0-52.0)
[2021-07-31] MEDS: PIPERACILLIN/TAZOBACTAM 3.375 G in DEXTROSE 5% WATER 50 ML IV SCH ×2 (06:20→14:00)
[2021-07-31] MEDS: PANTOPRAZOLE SODIUM 40 MG/VIAL IV SCH (08:41)
[2021-07-31] MEDS: SUCRALFATE 1 G/10 ML UDC GT SCH ×2 (08:41→12:30)
[2021-07-31] MEDS: AMIODARONE HCL 200 MG TABLET GT SCH (08:41)
[2021-07-31] MEDS: ZINC SULFATE 220 MG ( 50 ) CAPSULE PO SCH (08:41)
[2021-07-31] MEDS: ASCORBIC ACID 500 MG TABLET PO SCH (08:41)
[2021-07-31 09:28] LABS: MEAN CORPUSCULAR HEMOGLOBIN 28.5 pg (28.0-32.0); MEAN CORPUSCULAR VOLUME 82.5 fL (80.0-94.0); MEAN PLATELET VOLUME 8.2 fl (7.4-10.4); PLATELET 497 x1000/uL (130-400); RED BLOOD CELL COUNT 3.16 mill/uL (4.7-6.1); RED CELL DISTRIBUTION WIDTH 16.2 % (11.6-14.6)
[2021-07-31 09:30] LABS: CHLORIDE 99 mEq/L (98-107)
[2021-07-31] MEDS: DEXTROSE 5% WATER 1,000 ML IV SCH (11:25)
[2021-07-31 14:47] LABS: PLATELET ESTIMATE INCREASED
[2021-07-31] MEDS ORDERED: MORPHINE SULFATE 250 MG in DEXT 5% WATER 240 ML IV PRN ×2 (15:30→16:30)
[2021-07-31] MEDS: MORPHINE SULFATE 250 MG in DEXT 5% WATER 225 ML IV PRN (17:27)
[2021-08-01] VITALS (12 sets, daily range): BP systolic 64–130; BP diastolic 29–69
[2021-08-01] MEDS: MORPHINE SULFATE 250 MG in DEXT 5% WATER 225 ML IV PRN ×2 (10:46→21:04)
[2021-08-01] MEDS ORDERED: NALOXONE HCL 0.4 MG/ML 1ML VIAL IV PRN (22:30)
[2021-08-02] VITALS: BP 61/28
[2021-08-02 04:00] VITALS: BP 148/86
[2021-08-02] MEDS: MORPHINE SULFATE 250 MG in DEXT 5% WATER 225 ML IV PRN ×2 (06:03→15:23)
[2021-08-02 08:00] VITALS: BP 71/31
[2021-08-02 12:00] VITALS: BP 66/29
[2021-08-02 16:00] VITALS: BP 64/29
[2021-08-02 20:00] VITALS: BP 59/24
[2021-08-03] VITALS: BP 56/23
[2021-08-03] MEDS: MORPHINE SULFATE 250 MG in DEXT 5% WATER 225 ML IV PRN (01:19)
[2021-08-03 04:00] VITALS: BP 51/22
== END 2021-08-03 07:37 | DRG 853 ==
LOC: ER 01:57 → MICUSO 05:43 → 5EST 20:58 → 6EST 08-01 22:00
PROVIDERS: ADMIT Internal Medicine; ATTEND Internal Medicine
PROC: 5A1955Z Respiratory Ventilation, Greater than 96 Consecutive Hours (ICD-10-PCS; 2021-07-15)
PROC: 30233N1 Transfusion of Nonautologous Red Blood Cells into Peripheral Vein, Percutaneous Approach (ICD-10-PCS; principal; 2021-07-16)
PROC: 02HV33Z Insertion of Infusion Device into Superior Vena Cava, Percutaneous Approach (ICD-10-PCS; 2021-07-16)
PROC: B548ZZA Ultrasonography of Superior Vena Cava, Guidance (ICD-10-PCS; 2021-07-16)
PROC: 0DB78ZX Excision of Stomach, Pylorus, Via Natural or Artificial Opening Endoscopic, Diagnostic (ICD-10-PCS; 2021-07-19)
PROC: 0QB10ZZ Excision of Sacrum, Open Approach (ICD-10-PCS; 2021-07-30)
DX: A41.52 Sepsis due to Pseudomonas (principal); L89.154 Pressure ulcer of sacral region, stage 4; G93.41 Metabolic encephalopathy; J96.21 Acute and chronic respiratory failure with hypoxia; J15.1 Pneumonia due to Pseudomonas; K29.51 Unspecified chronic gastritis with bleeding; K25.4 Chronic or unspecified gastric ulcer with hemorrhage; J44.0 Chronic obstructive pulmonary disease with (acute) lower respiratory infection; Z99.11 Dependence on respirator [ventilator] status; I96 Gangrene, not elsewhere classified; E46 Unspecified protein-calorie malnutrition; I50.32 Chronic diastolic (congestive) heart failure; L97.929 Non-pressure chronic ulcer of unspecified part of left lower leg with unspecified severity; I25.10 Atherosclerotic heart disease of native coronary artery without angina pectoris; D50.9 Iron deficiency anemia, unspecified; E87.5 Hyperkalemia; R13.10 Dysphagia, unspecified; R53.81 Other malaise; K80.20 Calculus of gallbladder without cholecystitis without obstruction; F14.10 Cocaine abuse, uncomplicated; E88.09 Other disorders of plasma-protein metabolism, not elsewhere classified; I11.0 Hypertensive heart disease with heart failure; Z20.822 Contact with and (suspected) exposure to COVID-19; Z66 Do not resuscitate; Z93.0 Tracheostomy status; Z93.1 Gastrostomy status; Z79.899 Other long term (current) drug therapy; Z82.49 Family history of ischemic heart disease and other diseases of the circulatory system; Z87.891 Personal history of nicotine dependence; Z86.73 Personal history of transient ischemic attack (TIA), and cerebral infarction without residual deficits; Z79.51 Long term (current) use of inhaled steroids; Z79.02 Long term (current) use of antithrombotics/antiplatelets; Z68.23 Body mass index [BMI] 23.0-23.9, adult; Z87.01 Personal history of pneumonia (recurrent)
CPT/HCPCS: 36415; 36600; 71045; 76700; 76937; 80048; 80053; 80076; 80202; 81003; 82270; 82375; 82607; 82728; 82746; 82805; 82962; 83540; 83550; 83605; 83615; 83735; 83880; 84145; 84443; 84484; 85014; 85018; 85025; 85044; 86850; 86900; 86920; 87070; 87077; 87102; 87186; 87426; 87804; 88304; 88305; 88311; 88312; 88313; 90686; 93005; 93306; 93922; 93971; 94002; 94003; 94640; 94660; 99285; C1725; C9113; J0282; J1170; J1815; J1940; J2020; J2185; J2250; J2270; J2405; J2543; J2704; J3370; J3430; J3480; J3490; J7030; J7050; J7060; J7070; P9016; P9047; A4315